=== PATIENT | female | born 1990 | race Caucasian/White ===

== ENCOUNTER 2024-04-21 14:14 | Outpatient (CLI) | payer OTHER, SELFPAY ==
[2024-04-21 15:17] LABS: Free T4 Free Thyroxine 1.13 ng/mL (0.78-2.19)
[2024-04-21 15:31] LABS: Thyroid Stimulating Hormone 0.592 uIU/mL (0.465-4.680)
[2024-04-23 05:38] LABS: Triiodothyronine T3 Free 3.2 pg/mL (2.3-4.2)
== END 2024-04-21 14:15 | disposition home or self-care (01) ==
PROVIDERS: Obstetrics & Gynecology; PCP Student in an Organized Health Care Education/Training Program; Visit Provider Advanced Practice Midwife
DX: O36.80X9 Pregnancy with inconclusive fetal viability, other fetus (principal); Z3A.00 Weeks of gestation of pregnancy not specified
CPT/HCPCS: 36415; 84439; 84443; 84481; 84702; 85461; 86850; 86900; 86901

== ENCOUNTER 2024-04-22 22:52 | Day surgery (SDC) | payer OTHER, SELFPAY ==
--- NOTE | ~2024-04-22 | US_ITS ---
EXAMINATION: US OB <=14 wk fetus w TV DATE: 04/23/2024 07:14 INDICATION: Ectopic versus miscarriage TECHNIQUE: Real-time pelvic ultrasound utilizing both a transvaginal and transabdominal probe was pe rformed. The interpreting radiologist was not present for the study. COMPARISON: None. FINDINGS: The uterus measures 8.5 x 4.0 x 4.2 cm. There is a 2.8 x 1.4 x 1.6 cm complex cystic lesion at the l ower uterine segment which contains small collections of echogenic material the largest measuring up to 11 mm. No evident internal vascular flow on color Doppler. Patient refused further imaging at this point with the ovaries not visualized. There is no free fluid in the pelvis. IMPRESSION: 1. 2.8 cm complex cystic lesion within the endometrial complex at the lower uterine segment without a clearly defined yolk sac, single pole or internal vascular flow on color Doppler which raises concern for failed and in progress. Recommend continued follow-up with serial beta -hCG levels and repeat imaging as clinically indicated. Reviewed, dictated and finalized at location A. IMPRESSION: 1. 2.8 cm complex cystic lesion within the endometrial complex at the lower rodrick rine segment without a clearly defined yolk sac, single pole or internal vascular flow on color Doppler which raises concern for failed and ab ortion in progress. Recommend continued follow-up with serial beta-hCG levels a nd repeat imaging as clinically indicated.
[2024-04-22 22:57] VITALS: BP 125/89; PULSE 87; RESP 14; TEMP 36.7; O2SAT 97
[2024-04-22 23:20] VITALS: BP 120/82; PULSE 68; RESP 14; TEMP 36.8; O2SAT 99
[2024-04-22 23:22] VITALS: BP 120/82; O2SAT 98
--- NOTE | 2024-04-22 23:48 | ED.PREGNANCY ---
HPI - General Chief complaint: Vaginal Bleeding Stated complaint: vaginal bleeding Time Seen by Provider: 04/22/24 23:37 History of Present Illness HPI Narrative: 34-year-old female presenting to the emergency department for vaginal bleeding in ongoing 1st trimester . Patient states that she follows Dr. Carpenter from outpatient OBGYN. Had an ultrasound yesterday and blood work that showed a beta hCG of 2800 and an ultrasound that did not confirm a live IUP. She was instructed to follow-up in 48 hours for repeat beta hCG level. She states for last 2 days she has been having cramping lower abdominal pain coming in waves that got worse so she brought herself to the ER today for evaluation. This cramping pain is associated with blood clot passage and soaking through multiple pads with vaginal bleeding. She states she was previously being seen by Dr. Carpenter for fertility analysis but has not started any kind of therapy for IVF and this was a natural that was planned. Denies any systemic features such as headache, vision changes, nausea, vomiting, abdominal pain, weakness or chills, fever. Was otherwise in her normal state of health. This is her 1st . Related Data Allergies Allergy/AdvReac Type Severity Reaction Status Date / Time No Known Allergies Allergy Verified 04/22/24 22:53 Review of Systems Review of Systems: As reviewed above in HPI Exam Narrative: GENERAL: [Well-appearing, well-nourished, and in no acute distress.] HEAD: [Normocephalic, atraumatic.] EYES: [PERRLA and EOMI.] ENT: Nares clear, no rhinorrhea or epistaxis. Mucous membranes moist. NECK: Supple. CHEST: [Clear to auscultation. No respiratory distress.] HEART: [Regular rate and rhythm]. No murmur heard. [Normal peripheral pulses.] ABDOMEN: [Soft, nondistended], tenderness in the lower quadrants of the abdomen, no flank pain or CVA tenderness., [No rigidity or guarding] EXTREMITIES: Normal range of motion. [No edema.] SKIN: Warm, dry, no rash. NEURO: [No focal deficits]. Alert and oriented [x3.] PSYCH: [Normal mood and affect.] Course Vital Signs Vital signs: Vital Signs Temperature 36.7 C 04/22/24 22:57 Pulse Rate 87 04/22/24 22:57 Respiratory Rate 14 04/22/24 22:57 Blood Pressure 125/89 04/22/24 22:57 Pulse Oximetry 97 04/22/24 22:57 Oxygen Delivery Room Air 04/22/24 22:57 Temperature 36.7 C 04/23/24 05:00 Pulse Rate 81 04/23/24 05:00 Respiratory Rate 12 04/23/24 05:00 Blood Pressure 114/73 04/23/24 05:00 Pulse Oximetry 97 04/23/24 05:00 Oxygen Delivery Room Air 04/22/24 22:57 MDM - OB/Uterine Contractions MDM Narrative Medical decision making narrative: 34-year-old female with ongoing first-trimester current experience vaginal bleeding and cramping for last 2 days. She had an ultrasound yesterday that potentially showed no cardiac activity but ostensibly found in intrauterine but I do not have this data or imaging to refer to. Beta hCG level was 2800 yesterday. She has been passing nickel sized clots for last day or so associated with intermittent pelvic cramping. Vital signs are reassuring without any tachycardia, fever, hypoxia blood pressure concerns. She has some sporadic ongoing bleeding presently but is not soaking through the pads. He appears well not in acute distress, minimal tenderness on examination of the abdomen and pelvis. Differential diagnosis includes ongoing with vaginal bleeding, miscarriage, ectopic less likely. No concerns presently for infection or rupture. Labs ordered including a CBC, CMP, beta hCG level, PT, PTT, immunoglobulin for RhoGAM. An ultrasound of the abdomen pelvis was ordered with transvaginal exam. She was given fluid bolus, morphine and Zofran for symptomatic control. Laboratory studies show a very mild leukocytosis of 10.4, hemoglobin of 12.6. Electrolyte within normal limits, n
[2024-04-22 23:57] LABS: BEDSIDEPREGUCG Positive (Negative)
[2024-04-23] VITALS (13 sets, daily range): BP systolic 107–120; BP diastolic 70–79; PULSE 76–99; RESP 12–16; TEMP 36.4–36.8; O2SAT 96–100
[2024-04-23 00:02] LABS: Basophils Absolute Auto 0.1 K/mm3 (0.0-0.1); Basophils Percent Auto 0.7 % (0.2-1.2); Eosinophils Absolute Auto 0.4 K/mm3 (0-0.3); Eosinophils Percent Auto 4.2 % (0-4.4); Hematocrit 38.1 % (37.0-47.0); Hemoglobin 12.6 g/dL (12.0-15.0); Immature Granulocyte Absolute 0.04 K/mm3 (0.00-0.031); Immature Granulocyte Percent A 0.4 % (0-0.5); Lymphocytes Absolute Auto 2.91 K/mm3 (0.9-3.2); Lymphocytes Percent Auto 28.1 % (18.3-44.2); Mean Corpuscular HGB Conc 33.1 g/dl (32-36); Mean Corpuscular Hemoglobin 30.2 pg (26-34); Mean Corpuscular Volume 91.4 fl (80-100); Mean Platelet Volume 10.2 fl (7.4-10.4); Monocytes Absolute Auto 0.9 K/mm3 (0.1-0.6); Monocytes Percent Auto 8.3 % (2.6-8.5); Neutrophils Percent Auto 58.3 % (45.5-73.1); Platelet Count Result 331 k/mm3 (150-375); Red Blood Count 4.17 M/mm3 (4.2-5.4); Red Cell Distribution Width 12.8 % (11.5-14.5); White Blood Count 10.4 K/mm3 (4.5-10.0)
[2024-04-23] MEDS: MORPHINE SULFATE (*CRX) 4 MG/ML INJ IV PUSH (00:08)
[2024-04-23] MEDS: ONDANSETRON INJ 4 MG/2 ML VIAL IV PUSH (00:08)
[2024-04-23] MEDS: LACTATED RINGERS 1,000 ML 999 ML IV CONT (00:08)
[2024-04-23 00:13] LABS: Alanine Aminotransferase 19 U/L (6-35); Albumin Level 4.5 g/dL (3.5-5.1); Alkaline Phosphatase 64 U/L (38-126); Anion Gap 10 mmol/L (4-12); Aspartate Amino Transferase 29 U/L (14-36); Bilirubin,Total 0.4 mg/dL (0.2-1.3); Blood Urea Nitrogen 14 mg/dL (7-17); Calcium 9.2 mg/dL (8.4-10.2); Carbon Dioxide 26 mmol/L (22-30); Chloride 103 mmol/L (98-107); Estimated Glomerular Filt Rate > 60; Glucose 100 mg/dL (65-110); Potassium 4.4 mmol/L (3.4-5.0); Sodium 139 mmol/L (137-145)
[2024-04-23 00:22] LABS: INR 0.9
[2024-04-23 00:23] LABS: Partial Thromboplastin Time 26.6 Seconds (22.3-36.8)
[2024-04-23] MEDS: KETOROLAC 15 MG/ML VIAL (*BKC) (03:41)
[2024-04-23] MEDS: HYDROmorphone HCL INJ (*CRX) 1 MG/ML SYR (04:15)
--- NOTE | 2024-04-23 08:38 | PM.IMHP ---
H&P: HPI History of Present Illness Date/Time: 04/23/24 08:38 Chief Complaint: Vaginal bleeding Narrative: this patient is a 34-year-old female at approximately 6 weeks gestation who presented the emergency department with heavy vaginal bleeding. She is declining HCGs. She has a incomplete miscarriage. We have agreed to perform suction D&C for the heavy bleeding and to complete the miscarriage. The patient understands the details of the procedure. The procedure has been explained in detail. She understands the risks. She understands that injuries may occur that result in hospitalization, more surgery, and severe illness. She understands risk of hemorrhage and infection. She denies any chest pain or shortness of breath. She denies any nausea, vomiting, fever, chills. Review of Systems Review of Systems: All systems reviewed & are unremarkable except as noted in HPI and below Constitutional: Constitutional: Denies chills, Denies fatigue, Denies fever(s) and Denies weakness Eyes: Eyes: Denies blurry vision, Denies change in vision, Denies loss of peripheral vision, Denies loss of vision, Denies other visual disturbances and Denies eye pain ENT: Denies vertigo, Denies dizziness, Denies hearing loss, Denies mouth pain, Denies nasal obstruction, Denies neck mass and Denies neck pain Cardiovascular: Cardiovascular: Denies chest pain, Denies diaphoresis, Denies syncope, Denies leg edema and Denies dyspnea Respiratory: Respiratory: Denies chest congestion, Denies cough, Denies hemoptysis, Denies dyspnea and Denies wheezing Gastrointestinal: Gastrointestinal: Denies abdominal pain, Denies constipation, Denies diarrhea, Denies nausea and Denies vomiting Genitourinary: Genitourinary: Denies hematuria, Denies change in libido, Denies nocturia, Denies genital lesions, Denies flank pain and Denies urinary urgency Musculoskeletal: Musculoskeletal: Denies abnormal gait, Denies back pain, Denies myalgias, Denies arthralgias, Denies joint swelling, Denies muscle weakness and Denies neck pain Integumentary/Breasts: Skin/Breast: Denies swelling, Denies breast pain, Denies breast mass, Denies dry skin, Denies nipple discharge, Denies unusual bruising and Denies jaundice Neurologic: Denies Neuro-related abnormal movements, Denies Abnormal speech present, Denies abnormal gait, Denies behavioral changes, Denies confusion, Denies vertigo, Denies dizziness, Denies syncope, Denies loss of vision, Denies memory loss, Denies convulsions and Denies weakness Psychiatric: Psychiatric: Denies abnormal sleep pattern, Denies behavioral changes, Denies change in libido, Denies confusion, Denies depression, Denies anhedonia and Denies memory loss Endocrine: Endocrine: Reports no additional endocrine complaints, Denies change in libido and Denies fatigue Hematologic/Lymphatic: Hematologic/Lymphatic: Reports no additional hematologic/lymphatic complaints Allergic/Immunologic: Allergic/Immunologic: Reports no additional allergic/immunologic complaints and Denies wheezing Meds Home Medications and Allergies Allergies Allergy/AdvReac Type Severity Reaction Status Date / Time No Known Allergies Allergy Verified 04/22/24 22:53 Vital Signs Vital Signs - 24 hr 04/22/24 22:57 04/22/24 23:20 04/23/24 00:12 Temperature 98.1 F 98.2 F Pulse Rate 87 68 82 Respiratory Rate 14 14 16 Blood Pressure 125/89 120/82 118/79 Pulse Oximetry 97 99 100 Oxygen Delivery Room Air 04/22/24 23:22 04/23/24 00:20 04/23/24 00:30 Temperature Pulse Rate Respiratory Rate Blood Pressure 120/82 Pulse Oximetry 98 99 100 Oxygen Delivery 04/23/24 00:45 04/23/24 03:00 04/23/24 05:00 Temperature 97.6 F 98.1 F Pulse Rate 76 81 Respiratory Rate 16 12 Blood Pressure 120/78 114/73 Pulse Oximetry 100 97 97 Oxygen Delivery 04/23/24 06:50 04/23/24 08:36 Temperature 97.6 F Pulse Rate 85 89 Respiratory Rate 16 16 Blood Pressure 120/76 110/
--- NOTE | 2024-04-23 08:40 | WPDHPUPDATE1 ---
History and Physical Update Update Date/Time: 04/23/24 08:40 History and Physical has been reviewed, including an updated exam of the patient. There are NO changes in the patient's condition. Risks, benefits, and alternatives have been discussed and questions answered. Patient agrees to proceed with procedure.
[2024-04-23] MEDS: LACTATED RINGERS 1,000 ML 30 ML IV CONT (08:50)
--- NOTE | 2024-04-23 09:00 | WPDANESEPPF ---
Anes - Initial Pre Proc Eval Procedure: Operation Date: 04/23/24 09:00 Proposed Procedures p Suction Dilatation and Curettage - Henry Carpenter MD Date/Time: 04/23/24 09:00 Surgeon: Henry Carpenter MD Pre Op Diagnosis: vaginal bleeding Patient Data Age: 34 Gender: F Height: 1.63 m Weight: 77.3 kg Last Vital Signs Temp 97.6 F 04/23/24 06:50 Pulse 89 04/23/24 08:36 Resp 16 04/23/24 08:36 BP 110/70 04/23/24 08:36 Pulse Ox 98 04/23/24 08:36 O2 Del Method Room Air 04/22/24 22:57 Allergies Allergy/AdvReac Type Severity Reaction Status Date / Time No Known Allergies Allergy Verified 04/22/24 22:53 Laboratory Tests 04/22/24 04/22/24 04/22/24 23:54 23:55 23:56 WBC 10.4 H K/mm3 (4.5-10.0) RBC 4.17 L M/mm3 (4.2-5.4) Hgb 12.6 g/dL (12.0-15.0) Hct 38.1 % (37.0-47.0) MCV 91.4 fl (80-100) MCH 30.2 pg (26-34) MCHC 33.1 g/dl (32-36) RDW 12.8 % (11.5-14.5) Plt Count 331 k/mm3 (150-375) MPV 10.2 fl (7.4-10.4) Immature Gran % (Auto) 0.4 % (0-0.5) Neut % (Auto) 58.3 % (45.5-73.1) Lymph % (Auto) 28.1 % (18.3-44.2) [place] % (Auto) 8.3 % (2.6-8.5) Eos % (Auto) 4.2 % (0-4.4) Baso % (Auto) 0.7 % (0.2-1.2) Lymph # (Auto) 2.91 K/mm3 (0.9-3.2) [place] # (Auto) 0.9 H K/mm3 (0.1-0.6) Eos # (Auto) 0.4 H K/mm3 (0-0.3) Baso # (Auto) 0.1 K/mm3 (0.0-0.1) Abs Immat Gran (auto) 0.04 H K/mm3 (0.00-0.031) Absolute Neuts (auto) 6.0 K/mm3 (1.3-6.7) Absolute Nucleated RBC 0.000 K/mm3 (0.0-0.012) Nucleated RBC % 0.0 % (0.0-0.2) PT 13.0 Seconds (11.1-14.7) INR 0.9 APTT 26.6 Seconds (22.3-36.8) Sodium 139 mmol/L (137-145) Potassium 4.4 mmol/L (3.4-5.0) Chloride 103 mmol/L (98-107) Carbon Dioxide 26 mmol/L (22-30) Anion Gap 10 mmol/L (4-12) BUN 14 mg/dL (7-17) Creatinine 0.60 L mg/dL (0.7-1.0) Estim Creat Clear Calc Not Reportable Estimated GFR > 60 (59 - ) Glucose 100 mg/dL (65-110) Calcium 9.2 mg/dL (8.4-10.2) Total Bilirubin 0.4 mg/dL (0.2-1.3) AST 29 U/L (14-36) ALT 19 U/L (6-35) Alkaline Phosphatase 64 U/L (38-126) Total Protein 8.0 g/dL (6.3-8.2) Albumin 4.5 g/dL (3.5-5.1) Beta HCG, Quant 2028.10 mIU/ML POC Urine HCG, Qual Positive (Negative) Blood Type O Positive Antibody Screen Negative Screen Not Reportable Baby's Blood Type Not Reportable Baby's NICOLE Not Reportable Doses of RhIg Required 0 Patient hx anesthesia problems: none Family hx anesthesia problems: none Results Review: All pre-operative results and documents have been reviewed as part of the pre-operative evaluation. Anes - Eval Final PreProcedure Day of Procedure 04/23/24 09:00 Patient weight: normal Heart: regular rate and rhythm Lungs: clear to auscultation Airway: Mallampati scale class II Neurological: alert and oriented Last oral intake: >/= 8 hours ASA classification: II Emergent: yes Anesthetic plan: proceed Anesthesia type and monitoring: general LMA and standard monitoring Results Review: All pre-operative results and documents have been reviewed as part of the pre-operative evaluation. Ex smoker, quit 2019. 6 weeks w missed ab. Otherwise in good health. Informed Consent: The patient's anesthetic plan and its attendant risks and benefits were discussed with the patient/family/POA. Questions were solicited and answers provided to the satisfaction of the patient/family/POA.
[2024-04-23] MEDS: TRANEXAMIC ACID 1,000 MG/10 ML AMPUL 1000 MG IV PUSH (09:24)
[2024-04-23] MEDS: miSOPROStol 200 MCG TABLET 1000 MCG RECTAL (09:30)
--- NOTE | 2024-04-23 09:35 | P.OP_ITS ---
Procedure Note - Detailed Date of Procedure 04/23/24 Pre-op Diagnosis vaginal bleeding Post-op Diagnosis Same Procedure Performed Suction D&C Surgeon Henry Carpenter MD Anesthesia MAC Indications missed Findings normal-appearing vulva vagina and cervix to. Moderate amount of products conception within the uterus. 8 cm uterus Description of Procedure the patient was taken the operating room. She was prepped and draped in dorsal lithotomy position after induction of mac anesthesia. A speculum was placed in the vagina. Cervix grasped with tenaculum. The cervix was dilated to about 1 cm Using Avina dilators. A 8. Turkish curved curette was used to perform suction D&C. The curette was introduced and vacuum was applied. The curette was removed over all surfaces of the intrauterine cavity multiple times. This was done until all the surfaces were clear and had the familiar grainy texture they can be felt through the instrument. A sharp curette was then used to curettage all the surfaces. The suction cup was then reapplied 1 more time to remove any debris. The instruments were removed. The speculum and tenaculum were removed. The patient tolerated the procedure well. She was taken recovery room stable condition. Losing, very late, at the end of the procedure. She was given Cytotec and TXA. Estimated Blood Loss 50 Drains No Packing No Pathology Yes Complications No immediate complications Condition Stable Disposition PACU
[2024-04-23] MEDS: oxyCODONE HCL (*CRX) 5 MG TAB IR PO (10:37)
== END 2024-04-23 11:05 | disposition home or self-care (01) ==
LOC: ANHED 04-23 08:26 → ANHSURGERY 04-23 08:36
PROVIDERS: Emergency Provider Student in an Organized Health Care Education/Training Program; PCP Student in an Organized Health Care Education/Training Program; Visit Provider Obstetrics & Gynecology
PROC: (CPT 59812; principal; 2024-04-23 09:00)
DX: O03.9 Complete or unspecified spontaneous abortion without complication (principal)
CPT/HCPCS: 59812; 36415; 76801; 76817; 80053; 81025; 84702; 85025; 85461; 85610; 85730; 86850; 86900; 86901; 88305; 96361; 96374; 96375; 99285; A9270; J1100; J1170; J1885; J2250; J2270; J2405; J2704; J3010; J7120

== ENCOUNTER 2024-07-16 11:58 | Outpatient (CLI) | payer OTHER, SELFPAY ==
--- NOTE | ~2024-07-16 | US_ITS ---
Thyroid ultrasound. Clinical History: Abnormal TSH Findings: Real-time sonography of the thyroid gland was performed. The right lobe measures 5.7 x 1.5 x 1.9 cm. The left lobe measures 5.7 x 1.3 x 2.0 cm. The isthmus is 3 mm in AP diameter. Thyroid par enchyma is homogeneous. No thyroid nodule seen. Impression: No thyroid nodule. Correlate with thyroid function tests. Consider nuclear medicine thyroid uptake sc an as indicated.. Reviewed, dictated and finalized at location . [facility] Impression: No thyroid nodule. Correlate with thyroid function tests. Consider nuclear medi cine thyroid uptake scan as indicated..
== END 2024-07-16 11:59 | disposition home or self-care (01) ==
LOC: MICIMG 12:01
PROVIDERS: PCP Student in an Organized Health Care Education/Training Program
DX: R79.89 Other specified abnormal findings of blood chemistry (principal)
CPT/HCPCS: 76536

== ENCOUNTER 2024-09-07 08:23 | Outpatient (CLI) | payer OTHER, SELFPAY ==
[2024-09-07 08:53] LABS: Basophils Absolute Auto 0.1 K/mm3 (0.0-0.1); Basophils Percent Auto 0.8 % (0.2-1.2); Eosinophils Absolute Auto 0.1 K/mm3 (0-0.3); Eosinophils Percent Auto 2.2 % (0-4.4); Hematocrit 39.6 % (37.0-47.0); Immature Granulocyte Absolute 0.02 K/mm3 (0.00-0.031); Immature Granulocyte Percent A 0.3 % (0-0.5); Lymphocytes Absolute Auto 2.06 K/mm3 (0.9-3.2); Lymphocytes Percent Auto 34.6 % (18.3-44.2); Mean Corpuscular HGB Conc 32.8 g/dl (32-36); Mean Corpuscular Hemoglobin 29.6 pg (26-34); Mean Corpuscular Volume 90.2 fl (80-100); Mean Platelet Volume 10.3 fl (7.4-10.4); Monocytes Absolute Auto 0.5 K/mm3 (0.1-0.6); Monocytes Percent Auto 7.7 % (2.6-8.5); Neutrophils Absolute Auto 3.2 K/mm3 (1.3-6.7); Neutrophils Percent Auto 54.4 % (45.5-73.1); Platelet Count Result 284 k/mm3 (150-375); Red Blood Count 4.39 M/mm3 (4.2-5.4); Red Cell Distribution Width 12.8 % (11.5-14.5)
--- OUTSIDE RECORDS SUMMARY | 2024-09-07 08:53 | XMS_ITS | Data Portability ---
Author Organization [facility] [place] Address [address] [place] [address] Care Team Providers Care Rock Picker Name Role Phone MEAGHAN JEFF Primary Care Provider Assessment No assessment recorded. Plan of Treatment Reminders Order Date Submit Date Provider Last Modified By Organization Details Last Modified Time Details Appointments None recorded. Lab test, urine 2023 024 [email or web address] [place], [address], [place], [address], 4 16:03:13 test, urine 2023 024 [email or web address] [place], [address], [place], [address], 4 18:22:25 Referral None recorded. Procedures None recorded. Surgeries None recorded. Imaging XR, hysterosalp ingogram [address] [facility], [address], [place], [address], 5 10:28:28 US, obstetric, transvagina l 2023 024 [place], [address], [place], [address], 4 12:53:52 Medication Orders None recorded. Patient TargetsNo targets recorded. Patient InstructionsNo instructions recorded. Reason for Referral None Reported. Results Created Date Observation Date Name Description Value Unit Range Abnormal Flag Note LastModifiedBy Organization Detail LastModifiedTime 02/27/20 24 02/27/2024 DHEA SULFA TE DHEA-sulfate 172 ug/dL Femal e Range s Age(y ) Range (ug/d L) 10-15 34-28 0 15-20 65-36 8 20-25 148-4 07 25-35 99-34 0 35-45 61-33 7 45-55 35-25 6 55-65 19-20 5 65-75 9-246 > 75 12-15 4 Not Available [facility] (Lab) [address], [place], [address], 03/11/2024 16:55:20 02/27/20 24 02/27/2024 ESTRA DIOL estradiol 50.2 pg/mL This assay was perfo rmed using [employer] ratio n reage nts and test kits. Value s obtai sandra with other assay metho ds or kits canno t be used inter [facility] [facility] . Femal e Estra diol Range s: Folli cular phasE 12.4- 233 pg/mL Ovula tion phasE 41.0- 398 pg/mL Lutea l phasE 22.3- 341 pg/mL Postm enopa usal <5-13 8 pg/mL Healt hy Pregn ant Women 1st [place] 154-3 243 pg/mL 2nd [place] 1561- 72374 pg/mL 3rd [place] 8525- >3000 0 pg/mL Not Available [facility] (Lab) [address] [facility], [place], [address], 03/11/2024 16:55:20 02/27/20 24 02/27/2024 PROGE STERO NE progesterone 0.23 NG/mL This assay was perfo rmed using [employer] reage nts and test kits. Value s obtai sandra with other assay metho ds or kits canno t be used inter [facility] e[facility] . Femal e Proge stero ne Range s: Folli cular phasE 0.06- 0.89 ng/mL Ovula tion phasE 0.12- 12.00 ng/mL Lutea l phasE 1.83- 23.90 ng/mL Postm enopa usal <0.05 -0.13 ng/mL Healt hy Pregn ant Women 1st [place] 11.0- 44.30 2nd [place]ime [place] 25.40 -83.3 0 3rd Trime [place] 58.70 -214. 00 Not Available [facility] (Lab) [address] [facility], [place], [address], 03/11/2024 16:55:21 02/27/20 24 02/27/2024 PROLA CTIN prolactin, total 18.50 NG/mL 4.79-2 3.30 This assay was perfo rmed using [employer] reage nts and test kits. Value s obtai sandra with other assay metho ds or kits canno t be used inter [place] eably . Not Available [facility] (Lab) [address] [facility], [place], [address], 03/11/2024 16:55:21 02/27/20 24 02/27/2024 T4 FREE T4, free 1.09 NG/dL 0.60-1 .40 This assay is susce ptibl e to inter feren ce from high level s of bioti n which may false ly eleva te resul ts. Plejos e corre late with clini radames findi ngs. Not Available [facility] (Lab) [address] [facility], [place], [address], 03/11/2024 16:55:22 02/27/20 24 02/27/2024 TSH, REFLE X FREE T4 TSH 0.27 uIU/m L 0.30-5 .33 low Not Available [facility] (Lab) [address] [place], [address], 03/11/2024 16:55:22 02/27/20 24 02/27/2024 LH (LUTE NIZIN G HORMO NE) LH 10.7 mIU/m L This assay was perfo rmed using [employer] reage nts and test kits. Value s obtai sandra with other assay metho ds or kits canno t be used inter [facility] . Femal es Mid-F ollic ular: 2.4-1 2.6 mIU/m L Mid-C ycle: 14.0- 95.6 mIU/m L Mid-L uteal : 1.0-1 1.4 mIU/m L Postm enopa use: 7.7-5 8.5 mIU/m L Not Available [facility] (Lab) [address] [facility], [place], [address], 03/11/2024 16:55:22 02/27/20 24 02/27/2024 FSH FSH 7.8 mIU/m L This assay was perfo rmed using [employer] reage nts and test kits. Value s obtai sandra with other assay metho ds or kits canno t be used inter [facility] . Femal es Folli cular : 3.5-1 2.5 mIU/m L Ovula tion: 4.7-2 1.5 mIU/m L Lutea l: 1.7-7 .7 mIU/m L Postm enopa use: 25.8- 134.8 mIU/m L Not Available [facility] (Lab) [address] [facility], [place], [address], 03/11/2024 16:55:23 02/27/20 24 02/27/2024 HUMAN SEX HORMO NE HILDA NG GLOBU ELSA sex hormone binding globulin 78.8 nmole s/L 18.2-1 35.5 Not Available [facility] (Lab) [address] [facility], [place], [address], 03/11/2024 16:55:23 02/27/20 24 02/27/2024 HEMOG LOBIN A1C hemoglobin A1C 5.5 % 0-5.6 The Ameri can Diabe [place] Ass[employer] iatio n recom mends that a prima ry goal of xavier jackson be a HBA1C of < 7% and that physi jamaal jackson reeva luate the treat ment regim en in patie nts with HBA1C value s consi stent ly > 8%. <5.7% Yenifer l 5.7 - 6.4% Incre ased risk for diabe getachew >=6.5 % Diagn ostic of diabe getachew <7.0% Goal of thera py >8.0% Actio n sugge sted Not Available [facility] (Lab) [address] [facility], [place], [address], 03/11/2024 16:55:24 02/27/20 24 02/27/2024 17-HY DROXY PROGE STERO NE, SERUM 17-hydroxypr ogesterone, S 56 NG/dL ----- ----- ----- ----R EFERE NCE VALUE ----- ----- ----- ----- ----- - < 80 (Foll icula r) <285 (Lute al) ----- ----- ----- ----A DDITI ONAL INFOR MATIO N---- ----- ----- ----- This test was dereje wright and its perfo rmanc e allen monacori stics deter mined by [facility] in a chad r consi stent with CLIA roman wong ts. This test has not been clear ed or appro viri by the U.S. Food and Drug Admin istra tion. Test Perfo rmed by: [facility] - [place] [address], [place] [address] Lab Direc tor: Ada Adair nn Ph.D. ; CLIA# [id number] Not Available [facility] (Lab) [address] [facility], [place], [address], 03/11/2024 16:55:24 02/27/20 24 02/27/2024 TESTO STERO NE, TOTAL AND FREE, SERUM (LC-M S/MS) testosterone free 0.80 NG/dL <0.13- 1.00 ----- ----- ----- ----A DDITI ONAL INFOR MATIO N---- ----- ----- ----- This test was devel oped and its perfo rmanc e allen cteri stics deter mined by [facility] in a chad r consi stent with CLIA requi remen ts. This test has not been clear ed or appro viri by the U.S. Food and Drug Admin istra tion. Not Available [facility] (Lab) [address] [facility], [place], [address], 03/11/2024 16:55:25 02/27/2002/27/2024 TESTO STERO NE, TOTAL AND FREE, SERUM (LC-M S/MS) testosterone , total, S 48 NG/dL 8-60 ----- ----- ----- ----A DDITI ONAL INFOR MATIO N---- ----- ----- ----- Testi ng perfo rmed by Liqui manuel Chrom atogr aphy- Tande m Mass Spect romet ry (LC-M S/MS) . This test was devel oped and its perfo rmanc e allen cteri stics deter mined by [facility] in a chad r consi stent with CLIA requi remen ts. This test has not been clear ed or appro viri by the U.S. Food and Drug Admin istra tion. Test Perfo rmed by: [facility] - [place] [address] , [place] [address] Lab Direc tor: Ada Adair nn Ph.D. ; CLIA# [id number] Not Available [facility] (Lab) [address] [facility], [place], [address], 03/11/2024 16:55:25 02/27/20 24 02/27/2024 pregn annabelle test, urine HCG negati ve Not Available [place] [address], [place], [address], 02/27/2024 16:02:53 03/26/20 24 03/26/2024 TSH, REFLE X FREE T4 TSH 0.47 uIU/m L 0.30-5 .33 Not Available [facility] (Lab) [address], [place], [address], 03/27/2024 07:08:35 04/29/20 24 04/29/2024 pregn annabelle test, urine HCG negati ve Not Available [place] [address], [place], [address], 04/29/2024 18:12:16 04/21/20 24 04/21/2024 US, obste tric, trans vagin al No observ ation record ed. [email or web address] [place] [address], [place], [address], 04/21/2024 18:16:21 04/21/20 24 04/21/2024 US, obste tric, trans vagin al No observ ation record ed. [email or web address] [address], [place], [address], 04/22/2024 11:52:58 Result Notes None recorded. Problems Name Problem SNOMED Code Status Onset Date Resolution Date Notes Provider Name and Address Organization Details Recorded Time SNOMED CT Concept Completed 201408/10/2021 Encntr for eyeletter exam (general) (routine) w/o abn findings; Recorded Elsewhere : No Locati on: [facility] So urce: EHR Chron ic: N Practic e ID: [id number] Bill able Time: 11:00:00 AM Ashley no [place] - [facility] 13:05:31 Atypical squamous cells on cervical Papanico laou smear cannot exclude high grade squamous intraepi thelial lesion [id number] Completed 201808/10/2021 Atyp squam cell not excl hi grd intrepith lesn cyto smr crvx;Daniele rded Elsewhere : No Locati on: [facility] So urce: EHR Chron ic: N Practic e ID: 0001 Bill able Time: 10:15:00 AM Ashley Pisano [facility] 2 12:46:50 Atypical squamous cells of undeterm ined signific ance on cervical Papanico laou smear [id number] Completed 201808/10/2021 Atyp squam cell of undet signfc cyto smr crvx (ASC-US); Recorded Elsewhere : No Locati on: [facility] So urce: EHR Chron ic: N Practic e ID: 0001 Bill able Time: 10:15:00 AM [facility] 2 12:46:49 Speciali zed medical examinat ion Completed 201308/10/2021 Gynecolog ical Examinati on;Record ed Elsewhere : No Locati on: [facility] So urce: EHR Chron ic: N Practic e ID: 0001 Bill able Time: 02:15:00 PM [facility] 2 13:05:33 Urinary tract infectio us disease [id number] Completed 201708/10/2021 UTI;Recor ded Elsewhere : No Locati on: [facility] So urce: EHR Chron ic: N Practic e ID: 0001 Bill able Time: 05:30:00 PM [facility] 2 13:05:35 Pregnanc y test negative [id number] Completed 201808/10/2021 Encounter for test, result negative; Recorded Elsewhere : No Locati on: [facility] So urce: EHR Chron ic: N Practic e ID: [id number] Bill able Time: 10:15:00 AM Ashley Pisano [facility] [address] 12:46:[address] Concept Completed 201408/10/2021 Encntr for general adult medical exam w/o abnormal findings; Recorded Elsewhere : No Locati on: [facility] So urce: EHR Chron ic: N Practic e ID: [id number] Bill able Time: 11:00:00 AM Ashley no [facility] 2 13:05:29 Blood leukocyt e number above referenc e range [id number] Completed 201608/10/2021 Elevated white blood cell count, unspecifi ed;Record ed Elsewhere : No Locati on: [facility] So urce: EHR Chron ic: N Practic e ID: [id number] Bill able Time: 05:45:00 PM Ashley Pisano [facility] 2 12:46:52 Screenin g for malignan t neoplasm of cervix Completed 201308/10/2021 Pap Smear;Pra ctice ID: [id number] Ashley [facility] 2 14:15:02 Acute vaginiti s [id number] Completed 201608/10/2021 Acute vaginitis ;Practice ID: [id number] [facility] 2 12:46:47 Problem Notes None recorded. Procedures Surgical History Date Name Laterality Status Provider Name and Address Organization Details Recorded Time 08/26/19 24 Date of Last Pap Smear completed Karley Arias [facility] 02/27/2024 15:51:07 02/27/20 21 endoscopy completed Renae Rodríguez [facility] [address], [place], [address], [place] [facility] 08/10/2021 14:44:28 02/03/20 19 Colposcopy completed Ashley Pisano [facility] 08/10/2021 14:39:04 Imaging Results Imaging Date Name Status LastModified by Organization Details LastModified Time 04/21/2024 US, obstetric, transvaginal completed [email or web address] [place] [address], [place], [address], 04/21/2024 18:16:21 04/21/2024 US, obstetric, transvaginal completed [email or web address] [address], [place], [address], 04/22/2024 11:52:58 Procedure Notes None recorded. Medical Equipment None Reported. Allergies No known drug allergies Medications Name Sig Start Date Stop Date Status Note LastModified by Organization Details LastModified Time Diflucan 150 mg tablet take 1 tablet by oral route every other week. 02/02 completed Prescrib ed Elsewher e: No Locat ion: [facility] odify By: sony z Encoun ter DateTime : 01/19/20 19 02:30:00 PM Not Available Not Available Not Available sulfameth oxazole 800 mg-trimet hoprim 160 mg tablet take 1 tablet by oral route every 12 hours 02/02 completed Prescrib ed Elsewher e: No Locat ion: [facility] odify By: sony z Encoun ter DateTime : 12/24/19 18 05:30:00 PM Not Available Not Available Not Available triamcino lone acetonide 0.1 % topical cream APPLY TOPICALL Y TWICE A DAY 04/21 completed Not Available Not Available Not Available Flagyl 500 mg tablet Take 1 tablet every 12 hours by oral route for 7 days. 08/10 completed Not Available Not Available Not Available pantopraz ole 40 mg tablet,de layed release TAKE 1 TABLET BY MOUTH EVERY DAY 04/29 completed Not Available Not Available Not Available hydrocort isone 2.5 % topical cream APPLY TOPICALL Y TWICE A DAY 04/21 completed Not Available Not Available Not Available Sprintec (28) 0.25 mg-35 mcg tablet TAKE 1 TABLET BY ORAL ROUTE EVERY DAY 01/18 completed Prescrib ed Elsewher e: No Locat ion: [facility] odify By: [email or web address] Shannon marquez DateTime : 07/10/20 15 04:37:55 PM Not Available Not Available Not Available Nortrel (28) 0.5 mg/0.75 mg/1 mg-35 mcg tablet TAKE 1 TABLET BY MOUTH EVERY DAY 02/26 completed Not Available Not Available Not Available sodium,po tassium,m ag sulfates 17.5 gram-3.13 gram-1.6 gram oral soln TAKE 177ML BY MOUTH EVERY 12 HOURS FOR 1 DAY TAKE DIRECTED IN THE INSTRUCT IONS 02/26 completed Not Available Not Available Not Available ID NOW COVID-19 Test Kit TEST DIRECTED 08/10 completed Not Available Not Available Not Available COVID-19 At-Home Test kit FOLLOW INSTRUCT IONS INCLUDED WITH THE PACKAGE. 08/26 completed Not Available Not Available Not Available Vitals Date Recorded Body height Body mass index (BMI) Body weight Systolic blood pressure Diastolic blood pressure Provider Name and Address Organization Details Last Updated DateTime 02/27/2024 160.02 cm 30.6 kg/m2 00246.48 g 114 mm[Hg] 78 mm[Hg] Karley [facility] 4 15:50:21 Date Recorded Body height Body mass index (BMI) Body weight Systolic blood pressure Diastolic blood pressure Provider Name and Address Organization Details Last Updated DateTime 03/16/2024 160.02 cm 31.4 kg/m2 56569.85 g 124 mm[Hg] 83 mm[Hg] Karley [facility] 4 12:37:53 Date Recorded Body height Body mass index (BMI) Body weight Systolic blood pressure Diastolic blood pressure Provider Name and Address Organization Details Last Updated DateTime 04/21/2024 160.02 cm 30.6 kg/m2 72160.48 g 123 mm[Hg] 78 mm[Hg] Florence Green [facility] 4 14:41:35 Date Recorded Body height Body mass index (BMI) Body weight Systolic blood pressure Diastolic blood pressure Provider Name and Address Organization Details Last Updated DateTime 04/29/2024 160.02 cm 30.4 kg/m2 84518.73 g 116 mm[Hg] 75 mm[Hg] Tere Castanon [facility] 17:15:24 Social History Question Answer Notes LastModified by Organizat ion Details LastModified Time Tobacco Smoking Status Never Smoker Ashley Pisano marybel [facility] 08/10/2021 14:35:15 Do You Have An Advance Directive? No Information n ot available 08/10/2021 What Is Your Level Of Alcohol Consumption? Occasional Information not available 08/10/2021 How Many Years Have You Consumed Alcohol? 13 Information not available 08/10/2021 Are You Blind Or Do You Have Difficulty Seeing? No Information n ot available 08/10/2021 What Is Your Level Of Caffeine Consumption? Moderate Information not available 08/10/2021 How Much Tobacco Do You Chew? None Information not available 08/10/2021 In The 14 Days Before Symptom Onset, Have You Had Close Contact With A Laboratory-confirm ed COVID-19 While That Case Was Ill? No Information n ot available 08/10/2021 In The 14 Days Before Symptom Onset, Have You Had Close Contact With A Person Who Is Under Investigation For COVID-19 While That Person Was Ill? No Information not available 08/10/2021 Have You Been To An Area Known To Be High Risk For COVID-19? No Information not available 08/10/2021 Are You Deaf Or Do You Have Serious Difficulty Hearing? No Information not available 08/10/2021 What Type Of Diet Are You Following? REGULAR Information n ot available 08/10/2021 What Is The Highest Grade Or Level Of School You Have Completed Or The Highest Degree You Have Received? 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 No Information not available 08/10/2021 Do You Use Protection During Sex? Usually Information not available 08/10/2021 Do You Use Your Seat Belt Or Car Seat Routinely? Yes Information not available 08/10/2021 Do You Have Smoke And Carbon Monoxide Detectors In Your Home? Yes Information not available 08/10/2021 At What Age Did You Start Smoking Tobacco? 18 Information not available 03/16/2024 How Much Tobacco Do You Smoke? No Information not available 08/10/2021 Do You Feel Stressed (tense, Restless, Nervous, Or Anxious, Or Unable To Sleep At Night)? [id number] Information not available 08/10/2021 Do You Use Any Illicit Or Recreational Drugs? No Information not available 08/10/2021 Do You Use Sunscreen Routinely? Yes Information not available 08/10/2021 How Many Years Have You Smoked Tobacco? 11 Information not available 03/16/2024 Have You Used IV Drugs? No Information not available 08/10/2021 Sex: Unknown Functional Status Question Answer Note LastModified by Organizat ion Details LastModified Time Do you have difficulty walking or climbing stairs? No [email or web address] Information not available 04/21/2024 Are you able to walk? YESWOREST Information not available 08/10/2021 Are you able to care for yourself? Yes Information not available 04/21/2024 Do you have difficulty dressing or bathing? No [email or web address] Information not available 04/21/2024 What is your exercise level? Moderate Information not available 08/10/2021 Mental Status None recorded. Family History Relationship Description Onset Age of this Age Resolved Age Notes LastModified by Organization Details LastModified Time Mother Diabetes mellitus [email or web address] Not available 2019 11:46:26 Paternal Grandmother Diabetes mellitus [email or web address] Not available 2019 11:46:26 Paternal Grandmother Carcinoma in situ of lung [email or web address] Not available 12:19:04 Paternal Aunt Carcinoma in situ of breast [email or web address] Not available 2023 12:19:04 Medical History Condition Response Other Y Eczema Y GI Problems Y Gynecological History Statement/Question Response Date of Last Mammogram Flow Light Date of LMP 02/16/2024 N Was last menstrual period normal N STIs/STDs Y Date of Last Colonoscopy BCPs Desired Control Method Seeking Pre gnancy Abnormal Pap Y HPV Vaccine Y Colposcopy 02/02/2019 Duration of Flow (days) 4 Current Control Method Seeking Pre gnancy Are cycles usually normal Y Frequency of Cycle (Q days) 30 Sexually Active? Y Menses Monthly Y Date of DEXA bone scan Age of first menstrual cycle 13 Date of Last Pap Smear 08/26/2023 Sexual Problems? N LMP Definite N Obstetrics History GPAL:G 1 P 0 0 1 0 Type Value Spontaneous 1 Living 0 Total 1 Past Encounters Encounter ID Performer Location Encounter Start Date Encounter Closed Date Diagnosis/Indication Diagnosis SNOMED-CT Code Diagnosis ICD10 Code Diagnosis Note [id number] [facility] [address] [address] 05/08/2020 11:45:17 05/08/2020 17:52:43 Gynecologic examination [id number] Z01.419 Take Calcium with Vitamin D 1200mg daily if not receiving in daily diet. It is strongly advised to have an annual flu shot and up can obtain at most pharmacies . If you have not had a TDap shot in the last 10 years you should obtain one as well. Discussed with patient & provided with informatio n regarding Gardisil vaccine to prevent the 4 strains for HPV that cause cervical cancer if under age 26. Encourage safe sexual practices, to use condoms and limit partners if not already in a monogamous relationsh ip. Do monthly self breast exams. Have mammogram yearly or every other year depending on family history. BRCA testing is now available for patients with strong genetic history of female cancer. If interested contact the office. Engage in daily exercise of low impact aerobic exercise 45-60 minutes 4-5 times weekly. Avoid tobacco and illicit drugs as well as using moderation with alcohol intake less than 1-2 8 oz beverages daily. This lifestyle behavior pattern will lead to less health conditions and longer life span. If BMI greater than 25 weight watchers or dietary consult advised. Patient received above instructio ns, and questions have been answered. If you have any questions please call or respond to this email. Patient was made aware of the patient portal and may obtain a paper copy of today's plan if desired. No issues or complaints this year. HAPPY on current OCP 2019-Pap/h pv ASCUS w/ +HPV Colpo 2019 consistent with pap results Pap/hpv ordered [id number] [facility] [address] [address] 08/10/2021 14:21:36 08/10/2021 15:18:57 Gynecologic examination 05964418 Z01.419 Take Calcium with Vitamin D 1200mg daily if not receiving in daily diet. It is strongly advised to have an annual flu shot and up can obtain at most pharmacies . If you have not had a TDap shot in the last 10 years you should obtain one as well. Discussed with patient & provided with informatio n regarding Gardisil vaccine to prevent the 4 strains for HPV that cause cervical cancer if under age 26. Encourage safe sexual practices, to use condoms and limit partners if not already in a monogamous relationsh ip. Do monthly self breast exams. Have mammogram yearly or every other year depending on family history. BRCA testing is now available for patients with strong genetic history of female cancer. If interested contact the office. Engage in daily exercise of low impact aerobic exercise 45-60 minutes 4-5 times weekly. Avoid tobacco and illicit drugs as well as using moderation with alcohol intake less than 1-2 8 oz beverages daily. This lifestyle behavior pattern will lead to less health conditions and longer life span. If BMI greater than 25 weight watchers or dietary consult advised. Patient received above instructio ns, and questions have been answered. If you have any questions please call or respond to this email. Patient was made aware of the patient portal and may obtain a paper copy of today's plan if desired. No issues or complaints this year. HAPPY on current OCP 2019-Pap/h pv ASCUS w/ +HPVPap/hp v 2020 wnl Pap[facility] discussed STD screen declined Newly Engaged this year! Waiting to set the date. [facility] ion care management [id number] Z30.9 Happy on OCPRF sent x 1 [id number] ARISTEO [facility] [address] [address] 08/26/2023 09:00:06 08/26/2023 09:31:11 Gynecologic examination [id number] Z01.419 Z11.51 Take Calcium with Vitamin D 1200mg daily if not receiving in daily diet. It is strongly advised to have an annual flu shot and up can obtain at most pharmacies . If you have not had a TDap shot in the last 10 years you should obtain one as well. Discussed with patient & provided with informatio n regarding Gardisil vaccine to prevent the 4 strains for HPV that cause cervical cancer if under age 26. Encourage safe sexual practices, to use condoms and limit partners if not already in a monogamous relationsh ip. Do monthly self breast exams. Have mammogram yearly or every other year depending on family history. BRCA testing is now available for patients with strong genetic history of female cancer. If interested contact the office. Engage in daily exercise of low impact aerobic exercise 45-60 minutes 4-5 times weekly. Avoid tobacco and illicit drugs as well as using moderation with alcohol intake less than 1-2 8 oz beverages daily. This lifestyle behavior pattern will lead to less health conditions and longer life span. If BMI greater than 25 weight watchers or dietary consult advised. Patient received above instructio ns, and questions have been answered. If you have any questions please call or respond to this email. Patient was made aware of the patient portal and may obtain a paper copy of today's plan if desired. Pap/hpv sentSTD Screen declinedGe netic Screen discussedC olon Screen naDexa Screen naRoutine Labs PCPRec PNV with folic acid [id number] Henry Carpenter MD [place] [address] [address] 02/27/2024 15:17:26 03/04/2024 23:33:34 Irregular periods [id number] N92.6 Reproducti ve care management [id number] Z31.9 - Differenti al diagnosis of cause of infertilit y includes: Unexplaine d- We discussed the potential causes of infertilit y and rationale behind testing. We also discussed her reproducti ve potential in the context of her age as well as the risk of aneuploidy .- We discussed her reproducti ve potential in the context of her BMI which is . We reviewed that given her BMI >25 her natural fertility could be improved by even just a 5% wt loss.- The patient is asked to complete the following diagnostic work up to include:-- CD3: FSH, estradiol, & AFC-- TSH, A1C, Vitamin D, PRL, LH, 17OHP, AMH, and labs including varicella status-- HSG which is to be scheduled on CD 6-10-- Transvagin al ultrasound with SIS for endometria l cavity assessment , AFC and repeat for dominant follicle- The patient was asked to have her collect a semen analysis.* - Discussed the fertile time of the cycle and options for tracking ovulation, including ovulation predictor kits and basal body temperatur e.-- Discussed timed intercours e every other day starting on Day 6 of period through to the next period.-- Discussed using LH surge kits, usually accurate and would recommend intercours e that day and the next day, then can wait until next cycle.-- Discussed ovulation induction would be considered only after behavioral interventi ons were implemente d and after partner completes semen analysis.- Following the return of these test results she is asked to return to the office for further discussion of reproducti ve planning and treatment options- She will call the office on CD 1 so that her HSG and lab work can be scheduled laxmi Richard spent over 30 minutes on the patient's care. [id number] Henry Carpenter MD [place] [address] [address] 03/16/2024 12:18:54 03/17/2024 09:58:00 Female infertility [id number] N97.9 Presents today for discussion of infertilit y. She and her partner have been actively been trying to conceive *12* months. They have used the following methods to help conceive: * Timing intercours e, tracking menses* The patient reports she has irregular menstrual periods. She denies a history of extremely painful periods. she does have premenstru al symptoms intermitte ntly. She thinks she may cycle around 34 days. She has no previous pregnancie s we discussed evaluation of infertilit y. Talked about hysterosal pingogram in detail. Discussed the timing, technical aspects, pain Of hysterosal pingograms . Discussed laboratory evaluation infertilit y. Spent over 30 minutes on her care. We agreed to proceed with hysterosal pingogram. [id number] Anni Pisano [place] [address] [address] 04/21/2024 14:12:24 04/21/2024 15:02:43 Threatened miscarriage [id number] O20.0 O36.80X0 Z3A.00 [id number] Valerie Danielle CNM [place] [address] [address] 04/21/2024 14:13:18 04/21/2024 15:59:49 Long menstrual cycle [id number] N92.5 missed ab, vs early pregnancyp brandyn HCG and then rpt in 48 hoursblood type drawncall if any concerns or increase in bleeding, will plan f/u next week pending resultscon tinue vitamin Hyperthyroidism [id number] E05.90 rpt tsh free t4 and t3 today [id number] Henry Carpenter MD [place] [address] [address] 04/29/2024 17:07:06 04/30/2024 09:37:31 Missed miscarriage [id number] O02.1 this patient presents for postop follow-up. She is 1 week postop from a suction D&C. She is recovering normally. Her bleeding is minimal. She has no foul-smell ing vaginal discharge. She denies any nausea, vomiting, fever, chills. We discussed contracept ion. We discussed future . She will follow up for a repeat test. has a negative test today. I spent over 30 minutes on the patient's care. We discussed her at length her experience in the emergency department , her treatment in the hospital. Her discussion s with people in our office. Her evaluation and management . We discussed future . Fertility. Miscarriag e rates. And on and on. Health Concerns Section Related Observation LastModified by Organization Detai ls LastModified Time None Recorded Concern Status LastModified by Organization Details LastModified Time None Recorded Advance Directives Directive N: Payers Encounter Date Sequence Insurance Name Policy Number Policy Rahman Covered Member ID Rahman Member ID Guarantor Name 02/27/2024 1 [facility] Vasihali Carr [id number] [facility] Vaishali Carr 03/16/2024 1 [facility] [id number] [facility] 04/21/2024 1 [facility] Vaishali aCrr [id number] [facility] Vaishali Carr 04/21/2024 1 [facility] Vaishali Carr [id number] [facility] Vaishali Carr 04/29/2024 1 [facility] Vaishali Carr [id number] [facility] Vaishali Carr Notes Date Note Type Note Provider Name and Address Organization Details Recorded Time 4 text/html - Differential diagnosis of cause of infertility includes: Unexplained- We discussed the potential causes of infertility and rationale behind testing. We also discussed her reproductive potential in the context of her age as well as the risk of aneuploidy.- We discussed her reproductive potential in the context of her BMI which is . We reviewed that given her BMI >25 her natural fertility could be improved by even just a 5% wt loss.- The patient is asked to complete the following diagnostic work up to include:-- CD3: FSH, estradiol, & AFC-- TSH, A1C, Vitamin D, PRL, LH, 17OHP, AMH, and labs including varicella status-- HSG which is to be scheduled on CD 6-10-- Transvaginal ultrasound with SIS for endometrial cavity assessment, AFC and repeat for dominant follicle- The patient was asked to have her collect a semen analysis.- Discussed the fertile time of the cycle and options for tracking ovulation, including ovulation predictor kits and basal body temperature.-- Discussed timed intercourse every other day starting on Day 6 of period through to the next period.-- Discussed using LH surge kits, usually accurate and would recommend intercourse that day and the next day, then can wait until next cycle.-- Discussed ovulation induction would be considered only after behavioral interventions were implemented and after partner completes semen analysis.- Following the return of these test results she is asked to return to the office for further discussion of reproductive planning and treatment options- She will call the office on CD 1 so that her HSG and lab work can be scheduled appropriately Henry Carpenter MD [address], [place], [address], [place] [facility] 02/28/2024 13:22:26 4 text/html Presents today for discussion of infertility. She and her partner have been actively been trying to conceive *12* months. They have used the following methods to help conceive: * Timing intercourse, tracking menses* The patient reports she has irregular menstrual periods. She denies a history of extremely painful periods. she does have premenstrual symptoms intermittently. She thinks she may cycle around 34 days. She has no previous pregnancies we discussed evaluation of infertility. Talked about hysterosalpingogram in detail. Discussed the timing, technical aspects, pain Of hysterosalpingograms. Discussed laboratory evaluation infertility. Spent over 30 minutes on her care. We agreed to proceed with hysterosalpingogram. Henry Carpenter MD [address], [place], [address], [facility] 03/17/2024 09:54:27 4 text/html +UPT, pt having some spotting, send for blood typeon US today not seeing 9 week IUP, discussed could be early vs miscarriagept also wants to discuss hyperthyroidism no current meds Valerie Danielle CNM [address], [place], [address], [facility] 04/21/2024 15:12:29 4 text/html this patient presents for postop follow-up. She is 1 week postop from a suction D&C. She is recovering normally. Her bleeding is minimal. She has no foul-smelling vaginal discharge. She denies any nausea, vomiting, fever, chills. We discussed contraception. We discussed future . She will follow up for a repeat test. has a negative test today. I spent over 30 minutes on the patient's care. We discussed her at length her experience in the emergency department, her treatment in the hospital. Her discussions with people in our office. Her evaluation and management. We discussed future . Fertility. Miscarriage rates. And on and on. Henry Carpenter MD [address], [place], [address], [facility] 04/29/2024 18:22:54 OBGyn Episode Ob Episode Information Episode Created Date Number of Fetuses Patient Bloodtype Patient rh Status Prepregnancy Weight lbs Domestic Partner Domestic Partner Phone Father Name Exercise Physiologist Certified Status 04/21/20 24 1 CLOSED Fetus Data First Name Last Name Admitted to NICU Weight (g) Sex Living Outcome Pediatric Complications Fetus ID Race Codes Race Delivery Type , Spontane ous [id number] Andrey Calculation Initial Andrey Date Initial Exam Date Initial Exam Provider Initial Ultrasound Date Last Menstrual Period Date Ultra Sound Weeks Gestation 0 Eighteen To Twenty Week Andrey Update Ultra Sound Date Fundal Height At Umbil Quickening Date Ultra Sound Latest Weeks Gestation Final Andrey Confirmed By Final Andrey Confirmed Date Final Andrey Date Ultra Sound Latest Days Gestation 0 0 Menstrual History Last Menstrual Date Menses Monthly On Bcp Conception Prior Menses Frequency Hcg Plus Date Menarche Onset Age Delivery Information Delivery Date Delivery Type Labor Anesthesia Weeks Gestation Incision Type Labor Labor Length Hrs Delivered By Post Complications Tubal Sterilization Discharge Date Comments 4 Discharge Information Feeding Method Contraceptive Method Maternal HG B and HCT Levels
--- OUTSIDE RECORDS SUMMARY | 2024-09-07 08:53 | XMS_ITS | Continuity of Care Document ---
Author Name [facility] Organization [facility] Care Team Providers Care Flight Nurse Name Role Phone [facility] Unavailable Unavailable Problems Combined list of problems from Department of Defense and Veterans Affairs facilities. It does not include entries that were removed or entered in error. 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 DoD nicotine dependence Active Condition Do D Gynecologic Service Prescrip Of Contracept Agent - Repeat Rx Inactive Condition DoD visit for: screening exam for malignant neoplasm cervix Active Condition DoD bacterial vaginosis Inactive Condition D oD visit for: issue repeat prescription Active Condition DoD visit for: administrative purpose Inactive Condition DoD Laboratory Studies Active Condition DoD Oral Contraceptives Active Condition Do D visit for: screening exam malignant neoplasm breast Active Condition DoD routine gynecological exam with cervical pap smear Inactive Condition DoD pharyngitis Active Condition 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 Took a photgraph to place in her record in case anyone has concerns that it has changed in the future. Explained warning signs of laurentin DoD dysplastic nevus Active Condition 7mm mole upper right back with several colors and irregular border. will refer to dermatology for furhter evaluation. DoD Need For Vaccination Against Viral Diseases Active Condition DoD New Patient Age 12-17 School / Camp Physical Inactive Condition Sports Clearance: No family history of sudden cardiac , arrhythmias, long QT syndrome, or hypertrophic obstructive cardiomyopathy. child without any history of syncope with exercise, chest pain or palpitations. Child is cleared for sports activity. DoD Allergies, Adverse Reactions, Alerts Combined list of allergies from Department of Defense and Veterans Affairs facilities. It does not include entries that were removed or entered in error. Substance Category Reaction Severity Reaction type Status Date Reported Comments Source NO OUTPUT FOR NCID [id number] Drug allergy (disorder) active 01/15/[address] [place] [address] [employer] [facility] Encounters Combined list of: 1) Encounters from Department of Veterans Affairs facilities going backup to the last 18 months, not all VA inpatient encounters are included; 2) Encounters from the Department of [facility] facilities going backup to 280 months. Location Location Details Encounter Type Encounter Number Reason For Visit Attending Provider ADM Date DC Date Status Disposition Source [address] [place] [address] [employer] [facility] Practice Non-GME FHI1) OUTPATIENT [id number] physciORLIN Porter 08/20 Released w/o Limitations [address] [place] [address] [employer] [facility])(F amily Practic e Non-GME FHI1) [address] [place] [address] [employer] [facility]Ped iatrics) OUTPATIENT [id number] sports physica KATHERINE Jones 09/19 Released w/o Limitations [address] [place] [address] [employer] [facility]P ediatri cs) [address] [place] [address] [employer] [facility]Juan Francisco matology) OUTPATIENT [id number] DYSPLAS TIC NEVUS QUEENIE CELESTIN 10/31 Released w/o Limitations [address] [place] [address] [employer] [facility]D ermatol ogy) [address] [place] [address] [employer] [facility] Practice Non-GME FHI2) OUTPATIENT [id number] swollen tonsils ,sore throat, nausea KATHERINE RIVERA 01/14 Released w/o Limitations [address] [place] [address] [employer] [facility]F amily Practic e Non-GME FHI2) [address] [place] [address] [employer] [facility]Sco tt [facility] Team 3) OUTPATIENT [id number] pap smear FELIX RODRIGUEZ 01/24 Released w/o Limitations [address] [place] [address] [employer] [facility]S cott [facility] Team 3) [address] [place] [address] [employer] [facility]Sco tt [facility] Team 3) TELE CONSULT [id number] call back lab results COLLETTE MAY 02/[address] [place] [address] [employer] ([facility]S [facility] Team 3) [employer] ([facility])(Ob/ Crystal Calibrator) TELE CONSULT [id number] pap results LAW BRUMFIELD 02/20 [employer] ([facility])(O b/Crystal Calibrator) [employer] ([facility])(Ako tt [facility] Team 3) TELE CONSULT [id number] Pt needs call back - ALYSIA Avalos 03/20 [employer] ([facility])([facility] Team 3) [employer] ([facility])([facility] Team 3) OUTPATIENT [id number] f/u infecti on FELIX RODRIGUEZ 04/17 Released w/o Limitations [employer] ([facility])([facility] Team 3) [facility] [employer] ([facility])([facility] Team 3) TELE CONSULT [id number] lab results FELIX RODRIGUEZ 04/20 [employer] ([facility])([facility] Team 3) [facility] [employer] ([facility])(Crystal Calibrator ecology) OUTPATIENT [id number] annual exam [id number] RAMON RODRIGUEZ 01/17 Released w/o Limitations [employer] ([facility])(G ynecolo gy) [employer] [facility]Crystal Calibrator ecology) TELE CONSULT [id number] results AYDEN CARRANZA 01/31 [employer] ([facility]G ynecolo gy) [employer] ([facility])(Crystal Calibrator ecology) OUTPATIENT [id number] colpo AYDEN CARRNAZA 02/05 Released w/o Limitations [employer] ([facility])(G ynecolo gy) [employer] ([facility])(Crystal Calibrator ecology) TELE CONSULT [id number] results AYDEN CARRANZA 02/13 [employer] ([facility])(G ynecolo gy) [employer] ([facility])(Crystal Calibrator ecology) TELE CONSULT [id number] results AYDEN CARRANZA 03/28 [employer] ([facility])(G ynecolo gy) [employer] ([facility])(Crystal Calibrator ecology) TELE CONSULT [id number] Maria Luz amaya about ULI Davila 04/10 [facility] [employer] ([facility])(G ynecolo gy) [facility] [employer] ([facility])(Ob/ Crystal Cal[employer]ator) TELE CONSULT [id number] cancell ing SILVA Leija 04/11 Referred for Appointment [employer] ([facility])(O b/Crystal Calibrator) [facility] [employer] ([facility])(Crystal Calibrator ecology) OUTPATIENT [id number] MERI 3 on polyp/ ? LEEP ULI URIBE 04/20 Released w/o Limitations [facility] [employer] ([facility]G ynecolo gy) [facility] [employer] ([facility])(Ob/ Crystal Calibrator) TELE CONSULT [id number] SILVA LEIJA 08/[address] [facility] [employer] ([facility])(O b/Crystal Calibrator) [facility] [employer] ([facility])(Crystal Calibrator ecology) OUTPATIENT [id number] colpo ULI URIBE 09/10 Released w/o Limitations [facility] [employer] ([facility])(G ynecolo gy) [facility] [employer] ([facility])(Crystal Calibrator ecology) OUTPATIENT [id number] f/u colpo - [id number] [phone] ULI URIBE 10/08 Released w/o Limitations [facility] [employer] ([facility])(G ynecolo gy) [facility] [employer] ([facility])(Crystal Calibrator ecology) TELE CONSULT [id number] BC refill (orthot ricycle n) SILVA BERNARD 01/23 [facility] [employer] ([facility]G ynecolo gy) [facility] [employer] ([facility])(Crystal Calibrator ecology) OUTPATIENT [id number] colpo DANNY SALVADOR 03/01 Released w/o Limitations [employer] ([facility])(G ynecolo gy) [employer] [facility] ([facility])(Crystal Calibrator ecology) OUTPATIENT [id number] repeat pap - DANNY SALVADOR 03/06 Released w/o Limitations [address] [place] [address] [employer] [facility])(G ynecolo gy) [address] [place] [address])([facility] Team 3) TELE CONSULT [id number] Referra socrates Rodriguez /[phone] 86/cadSUHAIL Benitez 03/[address] [place] [address] [employer] [facility])([facility] Team 3) [address] [place] [address])(Crystal Calibrator ecology) OUTPATIENT [id number] Vaginal dischar CHIDI StringerN 04/18 Released w/o Limitations [address] [place] [address])(G ynecoharris gy) [address] [place] [address])([facility] Team 3) TELE CONSULT [id number] f/u UTI - Schroth - cad/[facility] ALYSIA GAMING 08/[address] [place] [address])([facility] Team 3) [address] [place] [address])(Crystal Calibrator ecology) OUTPATIENT [id number] 4 month f/u after colpo [id number] RAMON RODRIGUEZ 08/28 Released w/o Limitations [address] [place] [address])([employer] gy) [address] [place] [address])([facility] Team 3) TELE CONSULT [id number] Notes Entered by: GEOFFREY NUGENT 14 Oct 2011 1559 ------- ------- ------- ------- -- [place] [phone] - tsg SUHAIL SYKES 10/[address] [place] [address])([facility] Team 3) [address] [place] [address])([facility] Tm A Ad) TELE CONSULT [id number] Notes Entered by: COURTNEY JONES 24 Apr 2012 1300 ------- ------- ------- ------- -- Network results - Urgent Care 08/10/11 VANESA VALENTINE 04/24 [facility] [employer] [facility] ([facility])(W arrior Op Med Cln Tm A Ad) Procedures Combined list of: 1) Procedures from Department of Veterans Affairs facilities going back up to thelast 18 months, not all VA non-surgical procedures are included; 2) All procedures from the Department of Defense facilities. Procedure Procedure Type Code Date Perfomer Comments Sour e TELE ASSESS & MGT SRV PROV QUAL NONPHYS HLTH CARE PRO TO EST PAT,PARENT,GUARD NOT ORIG REL ASSESS & MGT SRV PROV W/IN PREV 7 DAYS NOR LEAD ASSESS & MGT SRV/PX W/IN NXT 24 HR/SOON APT;5-10 MIN MED DIS 10/14/2011 DoD TELE ASSESS & MGT SRV PROV QUAL NONPHYS HLTH CARE PRO TO EST PAT,PARENT,GUARD NOT ORIG REL ASSESS & MGT SRV PROV W/IN PREV 7 DAYS NOR LEAD ASSESS & MGT SRV/PX W/IN NXT 24 HR/SOON APT;5-10 MIN MED DIS 08/15/2011 DoD SMEAR, PRIMARY SOURCE WITH INTERPRETATION; WET MOUNT FOR INFECTIOUS AGENTS (EG, SALINE, PAUL INK, PHILIPP PREPS) 04/18/2011 DoD TELE ASSESS & MGT SRV PROV QUAL NONPHYS HLTH CARE PRO TO EST PAT,PARENT,GUARD NOT ORIG REL ASSESS & MGT SRV PROV W/IN PREV 7 DAYS NOR LEAD ASSESS & MGT SRV/PX W/IN NXT 24 HR/SOON APT;5-10 MIN MED DIS 03/27/2011 DoD SCREENING PAPANICOLAOU SMEAR ; OBTAINING, PREPARING AND CONVEYANCE OF CERVICAL OR VAGINAL SMEAR TO LABORATORY 03/06/2011 DoD URINE TEST, BY VISUAL COLOR COMPARISON METHODS 03/01/2011 DoD GONADOTROPIN, CHORIONIC (HCG); QUALITATIVE 09/10/2010 DoD COLPOSCOPY OF THE CERVIX INCLUDING UPPER/ADJACENT VAGINA; 04/20/2010 DoD URINE TEST, BY VISUAL COLOR COMPARISON METHODS 02/05/2010 DoD SCREENING PAPANICOLAOU SMEAR ; OBTAINING, PREPARING AND CONVEYANCE OF CERVICAL OR VAGINAL SMEAR TO LABORATORY 01/17/2010 DoD SCREENING PAPANICOLAOU SMEAR ; OBTAINING, PREPARING AND CONVEYANCE OF CERVICAL OR VAGINAL SMEAR TO LABORATORY 01/24/2009 DoD HUMAN PAPILLOMAVIRUS VACCINE , TYPES 6, 11, 16, 18, QUADRIVALENT (4VHPV), 3 DOSE SCHEDULE, FOR INTRAMUSCULAR USE 09/19/2006 DoD Social History Combined list of available smoking, tobacco, and other social history from Department of Defense and Veterans Affairs facilities. Social History Type Response Date Comment Sour e This section is an empty social history section. DoD
--- OUTSIDE RECORDS SUMMARY | 2024-09-07 08:54 | XMS_ITS | Clinical Summary ---
Author Organization [facility] Address [facility] [place] [address] Care Team Providers Care Primary Teaching Assistant Name Role Phone Gus Elise Primary Care Provider + Allergies No known active allergies Medications polyethylene glycol (GLYCOLAX) packet Take 240 mLs (17 g total) by mouth daily as needed. Dissolve powder in 240 mL water Active famotidine (PEPCID) 20 MG tablet Take 1 tablet (20 mg total) by mouth 2 (two) times daily as needed for Heartburn. Active calcium carbonate (TUMS) 500 MG chewable tablet Chew 1 tablet (500 mg total) by mouth daily as needed for Heartburn. Active vitamin, low iron, ( VITAMIN WITH IRON) 27-0.8 MG tablet Take 1 tablet by mouth daily. Active triamcinolone (KENALOG) 0.1 % creamIndications :Eczema, unspecified type Apply topically 2 (two) times daily. 15 g 4 Active hydrocortisone 2.5 % creamIndications :External hemorrhoid Apply topically 2 (two) times daily. 28 g 4 Active coenzyme Q-10 (CO Q-10) 100 MG capsule Active Cyanocobalamin 100 MCG Tab Take 100 mcg by mouth daily. Active pantoprazole EC (PROTONIX) 40 MG tabletIndication s:Gastroesophage al reflux disease, unspecified whether esophagitis present Take 1 tablet (40 mg total) by mouth daily. 90 tablet 3 12/02/202 4 Active Active Problems Problem Noted Date Diagnosed Date Lower abdominal pain 08/20/2023 Blood in stool 08/20/2023 Bloating 08/20/2023 Gastroesophageal reflux dise ase, unspecified whether esophagitis present 06/25/2023 Encounters Date Type Department Care Team Description 08/27/2024 9:16 PM FOOD AND BEVERAGE LEAD - 08/27/2024 11:59 PM FOOD AND BEVERAGE LEAD Hospital Encounter [facility] [address] [place] [address] Erendira Rouse, Discharge Disposition: Home or Self Care (Routine Discharge) 08/27/2024 1:20 PM FOOD AND BEVERAGE LEAD Laboratory Only [facility] Internal [address] [phone] Gus Elise DO 08/27/2024 Travel 08/09/2024 8:20 AM FOOD AND BEVERAGE LEAD Allied Health/Nurse Visit [address] [phone] Gus Elise, Allied Health Visit (Heb-2) 08/09/2024 Travel 07/27/[address] [phone] Gus Elise, Record Request 07/16/2024 Scan [employer] HEALTH INFO SRVCS Scanned, [facility] Ultrasound (SCAN) 06/28/2024 7:20 AM FOOD AND BEVERAGE LEAD Office Visit [facility] Internal [address] [phone] Gus Elise, Physical (The patient presents for annual physical. The patient states she is wanting to discuss fertility concerns. ) 06/28/2024 Travel 06/18/2024 [employer] HEALTH INFO SRVCS Scanned, [facility] from Last 3 Months Immunizations Name Administration Dates Next Due Fluzone (IIV3, Trivalent, 0.5 ML Prefilled Syrin ge) 06/28/2024 Fluzone 6 Months+ Quad (0.5 mL Prefilled Syringe ) 06/25/2023 Hepatitis B(Engerix B Adult) 08/09/2024,06/28/20 Tdap (Adacel) 06/25/2023 Family History Medical History Relation Comments Atrial fibrillation Father Cancer Maternal Aunt Breast cancer Diabetes Mother Diabetes Paternal Grandmother Relation Status Comments Father Maternal Aunt Mother Paternal Grandmother Social History Tobacco Use Types Packs/Day Years Used Date Smoking Tobacco: Former Cigarettes 0.5 10 0 08/18/2010 - 08/18/2020 Smokeless Tobacco: Never Tobacco Cessation:Counseling Given: Not Answered Alcohol Use Standard Drinks/Week Comments Yes 6.7 (1 standard drink = 0.6 oz p ure alcohol) occassional PHQ-2 Answer Date Recorded Patient Health Questionnaire-2 Score 1 06/28/2024 Comments No Sex and Gender Information Value Date Recorded Sex Assigned at Not on file Legal Sex Female 7:20 PM CDT Gender Identity Not on file Sexual Orientation Not on file Occupation Industry Job Start Date Job End Date Not on file Not on file Not on file Not on file Last Filed Vital Signs Vital Sign Reading Time Taken Comments Blood Pressure 120/80 06/28/2024 7:35 AM FOOD AND BEVERAGE LEAD Pulse 67 06/28/2024 7:35 AM FOOD AND BEVERAGE LEAD Temperature 37 C (98.6 F) 06/28/2024 7:35 AM FOOD AND BEVERAGE LEAD Respiratory Rate 16 06/28/2024 7:35 AM FOOD AND BEVERAGE LEAD Oxygen Saturation 97% 06/28/2024 7:35 AM FOOD AND BEVERAGE LEAD Inhaled Oxygen Concentration - - Weight 80.4 kg (177 lb 4.8 oz) 06/28/2024 7:35 A M FOOD AND BEVERAGE LEAD Height 157.5 cm (5' 2 ) 06/28/2024 7:35 AM FOOD AND BEVERAGE LEAD Body Mass Index 32.43 06/28/2024 7:35 AM FOOD AND BEVERAGE LEAD Plan of Treatment Upcoming Encounters Date Type Department Care Team (Late st Contact Info) Description 02/09/2025 8:20 AM CDT Allied Health/Nurse Visit [facility] Family & Internal Medicine [address] [phone] Gus Elise, [address] [place] [phone] 06/29/2025 7:20 AM FOOD AND BEVERAGE LEAD Office Visit [facility] Medical Group Family & Internal Medicine - [address] [phone] Gus Elise DO [address] [place] [phone] Health Maintenance Due Date Last Done Comments PHQ-2 (Physician [place]) 07/28/2024 06/28/2024 Hepatitis B Vaccines (3 of 3 - 19+ 3-dose series) 12/27/2024 08/09/2024, 06/28/2024 Annual Physical 06/28/2025 06/28/2024, 06/25/2023 Cervical Cancer Screening Pa p Smear (Age 30 to 64) Every 3 Years 08/26/2026 08/26/2023, 08/10/2021 Cervical Cancer Screening Pa p with HPV Testing (Age 30 to 64) Every 5 Years 08/26/2028 08/26/2023, 08/26/2023 Cervical Cancer Screening with HPV 08/26/2028 DTaP, Tdap and Td Vaccines ( 2 - Td or Tdap) 06/25/2033 06/25/2023 COVID-19 Vaccine (1 - 2023-2 5 season) 2112 Postponed from 03/28 (Going to Outside Clinic) Hepatitis C Completed 07/14/2023 Influenza Adult Completed 06/28/2024, 06/25/2023 HPV Vaccines Aged Out No longer eligi ble based on patient's age to complete this topic Meningococcal B Vaccine Aged Out No l onger eligible based on patient's age to complete this topic Meningococcal Vaccine Aged Out No guanakito valentina eligible based on patient's age to complete this topic Pneumococcal Vaccine: Pediatrics (0 to 5 Years) and At-Risk Patients (6 to 64 Years) Aged Out No longer eligible b ased on patient's age to complete this topic RSV Immunizations Under 20 Months Aged Out No longer eligible b ased on patient's age to complete this topic Procedures Procedure Name Priority Date/Time Associated Diagnosis Comments COLLECTION VENOUS BLOOD VENIPUNCTURE Routine 08/27/2024 2:00 PM FOOD AND BEVERAGE LEAD Abnormal TSH TRIIODOTHYRONINE TOTAL , TT-3 Routine 08/27/2024 1:25 PM FOOD AND BEVERAGE LEAD THYROXINE, FREE (FT4) Routine 08/27/2024 1:25 PM FOOD AND BEVERAGE LEAD THYROID STIM HORMONE TSH Routine 025 1:25 PM FOOD AND BEVERAGE LEAD ULTRASOUND GENERIC (SCAN ORDER) 07/16/2024 ULTRASOUND GENERIC (SCAN ORDER) 07/16/2024 OUTSIDE CYTOPATH CERV/VAG INTERPRET (PAP) 08/26/2023 HEPATITIS C ANTIBODY Routine 07/14/2023 7:20 AM FOOD AND BEVERAGE LEAD Encounter for preventative adult health care examination Screening for lipid disorders Screening for endocrine, metabolic and immunity disorder Need for hepatitis C screening test from Last 3 Months or Most Recently Relevant to Health Maintenance Results * TRIIODOTHYRONINE TOTAL , TT-3 (08/27/2024 1:25 PM FOOD AND BEVERAGE LEAD) T3 TOTAL 81 60 - 181 NG/DL 08/27/2024 11:51 PM FOOD AND BEVERAGE LEAD [facility] 08/27/2024 1:25 PM FOOD AND BEVERAGE LEAD Erendira Bonesteel LABORATORY Final Result Performing Organization Address [facility]/ZIP Co de Phone Number [facility] [address] [place] [address], [phone] * THYROXINE, FREE (FT4) (08/27/2024 1:25 PM FOOD AND BEVERAGE LEAD) FREE T4 1.27 0.76 - 1.46 NG/DL 08/27/2024 9:48 PM FOOD AND BEVERAGE LEAD [facility] 08/27/2024 1:25 PM FOOD AND BEVERAGE LEAD E[facility] LABORATORY Final Result Performing Organization Address City/[facility] Co de Phone Number [facility] [address] [place] [address], [phone] * (ABNORMAL) THYROID STIM HORMONE TSH (08/27/2024 1:25 PM FOOD AND BEVERAGE LEAD) Pathologist [facility] TSH 0.253(L) 0.358 - 3.740 uIU/ML 08/27/2024 9:48 PM FOOD AND BEVERAGE LEAD [facility] Comment: ASSAY PERFORMED BY CHEMILUMINESCENCE METHODOLOGY USING SIEMENS DIMENSION VISTA REAGENT. PATIENT RESULTS DETERMINED BY ASSAYS USING DIFFERENT MANUFACTURERS FOR METHODS MAY NOT BE COMPARABLE. 08/27/2024 1:25 PM FOOD AND BEVERAGE LEAD [employer] Erendira Rouse DO LABORATORY Final Result Performing Organization Address [facility] Co de Phone Number [facility] [address] [place] [address], [place] [phone] * ULTRASOUND GENERIC (SCAN ORDER) (07/16/2024) Only the most recent of2 resultswithin the time period is included. Anatomical Region Laterality Modality Other 07/16/2024 [facility] Scanned SCANNING Final Resu lt * PAP SMEAR WITH HPV (08/26/2023) 08/26/2023 [facility] Scanned SCANNING Final Resu lt * HEPATITIS C ANTIBODY ([facility] ONLY) (07/14/2023 7:20 AM FOOD AND BEVERAGE LEAD) Pathologist [facility] HEPATITIS C AB NON-REACTI VE NON-REACT ROB 07/14/2023 7:07 PM FOOD AND BEVERAGE LEAD [facility] Comment: ANTIBODIES TO HCV NOT DETECTED. DOES NOT EXCLUDE THE POSSIBILITY OF EXPOSURE TO HCV. 07/14/2023 7:20 AM FOOD AND BEVERAGE LEAD [employer] Gus Elise DO LABORATORY Final Re sult Performing Organization Address [facility]/ZIP Co de Phone Number [facility] [address] [place], [place] [address] [phone] from Last 3 Months or Most Recently Relevant to Health Maintenance Insurance [facility] Care Teams Primary Teaching Assistant Relationship Specialty Start Date End Date Gus Elise DO [address] [place] [address] [phone] PCP - General FAMILY PRACTICE 06/25/23
[2024-09-07 09:31] LABS: Iron 111 ug/dL (37-170)
[2024-09-07 09:34] LABS: Beta HCG Quantitative < 2.39 mIU/ML
[2024-09-07 09:43] LABS: Percent Iron Saturation 34 % (20-50)
[2024-09-07 09:54] LABS: Hemoglobin A1C 5.3 % (<5.7)
[2024-09-07 10:00] LABS: Free T3 4.05 pg/mL (2.32-6.09)
[2024-09-07 10:11] LABS: Free T4 Free Thyroxine 1.27 ng/dL (0.78-2.19); Vitamin D 25 Hydroxy 14.5 ng/mL
[2024-09-07 10:26] LABS: Thyroid Stimulating Hormone Reflex 0.273 uIU/mL (0.465-4.68)
[2024-09-07 10:46] LABS: Free T4 Free Thyroxine Reflex 1.27 ng/dL (0.78-2.19)
[2024-09-07 11:34] LABS: Total Triiodothyronine (T3) 1.35 NG/ML (0.97-1.69)
[2024-09-08 01:39] LABS: Progesterone 16.1 ng/mL
[2024-09-08 05:24] LABS: DHEA-Sulfate 143 mcg/dL (19-237); FSH 2.6 mIU/mL; LH 2.3 mIU/mL; Prolactin 9.2 ng/mL
[2024-09-10 14:29] LABS: Anti Mullerian Hormone,Female 3.62 ng/mL (0.36-10.07)
[2024-09-13 12:54] LABS: Testosterone Free 3 pg/mL (0.1-6.4); Testosterone Total 35 ng/dL (2-45)
[2024-09-13 22:34] LABS: Estradiol, Ultrasensitive 183 pg/mL
== END 2024-09-07 08:24 | disposition home or self-care (01) ==
LOC: ANHLAB 08:24
PROVIDERS: PCP Student in an Organized Health Care Education/Training Program; Visit Provider Obstetrics & Gynecology
DX: N92.6 Irregular menstruation, unspecified (principal); R79.89 Other specified abnormal findings of blood chemistry; E66.9 Obesity, unspecified
CPT/HCPCS: 36415; 82306; 82627; 82670; 82728; 83001; 83002; 83036; 83498; 83540; 83550; 84144; 84146; 84402; 84403; 84439; 84443; 84480; 84481; 84702; 85025

== ENCOUNTER 2024-09-22 07:06 | Outpatient (CLI) | payer OTHER, SELFPAY ==
--- OUTSIDE RECORDS SUMMARY | 2024-09-22 07:15 | XMS_ITS | Continuity of Care Document ---
Author Name [facility] Organization [facility] Care Team Providers Care Project Structural Engineer Name Role Phone [facility] Unavailable Unavailable Problems [...] Reported Comments Source NO OUTPUT FOR NCID [id number] Drug allergy (disorder) active 01/15/[address] [place] [address] [employer] [facility]) Encounters Combined list of: 1) Encounters from [facility] facilities going backup to the last 18 months, not all VA inpatient encounters are included; 2) Encounters from the Department of [facility] facilities going backup to 280 months. Location Location Details Encounter Type Encounter Number Reason For Visit Attending Provider ADM Date DC Date Status Disposition Source [address] [place] [address] [employer] [facility])([facility] Practice Non-GME FHI1) OUTPATIENT [id number] physciORLIN Porter 08/20 Released w/o Limitations [address] [place] [address] [employer] [facility])(F amily Practic e Non-GME FHI1) [address] [place] [address] [employer] [facility])(Ped iatrics) OUTPATIENT [id number] sports physica KATHERINE Jones 09/19 Released w/o Limitations [address] [place] [address] [employer] [facility])(P ediatri cs) [address] [place] [address] [employer] [facility])(Juan Francisco matology) OUTPATIENT [id number] DYSPLAS TIC NEVUS QUEENIE CELESTIN 10/31 Released w/o Limitations [address] [place] [address] [employer] [facility])(D ermatol ogy) [address] [place] [address] [employer] [facility])([facility] Practice Non-GME FHI2) OUTPATIENT [id number] swollen tonsils ,sore throat, nausea KATHERINE RIVERA 01/14 Released w/o Limitations [address] [place] [address] [employer] [facility])(F amily Practic e Non-GME FHI2) [address] [place] [address] [employer] [facility])(Sco tt [facility] Team 3) OUTPATIENT [id number] pap smear FELIX RODRIGUEZ 01/24 Released w/o Limitations [address] [place] [address] [employer] [facility])(S cott [facility] Team [address] [address] [place] [address] [employer] [facility])(Sco tt [facility] Team 3) TELE CONSULT [id number] call back lab results COLLETTE MAY 02/[address] [place] [address] [employer] ([facility]S [facility] Team 3) [employer] ([facility])(Ob/ Costume Mistress) TELE CONSULT [id number] pap results LAW BRUMFIELD 02/20 [employer] ([facility])(O b/Costume Mistress) [employer] ([facility])(Mao tt [facility] Team 3) TELE CONSULT [id number] Pt needs call back - ALYSIA Avalos 03/20 [employer] ([facility])(S [facility] Team 3) [employer] ([facility])([facility] Team 3) OUTPATIENT [id number] f/u infecti on FELIX RODRIGUEZ 04/17 Released w/o Limitations [employer] ([facility])(S [facility] Team 3) [facility] [employer] ([facility])([facility] Team 3) TELE CONSULT [id number] lab results FELIX RODRIGUEZ 04/20 [employer] ([facility])(S [facility] Team 3) [facility] [employer] ([facility])([employer]ume Mistress ecology) OUTPATIENT [id number] annual exam [id number] RAMON RODRIGUEZ 01/17 Released w/o Limitations [employer] ([facility])(G ynecolo gy) [employer] [facility])([employer]ume Mistress ecology) TELE CONSULT [id number] results AYDEN CARRANZA 01/31 [employer] ([facility])(G ynecolo gy) [employer] ([facility])([employer]ume Mist[employer] ecology) OUTPATIENT [id number] colpo AYDEN CARRANZA 02/05 Released w/o Limitations [employer] ([facility])(G ynecolo gy) [employer] ([facility])([employer]ume Mistress ecology) TELE CONSULT [id number] results AYDEN CARRANZA 02/13 [employer] ([facility])(G ynecolo gy) [employer] ([facility])(Costume Mistress ecology) TELE CONSULT [id number] results AYDEN CARRANZA 03/28 [employer] ([facility])(G ynecolo gy) [employer] ([facility])([employer]ume Mistress ecology) TELE CONSULT [id number] Maria Luz amaya about ULI Davila 04/10 [facility] [employer] ([facility])(G ynecolo gy) [facility] [employer] ([facility])(Ob/ [employer]ume Mistress) TELE CONSULT [id number] cancell ing SILVA Leija 04/11 Referred for Appointment [employer] ([facility])(O b/Costume Mistress) [facility] [employer] ([facility])([employer]ume Mistress ecology) OUTPATIENT [id number] MERI 3 on polyp/ ? LEEP ULI URIBE 04/20 Released w/o Limitations [facility] [employer] ([facility])(G ynecolo gy) [facility] [employer] ([facility])(Ob/ Costume Mistress) TELE CONSULT [id number] SILVA LEIJA 08/17 Referred for Appointment [facility] [employer] ([facility])(O b/Costume Mistress) [facility] [employer] ([facility])([employer]ume Mist[employer] ecology) OUTPATIENT [id number] colpo ULI URIBE 09/10 Released w/o Limitations [facility] [employer] ([facility])(G ynecolo gy) [facility] [employer] ([facility])([employer]ume Mist[employer] ecology) OUTPATIENT [id number] f/u colpo - [id number] ULI URIBE 10/08 Released w/o Limitations [facility] [employer] ([facility])(G ynecolo gy) [facility] [employer] ([facility])([employer]ume Mistress ecology) TELE CONSULT [id number] BC refill (orthot ricycle n) SILVA BERNARD 01/23 [facility] [employer] ([facility])(G ynecolo gy) [facility] [employer] ([facility])(Costume Mistress ecology) OUTPATIENT [id number] colpo DANNY SALVADOR 03/01 Released w/o Limitations [employer] ([facility])(G ynecolo gy) [employer] [facility] ([facility])(Costume Mistress ecology) OUTPATIENT [id number] repeat pap - DANNY SALVADOR 03/06 Released w/o Limitations [address] [place] [address] [employer] [facility])(G ynecolo gy) [address] [place] [address])([facility] Team 3) TELE CONSULT [id number] Referra socrates Rodriguez /[phone] 86/cadSUHAIL Benitez 03/[address] [place] [address] [employer] [facility])([facility] Team 3) [address] [place] [address])([employer] Mist[employer] ecology) OUTPATIENT [id number] Vaginal dischar CHIDI StringerN 04/18 Released w/o Limitations [address] [place] [address])(G ynecoharris gy) [address] [place] [address])([facility] Team 3) TELE CONSULT [id number] f/u UTI - Schroth - cad/[facility] ALYSIA GAMING 08/[address] [place] [address])([facility] Team 3) [address] [place] [address])([employer] ecology) OUTPATIENT [id number] 4 month f/u after colpo [id number] 886 RAMON RODRIGUEZ 08/28 Released w/o Limitations [address] [place] [address])(G [place] gy) [address] [place] [address])([facility] Team 3) TELE CONSULT [id number] Notes Entered by: GEOFFREY NUGENT 14 Oct 2011 1559 ------- ------- ------- ------- -- Retro [place] [phone] - tsg SUHAIL SYKES 10/[address] [place] [address])([facility] Team 3) [address] [place] [address])([facility] Tm A Ad) TELE CONSULT [id number] Notes Entered by: COURTNEY JONES 24 Apr 2012 1300 ------- ------- ------- ------- -- Network results - Urgent Care 08/10/11 VANESA VALENTINE 04/24 [facility] [employer] ([facility])(W arrior Op Med Cln Tm A Ad) [...]
--- OUTSIDE RECORDS SUMMARY | 2024-09-22 07:15 | XMS_ITS | Data Portability ---
Author Organization [facility] Address [address] [place] [place] [address] Care Team Providers Care Fuel Dock Attendant Name Role Phone MEAGHAN JEFF Primary Care Provider Assessment No assessment recorded. Plan of Treatment Reminders Order Date Submit Date Provider Last Modified By Organization Details Last Modified Time Details Appointments None recorded. Lab test, urine 2023 024 [email or web address] [place], [address], [place], [address], 4 18:22:25 test, urine 2023 024 [email or web address] [place], [address], [place], [address], 4 16:03:13 Referral None recorded. Procedures None recorded. Surgeries None recorded. Imaging US, obstetric, transvagina l 2023 024 [place], [address], [place], [address], 4 12:53:52 XR, hysterosalp ingogram [address] [facility], [address] [place] [address] [address], [place], [address], 5 10:28:28 Medication Orders None recorded. Patient TargetsNo targets [...] 9-246 > 75 12-15 4 Not Available [facility] (Lab) [address], [place], [address], 03/11/2024 16:55:20 02/27/20 24 02/27/2024 ESTRA DIOL [...] 154-3 243 pg/mL 2nd Trime ster 1561- 94382 pg/mL 3rd Trime [place] 8525- >3000 0 pg/mL Not Available [facility] (Lab) [address], [place], [address], 03/11/2024 16:55:20 02/27/20 24 02/27/2024 PROGE STERO [...] Trime ster 58.70 -214. 00 Not Available [facility] (Lab) [address], [place], [address], 03/11/2024 16:55:21 02/27/20 24 02/27/2024 PROLA CTIN prolactin, total 18.50 NG/mL 4.79-2 3.30 This assay was perfo rmed using [employer] ratio n reage nts and test kits. Value s obtai sandra with other assay metho ds or kits canno t be used inter [facility] eably . Not Available [facility] (Lab) [address], [place], [address], 03/11/2024 16:55:21 02/27/20 24 02/27/2024 T4 FREE T4, free 1.09 NG/dL 0.60-1 .40 This assay is susce ptibl e to inter feren ce from high level s of bioti n which may false ly eleva te resul ts. Plejos e corre late with clini radames findi ngs. Not Available [facility] (Lab) [address], [place], [address], 03/11/2024 16:55:22 02/27/20 24 02/27/2024 TSH, REFLE X FREE T4 TSH 0.27 uIU/m L 0.30-5 .33 low Not Available [facility] (Lab) [address] [place], [address], 03/11/2024 16:55:22 02/27/20 24 02/27/2024 LH (LUTE NIZIN G HORMO NE) LH 10.7 mIU/m L This assay was perfo rmed using [employer] reage nts and test kits. Value s obtai sandra with other assay metho ds or kits canno t be used inter [facility]enedict . Femal es Mid-F ollic ular: 2.4-1 2.6 mIU/m L Mid-C ycle: 14.0- 95.6 mIU/m L Mid-L uteal : 1.0-1 1.4 mIU/m L Postm enopa use: 7.7-5 8.5 mIU/m L Not Available [facility] (Lab) [address], [place], [address], 03/11/2024 16:55:22 02/27/20 24 02/27/2024 FSH FSH 7.8 mIU/m L This assay was perfo rmed using [employer] reage nts and test kits. Value s obtai sandra with other assay metho ds or kits canno t be used inter [facility] . Femal es Folli cular : 3.5-1 2.5 mIU/m L Ovula tion: 4.7-2 1.5 mIU/m L Lutea l: 1.7-7 .7 mIU/m L Postm enopa use: 25.8- 134.8 mIU/m L Not Available [facility] (Lab) [address], [place], [address], 03/11/2024 16:55:23 02/27/20 24 02/27/2024 HUMAN SEX HORMO NE HILDA NG GLOBU ELSA sex hormone binding globulin 78.8 nmole s/L 18.2-1 35.5 Not Available [facility] (Lab) [address], [place], [address], 03/11/2024 16:55:23 02/27/20 24 02/27/2024 HEMOG LOBIN [...] >8.0% Actio n sugge sted Not Available [facility] (Lab) [address], [place], [address], 03/11/2024 16:55:24 02/27/20 24 02/27/2024 17-HY DROXY [...] e allen monacori stics deter mined by [facility] in a chad r consi stent with CLIA roman wong ts. This test has not been clear ed or appro viri by the U.S. Food and Drug Admin istra tion. Test Perfo rmed by: [facility] Labor atori es - [place] [address], [place] [address] Lab Direc tor: Ada Adair nn Ph.D. ; CLIA# [id number] Not Available [facility] (Lab) [address], [place], [address], 03/11/2024 16:55:24 02/27/20 24 02/27/2024 TESTO STERO NE, TOTAL AND FREE, SERUM (LC-M S/MS) testosterone free 0.80 NG/dL <0.13- 1.00 ----- ----- ----- ----A DDITI ONAL INFOR MATIO N---- ----- ----- ----- This test was devel oped and its perfo rmanc e allen cteri stics deter mined by [facility] in a chad r consi stent with CLIA requi remen ts. This test has not been clear ed or appro viri by the U.S. Food and Drug Admin istra tion. Not Available [facility] (Lab) [address], [place], [address], 03/11/2024 16:55:25 02/27/2002/27/2024 TESTO STERO NE, TOTAL [...] e allen cteri stics deter mined by [facility] in a chad r consi stent with CLIA requi remen ts. This test has not been clear ed or appro viri by the U.S. Food and Drug Admin istra tion. Test Perfo rmed by: [facility] Labor [facility] - [place] [address] , [place] [address] Lab Direc tor: Ada Adair nn Ph.D. ; CLIA# [id number] Not Available [facility] (Lab) [address], [place], [address], 03/11/2024 16:55:25 02/27/20 24 02/27/2024 pregn annabelle test, urine HCG negati ve Not Available [place] [address], [place], [address], 02/27/2024 16:02:53 03/26/20 24 03/26/2024 TSH, REFLE X FREE T4 TSH 0.47 uIU/m L 0.30-5 .33 Not Available [facility] (Lab) [address], [place], [address], 03/27/2024 07:08:35 04/29/20 24 04/29/2024 pregn annabelle test, urine HCG negati ve Not Available [place] [address], [place], [address], 04/29/2024 18:12:16 04/21/20 24 04/21/2024 US, obste tric, trans vagin al No observ ation record ed. [email or web address] [place] [address], [place], [address], 04/21/2024 18:16:21 04/21/20 24 04/21/2024 US, obste tric, trans vagin al No observ ation record ed. [email or web address] [address], [place], [address], 04/22/2024 11:52:58 Result Notes None recorded. 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 So urce: EHR Chron ic: N Practic e ID: [id number] Bill able Time: 11:00:00 AM Ashley no [place] - [facility] 13:05:31 Atypical squamous cells on cervical Papanico laou smear cannot exclude high grade squamous intraepi thelial lesion [id number] Completed 201808/10/2021 Atyp squam cell not excl hi grd intrepith lesn cyto smr crvx;Daniele rded Elsewhere : No Locati on: [facility] So urce: EHR Chron ic: N Practic e ID: 0001 Bill able Time: 10:15:00 AM Ashley Pisano [facility] 2 12:46:50 Atypical squamous cells of undeterm ined signific ance on cervical Papanico laou smear 011275765 Completed 201808/10/2021 Atyp squam cell of undet signfc cyto smr crvx (ASC-US); Recorded Elsewhere : No Locati on: [facility] So urce: EHR Chron ic: N Practic e ID: 0001 Bill able Time: 10:15:00 AM Ashley Pisano [facility] 2 12:46:49 Speciali zed medical examinat ion Completed 201308/10/2021 Gynecolog ical Examinati on;Record ed Elsewhere : No Locati on: [facility] So urce: EHR Chron ic: N Practic e ID: 0001 Bill able Time: 02:15:00 PM Ashley Pisano [facility] 2 13:05:33 Urinary tract infectio us disease 67828946 Completed 201708/10/2021 UTI;Recor ded Elsewhere : No Locati on: [facility] So urce: EHR Chron ic: N Practic e ID: 0001 Bill able Time: 05:30:00 PM Ashley Pisano [facility] 2 13:05:35 Pregnanc y test negative [id number] Completed 201808/10/2021 Encounter for test, result negative; Recorded Elsewhere : No Locati on: [facility] So urce: EHR Chron ic: N Practic e ID: 0001 Bill able Time: 10:15:00 AM Ashley Pisano [facility] [address] 12:46:[address] Concept Completed 201408/10/2021 Encntr for general adult medical exam w/o abnormal findings; Recorded Elsewhere : No Locati on: [facility] So urce: EHR Chron ic: N Practic e ID: 0001 Bill able Time: 11:00:00 AM Ashley no [facility] 2 13:05:29 Blood leukocyt e number above referenc e range [id number] Completed 201608/10/2021 Elevated white blood cell count, unspecifi ed;Record ed Elsewhere : No Locati on: [facility] So urce: EHR Chron ic: N Practic e ID: 0001 Bill able Time: 05:45:00 PM Ashley Pisano [facility] 2 12:46:52 Screenin g for malignan t neoplasm of cervix Completed 201308/10/2021 Pap Smear;Pra ctice ID: [id number] [facility] 2 14:15:02 Acute vaginiti s 01925014 Completed 201608/10/2021 Acute vaginitis ;Practice ID: [address] [facility] 2 12:46:47 Problem Notes None recorded. Procedures Surgical History Date Name Laterality Status Provider Name and Address Organization Details Recorded Time 08/26/19 24 Date of Last Pap Smear completed Karley Arias [facility] 02/27/2024 15:51:07 02/27/20 21 endoscopy completed Renae Rodríguez [facility] [address], [place], [address], [place] [facility] 08/10/2021 14:44:28 02/03/20 19 Colposcopy completed Ashley Pisano [facility] 08/10/2021 14:39:04 Imaging Results Imaging Date Name Status LastModified by Organization Details LastModified Time 04/21/2024 US, obstetric, transvaginal completed [email or web address] [place] [address], [place], [address], 04/21/2024 18:16:21 04/21/2024 US, obstetric, transvaginal completed [email or web address] [address], [place], [address], 04/22/2024 11:52:58 Procedure Notes None recorded. Medical Equipment None Reported. Allergies No known drug allergies Medications Name Sig Start Date Stop Date Status Note LastModified by Organization Details LastModified Time Diflucan 150 mg tablet take 1 tablet by oral route every other week. 02/02 completed Prescrib ed Elsewher e: No Locat ion: [facility] By: sony z Encoun ter DateTime : 01/19/20 19 02:30:00 PM Not Available Not Available Not Available sulfameth oxazole 800 mg-trimet hoprim 160 mg tablet take 1 tablet by oral route every 12 hours 02/02 completed Prescrib ed Elsewher e: No Locat ion: [facility] By: sony z Encoun ter DateTime [...] Prescrib ed Elsewher e: No Locat ion: [facility] By: [email or web address] Shannon marquez DateTime : [...] Updated DateTime 02/27/2024 160.02 cm 30.6 kg/m2 64988.48 g 114 mm[Hg] 78 mm[Hg] Karley [place] [facility] 4 15:50:21 Date Recorded Body height Body mass index (BMI) Body weight Systolic blood pressure Diastolic blood pressure Provider Name and Address Organization Details Last Updated DateTime 03/16/2024 160.02 cm 31.4 kg/m2 91477.85 g 124 mm[Hg] 83 mm[Hg] Karley [place] [facility] 4 12:37:53 Date Recorded Body height Body mass index (BMI) Body weight Systolic blood pressure Diastolic blood pressure Provider Name and Address Organization Details Last Updated DateTime 04/21/2024 160.02 cm 30.6 kg/m2 51582.48 g 123 mm[Hg] 78 mm[Hg] Florence Green [facility] 4 14:41:35 Date Recorded Body height Body mass index (BMI) Body weight Systolic blood pressure Diastolic blood pressure Provider Name and Address Organization Details Last Updated DateTime 04/29/2024 160.02 cm 30.4 kg/m2 02253.73 g 116 mm[Hg] 75 mm[Hg] Tere Castanon [facility] 17:15:24 Social History Question Answer Notes LastModified by Organizat ion Details LastModified Time Tobacco Smoking Status Never Smoker Ashley Pisano [email or web address] [facility] 08/10/2021 14:35:15 Do You Have [...] Or The Highest Degree You Have Received? 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 [id number] Information not available 08/10/2021 Do You Use [...] have difficulty walking or climbing stairs? No Information not available 04/21/2024 Are you able to walk? YESWOREST Information not available 08/10/2021 Are you able to care for yourself? Yes [email or web address] Information not available 04/21/2024 Do you have difficulty dressing or bathing? No [email or web address] Information not available 04/21/2024 What is your exercise level? Moderate Information not available 08/10/2021 Mental Status None recorded. Family History Relationship Description Onset Age of this Age Resolved Age Notes LastModified by Organization Details LastModified Time Mother Diabetes mellitus [email or web address] Not available 2019 11:46:26 Paternal Grandmother Diabetes mellitus [email or web address] Not available 2019 11:46:26 Paternal Grandmother Carcinoma in situ of lung [email or web address] Not available 12:19:04 Paternal Aunt Carcinoma in situ of breast [email or web address] Not available 2023 12:19:04 Medical History Condition [...] SNOMED-CT Code Diagnosis ICD10 Code Diagnosis Note [id number] [facility] [address] [address] 05/08/2020 11:45:17 05/08/2020 17:52:43 Gynecologic examination 21271788 Z01.419 Take Calcium with Vitamin D 1200mg [...] 2019 consistent with pap results Pap/hpv ordered [id number] Renae [facility]guez [facility] [address] [address] 08/10/2021 14:21:36 08/10/2021 15:18:57 Gynecologic examination 05725480 Z01.419 Take Calcium with Vitamin D 1200mg [...] w/ +HPVPap/hp v 2020 wnl [facility] STD screen declined Newly Engaged this year! Waiting to set the date. [facility] ion care management [id number] Z30.9 Happy on OCPRF sent x 1 [id number] ARISTEO [facility] [address] [address] 08/26/2023 09:00:06 08/26/2023 09:31:11 Gynecologic examination 17121603 Z01.419 Z11.51 Take Calcium with Vitamin D [...] with folic acid [id number] Henry Carpenter MD [place] [address] [address] 02/27/2024 15:17:26 03/04/2024 23:33:34 Irregular periods 91500151 N92.6 Reproducti ve care management 614868953 Z31.9 - Differenti al diagnosis of cause [...] over 30 minutes on the patient's care. [id number] Henry Carpenter MD [place] [address] [address] 03/16/2024 12:18:54 03/17/2024 09:58:00 Female infertility 9150349 N97.9 Presents today for discussion of infertilit [...] We agreed to proceed with hysterosal pingogram. [id number] Anni Pisano [place] [address] [address] 04/21/2024 14:12:24 04/21/2024 15:02:43 Threatened miscarriage 98921976 O20.0 O36.80X0 Z3A.00 [id number] Valerie Danielle CNM [place] [address] [address] 04/21/2024 14:13:18 04/21/2024 15:59:49 Long menstrual cycle 999560457 N92.5 missed ab, vs early pregnancyp brandyn HCG and then rpt in 48 hoursblood type drawncall if any concerns or increase in bleeding, will plan f/u next week pending resultscon tinue vitamin Hyperthyroidism 97403250 E05.90 rpt tsh free t4 and t3 today [id number] Henry Carpenter MD [place] [address] [address] 04/29/2024 17:07:06 04/30/2024 09:37:31 Missed miscarriage 19697119 O02.1 this patient presents for postop follow-up. [...] Rahman Member ID Guarantor Name 02/27/2024 1 [facility] - [place] - DOS PRIOR TO 2024 (PPO) Vaishali Carr [id number] [facility] Vaishali Carr 03/16/2024 1 [facility] 2024 (PPO) Vaishali Carr [id number] JIMBO Loboi 04/21/2024 1 [facility] - [place] - DOS PRIOR TO 2024 (PPO) Vaishali Carr [id number] JIMBO Loboi 04/21/2024 1 [facility] - [place] - DOS PRIOR TO 2024 (PPO) Vaishali Carr [id number] JIMBO Loboi 04/29/2024 1 [facility] - [place] - DOS PRIOR TO 2024 (PPO) Vaishali Carr [id number] JIMBO Carr Notes Date Note Type Note Provider [...] appropriately Henry Carpenter MD [address], [place], [address], [facility] 02/28/2024 13:22:26 4 text/html Presents today [...] to proceed with hysterosalpingogram. Henry Carpenter MD [address], [place], [address], [facility] 03/17/2024 09:54:27 4 text/html +UPT, pt having some spotting, send for blood typeon US today not seeing 9 week IUP, discussed could be early vs miscarriagept also wants to discuss hyperthyroidism no current meds Valerie Danielle CNM [address], [place], [address], [facility] 04/21/2024 15:12:29 4 text/html this patient [...] on. Henry Carpenter MD [address], [place], [address], [place] [facility] 04/29/2024 18:22:54 OBGyn Episode Ob Episode Information Episode Created Date Number of Fetuses Patient Bloodtype Patient rh Status Prepregnancy Weight lbs Domestic Partner Domestic Partner Phone Father Name Bi Tester Status 04/21/20 24 1 CLOSED Fetus Data First Name Last Name Admitted to NICU Weight (g) Sex Living Outcome Pediatric Complications Fetus ID Race Codes Race Delivery Type , Spontane ous [id number] Andrey Calculation Initial Andrey Date Initial Exam [...]
[2024-09-22 08:26] LABS: Beta HCG Quantitative < 2.39 mIU/ML
[2024-09-22 10:06] LABS: Free T3 3.99 pg/mL (2.32-6.09); Free T4 Free Thyroxine 1.35 ng/dL (0.78-2.19); Vitamin D 25 Hydroxy 27.7 ng/mL
[2024-09-22 10:19] LABS: Thyroid Stimulating Hormone Reflex 0.416 uIU/mL (0.465-4.68)
[2024-09-22 10:59] LABS: Free T4 Free Thyroxine Reflex 1.32 ng/dL (0.78-2.19)
[2024-09-22 18:21] LABS: Total Triiodothyronine (T3) 1.34 NG/ML (0.97-1.69)
== END 2024-09-22 07:07 | disposition home or self-care (01) ==
PROVIDERS: PCP Student in an Organized Health Care Education/Training Program; Visit Provider Obstetrics & Gynecology
DX: N92.6 Irregular menstruation, unspecified (principal); R79.89 Other specified abnormal findings of blood chemistry; E66.3 Overweight
CPT/HCPCS: 36415; 82306; 84439; 84443; 84480; 84481; 84702

== ENCOUNTER 2024-09-27 11:43 | Outpatient (CLI) | payer OTHER, SELFPAY | END 2024-09-27 11:44 | disposition home or self-care (01) | PROVIDERS: PCP Student in an Organized Health Care Education/Training Program; Visit Provider Obstetrics & Gynecology | DX: N92.6 Irregular menstruation, unspecified (principal) | CPT/HCPCS: 58340; 74740; Q9966 ==

== ENCOUNTER 2024-10-25 11:50 | Emergency (ER) | payer OTHER, SELFPAY ==
[2024-10-25 11:56] VITALS: BP 128/78; PULSE 81; RESP 16; TEMP 36.4; O2SAT 99
--- NOTE | 2024-10-25 11:58 | ED.URI ---
HPI - URI/Sore Throat General Chief Complaint: Upper Respiratory Infection Stated Complaint: Congestion / head and Ear Pain Time Seen by Provider: 10/25/24 11:58 History of Present Illness HPI Narrative: 34-year-old female presented for complaint of runny nose and sinus congestion, bilateral ear pain, and mild cough. Onset 4 days. Denies associated shortness of breath, wheezing, nausea, vomiting, diarrhea, fevers or lethargy. She took a Zyrtec yesterday and has taken a decongestant. Related Data Home Medications ?Medication ?Instructions ?Recorded ?Confirmed ?Last Taken ?Type calcium carbonate (Tums) 200 mg PO BID 08/25/24 08/25/24 Unknown History pantoprazole 40 mg tablet,delayed mg PO 08/25/24 08/25/24 Unknown History release polyethylene glycol 3350 17 17 g PO DAILY 08/25/24 08/25/24 Unknown History gram/dose oral powder (Miralax) simethicone 125 mg capsule (Gas-X 125 mg PO DAILY PRN 08/25/24 08/25/24 Unknown History Extra Strength) Allergies Allergy/AdvReac Type Severity Reaction Status Date / Time No Known Allergies Allergy Verified 10/25/24 11:53 Review of Systems Review of Systems: CONSTITUTIONAL: Denies body aches, fever, chills, or sweats. EYES: Denies visual changes, redness, or discharge. ENT: reports rhinorrhea, congestion, otalgia. CARDIOVASCULAR: Denies chest pain, palpitations, or edema. RESPIRATORY: Denies dyspnea. GASTROINTESTINAL: Denies abdominal pain, nausea, vomiting, or diarrhea. SKIN: Denies rash, itching, or wounds. MUSCULOSKELETAL: Denies back pain, joint pain, or myalgia. NEUROLOGIC: reports headache PMF Past Medical History Medical History (Updated 10/25/24 @ 12:15 by Zari Enamorado APRN) Normal colonoscopy Miscarriage Irritable bowel syndrome (IBS) Family History Family History Grandparent Lung cancer Heart disease Mother Diabetes mellitus Social History Social History (Updated 08/25/24 @ 08:05 by Austin Arnett MA) Smoking status: Never smoker Alcohol intake: current Alcohol use details: rare Substance use: never Substance use type: does not use Do You Feel Safe in your Home?: Yes Lack of Transportation: No Lack of Food: Never True Current Housing: I Have Housing Concerned About Future Housing: No Difficulty Paying Gas/Electric Bills: No Difficulty Paying for Meds: No Currently Unemployed: No Education: Bachelor's Degree Difficulty w/ Childcare or Family Care: No Living arrangements: with family Occupation/Education: occupation Gender identity (if verbalized by the patient): Female Sexual Orientation (if Verbalized by the Patient): Straight or Heterosexual Exam Narrative: GENERAL: well-appearing, no acute distress. EYES: conjunctivae clear ENT: Mucous membranes moist. TM pearly vidal with normal light reflex bilaterally; no tragal tenderness. Oropharynx not erythematous without lesions. Tonsils enlarged 1+ and without exudate. No drooling, no hoarseness, no trismus, uvula midline. No tripod positioning, hot potato voice, or soft palate swelling. NECK: Supple. No lymphadenopathy CHEST: Clear to auscultation, breath sounds equal. No respiratory distress, speaks in full sentences. HEART: Regular rate and rhythm. SKIN: Warm, dry, no rash. NEURO: Alert and oriented x3. Course Course Emergency Course: Patient is aware of diagnosis, understands and agrees to treatment plan. Anticipatory guidance given. Patient agrees to follow-up as directed and is aware of reasons to seek care at the emergency department. Portions of this record may have been created with voice recognition software Level of Care: Express Care Visit Vital Signs Vital signs: Vital Signs Temperature 97.6 F 10/25/24 11:56 Pulse Rate 81 10/25/24 11:56 Respiratory Rate 16 10/25/24 11:56 Blood Pressure 128/78 10/25/24 11:56 Pulse Oximetry 99 10/25/24 11:56 Oxygen Delivery Room Air 10/25/24 11:56 Temperature 97.6 F 10/25/24 11:56 Pulse Rate 81 10/25/24 11:56 Respiratory Rate 16 10/25/24 11:56 Blood Pressure 128/78 10/25/24 11:56 Pulse Oximetry 99 10/25/24 11:56 Oxygen Delivery Room Air 10/25/24 11:56 MDM - URI/Sore Throat MDM Narrative Medical decision making narrative: Negative flu and COVID result reviewed with pt. Advise supportive treatments. Patient is appropriate for outpatient treatment and follow-up. Differential Diagnosis Differential diagnosis: Likely upper respiratory infection, viral infection and pharyngitis Discharge Plan Discharge Clinical Impression: Viral infection Patient Disposition: Home, Self-Care Condition: Stable Instructions: Antibiotic Form, Upper Respiratory Infection (ED) Additional Instructions: flu and COVID negative. If symptoms are due to viral illness, it is not treated with antibiotics. Recommendations: Flonase spray and Zyrtec (or Claritin/Bridget) over the counter Cough syrup may cause drowsiness; avoid driving or take it at night time. Tylenol 1000mg every 8 hours as needed for pain Symptomatic treatment includes: rest, fluids, and increase humidity of the air at home. Follow up with your primary care provider in 1 week. Go to the ER for worsening symptoms or concerns. Patient Language: Croatian Prescriptions: No Action pantoprazole 40 mg tablet,delayed release (DR/EC) PO polyethylene glycol 3350 [Miralax] 17 gram/dose powder 17 g PO DAILY simethicone [Gas-X Extra Strength] 125 mg capsule 125 mg PO DAILY PRN calcium carbonate [Tums] 200 mg calcium (500 mg) tablet,chewable 200 mg PO BID Follow-up/Referrals: Arik,DO Gus [Primary Care Provider] - Time of Disposition: 12:17
[2024-10-25 12:19] LABS: EDCOVIDSCREEN Negative (Negative); EDINFLUASCREEN Negative (Negative); EDINFLUBSCREEN Negative (Negative)
--- OUTSIDE RECORDS SUMMARY | 2024-10-25 13:13 | XMS_ITS | Encounter Summary ---
Author Organization [facility] Address [address] [place] [id number] Care Team Providers Care Line Construction Superintendent Name Role Phone Gus Elise DO Primary Care Provider + Reason for Visit * Reason Onset Date Comments Medication Request 10/25/2024 Encounter Details Date Type Department Care Team (Late st Contact Info) Description 10/25/2024 Telephone [facility] Family & Internal Medicine [facility] [address] [place] [address] Gus Elise DO [address] [place] [phone] Medication Request Social History Tobacco Use Types Packs/Day Years Used Date Smoking Tobacco: Former Cigarettes 0.5 10 0 08/18/2010 - 08/18/2020 Smokeless Tobacco: Never Alcohol Use Standard Drinks/Week Comments Yes 6.7 [...] file Not on file Not on file documented as of this encounter Progress Notes * Nena Mann - 10/25/2024 11:16 AM CDT Nothing today, added as a VV for tomorrow. * Gus Elise DO - 10/25/2024 9:33 AM CDT Can add on as VV tomorrow unless we have an opening today. * Esperanza Romo - 10/25/2024 7:03 AM CDT The patient has the following symptom(s): Headhache, earache, congestion, dry cough, no fever at this time Symptom(s) Started: 10/14/24 OTC Medications tried: Decongestant, cough drops Have you been seen with-in the past 30 days for these same symptoms? No If so, where? N/a Home Covid test: negative 10/15/24 Call back #: [phone] Allergies: No Known Allergies Pharmacy: [facility]/pharmacy #[id number] [facility] [id number] documented in this encounter Plan of Treatment Upcoming Encounters Date Type Department Care Team (Late st Contact Info) Description 02/09/2025 8:20 AM CDT Allied Health/Nurse Visit [facility] Family & Internal Medicine [place] [address] [place] [address] Gus Elise DO [address] [place] [address] 06/29/2025 7:20 AM [employer] Office Visit [facility] Family & Internal Medicine [facility] [address] [place] [address] Gus Elise DO [address] [place] [address] documented as of this encounter Visit Diagnoses Not on filedocumented in this encounter Care Teams Line Construction Superintendent Relationship Specialty Start Date End Date Gus Elise DO [address] [place] [phone] PCP - General FAMILY PRACTICE 06/25/23 documented as of this encounter
--- OUTSIDE RECORDS SUMMARY | 2024-10-25 13:13 | XMS_ITS | Clinical Summary ---
Author Organization [facility] Address [facility] [place] [address] Care Team Providers Care Consulting Actuary Name Role Phone Gus Elise Primary Care [...] Encounters Date Type Department Care Team Description 10/25/2024 Telephone [facility] & Internal [address] [address] Gus Elise, Medication Request 09/27/2024 Scan [facility] Scanned, [facility] Image (SCAN) 09/22/2024 Scan [facility] Scanned, [facility] Lab (SCAN) 09/07/2024 Scan [facility] Scanned, [facility] Lab (SCAN) 09/07/2024 Scan [facility] Scanned, [facility] Lab (SCAN) 08/27/2024 9:16 PM FIELD ADMINISTRATOR - 08/27/2024 11:59 PM FIELD ADMINISTRATOR Hospital Encounter [facility] [address] [place] [address] Erendira Rouse DO Discharge Disposition: Home or Self Care (Routine Discharge) 08/27/2024 1:20 PM FIELD ADMINISTRATOR Laboratory Only [address] [address] Gus Elise DO 08/27/2024 Travel 08/09/2024 8:20 AM FIELD ADMINISTRATOR Allied Health/Nurse Visit [facility] Internal [address] [address] Gus Elise DO Allied Health Visit (Heb-2) 08/09/2024 Travel 07/27/[address] [address] Gus Elise DO Record Request from Last 3 Months Immunizations Name Administration Dates Next Due Fluzone (IIV3, Trivalent, 0.5 ML Prefilled Syrin ge) 06/28/2024 Fluzone 6 Months+ Quad (0.5 mL Prefilled Syringe ) 06/25/2023 Hepatitis B(Engerix B Adult) 08/09/2024,06/28/20 24 Tdap (Adacel) 06/25/2023 Family History Medical History [...] Comments Blood Pressure 120/80 06/28/2024 7:35 AM FIELD ADMINISTRATOR Pulse 67 06/28/2024 7:35 AM FIELD ADMINISTRATOR Temperature 37 C (98.6 F) 06/28/2024 7:35 AM FIELD ADMINISTRATOR Respiratory Rate 16 06/28/2024 7:35 AM FIELD ADMINISTRATOR Oxygen Saturation 97% 06/28/2024 7:35 AM FIELD ADMINISTRATOR Inhaled Oxygen Concentration - - Weight 80.4 kg (177 lb 4.8 oz) 06/28/2024 7:35 A M FIELD ADMINISTRATOR Height 157.5 cm (5' 2 ) 06/28/2024 7:35 AM FIELD ADMINISTRATOR Body Mass Index 32.43 06/28/2024 7:35 AM FIELD ADMINISTRATOR Plan of Treatment Upcoming Encounters Date Type Department Care Team (Late st Contact Info) Description 02/09/2025 8:20 AM CDT Allied Health/Nurse Visit [facility] Family & Internal Medicine [address] [phone] Gus Elise P, DO [address] [place] [address] 06/29/2025 7:20 AM FIELD ADMINISTRATOR Office Visit [facility] Family & Internal Medicine - [address] [address] Gus Elise DO [address] [place] [address] Health Maintenance Due Date Last Done Comments PHQ-2 (Physician Dana) 07/28/2024 06/28/2024 Hepatitis B Vaccines (3 of [...] to Outside Clinic) Hepatitis C Completed 07/14/2023 HPV Vaccines Aged Out No longer eligi [...] Procedure Name Priority Date/Time Associated Diagnosis Comments IMAGE GENERIC 09/27/2024 OUTSIDE LAB (SCAN ORDER) 09/22/2024 OUTSIDE LAB (SCAN ORDER) 09/22/2024 OUTSIDE LAB (SCAN ORDER) 09/22/2024 OUTSIDE LAB (SCAN ORDER) 09/07/2024 OUTSIDE LAB (SCAN ORDER) 09/07/2024 OUTSIDE LAB (SCAN ORDER) Routine 09/07/2024 OUTSIDE LAB (SCAN ORDER) 09/07/2024 OUTSIDE LAB (SCAN ORDER) 09/07/2024 OUTSIDE LAB (SCAN ORDER) 09/07/2024 OUTSIDE LAB (SCAN ORDER) 09/07/2024 COLLECTION VENOUS BLOOD VENIPUNCTURE Routine 08/27/2024 2:00 PM FIELD ADMINISTRATOR Abnormal TSH TRIIODOTHYRONINE TOTAL , TT-3 Routine 08/27/2024 1:25 PM FIELD ADMINISTRATOR THYROXINE, FREE (FT4) Routine 08/27/2024 1:25 PM FIELD ADMINISTRATOR THYROID STIM HORMONE TSH Routine 025 1:25 PM FIELD ADMINISTRATOR OUTSIDE CYTOPATH CERV/VAG INTERPRET (PAP) 08/26/2023 HEPATITIS C ANTIBODY Routine 07/14/2023 7:20 AM FIELD ADMINISTRATOR Encounter for preventative adult health care examination Screening for lipid disorders Screening for endocrine, metabolic and immunity disorder Need for hepatitis C screening test from Last 3 Months or Most Recently Relevant to Health Maintenance Results * IMAGE GENERIC (09/27/2024) Anatomical Region Laterality Modality Other 09/27/2024 [employer] Scanned SCANNING Final Resu lt * OUTSIDE LAB (SCAN ORDER) (09/22/2024) Only the most recent of10 resultswithin the time period is included. 09/22/2024 [employer] Scanned SCANNING Final Resu lt * TRIIODOTHYRONINE TOTAL , TT-3 (08/27/2024 1:25 PM FIELD ADMINISTRATOR) T3 TOTAL 81 60 - 181 NG/DL 08/27/2024 11:51 PM FIELD ADMINISTRATOR [facility] 08/27/2024 1:25 PM FIELD ADMINISTRATOR Erendira [facility] LABORATORY Final Result Performing Organization Address [facility] de Phone Number [facility] [address] [place] [address], [phone] * THYROXINE, FREE (FT4) (08/27/2024 1:25 PM FIELD ADMINISTRATOR) FREE T4 1.27 0.76 - 1.46 NG/DL 08/27/2024 9:48 PM FIELD ADMINISTRATOR [facility] 08/27/2024 1:25 PM FIELD ADMINISTRATOR [facility] LABORATORY Final Result Performing Organization Address [facility] de Phone Number [facility] [address] [place] [address], [phone] * (ABNORMAL) THYROID STIM HORMONE TSH (08/27/2024 1:25 PM FIELD ADMINISTRATOR) TSH 0.253(L) 0.358 - 3.740 uIU/ML 08/27/2024 9:48 PM FIELD ADMINISTRATOR [facility] Comment: ASSAY PERFORMED BY CHEMILUMINESCENCE METHODOLOGY USING SIEMENS DIM[employer] VISTA REAGENT. PATIENT RESULTS DETERMINED BY ASSAYS USING DIFFERENT MANUFACTURERS FOR METHODS MAY NOT BE COMPARABLE. 08/27/2024 1:25 PM FIELD ADMINISTRATOR Erendira [facility] LABORATORY Final Result Performing Organization Address [facility] de Phone Number [facility] [address] [place] [address], [phone] * PAP SMEAR WITH HPV (08/26/2023) 08/26/2023 [facility] Scanned SCANNING Final Resu lt * HEPATITIS C ANTIBODY ([facility] ONLY) (07/14/2023 7:20 AM FIELD ADMINISTRATOR) HEPATITIS C AB NON-REACTI VE NON-REACT ROB 07/14/2023 7:07 PM FIELD ADMINISTRATOR [facility] Comment: ANTIBODIES TO HCV NOT DETECTED. DOES NOT EXCLUDE THE POSSIBILITY OF EXPOSURE TO HCV. 07/14/2023 7:20 AM FIELD ADMINISTRATOR us Gus Elise DO LABORATORY Final Re sult [facility] [address] [place] [address], [phone] from Last 3 Months or Most Recently Relevant to Health Maintenance Insurance Care Teams Consulting Actuary Relationship Specialty Start Date End Date Gus Elise DO [address] [place] [phone] PCP - General FAMILY PRACTICE 06/25/23
--- OUTSIDE RECORDS SUMMARY | 2024-10-25 13:13 | XMS_ITS | Data Portability ---
Author Organization [facility] Address [address] [place] [address] [address] Care Team Providers Care A/C Tech Name Role Phone MEAGHAN JEFF Primary Care Provider Assessment No assessment recorded. Plan of Treatment Reminders Order Date Submit Date Provider Last Modified By Organization Details Last Modified Time Details Appointments None recorded. Lab test, urine 2023 024 [email or web address] [address], [address], [place], [address], 4 18:22:25 test, urine 2023 024 [email or web address] [address], [address], [place], [address], 4 16:03:13 Referral None recorded. Procedures None recorded. Surgeries None recorded. Imaging US, obstetric, transvagina l 2023 024 [email or web address] [address], [address], [place], [address], 4 12:53:52 XR, hysterosalp ingogram [address] [facility], [address] [place] [address] [address], [place], [address], 5 10:28:28 Medication Orders None recorded. Patient [...] 9-246 > 75 12-15 4 Not Available [facility] (Lab) [address], [place], [address], 03/11/2024 16:55:20 02/27/20 24 02/27/2024 ESTRA DIOL [...] 154-3 243 pg/mL 2nd [place] 1561- 97463 pg/mL 3rd [place] 8525- >3000 0 pg/mL Not Available [facility] (Lab) [address], [place], [address], 03/11/2024 16:55:20 02/27/20 24 02/27/2024 PROGE STERO [...] [place] 58.70 -214. 00 Not Available [facility] (Lab) [address], [place], [address], 03/11/2024 16:55:21 02/27/20 24 02/27/2024 PROLA CTIN prolactin, total 18.50 NG/mL 4.79-2 3.30 This assay was perfo rmed using [employer] ratio n reage nts and test kits. Value s obtai sandra with other assay metho ds or kits canno t be used inter [facility] . Not Available [facility] (Lab) [address], [place], [address], 03/11/2024 16:55:21 02/27/20 24 02/27/2024 T4 FREE T4, free 1.09 NG/dL 0.60-1 .40 This assay is susce ptibl e to inter feren ce from high level s of bioti n which may false ly eleva te resul ts. Plejos e corre late with clini radames findi ngs. Not Available [facility] (Lab) [address], [place], [address], 03/11/2024 16:55:22 02/27/20 24 02/27/2024 TSH, REFLE X FREE T4 TSH 0.27 uIU/m L 0.30-5 .33 low Not Available [facility] (Lab) [address] [place], [address], 03/11/2024 16:55:22 02/27/20 24 02/27/2024 LH (LUTE NIZIN G HORMO NE) LH 10.7 mIU/m L This assay was perfo rmed using [employer] reage nts and test kits. Value s obtai sandra with other assay metho ds or kits canno t be used inter [facility] . Femal es Mid-F ollic ular: 2.4-1 2.6 mIU/m L Mid-C ycle: 14.0- 95.6 mIU/m L Mid-L uteal : 1.0-1 1.4 mIU/m L Postm enopa use: 7.7-5 8.5 mIU/m L Not Available [facility] (Lab) [address], [place], [address], 03/11/2024 16:55:22 02/27/20 24 02/27/2024 FSH FSH 7.8 mIU/m L This assay was perfo rmed using [employer] reage nts and test kits. Value s obtai sandra with other assay metho ds or kits canno t be used inter [facility] . Femal es Folli cular : 3.5-1 2.5 mIU/m L Ovula tion: 4.7-2 1.5 mIU/m L Lutea l: 1.7-7 .7 mIU/m L Postm enopa use: 25.8- 134.8 mIU/m L Not Available [facility] (Lab) [address], [place], [address], 03/11/2024 16:55:23 02/27/20 24 02/27/2024 HUMAN SEX HORMO NE HILDA NG GLOBU ELSA sex hormone binding globulin 78.8 nmole s/L 18.2-1 35.5 Not Available [facility] (Lab) [address], [place], [address], 03/11/2024 16:55:23 02/27/20 24 02/27/2024 HEMOG LOBIN [...] >8.0% Actio n sugge sted Not Available [facility] (Lab) [address], [place], [address], 03/11/2024 16:55:24 02/27/20 24 02/27/2024 17-HY DROXY [...] e allen monacori stics deter mined by [facility] in a chad r consi stent with CLIA roman wong ts. This test has not been clear ed or appro viri by the U.S. Food and Drug Admin istra tion. Test Perfo rmed by: [facility] Labor atori es - [place] [address], [place] [address] Lab Direc tor: Ada Adair nn Ph.D. ; CLIA# [id number] Not Available [facility] (Lab) [address], [place], [address], 03/11/2024 16:55:24 02/27/20 24 02/27/2024 TESTO STERO NE, TOTAL AND FREE, SERUM (LC-M S/MS) testosterone free 0.80 NG/dL <0.13- 1.00 ----- ----- ----- ----A DDITI ONAL INFOR MATIO N---- ----- ----- ----- This test was devel oped and its perfo rmanc e allen cteri stics deter mined by [facility] in a chad r consi stent with CLIA requi remen ts. This test has not been clear ed or appro viri by the U.S. Food and Drug Admin istra tion. Not Available [facility] (Lab) [address], [place], [address], 03/11/2024 16:55:25 02/27/2002/27/2024 TESTO STERO NE, TOTAL [...] e allen cteri stics deter mined by [facility] in a chad r consi stent with CLIA requi remen ts. This test has not been clear ed or appro viri by the U.S. Food and Drug Admin istra tion. Test Perfo rmed by: [facility] - [place] [address] , [place] [address] Lab Direc tor: Ada Adair nn Ph.D. ; CLIA# [id number] Not Available [facility] (Lab) [address], [place], [address], 03/11/2024 16:55:25 02/27/20 24 02/27/2024 pregn annabelle test, urine HCG negati ve Not Available [place] [address], [place], [address], 02/27/2024 16:02:53 03/26/20 24 03/26/2024 TSH, REFLE X FREE T4 TSH 0.47 uIU/m L 0.30-5 .33 Not Available [facility] (Lab) [address], [place], [address], 03/27/2024 07:08:35 04/29/20 24 04/29/2024 pregn annabelle test, urine HCG negati ve Not Available [place] [address], [place], [address], 04/29/2024 18:12:16 04/21/20 24 04/21/2024 US, obste tric, trans vagin al No observ ation record ed. [email or web address] [place] [address], [place], [address], 04/21/2024 18:16:21 04/21/20 24 04/21/2024 US, obste tric, trans vagin al No observ ation record ed. [email or web address] [address], [place], [address], 04/22/2024 11:52:58 Result Notes None recorded. Problems Name Problem SNOMED Code Status Onset Date Resolution Date Notes Provider Name and Address Organization Details Recorded Time SNOMED CT Concept Completed 201408/10/2021 Encntr for auto design checker exam (general) (routine) w/o abn findings; Recorded Elsewhere : No Locati on: [facility] So urce: EHR Chron ic: N Practic e ID: 0001 Bill able Time: 11:00:00 AM Ashley no ID - [facility] 13:05:31 Atypical squamous cells on cervical Papanico laou smear cannot exclude high grade squamous intraepi thelial lesion [id number] Completed 201808/10/2021 Atyp squam cell not excl hi grd intrepith lesn cyto smr crvx;Daniele rded Elsewhere : No Locati on: [facility] So urce: EHR Chron ic: N Practic e ID: 0001 Bill able Time: 10:15:00 AM Ashley Pisano [facility] 2 12:46:50 Atypical squamous cells of undeterm ined signific ance on cervical Papanico laou smear [id number] Completed 201808/10/2021 Atyp squam cell of undet signfc cyto smr crvx (ASC-US); Recorded Elsewhere : No Locati on: [facility] So urce: EHR Chron ic: N Practic e ID: 0001 Bill able Time: 10:15:00 AM Ashley Pisano [facility] 2 12:46:49 Speciali zed medical examinat ion Completed 201308/10/2021 Gynecolog ical Examinati on;Record ed Elsewhere : No Locati on: [facility] So urce: EHR Chron ic: N Practic e ID: 0001 Bill able Time: 02:15:00 PM Ashley Pisano [facility] 2 13:05:33 Urinary tract infectio us disease 09082824 Completed 201708/10/2021 UTI;Recor ded Elsewhere : No Locati on: [facility] So urce: EHR Chron ic: N Practic e ID: 0001 Bill able Time: 05:30:00 PM Ashley Pisano [facility] 2 13:05:35 Pregnanc y test negative [id number] Completed 201808/10/2021 Encounter for test, result negative; Recorded Elsewhere : No Locati on: [facility] So urce: EHR Chron ic: N Practic e ID: 0001 Bill able Time: 10:15:00 AM Ashley Pisano [facility] [address] 12:46:[address] Concept Completed 201408/10/2021 Encntr for general adult medical exam w/o abnormal findings; Recorded Elsewhere : No Locati on: [facility] So urce: EHR Chron ic: N Practic e ID: 0001 Bill able Time: 11:00:00 AM Ashley no [facility] 2 13:05:29 Blood leukocyt e number above referenc e range [id number] Completed 201608/10/2021 Elevated white blood cell count, unspecifi ed;Record ed Elsewhere : No Locati on: [facility] So urce: EHR Chron ic: N Practic e ID: 0001 Bill able Time: 05:45:00 PM Ashley Pisano [facility] 2 12:46:52 Screenin g for malignan t neoplasm of cervix Completed 201308/10/2021 Pap Smear;Pra ctice ID: [id number] Ashley Pisano [facility] 2 14:15:02 Acute vaginiti s [id number] Completed 201608/10/2021 Acute vaginitis ;Practice ID: 0001 Ashley Pisano [facility] 2 12:46:47 Problem Notes None recorded. Procedures Surgical History Date Name Laterality Status Provider Name and Address Organization Details Recorded Time 08/26/19 24 Date of Last Pap Smear completed Karley Arias [facility] 02/27/2024 15:51:07 02/27/20 21 endoscopy completed Renae Rodríguez [facility] [address], [place], [address], [place] [facility] 08/10/2021 14:44:28 02/03/20 19 Colposcopy completed Ashley Pisano [facility] 08/10/2021 14:39:04 Imaging Results Imaging Date Name Status LastModified by Organization Details LastModified Time 04/21/2024 US, obstetric, transvaginal completed [email or web address] [place] [address], [place], [address], 04/21/2024 18:16:21 04/21/2024 US, obstetric, transvaginal completed [email or web address] [address], [place], [address], 04/22/2024 11:52:58 Procedure Notes None recorded. Medical Equipment None Reported. Allergies No known drug allergies Medications Name Sig Start Date Stop Date Status Note LastModified by Organization Details LastModified Time Diflucan 150 mg tablet take 1 tablet by oral route every other week. 02/02 completed Prescrib ed Elsewher e: No Locat ion: [facility] odify By: sony z Encoun ter DateTime : 01/19/20 19 02:30:00 PM Not Available Not Available Not Available sulfameth oxazole 800 mg-trimet hoprim 160 mg tablet take 1 tablet by oral route every 12 hours 02/02 completed Prescrib ed Elsewher e: No Locat ion: [facility] odify By: sony z Encoun ter DateTime [...] Not Available Not Available Sprintec (28) 0.25 mg-0.035 mg tablet TAKE 1 TABLET BY ORAL ROUTE EVERY DAY 01/18 completed Prescrib ed Elsewher e: No Locat ion: [facility] odify By: [email or web address] Shannon marquez DateTime : [...] Updated DateTime 02/27/2024 160.02 cm 30.6 kg/m2 01114.48 g 114 mm[Hg] 78 [facility]Hg[facility] 15:50:21 Date Recorded Body height Body mass index (BMI) Body weight Systolic blood pressure Diastolic blood pressure Provider Name and Address Organization Details Last Updated DateTime 03/16/2024 160.02 cm 31.4 kg/m2 64035.85 g 124 mm[Hg] 83 mm[Hg] Karley [facility] 4 12:37:53 Date Recorded Body height Body mass index (BMI) Body weight Systolic blood pressure Diastolic blood pressure Provider Name and Address Organization Details Last Updated DateTime 04/21/2024 160.02 cm 30.6 kg/m2 77485.48 g 123 mm[Hg] 78 mm[Hg] Florence Green [facility] 4 14:41:35 Date Recorded Body height Body mass index (BMI) Body weight Systolic blood pressure Diastolic blood pressure Provider Name and Address Organization Details Last Updated DateTime 04/29/2024 160.02 cm 30.4 kg/m2 52316.73 g 116 mm[Hg] 75 mm[Hg] Tere Castanon [facility] 17:15:24 Social History Question Answer Notes LastModified by Organizat ion Details LastModified Time Tobacco Smoking Status Never Smoker Ashley Pisano [email or web address] [facility] 08/10/2021 14:35:15 Do You Have [...] Or The Highest Degree You Have Received? 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 [id number] Information not available 08/10/2021 Do You Use [...] have difficulty walking or climbing stairs? No [email or web address] Information not available 04/21/2024 Are you able to walk? YESWOREST Information not available 08/10/2021 Are you able to care for yourself? Yes [email or web address] Information not available 04/21/2024 Do you have difficulty dressing or bathing? No [email or web address] Information not available 04/21/2024 What is your exercise level? Moderate Information not available 08/10/2021 Mental Status None recorded. Family History Relationship Description Onset Age of this Age Resolved Age Notes LastModified by Organization Details LastModified Time Mother Diabetes mellitus [email or web address] Not available 2019 11:46:26 Paternal Grandmother Diabetes mellitus [email or web address] Not available 2019 11:46:26 Paternal Grandmother Carcinoma in situ of lung Not available 12:19:04 Paternal Aunt Carcinoma in situ of breast Not available 2023 12:19:04 Medical History Condition [...] SNOMED-CT Code Diagnosis ICD10 Code Diagnosis Note [id number] Renae Rodríguez [facility] [address] [address] 05/08/2020 11:45:17 05/08/2020 17:52:43 Gynecologic examination 89266110 Z01.419 Take Calcium with Vitamin D 1200mg [...] 2019 consistent with pap results Pap/hpv ordered [id number] Renae Rodríguez [facility] [address] [address] 08/10/2021 14:21:36 08/10/2021 15:18:57 Gynecologic examination 73862820 Z01.419 Take Calcium with Vitamin D 1200mg [...] w/ +HPVPap/hp v 2020 wnl Pap/hpv [facility] screen discussed STD screen declined Newly Engaged this year! Waiting to set the date. [facility] ion care management [id number] Z30.9 Happy on OCPRF sent x 1 [id number] Renae Rodríguez , [facility] [address] [address] 08/26/2023 09:00:06 08/26/2023 09:31:11 Gynecologic examination 25760874 Z01.419 Z11.51 Take Calcium with Vitamin D [...] with folic acid [id number] Henry Carpenter MD [place] [address] [address] 02/27/2024 15:17:26 03/04/2024 23:33:34 Irregular periods 38471053 N92.6 Reproducti ve care management 905390028 Z31.9 - Differenti al diagnosis of cause [...] and lab work can be scheduled laxmi arzolaAlcira spent over 30 minutes on the patient's care. [id number] Henry Carpenter MD [place] [address] [address] 03/16/2024 12:18:54 03/17/2024 09:58:00 Female infertility 4823540 N97.9 Presents today for discussion of infertilit [...] We agreed to proceed with hysterosal pingogram. [id number] Anni Pisano [place] [address] [address] 04/21/2024 14:12:24 04/21/2024 15:02:43 Threatened miscarriage 29111963 O20.0 O36.80X0 Z3A.00 [id number] Valerie Danielle CNM [place] [address] [address] 04/21/2024 14:13:18 04/21/2024 15:59:49 Long menstrual cycle 142101968 N92.5 missed ab, vs early pregnancyp brandyn HCG and then rpt in 48 hoursblood type drawncall if any concerns or increase in bleeding, will plan f/u next week pending resultscon tinue vitamin Hyperthyroidism 82328481 E05.90 rpt tsh free t4 and t3 today [id number] Henry Carpenter MD [place] [address] [address] 04/29/2024 17:07:06 04/30/2024 09:37:31 Missed miscarriage 32326366 O02.1 this patient presents for postop follow-up. [...] Rahman Member ID Guarantor Name 02/27/2024 1 COUNT INCLUDES THE [facility] [employer] SERVICES - [place] - DOS PRIOR TO 2024 (PPO) Vaishali Carr [id number] [facility] Vaishali Carr 03/16/2024 1 [employer] SERVICES - [place] - DOS PRIOR TO 2024 (PPO) Vaishali Carr [id number] EHKlaudia Carr 04/21/2024 1 [facility] SERVICES - [place] - DOS PRIOR TO 2024 (PPO) Vaishali Carr [id number] JIMBO Carr 04/21/2024 1 [facility] - [place] - DOS PRIOR TO 2024 (PPO) Vaishali Carr [id number] Klaudia Loboi 04/29/2024 1 [facility] - [place] - DOS PRIOR TO 2024 (PPO) Vaishali Carr [id number] Klaudia Carr Notes Date Note Type Note Provider [...] lab work can be scheduled appropriately Henry S. Beer, MD [address], [place], [address], [facility] 02/28/2024 13:22:26 4 text/html Presents [...] hysterosalpingogram. Henry Carpenter MD [address], [place], [address], [facility] 03/17/2024 09:54:27 4 text/html +UPT, pt having some spotting, send for blood typeon US today not seeing 9 week IUP, discussed could be early vs miscarriagept also wants to discuss hyperthyroidism no current meds Valerie Danielle CNM [address], [place], [address], [facility] 04/21/2024 15:12:29 4 text/html this [...] on. Henry Carpenter MD [address], [place], [address], [place] [facility] 04/29/2024 18:22:54 OBGyn Episode Ob Episode Information Episode Created Date Number of Fetuses Patient Bloodtype Patient rh Status Prepregnancy Weight lbs Domestic Partner Domestic Partner Phone Father Name Drum Maker Status 04/21/20 24 1 CLOSED Fetus Data First Name Last Name Admitted to NICU Weight (g) Sex Living Outcome Pediatric Complications Fetus ID Race Codes Race Delivery Type , Spontane ous [id number] Andrey Calculation Initial Andrey Date Initial Exam [...]
== END 2024-10-25 12:20 | disposition home or self-care (01) ==
PROVIDERS: Emergency Provider Nurse Practitioner Family; PCP Student in an Organized Health Care Education/Training Program
DX: B34.9 Viral infection, unspecified (principal); Z20.822 Contact with and (suspected) exposure to COVID-19; K58.9 Irritable bowel syndrome, unspecified
CPT/HCPCS: 87426; 87804; 99212; G0463

== ENCOUNTER 2024-11-22 11:38 | Outpatient (CLI) | payer OTHER, SELFPAY ==
[2024-11-22 12:41] LABS: Beta HCG Quantitative 12.28 mIU/ML
--- OUTSIDE RECORDS SUMMARY | 2024-11-22 13:37 | XMS_ITS | Encounter Summary ---
Author Organization [facility] Address [address] [place] [address] Care Team Providers Care Jet Inspector Name Role Phone Gus Elise DO Primary Care Provider + Encounter Details Date Type Department Care Team (Late st Contact Info) Description 11/09/2024 Results Follow-Up [facility] Family & Internal Medicine [address] [address] Gus Elise DO [address] [place] [id number] STREP A RAPID, CULTURE STREP A ([facility] Only) Social History Tobacco Use Types Packs/Day Years Used Date Smoking Tobacco: Former Cigarettes 0.5 10 0 08/18/2010 - 08/18/2020 Smokeless Tobacco: Never Alcohol Use Standard Drinks/Week Comments Yes 6.7 (1 standard drink = 0.6 oz p ure alcohol) occassional PHQ-2 Answer Date Recorded Patient Health Questionnaire-2 Score 2 11/09/2024 Comments No Sex and Gender Information Value Date Recorded Sex Assigned at Female 11/09/2024 1:08 PM CDT Legal Sex Female 7:20 PM CDT Gender Identity Female 11/09/2024 1:08 PM CDT Sexual Orientation Not on file Occupation Industry Job Start Date Job End Date Not on file Not on file Not on file Not on file documented as of this encounter Functional Status * Over the past 2 weeks, how often have you been bothered by any of the following problems? Question Answer Date of Assessment Author Status Little interest or pleasure in doing things Several days 11/09/2024 1:08 PM CDT Karley Cabrera MA Acti ve Feeling down, depressed, or hopeless Several days 11/09/2024 1:08 PM CDT Karley Cabrera MA Active Patient Health Questionnaire-2 Score 2 11/09/2024 1:08 PM CDT Karley Cabrera M A Active documented as of this encounter Plan of Treatment Upcoming Encounters Date Type Department Care Team (Late st Contact Info) Description 02/09/2025 8:20 AM CDT Allied Health/Nurse Visit [facility] Family & Internal [address] [address] Gus Elise DO [address] [place] [address] 06/29/2025 7:20 AM WORK MEASUREMENT ENGINEER Office Visit [facility] Family [facility] Internal [address] [address] Gus Elise DO [address] [place] [address] documented as of this encounter Visit Diagnoses Not on filedocumented in this encounter Care Teams Jet Inspector Relationship Specialty Start Date End Date Gus Elise DO [address] [place] [address] PCP - General FAMILY PRACTICE 06/25/23 documented as of this encounter
--- OUTSIDE RECORDS SUMMARY | 2024-11-22 13:37 | XMS_ITS | Clinical Summary ---
Author Organization [facility] Address [address] [place] [address] Care Team Providers Care Employment Attorney Name Role Phone Gus Elise Primary Care [...] mouth daily as needed for Heartburn. Active triamcinolone (KENALOG) 0.1 % creamIndication s:Eczema, unspecified type Apply topically 2 (two) times daily. 15 g 01/30/20 24 Active hydrocortisone 2.5 % creamIndication s:External hemorrhoid Apply topically 2 (two) times daily. 28 g 01/30/20 24 Active coenzyme Q-10 (CO Q-10) 100 MG capsule Active Cyanocobalamin 100 MCG Tab Take 100 mcg by mouth daily. Active pantoprazole EC (PROTONIX) 40 MG tabletIndicatio ns:Gastroesopha geal reflux disease, unspecified whether esophagitis present Take 1 tablet (40 mg total) by mouth daily. 90 tablet 3 06/28/20 24 Active multi vitamin/mineral s (THERA-M ENHANCED) tablet Take 1 tablet by mouth daily. Active cetirizine (ZYRTEC) 10 MG tablet Take 1 tablet (10 mg total) by mouth daily. Active vitamin, low iron, ( VITAMIN WITH IRON) 27-0.8 MG tablet Take 1 tablet by mouth daily. 025 Discontinued(P t. elected to discontinue med) amoxicillin (AMOXIL) 875 MG tabletIndicatio ns:Pharyngitis, unspecified etiology Take 1 tablet (875 mg total) by mouth 2 (two) times daily for 10 days. 20 tablet 11/10/19 25 025 Active Problems Problem Noted Date Diagnosed Date Lower abdominal pain 08/20/2023 Blood in stool 08/20/2023 Bloating 08/20/2023 Gastroesophageal reflux dise ase, unspecified whether esophagitis present 06/25/2023 Encounters Date Type Department Care Team Description 11/09/2024 1:00 PM CDT Office Visit [facility] Internal [address] [address] Gus Elise P, DO Sore Throat (The patient is having sore throat and headaches. The patient states the sx are worse during the day. The patient was tested for covid and flu. The patient has tried sudafed and flonase. ) 11/09/2024 Results Follow-Up [facility] Internal [address] [address] Gus Elise, DO STREP A RAPID, CULTURE STREP A (MG/SJS/SMD Only) 11/09/2024 Travel 11/09/2024 Telephone [facility] Internal [address] [address] Gus Elise, DO Medication Request 10/25/2024 Scan [facility] SRVCS Scanned, [facility] (SCAN) 10/25/2024 Scan [facility] SRVCS Scanned, [facility] (SCAN) 10/25/2024 Telephone [facility] Internal [address] [address] Gus Elise DO Medication Request 09/27/2024 Scan [facility] INFO SRVCS Scanned, [facility] Image (SCAN) 09/22/2024 Scan [facility] INFO SRVCS Scanned, [facility] (SCAN) 09/07/2024 Scan [facility] INFO SRVCS Scanned, [facility] (SCAN) 09/07/2024 Scan [facility] INFO SRVCS Scanned, [facility] (SCAN) 08/27/2024 9:16 PM CENTRAL OFFICE INSPECTOR - 08/27/2024 11:59 PM CENTRAL OFFICE INSPECTOR Hospital Encounter [facility] Laboratory [address] [place] [address] Erendira Rouse DO Discharge Disposition: Home or Self Care (Routine Discharge) 08/27/2024 1:20 PM CENTRAL OFFICE INSPECTOR Laboratory Only [facility] Medical Group Family & Internal Medicine [address] [address] Gus Elise DO 08/27/2024 Travel from Last 3 Months Immunizations Immunization Administration Dates Next Due Fluzone (IIV3, Trivalent, [...] Sign Reading Time Taken Comments Blood Pressure 126/84 11/09/2024 1:09 PM CDT Pulse 84 11/09/2024 1:09 PM CDT Temperature 36.3 C (97.4 F) 11/09/2024 1:09 PM CDT Respiratory Rate 16 11/09/2024 1:09 PM CDT Oxygen Saturation 98% 11/09/2024 1:09 PM CDT Inhaled Oxygen Concentration - - Weight 77.2 kg (170 lb 4.8 oz) 11/09/2024 1:09 P M CDT Height 157.5 cm (5' 2 ) 11/09/2024 1:09 PM CDT Body Mass Index 31.15 11/09/2024 1:09 PM CDT Plan of Treatment Upcoming Encounters Date Type Department Care Team (Late st Contact Info) Description 02/09/2025 8:20 AM CDT Allied Health/Nurse Visit [facility] Family & Internal Medicine [facility] [address] [place] [address] Gus Elise DO [address] [place] [address] 06/29/2025 7:20 AM CENTRAL OFFICE INSPECTOR Office Visit [facility] Family & Internal [facility] [address] [place] [address] Gus Elise DO [address] [place] [address] Health Maintenance Due Date Last Done Comments Hepatitis B Vaccines (3 of 3 - [...] to Outside Clinic) Hepatitis C Completed 07/14/2023 PHQ-2 (Physician [place]) Completed 11/09/2024 HPV Vaccines Aged Out No longer eligi ble based on patient's age to complete this topic Meningococcal B Vaccine Aged Out No l onger eligible based on patient's age to complete this topic Meningococcal Vaccine Aged Out No guanakito valentina eligible based on patient's age to complete this topic Pneumococcal Vaccine: Pediatrics (0 to 5 Years) and At-Risk Patients (6 to 49 Years) Aged Out No longer eligible b ased on patient's age to complete this topic RSV Immunizations Under 20 Months Aged Out No longer eligible b ased on patient's age to complete this topic Procedures Procedure Name Priority Date/Time Associated Diagnosis Comments CULTURE STREP A Routine 11/09/2024 1:24 PM CDT Sore throat STREP A RAPID Routine 11/09/2024 Sore throat OUTSIDE LAB COVID-19 (SCAN ORDER) Routine 10/25/2024 OUTSIDE LAB (SCAN ORDER) 10/25/2024 IMAGE GENERIC 09/27/2024 OUTSIDE LAB (SCAN ORDER) 09/22/2024 OUTSIDE LAB (SCAN ORDER) 09/22/2024 OUTSIDE LAB (SCAN ORDER) 09/22/2024 OUTSIDE LAB (SCAN ORDER) 09/07/2024 OUTSIDE LAB (SCAN ORDER) 09/07/2024 OUTSIDE LAB (SCAN ORDER) Routine 09/07/2024 OUTSIDE LAB (SCAN ORDER) 09/07/2024 OUTSIDE LAB (SCAN ORDER) 09/07/2024 OUTSIDE LAB (SCAN ORDER) 09/07/2024 OUTSIDE LAB (SCAN ORDER) 09/07/2024 COLLECTION VENOUS BLOOD VENIPUNCTURE Routine 08/27/2024 2:00 PM CENTRAL OFFICE INSPECTOR Abnormal TSH TRIIODOTHYRONINE TOTAL , TT-3 Routine 08/27/2024 1:25 PM CENTRAL OFFICE INSPECTOR THYROXINE, FREE (FT4) Routine 08/27/2024 1:25 PM CENTRAL OFFICE INSPECTOR THYROID STIM HORMONE TSH Routine 025 1:25 PM CENTRAL OFFICE INSPECTOR OUTSIDE CYTOPATH CERV/VAG INTERPRET (PAP) 08/26/2023 HEPATITIS C ANTIBODY Routine 07/14/2023 7:20 AM CENTRAL OFFICE INSPECTOR Encounter for preventative adult health care examination Screening for lipid disorders Screening for endocrine, metabolic and immunity disorder Need for hepatitis C screening test from Last 3 Months or Most Recently Relevant to Health Maintenance Results * CULTURE STREP A (MG/SJS/SMD Only) (11/09/2024 1:24 PM CDT) THROAT CULTURE STREP A ONLY Negative for Group A Streptococci Negative for Group A Streptococci 11/10/2024 5:40 PM CDT [facility] STRUCTURE OF ANTERIOR PORTION OF NECK / Unknown 11/09/2024 1:24 PM CDT Gus Elise DO MICROBIOLOGY - GENERAL O RDERABLES Final Result Performing Organization Address City/[facility]/ZIP Co de Phone Number [facility] [address] [place] [address], [place] [phone] * STREP A RAPID (11/09/2024) RAPID STREP TEST NEGATIVE NEGATIVE [facility] Internal Control: VALID VALID [facility] STRUCTURE OF ANTERIOR PORTION OF NECK / Unknown 11/09/2024 Gus Elise DO MICROBIOLOGY - GENERAL O RDERABLES Final Result [facility] [address] [place] [address], [place] * OUTSIDE LAB COVID-19 (10/25/2024) Pathologist [facility] CORONAVIRUS SARS COV 2 PCR (RESP) NOT DETECTED NOT DETECTED [facility] ONBASE 10/25/2024 [facility] Scanned SCANNING Final Resu lt [facility] ONBASE * OUTSIDE LAB (SCAN ORDER) (10/25/2024) Only the most recent of11 resultswithin the time period is included. 10/25/2024 [facility] Scanned SCANNING Final Resu lt * IMAGE GENERIC (09/27/2024) Anatomical Region Laterality Modality Other 09/27/2024 [facility] Scanned SCANNING Final Resu lt * TRIIODOTHYRONINE TOTAL , TT-3 (08/27/2024 1:25 PM CENTRAL OFFICE INSPECTOR) Pathologist [facility] T3 TOTAL 81 60 - 181 NG/DL 08/27/2024 11:51 [address] OFFICE INS[address]OR [facility] 08/27/2024 1:25 PM CENTRAL OFFICE INSPECTOR [facility]rendira [facility] LABORATORY Final Result [facility] [address] [place] [address], [id number] * THYROXINE, FREE (FT4) (08/27/2024 1:25 PM CENTRAL OFFICE INSPECTOR) Pathologist [facility] FREE T4 1.27 0.76 - 1.46 NG/DL 08/27/2024 9:48 [address] OFF[address] INSPECTOR [facility] 08/27/2024 1:25 PM CENTRAL OFFICE INSPECTOR Erendira Rouse DO LABORATORY Final Result Performing Organization Address [facility] de Phone Number [facility] [address] [place] [address], [place] [phone] * (ABNORMAL) THYROID STIM HORMONE TSH (08/27/2024 1:25 PM CENTRAL OFFICE INSPECTOR) TSH 0.253(L) 0.358 - 3.740 uIU/ML 08/27/2024 9:[address] OFF[address] INS[address] [facility] Comment: ASSAY PERFORMED BY CHEMILUMINESCENCE METHODOLOGY USING [employer]. PATIENT RESULTS DETERMINED BY ASSAYS USING DIFFERENT MANUFACTURERS FOR METHODS MAY NOT BE COMPARABLE. 08/27/2024 1:25 PM CENTRAL OFFICE INSPECTOR Result [facility] Erendira Rouse DO LABORATORY Final Result Performing Organization Address [facility] Phone Number [facility] [address] [place] [address], [place] [phone] * PAP SMEAR WITH HPV (08/26/2023) 08/26/2023 [facility] Scanned SCANNING Final Resu lt * HEPATITIS C ANTIBODY ([facility] ONLY) (07/14/2023 7:20 AM CENTRAL OFFICE INSPECTOR) Pathologist [facility] HEPATITIS C AB NON-REACTI VE NON-REACT ROB 07/14/2023 7:07 [address] OFFICE INS[address]OR [facility] Comment: ANTIBODIES TO HCV NOT DETECTED. DOES NOT EXCLUDE THE POSSIBILITY OF EXPOSURE TO HCV. 07/14/2023 7:20 AM CENTRAL OFFICE INSPECTOR Gus Elise DO LABORATORY Final Re sult Performing Organization Address [facility] de Phone Number [facility] [address] [place] [address], [id number] from Last 3 Months or Most Recently Relevant to Health Maintenance Insurance Care Teams Employment Attorney Relationship Specialty Start Date End Date Gus Elise DO [address] [place] [phone] PCP - General FAMILY PRACTICE 06/25/23
== END 2024-11-22 11:39 | disposition home or self-care (01) ==
LOC: ANHLAB 11:40
PROVIDERS: PCP Student in an Organized Health Care Education/Training Program; Visit Provider Obstetrics & Gynecology
DX: N91.2 Amenorrhea, unspecified (principal)
CPT/HCPCS: 36415; 84702

== ENCOUNTER 2024-11-24 13:59 | Outpatient (CLI) | payer OTHER, SELFPAY ==
[2024-11-24 14:40] LABS: Beta HCG Quantitative < 2.39 mIU/ML
--- OUTSIDE RECORDS SUMMARY | 2024-11-24 14:58 | XMS_ITS | Encounter Summary ---
Author Organization [facility] Address [address] [place] [address] Care Team Providers Care Stoker Installer Name Role Phone Gus Elise DO Primary Care Provider + Encounter Details Date Type Department Care Team (Late st Contact Info) Description 11/09/2024 Results Follow-Up [facility] Medical Group Family & Internal Medicine [address] [address] Gus Elise DO [address] [place] [phone] STREP A RAPID, CULTURE STREP A [...] 02/09/2025 8:20 AM CDT Allied Health/Nurse Visit [facility] Family & Internal [address] [address] Gus Elise DO [address] [place] [phone] 06/29/2025 7:20 AM ROLLER STITCHER Office Visit [facility] Family & Internal [address] [address] Gus Elise DO [address] [place] [phone] documented as of this encounter Visit Diagnoses Not on filedocumented in this encounter Care Teams Stoker Installer Relationship Specialty Start Date End Date Gus Elise DO [address] [place] [phone] PCP - General FAMILY PRACTICE 06/25/23 documented as of this encounter
--- OUTSIDE RECORDS SUMMARY | 2024-11-24 14:58 | XMS_ITS | Clinical Summary ---
Author Organization [facility] Address [address] [place] [address] Care Team Providers Care Food Preservation Scientist Name Role Phone Gus Elise Primary Care [...] Description 11/09/2024 1:00 PM CDT Office Visit [facility] Internal [address] [address] Gus Elise P, DO Sore Throat (The patient is having sore throat and headaches. The patient states the sx are worse during the day. The patient was tested for covid and flu. The patient has tried sudafed and flonase. ) 11/09/2024 Results Follow-Up [facility] Internal [address] [address] Gus Elise, DO STREP A RAPID, CULTURE STREP A (MG/SJS/SMD Only) 11/09/2024 Travel 11/09/2024 Telephone [facility] Internal [address] [address] Gus Elise, DO Medication Request 10/25/2024 Scan [facility] INFO SRVCS Scanned, [facility] (SCAN) 10/25/2024 Scan [facility] INFO SRVCS Scanned, [facility] (SCAN) 10/25/2024 Telephone [facility] Internal [address] [address] Gus Elise DO Medication Request 09/27/2024 Scan [facility] INFO SRVCS Scanned, [facility] Image (SCAN) 09/22/2024 Scan [facility] INFO SRVCS Scanned, [facility] (SCAN) 09/07/2024 Scan [facility] INFO SRVCS Scanned, [facility] (SCAN) 09/07/2024 Scan [facility] INFO SRVCS Scanned, [facility] (SCAN) 08/27/2024 9:16 PM ZOO VETERINARIAN - 08/27/2024 11:59 PM ZOO VETERINARIAN Hospital Encounter [facility] [address] [place] [address] Erendira Rouse DO Discharge Disposition: Home or Self Care (Routine Discharge) 08/27/2024 1:20 PM ZOO VETERINARIAN Laboratory Only [facility] Medical Group Family & Internal Medicine [address] [address] Gus Elise DO 08/27/2024 Travel from Last [...] 02/09/2025 8:20 AM CDT Allied Health/Nurse Visit [facility] Family & Internal Medicine [facility] [address] [place] [address] Gus Elise DO [address] [place] [address] 06/29/2025 7:20 AM ZOO VETERINARIAN Office Visit [facility] Family & Internal [facility] [address] [place] [address] Gus Elise DO [address] [place] [address] Health Maintenance Due Date Last Done Comments [...] Clinic) Hepatitis C Completed 07/14/2023 PHQ-2 (Physician [place]) Completed 11/09/2024 HPV Vaccines Aged Out No [...] VENOUS BLOOD VENIPUNCTURE Routine 08/27/2024 2:00 PM ZOO VETERINARIAN Abnormal TSH TRIIODOTHYRONINE TOTAL , TT-3 Routine 08/27/2024 1:25 PM ZOO VETERINARIAN THYROXINE, FREE (FT4) Routine 08/27/2024 1:25 PM ZOO VETERINARIAN THYROID STIM HORMONE TSH Routine 025 1:25 PM ZOO VETERINARIAN OUTSIDE CYTOPATH CERV/VAG INTERPRET (PAP) 08/26/2023 HEPATITIS C ANTIBODY Routine 07/14/2023 7:20 AM ZOO VETERINARIAN Encounter for preventative adult health care examination [...] Group A Streptococci 11/10/2024 5:40 PM CDT [facility] STRUCTURE OF ANTERIOR PORTION OF NECK / Unknown 11/09/2024 1:24 PM CDT Gus Elise DO MICROBIOLOGY - GENERAL O RDERABLES Final Result Performing Organization Address City/[facility]/ZIP Co de Phone Number [facility] [address] [place] [address], [place] [phone] * STREP A RAPID (11/09/2024) RAPID STREP TEST NEGATIVE NEGATIVE [facility] Internal Control: VALID VALID [facility] STRUCTURE OF ANTERIOR PORTION OF NECK / Unknown 11/09/2024 Gus Elise DO MICROBIOLOGY - GENERAL O RDERABLES Final Result [facility] [address] [place] [address], [place] * OUTSIDE LAB COVID-19 (10/25/2024) Pathologist [facility] CORONAVIRUS SARS COV 2 PCR (RESP) NOT DETECTED NOT DETECTED [facility] ONBASE 10/25/2024 [facility] Scanned SCANNING Final Resu lt [facility] ONBASE * OUTSIDE LAB (SCAN ORDER) (10/25/2024) Only the most recent of11 resultswithin the time period is included. 10/25/2024 [facility] Scanned SCANNING Final Resu lt * IMAGE GENERIC (09/27/2024) Anatomical Region Laterality Modality Other 09/27/2024 [facility] Scanned SCANNING Final Resu lt * TRIIODOTHYRONINE TOTAL , TT-3 (08/27/2024 1:25 PM ZOO VETERINARIAN) Pathologist [facility] T3 TOTAL 81 60 - 181 NG/DL 08/27/2024 11:51 PM ZOO VETERINARIAN [facility] 08/27/2024 1:25 PM ZOO VETERINARIAN [facility]rend[facility] LABORATORY Final Result [facility] [address] [place] [address], [phone] * THYROXINE, FREE (FT4) (08/27/2024 1:25 PM ZOO VETERINARIAN) Pathologist [facility] FREE T4 1.27 0.76 - 1.46 NG/DL 08/27/2024 9:48 PM ZOO VETERINARIAN [facility] 08/27/2024 1:25 PM ZOO VETERINARIAN Erendira Rouse DO LABORATORY Final Result Performing Organization Address [facility] de Phone Number [facility] [address] [place] [address], [place] [phone] * (ABNORMAL) THYROID STIM HORMONE TSH (08/27/2024 1:25 PM ZOO VETERINARIAN) TSH 0.253(L) 0.358 - 3.740 uIU/ML 08/27/2024 9:48 PM ZOO VETERINARIAN [facility] Comment: ASSAY PERFORMED BY CHEMILUMINESCENCE METHODOLOGY USING [employer]. PATIENT RESULTS DETERMINED BY ASSAYS USING DIFFERENT MANUFACTURERS FOR METHODS MAY NOT BE COMPARABLE. 08/27/2024 1:25 PM ZOO VETERINARIAN Result [facility] Erendira Rouse DO LABORATORY Final Result Performing Organization Address [facility] Phone Number [facility] [address] [place] [address], [place] [phone] * PAP SMEAR WITH HPV (08/26/2023) 08/26/2023 [facility] Scanned SCANNING Final Resu lt * HEPATITIS C ANTIBODY ([facility] ONLY) (07/14/2023 7:20 AM ZOO VETERINARIAN) Pathologist [facility] HEPATITIS C AB NON-REACTI VE NON-REACT ROB 07/14/2023 7:07 PM ZOO VETERINARIAN [facility] Comment: ANTIBODIES TO HCV NOT DETECTED. DOES NOT EXCLUDE THE POSSIBILITY OF EXPOSURE TO HCV. 07/14/2023 7:20 AM ZOO VETERINARIAN Gus Elise DO LABORATORY Final Re sult Performing Organization Address [facility] de Phone Number [facility] [address] [place] [address], [phone] from Last 3 Months or Most Recently Relevant to Health Maintenance Insurance Care Teams Food Preservation Scientist Relationship Specialty Start Date End Date Gus Elise DO [address] [place] [phone] PCP - General FAMILY PRACTICE 06/25/23
--- OUTSIDE RECORDS SUMMARY | 2024-11-24 14:58 | XMS_ITS | Continuity of Care Document ---
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 It does not include entries that were removed or entered in error. Problem Status Onset Date Problem Type Date of Resolution Comments Source Outpatient Physician Consultation Active Condition DoD pain during urination (dysuria) Active Condition DoD CERVICAL DYSPLASIA Active Condition DoD tobacco use Active Condition DoD VAGINAL DISCHARGE Active Condition DoD vaginal odor Active Condition DoD Abnormal Pap Smear Of Cervix Active Condition DoD CERVICAL DYSPLASIA: SEVERE Active Condition DoD CERVICAL DYSPLASIA: MILD Active Condition DoD Test Negative Inactive Condition DoD CERVICAL POLYPS Active Condition DoD NICOTINE DEPENDENCE - CONTINUOUS Active Condition DoD Cerv Pap (+) 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 DoD NICOTINE DEPENDENCE Active Condition Do D Gynecologic Service Prescrip Of Contracept Agent - Repeat Rx Inactive Condition DoD visit for: screening exam for malignant neoplasm cervix Active Condition DoD BACTERIAL VAGINOSIS Inactive Condition D oD visit for: issue repeat prescription Active Condition DoD vaginal discharge Active Condition DoD visit for: administrative purpose Inactive Condition DoD Laboratory Studies Active Condition DoD Oral Contraceptives Active Condition Do D visit for: screening exam malignant neoplasm breast Active Condition DoD ROUTINE GYNECOLOGICAL EXAM WITH CERVICAL PAP SMEAR Inactive Condition DoD PHARYNGITIS Active Condition 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 Took a photgraph to place in her record in case anyone has concerns that it has changed in the future. Explained warning signs of changin DoD DYSPLASTIC NEVUS Active Condition 7mm mole upper right back with several colors and irregular border. will refer to dermatology for furhter evaluation. DoD Vaccines Prophylactic Need Against Viral Diseases Active Condition DoD New [...] Reported Comments Source NO OUTPUT FOR NCID [id number] Drug allergy (disorder) active 01/15/[address] [place], [place] [address]B [facility]) Encounters Combined list of: 1) Encounters from Department of Veterans Affairs facilities going backup to the last 18 months, not all VA inpatient encounters are included; 2) Encounters from the Department of [facility] facilities going backup to 280 months. Location Location Details Encounter Type Encounter Number Reason For Visit Attending Provider ADM Date DC Date Status Disposition Source [address] [place] [address] [employer] [facility]ander Practice Non-GME FHI1) OUTPATIENT [id number] ORLIN Montejo 08/20 Released w/o Limitations [address] [place], [place] [address]B [facility])(F amily Practic e Non-GME FHI1) [address] [place], [place] [address] [facility])(Ped iatrics) OUTPATIENT [id number] sports physica l KATHERINE BARNHART 09/19 Released w/o Limitations [address] [place], [place] [address]B [facility]P ediatri cs) [address] [place] [address] [employer] [facility])(Juan Francisco matology) OUTPATIENT [id number] DYSPLAS TIC NEVUS QUEENIE CELESTIN 10/31 Released w/o Limitations [address] [place], [place] [address]B [facility])(D ermatol ogy) [address] [place] [address] [employer] [facility])(Fam alexander Practice Non-GME FHI2) OUTPATIENT [id number] swollen tonsils ,sore throat, nausea KATHERINE RIVERA 01/14 Released w/o Limitations [address] [place] [address] [employer] [facility]F amily Practic e Non-GME FHI2) [address] [place] [address] [employer] [facility]Sco tt [facility] Team 3) OUTPATIENT [id number] pap smear FELIX RODRIGUEZ 01/24 Released w/o Limitations [address] [place] [address] [employer] [facility]S cott [facility] Team 3) [address] [place] [address] [employer] [facility]Sco tt [facility] Team 3) TELE CONSULT [id number] call back lab results COLLETTE MAY 02/17 [employer] ([facility]S [facility] Team 3) [employer] ([facility])(Ob/ Advertising Project Manager) TELE CONSULT [id number] pap results LAW BRUMFIELD 02/20 [employer] ([facility])(O b/Advertising Project Manager) [employer] ([facility]Wio tt [facility] Team 3) TELE CONSULT [id number] Pt needs call back - ALYSIA Avalos 03/20 [employer] ([facility]S [facility] Team 3) [facility] [employer] ([facility]Wio tt [facility] Team 3) OUTPATIENT [id number] f/u infecti on FELIX RODRIGUEZ 04/17 Released w/o Limitations [employer] ([facility]S [facility] Team 3) [facility] [employer] ([facility] Team 3) TELE CONSULT [id number] lab results FELIX RODRIGUEZ 04/20 [employer] ([facility]S [facility] Team 3) [facility] [employer] ([facility])(Advertising Project Manager ecology) OUTPATIENT [id number] annual exam [id number] RAMON RODRIGUEZ 01/17 Released w/o Limitations [employer] ([facility]G ynecolo gy) [employer] ([facility])(Advertising Project Manager ecology) TELE CONSULT [id number] results AYDEN CARRANZA 01/31 [employer] ([facility]G ynecolo gy) [employer] ([facility])(Advertising Project Manager ecology) OUTPATIENT [id number] colpo AYDEN CARRANZA 02/05 Released w/o Limitations [employer] ([facility]G ynecolo gy) [employer] ([facility])(Advertising Project Manager ecology) TELE CONSULT [id number] results AYDEN CARRANZA 02/13 [employer] ([facility]G ynecolo gy) [facility] [employer] ([facility])(Advertising Project Manager ecology) TELE CONSULT [id number] results AYDEN CARRANZA 03/28 [facility] [employer] ([facility]G ynecolo gy) [facility] [employer] ([facility])(Advertising Project Manager ecology) TELE CONSULT [id number] Maria Luz amaya about rominat ULI URIBE 04/10 [employer] ([facility]G ynecolo gy) [facility] [employer] ([facility])(Ob/ Advertising Project Manager) TELE CONSULT [id number] cancell ing SILVA Leija 04/11 Referred for Appointment [facility] [employer] ([facility])(O b/Advertising Project Manager) [facility] [employer] ([facility])(Advertising Project Manager ecology) OUTPATIENT [id number] MERI 3 on polyp/ ? LEEP ULI URIBE 04/20 Released w/o Limitations [facility] [employer] ([facility]G ynecolo gy) [facility] [employer] ([facility])(Ob/ Advertising Project Manager) TELE CONSULT [id number] SILVA LEIJA 08/17 Referred for Appointment [facility] [employer] ([facility])(O b/Advertising Project Manager) [facility] [employer] ([facility])(Advertising Project Manager ecology) OUTPATIENT [id number] colpo ULI URIBE 09/10 Released w/o Limitations [facility] [employer] ([facility]G ynecolo gy) [facility] [employer] ([facility])(Advertising Project Manager ecology) OUTPATIENT [id number] f/u colpo - [id number] ULI URIBE 10/08 Released w/o Limitations [facility] [employer] ([facility]G ynecolo gy) [facility] [employer] ([facility])(Advertising Project Manager ecology) TELE CONSULT [id number] BC refill (orthot ricycle n) SILVA BERNARD 01/23 [facility] [employer] ([facility]G ynecolo gy) [facility] [employer] ([facility])(Advertising Project Manager ecology) OUTPATIENT [id number] colpo DANNY SALVADOR 03/01 Released w/o Limitations [facility] [employer] ([facility]G ynecolo gy) [facility] [employer] [facility] ([facility])(Advertising Project Manager ecology) OUTPATIENT [id number] repeat pap - DANNY SALVADOR 03/06 Released w/o Limitations [facility] [employer] [facility] ([facility]G ynecolo gy) [address] [place] [address])([facility] Team 3) TELE CONSULT [id number] Solitario Rodriguez /[phone] 86/cadSUHAIL Benitez 03/[address] [place] [address] [employer] [facility])([facility] Team 3) [address] [place] [address])(Advertising Project Manager ecology) OUTPATIENT [id number] Vaginal dischar CHIDI StringerN 04/18 Released w/o Limitations [address] [place] [address] Group [facility])(G ynecolo gy) [address] [place] [address])([facility] Team 3) TELE CONSULT [id number] f/u UTI - Haylee - cad/[facility] ALYSIA GAMING 08/[address] [place] [address] [facility])([facility] Team 3) [facility])(Advertising Project Manager ecology) OUTPATIENT [id number] 4 month f/u after colpo [id number] RAMON RODRIGUEZ 08/28 Released w/o Limitations [address] [place] [address])(G ynecolo gy) [address] [place] [address])([facility] Team 3) TELE CONSULT [id number] Notes Entered by: GEOFFREY NUGENT 14 Oct 2011 1559 ------- ------- ------- ------- -- Retro solitario [place] [phone] - SUHAIL Salinas 10/[address] [place] [address])([facility] Team 3) [address] [place] [address])([facility] Tm A Ad) TELE CONSULT [id number] Notes Entered by: COURTNEY JONES 24 Apr 2012 1300 ------- ------- ------- ------- -- Network results - Urgent Care 08/10/11 VANESA VALENTINE 04/24 [facility] [employer] ([facility]W arrior Op Med Cln Tm A Ad) [...] NXT 24 HR/SOON APT;5-10 MIN MED DIS 2 DoD TELE ASSESS & MGT SRV PROV QUAL NONPHYS HLTH CARE PRO TO EST PAT,PARENT,GUARD NOT ORIG REL ASSESS & MGT SRV PROV W/IN PREV 7 DAYS NOR LEAD ASSESS & MGT SRV/PX W/IN NXT 24 HR/SOON APT;5-10 MIN MED DIS 2 DoD SMEAR, PRIMARY SOURCE WITH INTERPRETATION; WET MOUNT FOR INFECTIOUS AGENTS (EG, SALINE, PAUL INK, PHILIPP PREPS) 1 DoD TELE ASSESS & MGT SRV PROV QUAL NONPHYS HLTH CARE PRO TO EST PAT,PARENT,GUARD NOT ORIG REL ASSESS & MGT SRV PROV W/IN PREV 7 DAYS NOR LEAD ASSESS & MGT SRV/PX W/IN NXT 24 HR/SOON APT;5-10 MIN MED DIS 1 DoD SCREENING PAPANICOLAOU SMEAR; OBTAINING, PREPARING AND CONVEYANCE OF CERVICAL OR VAGINAL SMEAR TO LABORATORY 1 DoD URINE TEST, BY VISUAL COLOR COMPARISON METHODS 1 DoD GONADOTROPIN, CHORIONIC (HCG); QUALITATIVE 1 DoD COLPOSCOPY OF THE CERVIX INCLUDING UPPER/ADJACENT VAGINA; 0 DoD URINE TEST, BY VISUAL COLOR COMPARISON METHODS 0 DoD SCREENING PAPANICOLAOU SMEAR; OBTAINING, PREPARING AND CONVEYANCE OF CERVICAL OR VAGINAL SMEAR TO LABORATORY 0 DoD SCREENING PAPANICOLAOU SMEAR; OBTAINING, PREPARING AND CONVEYANCE OF CERVICAL OR VAGINAL SMEAR TO LABORATORY 9 [facility] HUMAN PAPILLOMAVIRUS VACCINE, TYPES 6, 11, 16, 18, QUADRIVALENT (4VHPV), 3 DOSE SCHEDULE, FOR INTRAMUSCULAR USE 7 [facility] Non-Physician Phone Call To Patient/Provider Brief (5-10min) Non-Physician Phone Call To Patient/Provider Brief (5-10min) [phone] SUHAIL SYKES Non-Physician Phone Call To Patient/Provider Brief (5-10min) Non-Physician Phone Call To Patient/Provider Brief (5-10min) [phone] 2 LESLEE GAMINGTOBY MARTITA [facility] Cervical Wet [place] Cervical Wet [place] 32148 1 CHIDI RUSHING [facility] Vaginal PHILIPP Prep Vaginal PHILIPP Prep [phone] 1 CHIDI RUSHING [facility] Non-Physician Phone Call To Patient/Provider Brief (5-10min) Non-Physician Phone Call To Patient/Provider Brief (5-10min) 62247 1 SUHAIL SYKES [facility] Screening papanicolaou smear; obtaining, preparing and conveyance of cervical or vaginal smear to laboratory 1 DANNY SALVADOR [facility] Colposcopy Cervix With Endocervical Curettage Colposcopy Cervix With Endocervical Curettage 71228 1 DANNY SALVADOR [facility] Test Test 83883 1 DANNY SALVADOR Patient was advised of negitive result DoD Colposcopy Cervix With Biopsy(s) With Endocervical Curettage Colposcopy Cervix With Biopsy(s) With Endocervical Curettage 33157 1 ULI URIBE [facility] Urine HCG, Test Urine HCG, Test 50284 1 ULI URIBE [facility] Colposcopy Colposcopy 78973 0 ULI URIBE [facility] Biopsy Cervical 0 AYDEN CARRANZA Test Test 06259 0 AYDEN CARRANZA Colposcopy Cervix With Biopsy(s) Colposcopy Cervix With Biopsy(s) 50499 0 AYDEN CARRANZA [facility] Intervention And Counseling On Ce ation Of Tobacco Use Intervention And Counseling On Cessation Of Tobacco Use 4000F 0 RAMON RODRIGUEZ [facility] current smoker current smoker 1034F 0 RAMON RODRIGUEZ Screening papanicolaou smear; obtaining, preparing and conveyance of cervical or vaginal smear to laboratory 0 RAMON RODRIGUEZ [facility] Human Papilloma Virus Vaccine, Quadrivalent Human Papilloma Virus Vaccine, Quadrivalent 07455 7 KATHERINE BARNHART DoD Social History Combined list of available smoking, tobacco, and other social history from Department of Defense and Veterans Affairs facilities. Social History Type Response Date Comment [facility] e This section is an empty social history section. DoD
--- OUTSIDE RECORDS SUMMARY | 2024-11-24 14:58 | XMS_ITS | Data Portability ---
Author Organization [facility] Address [address] [place] [place] [address] [place] [address] Care Team Providers Care Data Integrity Specialist Name Role Phone MEAGHAN JEFF Primary Care Provider Assessment No assessment recorded. Plan of Treatment Reminders Order Date Submit Date Provider Last Modified By Organization Details Last Modified Time Details Appointments None recorded. Lab test, urine 2023 024 [email or web address] [address], [address], [place], [address], 4 18:22:25 test, urine 2023 024 [email or web address] [address], [address], [place], [address], 4 16:03:13 Referral None recorded. Procedures None recorded. Surgeries None recorded. Imaging US, obstetric, transvagina l 2023 024 [email or web address] [address], [address], [place], [address], 4 12:53:52 XR, hysterosalp ingogram [address] [facility], [address] [place] [address] [address], [place], [address], 5 10:28:28 Medication Orders None recorded. Patient [...] 9-246 > 75 12-15 4 Not Available [facility] (Lab) [address] [facility], [place], [address], 03/11/2024 16:55:20 02/27/20 24 02/27/2024 ESTRA DIOL [...] 154-3 243 pg/mL 2nd [place] 1561- 79201 pg/mL 3rd [place] 8525- >3000 0 pg/mL Not Available [facility] (Lab) [address] [facility], [place], [address], 03/11/2024 16:55:20 02/27/20 24 02/27/2024 PROGE STERO [...] Trime [place] 58.70 -214. 00 Not Available [facility] (Lab) [address] [facility], [place], [address], 03/11/2024 16:55:21 02/27/20 24 02/27/2024 PROLA CTIN prolactin, total 18.50 NG/mL 4.79-2 3.30 This assay was perfo rmed using [employer] ratio n reage nts and test kits. Value s obtai sandra with other assay metho ds or kits canno t be used inter [facility] e[facility] . Not Available [facility] (Lab) [address] [facility], [place], [address], 03/11/2024 16:55:21 02/27/20 24 02/27/2024 T4 FREE T4, free 1.09 NG/dL 0.60-1 .40 This assay is susce ptibl e to inter feren ce from high level s of bioti n which may false ly eleva te resul ts. Plejos e corre late with clini radames findi ngs. Not Available [facility] (Lab) [address] [facility], [place], [address], 03/11/2024 16:55:22 02/27/20 24 02/27/2024 TSH, REFLE X FREE T4 TSH 0.27 uIU/m L 0.30-5 .33 low Not Available [facility] (Lab) [address] [place], [address], 03/11/2024 16:55:22 02/27/20 24 02/27/2024 LH (LUTE NIZIN G HORMO NE) LH 10.7 mIU/m L This assay was perfo rmed using [employer] ratio n reage nts and test kits. Value s obtai sandra with other assay metho ds or kits canno t be used inter [facility] . Femal es Mid-F ollic ular: 2.4-1 2.6 mIU/m L Mid-C ycle: 14.0- 95.6 mIU/m L Mid-L uteal : 1.0-1 1.4 mIU/m L Postm enopa use: 7.7-5 8.5 mIU/m L Not Available [facility] (Lab) [address] [facility], [place], [address], 03/11/2024 16:55:22 02/27/20 24 02/27/2024 FSH FSH 7.8 mIU/m L This assay was perfo rmed using [employer] ratio n reage nts and test kits. Value s obtai sandra with other assay metho ds or kits canno t be used inter [facility] . Femal es Folli cular : 3.5-1 2.5 mIU/m L Ovula tion: 4.7-2 1.5 mIU/m L Lutea l: 1.7-7 .7 mIU/m L Postm enopa use: 25.8- 134.8 mIU/m L Not Available [facility] (Lab) [address] [facility], [place], [address], 03/11/2024 16:55:23 02/27/20 24 02/27/2024 HUMAN SEX HORMO NE HILDA NG GLOBU ELSA sex hormone binding globulin 78.8 nmole s/L 18.2-1 35.5 Not Available [facility] (Lab) [address] [facility], [place], [address], 03/11/2024 16:55:23 02/27/20 24 02/27/2024 HEMOG LOBIN [...] >8.0% Actio n sugge sted Not Available [facility] (Lab) [address] [facility], [place], [address], 03/11/2024 16:55:24 02/27/20 24 02/27/2024 17-HY DROXY [...] e allen monacori stics deter mined by [facility] in a chad r consi stent with CLIA roman wong ts. This test has not been clear ed or appro viri by the U.S. Food and Drug Admin istra tion. Test Perfo rmed by: [facility] - [place] [address], [place] [address] Lab Direc tor: Ada Adair nn Ph.D. ; CLIA# [id number] Not Available [facility] (Lab) [address] [facility], [place], [address], 03/11/2024 16:55:24 02/27/20 24 02/27/2024 TESTO STERO NE, TOTAL AND FREE, SERUM (LC-M S/MS) testosterone free 0.80 NG/dL <0.13- 1.00 ----- ----- ----- ----A DDITI ONAL INFOR MATIO N---- ----- ----- ----- This test was devel oped and its perfo rmanc e allen cteri stics deter mined by [facility] in a chad r consi stent with CLIA requi remen ts. This test has not been clear ed or appro viri by the U.S. Food and Drug Admin istra tion. Not Available [facility] (Lab) [address] [facility], [place], [address], 03/11/2024 16:55:25 02/27/2002/27/2024 TESTO STERO NE, TOTAL [...] e allen cteri stics deter mined by [facility] in a chad r consi stent with CLIA requi remen ts. This test has not been clear ed or appro viri by the U.S. Food and Drug Admin istra tion. Test Perfo rmed by: [facility] - [place] [address] , [place] [address] Lab Direc tor: Ada Adair nn Ph.D. ; CLIA# [id number] Not Available [facility] (Lab) [address] [facility], [place], [address], 03/11/2024 16:55:25 02/27/20 24 02/27/2024 pregn annabelle test, urine HCG negati ve Not Available [address], [place], [address], 02/27/2024 16:02:53 03/26/20 24 03/26/2024 TSH, REFLE X FREE T4 TSH 0.47 uIU/m L 0.30-5 .33 Not Available [facility] (Lab) [address], [place], [address], 03/27/2024 07:08:35 04/29/20 24 04/29/2024 pregn annabelle test, urine HCG negati ve Not Available [address], [place], [address], 04/29/2024 18:12:16 04/21/20 24 04/21/2024 US, obste tric, trans vagin al No observ ation record ed. [email or web address] [address], [place], [address], 04/21/2024 18:16:21 04/21/20 24 04/21/2024 US, obste tric, trans vagin al No observ ation record ed. [email or web address] [address], [place], [address], 04/22/2024 11:52:58 Result Notes None recorded. 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 13:05:31 Atypical squamous cells on cervical Papanico laou smear cannot exclude high grade squamous intraepi thelial lesion [id number] Completed 201808/10/2021 Atyp squam cell not excl hi grd intrepith lesn cyto smr crvx;Daniele rded Elsewhere : No Locati on: [facility] So urce: EHR Chron ic: N Practic e ID: 0001 Bill able Time: 10:15:00 AM Ashley Pisano [facility] 2 12:46:50 Atypical squamous cells of undeterm ined signific ance on cervical Papanico laou smear [id number] Completed 201808/10/2021 Atyp squam cell of undet signfc cyto smr crvx (ASC-US); Recorded Elsewhere : No Locati on: [facility] So urce: EHR Chron ic: N Practic e ID: 0001 Bill able Time: 10:15:00 AM Ashley Pisano [facility] 2 12:46:49 Speciali zed medical examinat ion Completed 201308/10/2021 Gynecolog ical Examinati on;Record ed Elsewhere : No Locati on: [facility] So urce: EHR Chron ic: N Practic e ID: 0001 Bill able Time: 02:15:00 PM Ashley Pisano [facility] 2 13:05:33 Urinary tract infectio us disease 22224353 Completed 201708/10/2021 UTI;Recor ded Elsewhere : No Locati on: [facility] So urce: EHR Chron ic: N Practic e ID: 0001 Bill able Time: 05:30:00 PM Ashley Pisano [facility] 2 13:05:35 Pregnanc y test negative 893834331 Completed 201808/10/2021 Encounter for test, result negative; Recorded Elsewhere : No Locati on: [facility] So urce: EHR Chron ic: N Practic e ID: 0001 Bill able Time: 10:15:00 AM Ashley Pisano [facility] [address] 12:46:[address] Concept Completed 201408/10/2021 Encntr for general adult medical exam w/o abnormal findings; Recorded Elsewhere : No Locati on: [facility] So urce: EHR Chron ic: N Practic e ID: 0001 Bill able Time: 11:00:00 AM Ashley no [facility] 2 13:05:29 Blood leukocyt e number above referenc e range 470710639 Completed 201608/10/2021 Elevated white blood cell count, unspecifi ed;Record ed Elsewhere : No Locati on: [facility] So urce: EHR Chron ic: N Practic e ID: 0001 Bill able Time: 05:45:00 PM Ashley Pisano [facility] 2 12:46:52 Screenin g for malignan t neoplasm of cervix Completed 201308/10/2021 Pap Smear;Pra ctice ID: 0001 Ashley Pisano [facility] 2 14:15:02 Acute vaginiti s 89591882 Completed 201608/10/2021 Acute vaginitis ;Practice ID: 0001 Ashley Pisano [facility] 2 12:46:47 Problem Notes None recorded. Procedures Surgical History Date Name Laterality Status Provider Name and Address Organization Details Recorded Time 08/26/19 24 Date of Last Pap Smear completed Karley Arias [facility] 02/27/2024 15:51:07 02/27/20 21 endoscopy completed Renae Rodríguez [facility] [address], [place], [address], [place] [facility] 08/10/2021 14:44:28 02/03/20 19 Colposcopy completed Ashley Pisano [facility] 08/10/2021 14:39:04 Imaging Results Imaging Date Name Status LastModified by Organization Details LastModified Time 04/21/2024 US, obstetric, transvaginal completed [email or web address] [address], [place], [address], 04/21/2024 18:16:21 04/21/2024 US, obstetric, transvaginal completed [email or web address] [address], [place], [address], 04/22/2024 11:52:58 Procedure Notes None recorded. Medical Equipment None Reported. Allergies No known drug allergies Medications Name Sig Start Date Stop Date Status Note LastModified by Organization Details LastModified Time Diflucan 150 mg tablet take 1 tablet by oral route every other week. 02/02 completed Prescrib ed Elsewher e: No Locat ion: [facility] odify By: sony z Encoun ter DateTime : 01/19/20 19 02:30:00 PM Not Available Not Available Not Available sulfameth oxazole 800 mg-trimet hoprim 160 mg tablet take 1 tablet by oral route every 12 hours 02/02 completed Prescrib ed Elsewher e: No Locat ion: [facility] odify By: sony z Encoun ter DateTime [...] Prescrib ed Elsewher e: No Locat ion: [facility] odify By: [email or web address] Shannon marquez DateTime : [...] Updated DateTime 02/27/2024 160.02 cm 30.6 kg/m2 10473.48 g 114 mm[Hg] 78 mm[facility]Hg] [facility] 15:50:21 Date Recorded Body height Body mass index (BMI) Body weight Systolic blood pressure Diastolic blood pressure Provider Name and Address Organization Details Last Updated DateTime 03/16/2024 160.02 cm 31.4 kg/m2 87607.85 g 124 mm[Hg] 83 mm[Hg] Karley [facility] 4 12:37:53 Date Recorded Body height Body mass index (BMI) Body weight Systolic blood pressure Diastolic blood pressure Provider Name and Address Organization Details Last Updated DateTime 04/21/2024 160.02 cm 30.6 kg/m2 13573.48 g 123 mm[Hg] 78 mm[Hg] Florence Green [facility] 4 14:41:35 Date Recorded Body height Body mass index (BMI) Body weight Systolic blood pressure Diastolic blood pressure Provider Name and Address Organization Details Last Updated DateTime 04/29/2024 160.02 cm 30.4 kg/m2 14928.73 g 116 mm[Hg] 75 mm[Hg] Tere Castanon [facility] 17:15:24 Social History Question Answer Notes LastModified by Organizat ion Details LastModified Time Tobacco Smoking Status Never Smoker Ashley Pisano [email or web address] [facility] 08/10/2021 14:35:15 Do You Have [...] Or The Highest Degree You Have Received? 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 [id number] Information not available 08/10/2021 Do You Use [...] have difficulty walking or climbing stairs? No [email or web address] Information not available 04/21/2024 Are you able to walk? YESWOREST Information not available 08/10/2021 Are you able to care for yourself? Yes [email or web address] Information not available 04/21/2024 Do you have difficulty dressing or bathing? No [email or web address] Information not available 04/21/2024 What is your [...] Paternal Aunt Carcinoma in situ of breast [email or web address] Not available 2023 12:19:04 Medical History Condition [...] SNOMED-CT Code Diagnosis ICD10 Code Diagnosis Note [id number] Renae Rodríguez [facility] [address] [address] 05/08/2020 11:45:17 05/08/2020 17:52:43 Gynecologic examination [id number] Z01.419 Take Calcium with Vitamin D 1200mg [...] 2019 consistent with pap results Pap/hpv ordered [id number] Renae Rodríguez [facility] [address] [address] 08/10/2021 14:21:36 08/10/2021 15:18:57 Gynecologic examination 43761975 Z01.419 Take Calcium with Vitamin D 1200mg [...] w/ +HPVPap/hp v 2020 wnl Pap[facility]hpv [facility] discussed STD screen declined Newly Engaged this year! Waiting to set the date. [facility] ion care management [id number] Z30.9 Happy on OCPRF sent x 1 [id number] Renae Rodríguez , [facility] [address] [address] 08/26/2023 09:00:06 08/26/2023 09:31:11 Gynecologic examination 44858558 Z01.419 Z11.51 Take Calcium with Vitamin D [...] with folic acid [id number] Henry Carpenter MD [facility] [address] [address] 02/27/2024 15:17:26 03/04/2024 23:33:34 Irregular periods 25497109 N92.6 Reproducti ve care management 561469767 Z31.9 - Differenti al diagnosis of cause [...] over 30 minutes on the patient's care. [id number] Henry Carpenter MD [facility] [address] [address] 03/16/2024 12:18:54 03/17/2024 09:58:00 Female infertility 3208235 N97.9 Presents today for discussion of infertilit [...] agreed to proceed with hysterosal pingogram. [id number] MD Tiffanie Moyer [address] [address] 04/21/2024 14:12:24 04/21/2024 15:02:43 Threatened miscarriage 09111664 O20.0 O36.80X0 Z3A.00 [id number] Valerie Danielle CNM [facility] [address] [address] 04/21/2024 14:13:18 04/21/2024 15:59:49 Long menstrual cycle 166922569 N92.5 missed ab, vs early pregnancyp brandyn HCG and then rpt in 48 hoursblood type drawncall if any concerns or increase in bleeding, will plan f/u next week pending resultscon tinue vitamin Hyperthyroidism 86689669 E05.90 rpt tsh free t4 and t3 today [id number] Henry Carpenter MD [facility] [address] [address] 04/29/2024 17:07:06 04/30/2024 09:37:31 Missed miscarriage 96424389 O02.1 this patient presents for postop follow-up. [...] Rahman Member ID Guarantor Name 02/27/2024 1 [facility] - [place] - DOS PRIOR TO 2024 (PPO) Vaishali Carr [id number] Klaudia Carr 03/16/2024 1 [employer]™[facility] - [place] - DOS PRIOR TO 2024 (PPO) Vaishali Carr [id number] JIMBO Carr 04/21/2024 1 [facility] - [facility] - DOS PRIOR TO 2024 (PPO) Vaishali Carr [id number] JIMBO Carr 04/21/2024 1 [facility] - [facility] - DOS PRIOR TO 2024 (PPO) Vaishali Carr [id number] JIMBO Carr 04/29/2024 1 [facility] - [facility] - DOS PRIOR TO 2024 (PPO) Vaishali Carr [id number] JIMBO Carr Notes Date Note Type Note [...] appropriately Henry Carpenter MD [address], [place], [address], [facility] 02/28/2024 13:22:26 4 text/html Presents today [...] hysterosalpingogram. Henry Carpenter MD [address], [place], [address], [facility] 03/17/2024 09:54:27 4 text/html +UPT, pt having some spotting, send for blood typeon US today not seeing 9 week IUP, discussed could be early vs miscarriagept also wants to discuss hyperthyroidism no current meds Valerie Danielle CNM [address], [place], [address], [facility] 04/21/2024 15:12:29 4 text/html this patient [...] on. Henry Carpenter MD [address], [place], [address], [place] [facility] 04/29/2024 18:22:54 OBGyn Episode Ob Episode Information Episode Created Date Number of Fetuses Patient Bloodtype Patient rh Status Prepregnancy Weight lbs Domestic Partner Domestic Partner Phone Father Name Rn Surgical Status 04/21/20 24 1 CLOSED Fetus Data First Name Last Name Admitted to NICU Weight (g) Sex Living Outcome Pediatric Complications Fetus ID Race Codes Race Delivery Type , Spontane ous [id number] Andrey Calculation Initial Andery Date Initial Exam Date Initial Exam Provider [...]
== END 2024-11-24 14:00 | disposition home or self-care (01) ==
LOC: ANHLAB 14:00
PROVIDERS: PCP Student in an Organized Health Care Education/Training Program; Visit Provider Obstetrics & Gynecology
DX: N92.6 Irregular menstruation, unspecified (principal)
CPT/HCPCS: 36415; 84702

== ENCOUNTER 2024-12-14 07:10 | Outpatient (CLI) | payer OTHER, SELFPAY ==
--- OUTSIDE RECORDS SUMMARY | 2024-12-14 07:13 | XMS_ITS | Encounter Summary ---
Author Organization [facility] Address [address] [place] [address] Care Team Providers Care Nursery Teacher Name Role Phone Gus Elise DO Primary Care Provider + Encounter Details Date Type Department Care Team (Late st Contact Info) Description 11/09/2024 Results Follow-Up [facility] Family & Internal Medicine [id number] [place] [address] Gus Elise DO [address] [place] [address] STREP A RAPID, CULTURE STREP A [...] 02/09/2025 8:20 AM CDT Allied Health/Nurse Visit [facility] Family & Internal [address] [address] Gus Elise DO [address] [place] [address] 06/29/2025 7:20 AM AVIATION PROGRAM MANAGER Office Visit [facility] Family & Internal [address] [address] Gus Elise DO [address] [place] [address] documented as of this encounter Visit Diagnoses Not on filedocumented in this encounter Care Teams Nursery Teacher Relationship Specialty Start Date End Date Gus Elise DO [address] [place] [address] PCP - General FAMILY PRACTICE 06/25/23 documented as of this encounter
--- OUTSIDE RECORDS SUMMARY | 2024-12-14 07:13 | XMS_ITS | Data Portability ---
Author Organization [facility] Address [address] [place] [address] [place] [address] Care Team Providers Care Tax Commissioner Name Role Phone MEAGHAN JEFF Primary Care Provider Assessment No assessment recorded. Plan of Treatment Reminders Order Date Submit Date Provider Last Modified By Organization Details Last Modified Time Details Appointments None recorded. Lab test, urine 2023 024 [email or web address] [facility], [address], [place], [address], 4 18:22:25 test, urine 2023 024 [email or web address] [facility], [address], [place], [address], 4 16:03:13 Referral None recorded. Procedures None recorded. Surgeries None recorded. Imaging US, obstetric, transvagina l 2023 024 [email or web address] [facility], [address], [place], [address], 4 12:53:52 XR, hysterosalp ingogram [address] [facility], [address] [place] [address] [address], [place], [address], 5 10:28:28 Medication Orders None recorded. Patient [...] 9-246 > 75 12-15 4 Not Available [facility] (Lab) [address], [place], [address], 03/11/2024 16:55:20 02/27/20 24 02/27/2024 ESTRA DIOL [...] 154-3 243 pg/mL 2nd [place]ime [place] 1561- 14448 pg/mL 3rd [place] 8525- >3000 0 pg/mL Not Available [facility] (Lab) [address], [place], [address], 03/11/2024 16:55:20 02/27/20 24 02/27/2024 PROGE STERO [...] [place] 58.70 -214. 00 Not Available [facility] (Lab) [address], [place], [address], 03/11/2024 16:55:21 02/27/20 24 02/27/2024 PROLA CTIN prolactin, total 18.50 NG/mL 4.79-2 3.30 This assay was perfo rmed using [employer] ratio n reage nts and test kits. Value s obtai sandra with other assay metho ds or kits canno t be used inter [facility] e[facility] . Not Available [facility] (Lab) [address], [place], [address], 03/11/2024 16:55:21 02/27/20 24 02/27/2024 T4 FREE T4, free 1.09 NG/dL 0.60-1 .40 This assay is susce ptibl e to inter feren ce from high level s of bioti n which may false ly eleva te resul ts. Plejos e corre late with clini radames findi ngs. Not Available [facility] (Lab) [address], [place], [address], 03/11/2024 16:55:22 02/27/20 24 02/27/2024 TSH, REFLE X FREE T4 TSH 0.27 uIU/m L 0.30-5 .33 low Not Available [facility] (Lab) [address] [place], [address], 03/11/2024 16:55:22 02/27/20 24 02/27/2024 LH (LUTE NIZIN G HORMO NE) LH 10.7 mIU/m L This assay was perfo rmed using [employer] reage nts and test kits. Value s obtai sandra with other assay metho ds or kits canno t be used inter [facility] . Femal es Mid-F ollic ular: 2.4-1 2.6 mIU/m L Mid-C ycle: 14.0- 95.6 mIU/m L Mid-L uteal : 1.0-1 1.4 mIU/m L Postm enopa use: 7.7-5 8.5 mIU/m L Not Available [facility] (Lab) [address], [place], [address], 03/11/2024 16:55:22 02/27/20 24 02/27/2024 FSH FSH 7.8 mIU/m L This assay was perfo rmed using [employer] reage nts and test kits. Value s obtai sandra with other assay metho ds or kits canno t be used inter [facility] . Femal es Folli cular : 3.5-1 2.5 mIU/m L Ovula tion: 4.7-2 1.5 mIU/m L Lutea l: 1.7-7 .7 mIU/m L Postm enopa use: 25.8- 134.8 mIU/m L Not Available [facility] (Lab) [address], [place], [address], 03/11/2024 16:55:23 02/27/20 24 02/27/2024 HUMAN SEX HORMO NE HILDA NG GLOBU ELSA sex hormone binding globulin 78.8 nmole s/L 18.2-1 35.5 Not Available [facility] (Lab) [address], [place], [address], 03/11/2024 16:55:23 02/27/20 24 02/27/2024 HEMOG LOBIN [...] >8.0% Actio n sugge sted Not Available [facility] (Lab) [address], [place], [address], 03/11/2024 16:55:24 02/27/20 24 02/27/2024 17-HY DROXY [...] e allen monacori stics deter mined by [facility] in a chad r consi stent with CLIA roman wong ts. This test has not been clear ed or appro viri by the U.S. Food and Drug Admin istra tion. Test Perfo rmed by: [facility] Labor atori es - [place] [address], [place] [address] Lab Direc tor: Ada Adair nn Ph.D. ; CLIA# [id number] Not Available [facility] (Lab) [address], [place], [address], 03/11/2024 16:55:24 02/27/20 24 02/27/2024 TESTO STERO NE, TOTAL AND FREE, SERUM (LC-M S/MS) testosterone free 0.80 NG/dL <0.13- 1.00 ----- ----- ----- ----A DDITI ONAL INFOR MATIO N---- ----- ----- ----- This test was devel oped and its perfo rmanc e allen cteri stics deter mined by [facility] in a chad r consi stent with CLIA requi remen ts. This test has not been clear ed or appro viri by the U.S. Food and Drug Admin istra tion. Not Available [facility] (Lab) [address], [place], [address], 03/11/2024 16:55:25 02/27/2002/27/2024 TESTO STERO NE, TOTAL [...] e allen cteri stics deter mined by [facility] in a chad r consi stent with CLIA requi remen ts. This test has not been clear ed or appro viri by the U.S. Food and Drug Admin istra tion. Test Perfo rmed by: [facility] Labor [facility] - [place] [address] , [place] [address] Lab Direc tor: Ada Adair nn Ph.D. ; CLIA# [id number] Not Available [facility] (Lab) [address], [place], [address], 03/11/2024 16:55:25 02/27/20 24 02/27/2024 pregn annabelle test, urine HCG negati ve Not Available [facility] [address], [place], [address], 02/27/2024 16:02:53 03/26/20 24 03/26/2024 TSH, REFLE X FREE T4 TSH 0.47 uIU/m L 0.30-5 .33 Not Available [facility] (Lab) [address], [place], [address], 03/27/2024 07:08:35 04/29/20 24 04/29/2024 pregn annabelle test, urine HCG negati ve Not Available [facility] [address], [place], [address], 04/29/2024 18:12:16 04/21/20 24 04/21/2024 US, obste tric, trans vagin al No observ ation record ed. [email or web address] [facility] [address], [place], [address], 04/21/2024 18:16:21 04/21/20 24 04/21/2024 US, obste tric, trans vagin al No observ ation record ed. [email or web address] [address], [place], [address], 04/22/2024 11:52:58 Result Notes None recorded. 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 13:05:31 Atypical squamous cells on cervical Papanico laou smear cannot exclude high grade squamous intraepi thelial lesion [id number] Completed 201808/10/2021 Atyp squam cell not excl hi grd intrepith lesn cyto smr crvx;Daniele rded Elsewhere : No Locati on: [facility] So urce: EHR Chron ic: N Practic e ID: 0001 Bill able Time: 10:15:00 AM Ashley Pisano [facility] 2 12:46:50 Atypical squamous cells of undeterm ined signific ance on cervical Papanico laou smear [id number] Completed 201808/10/2021 Atyp squam cell of undet signfc cyto smr crvx (ASC-US); Recorded Elsewhere : No Locati on: [facility] So urce: EHR Chron ic: N Practic e ID: 0001 Bill able Time: 10:15:00 AM Ashley Pisano [facility] 2 12:46:49 Speciali zed medical examinat ion Completed 201308/10/2021 Gynecolog ical Examinati on;Record ed Elsewhere : No Locati on: [facility] So urce: EHR Chron ic: N Practic e ID: 0001 Bill able Time: 02:15:00 PM Ashley Pisano [facility] 2 13:05:33 Urinary tract infectio us disease 13854931 Completed 201708/10/2021 UTI;Recor ded Elsewhere : No Locati on: [facility] So urce: EHR Chron ic: N Practic e ID: 0001 Bill able Time: 05:30:00 PM Ashley Pisano [facility] 2 13:05:35 Pregnanc y test negative 010643829 Completed 201808/10/2021 Encounter for test, result negative; Recorded Elsewhere : No Locati on: [facility] So urce: EHR Chron ic: N Practic e ID: 0001 Bill able Time: 10:15:00 AM Ashley Pisano [facility] [address] 12:46:[address] Concept Completed 201408/10/2021 Encntr for general adult medical exam w/o abnormal findings; Recorded Elsewhere : No Locati on: [facility] So urce: EHR Chron ic: N Practic e ID: 0001 Bill able Time: 11:00:00 AM Ashley no [facility] 2 13:05:29 Blood leukocyt e number above referenc e range [id number] Completed 201608/10/2021 Elevated white blood cell count, unspecifi ed;Record ed Elsewhere : No Locati on: [facility] So urce: EHR Chron ic: N Practic e ID: 0001 Bill able Time: 05:45:00 PM Ashley Pisano [facility] 2 12:46:52 Screenin g for malignan t neoplasm of cervix Completed 201308/10/2021 Pap Smear;Pra ctice ID: [address] [facility] 2 14:15:02 Acute vaginiti s 12210210 Completed 201608/10/2021 Acute vaginitis ;Practice ID: [address] [facility] 2 12:46:47 Problem Notes None recorded. Procedures Surgical History Date Name Laterality Status Provider Name and Address Organization Details Recorded Time 08/26/19 24 Date of Last Pap Smear completed Karley Arias [facility] 02/27/2024 15:51:07 02/27/20 21 endoscopy completed Renae Rodríguez [facility] [address], [place], [address], [place] [facility] 08/10/2021 14:44:28 02/03/20 19 Colposcopy completed Ashley Pisano [facility] 08/10/2021 14:39:04 Imaging Results Imaging Date Name Status LastModified by Organization Details LastModified Time 04/21/2024 US, obstetric, transvaginal completed [email or web address] [facility] [address], [place], [address], 04/21/2024 18:16:21 04/21/2024 US, obstetric, transvaginal completed [email or web address] [address], [place], [address], 04/22/2024 11:52:58 Procedure Notes None recorded. Medical Equipment None Reported. Allergies No known drug allergies Medications Name Sig Start Date Stop Date Status Note LastModified by Organization Details LastModified Time Diflucan 150 mg tablet take 1 tablet by oral route every other week. 02/02 completed Prescrib ed Elsewher e: No Locat ion: [facility] odify By: sony z Encoun ter DateTime : 01/19/20 19 02:30:00 PM Not Available Not Available Not Available sulfameth oxazole 800 mg-trimet hoprim 160 mg tablet take 1 tablet by oral route every 12 hours 02/02 completed Prescrib ed Elsewher e: No Locat ion: [facility] odify By: sony z Encoun ter DateTime [...] Prescrib ed Elsewher e: No Locat ion: [facility] odify By: [email or web address] Shannon marquez DateTime : [...] Updated DateTime 02/27/2024 160.02 cm 30.6 kg/m2 72713.48 g 114 mm[Hg] 78 mm[Hg] [facility] 15:50:21 Date Recorded Body height Body mass index (BMI) Body weight Systolic blood pressure Diastolic blood pressure Provider Name and Address Organization Details Last Updated DateTime 03/16/2024 160.02 cm 31.4 kg/m2 56559.85 g 124 mm[Hg] 83 mm[Hg] Karley [facility] 4 12:37:53 Date Recorded Body height Body mass index (BMI) Body weight Systolic blood pressure Diastolic blood pressure Provider Name and Address Organization Details Last Updated DateTime 04/21/2024 160.02 cm 30.6 kg/m2 94804.48 g 123 mm[Hg] 78 mm[Hg] Florence Green [facility] 4 14:41:35 Date Recorded Body height Body mass index (BMI) Body weight Systolic blood pressure Diastolic blood pressure Provider Name and Address Organization Details Last Updated DateTime 04/29/2024 160.02 cm 30.4 kg/m2 17775.73 g 116 mm[Hg] 75 mm[Hg] Tere Castanon [facility] 17:15:24 Social History Question Answer Notes LastModified by Organizat ion Details LastModified Time Tobacco Smoking Status Never Smoker Ashley Pisano [email or web address] [facility] 08/10/2021 14:35:15 Do You Have An Advance Directive? No Information n ot available 08/10/2021 How Many Years Have You [...] Or The Highest Degree You Have Received? [id number] Information not available 08/10/2021 Are There Any [...] IV Drugs? No Information not available 08/10/2021 Do You Have Difficulty Walking Or Climbing Stairs? No [email or web address] Information not available 04/21/2024 Sex: Unknown Functional Status Question Answer Note LastModified by Organizat ion Details LastModified Time Do you use any illicit or recreational drugs? No Information not available 08/10/2021 What is your level of alcohol consumption? Occasional Information not available 08/10/2021 Are you able to walk? YESWOREST Information not available 08/10/2021 Are you able to care for yourself? 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 No [email or web address] Information not available 04/21/2024 What is your exercise level? Moderate Information not available 08/10/2021 Mental Status Question Answer Note LastModified by Organization D etails LastModified Time Do you feel stressed (tense, restless, nervous, or anxious, or unable to sleep at night)? [id number] Information not available 08/10/2021 Family History Relationship Description Onset Age of this Age Resolved Age Notes LastModified by Organization Details LastModified Time Mother Diabetes mellitus [email or web address] Not available 2019 11:46:26 Paternal Grandmother Diabetes mellitus [email or web address] Not available 2019 11:46:26 Paternal Grandmother Carcinoma in situ of lung [email or web address] Not available 12:19:04 Paternal Aunt Carcinoma in situ of breast [email or web address] Not available 2023 12:19:04 Medical History Condition [...] SNOMED-CT Code Diagnosis ICD10 Code Diagnosis Note [id number] Renae Rodríguez , [facility] [address] [address] 05/08/2020 11:45:17 05/08/2020 17:52:43 Gynecologic examination 23934618 Z01.419 Take Calcium with Vitamin D 1200mg [...] OCP 2019-Pap/h pv ASCUS w/ +HPV Colpo 2018 consistent with pap results Pap/hpv ordered [id number] Renae Rodríguez [facility] [address],[place] [address] 08/10/2021 14:21:36 08/10/2021 15:18:57 Gynecologic examination 27190546 Z01.419 Take Calcium with Vitamin D 1200mg [...] w/ +HPVPap/hp v 2020 wnl Pap/hpv orderedGen etic screen discussed STD screen declined Newly Engaged this year! Waiting to set the date. [facility] ion care management [id number] Z30.9 Happy on OCPRF sent x 1yr [id number] Renae Rodríguez [facility] [address] [address] 08/26/2023 09:00:06 08/26/2023 09:31:11 Gynecologic examination 99055918 Z01.419 Z11.51 Take Calcium with Vitamin D [...] with folic acid [id number] Henry Carpenter MD [facility] [address] [address] 02/27/2024 15:17:26 03/04/2024 23:33:34 Irregular periods 48833454 N92.6 Reproducti ve care management 737147963 Z31.9 - Differenti al diagnosis of cause [...] over 30 minutes on the patient's care. [id number] Henry Carpenter MD [facility] [address] [address] 03/16/2024 12:18:54 03/17/2024 09:58:00 Female infertility 5604680 N97.9 Presents today for discussion of infertilit [...] We agreed to proceed with hysterosal pingogram. [id number] Henry Carpenter MD [facility] [address] [address] 04/21/2024 14:12:24 04/21/2024 15:02:43 Threatened miscarriage 04806361 O20.0 O36.80X0 Z3A.00 [id number] Valerie Danielle CNM [facility] [address] [address] 04/21/2024 14:13:18 04/21/2024 15:59:49 Long menstrual cycle 937282839 N92.5 missed ab, vs early pregnancyp brandyn HCG and then rpt in 48 hoursblood type drawncall if any concerns or increase in bleeding, will plan f/u next week pending resultscon tinue vitamin Hyperthyroidism 96296746 E05.90 rpt tsh free t4 and t3 today [id number] Henry Carpenter MD [facility] [address] [address] 04/29/2024 17:07:06 04/30/2024 09:37:31 Missed miscarriage 63208991 O02.1 this patient presents for postop follow-up. [...] Rahman Member ID Guarantor Name 02/27/2024 1 [facility] SHAR[facility] - [place] - DOS PRIOR TO 2024 (PPO) Vaishali Carr [id number] [facility] Vaishali Carr 03/16/2024 1 [facility] SHARED SERVICES - [place] - DOS PRIOR TO 2024 (PPO) Vaishali Carr [id number] Klaudia Carr 04/21/2024 1 [facility] - [place] - DOS PRIOR TO 2024 (PPO) Vaishali Carr [id number] EHKlaudia Loboi 04/21/2024 1 [facility] - [place] - DOS PRIOR TO 2024 (PPO) Vaishali Carr [id number] Klaudia Loboi 04/29/2024 1 [facility] - [place] - DOS PRIOR TO 2024 (PPO) Vaishali Carr [id number] JIMBO Carr Notes Date Note Type Note [...] which is to be scheduled on CD 01-04-- Transvaginal ultrasound with SIS for endometrial cavity [...] appropriately Henry Carpenter MD [address], [place], [address], [facility] 02/28/2024 13:22:26 4 text/html Presents [...] hysterosalpingogram. Henry Carpenter MD [address], [place], [address], [facility] 03/17/2024 09:54:27 4 text/html +UPT, pt having some spotting, send for blood typeon US today not seeing 9 week IUP, discussed could be early vs miscarriagept also wants to discuss hyperthyroidism no current meds Valerie Danielle CNM [address], [place], [address], [facility] 04/21/2024 15:12:29 4 text/html this [...] on. Henry Carpenter MD [address], [place], [address], [place] [facility] 04/29/2024 18:22:54 OBGyn Episode Ob Episode Information Episode Created Date Number of Fetuses Patient Bloodtype Patient rh Status Prepregnancy Weight lbs Domestic Partner Domestic Partner Phone Father Name Offbearer Status 04/21/20 24 1 CLOSED Fetus Data First Name Last Name Admitted to NICU Weight (g) Sex Living Outcome Pediatric Complications Fetus ID Race Codes Race Delivery Type , Spontane ous [id number] Andrey Calculation Initial Andrey Date Initial Exam [...]
--- OUTSIDE RECORDS SUMMARY | 2024-12-14 07:13 | XMS_ITS | Clinical Summary ---
Author Organization [facility] Address [address] [place] [address] Care Team Providers Care Housekeeping And Laundry Team Leader Name Role Phone Gus Elise Primary Care [...] for Heartburn. Active triamcinolone (KENALOG) 0.1 % creamIndications :Eczema, [...] total) by mouth daily. 90 tablet 3 4 Active multi vitamin/minerals (THERA-M ENHANCED) tablet Take 1 tablet by mouth daily. Active cetirizine (ZYRTEC) 10 MG tablet Take 1 tablet (10 mg total) by mouth daily. Active amoxicillin (AMOXIL) 875 MG tabletIndication s:Pharyngitis, unspecified etiology Take 1 tablet (875 mg total) by mouth 2 (two) times daily for 10 days. 20 tablet 11/20/19 25 Active Problems Problem Noted Date Diagnosed Date Lower abdominal pain 08/20/2023 Blood in stool 08/20/2023 Bloating 08/20/2023 Gastroesophageal reflux dise ase, unspecified whether esophagitis present 06/25/2023 Encounters Date Type Department Care Team Description 11/24/2024 Scan [facility] Scanned, [facility] Lab (SCAN) 11/22/2024 Scan [facility] Scanned, [facility] (SCAN) 11/09/2024 1:00 PM CDT Office Visit [address] [phone] Gus Elise, DO Sore Throat (The patient is having sore throat and headaches. The patient states the sx are worse during the day. The patient was tested for covid and flu. The patient has tried sudafed and flonase. ) 11/09/2024 Results Follow-Up [address] [phone] Gus Elise, DO STREP A RAPID, CULTURE STREP A (MG/SJS/SMD Only) 11/09/2024 Travel 11/09/[address] [phone] Gus Elise, DO Medication Request 10/25/2024 Scan [facility]VCS Scanned, [facility] (SCAN) 10/25/2024 Scan [facility] Scanned, [facility] (SCAN) 10/25/2024 Telephone [facility] Internal [address] [address] Gus Elise, Medication Request 09/27/2024 Scan [facility] INFO SRVCS Scanned, Doc Med Group Image (SCAN) 09/22/2024 Scan [facility] SRVCS Scanned, Doc [facility] Lab (SCAN) from Last 3 Months Immunizations Immunization Administration [...] 02/09/2025 8:20 AM CDT Allied Health/Nurse Visit [facility] Family & Internal Medicine [address] [place] [address] Gus Elise, DO [address] [place] [address] 06/29/2025 7:20 AM FRONT DESK ADMIN Office Visit [facility] Family & Internal [address] [phone] Gus Elise, DO [address] [place] [address] Health Maintenance Due Date Last Done Comments [...] Td or Tdap) 06/25/2033 06/25/2023 COVID-19 Vaccine (2023-2 5 season) 2112 Postponed from 03/28 (Going to Outside Clinic) Hepatitis C Completed 07/14/2023 PHQ-2 (Physician [place]) Completed 11/09/2024 HPV Vaccines Aged Out No [...] Procedure Name Priority Date/Time Associated Diagnosis Comments OUTSIDE LAB (SCAN ORDER) 11/24/2024 OUTSIDE LAB (SCAN ORDER) 11/22/2024 CULTURE STREP A Routine 11/09/2024 1:24 PM CDT Sore throat STREP A RAPID Routine 11/09/2024 Sore throat OUTSIDE LAB COVID-19 (SCAN ORDER) Routine 10/25/2024 OUTSIDE LAB (SCAN ORDER) 10/25/2024 IMAGE GENERIC 09/27/2024 OUTSIDE LAB (SCAN ORDER) 09/22/2024 OUTSIDE LAB (SCAN ORDER) 09/22/2024 OUTSIDE LAB (SCAN ORDER) 09/22/2024 OUTSIDE CYTOPATH CERV/VAG INTERPRET (PAP) 08/26/2023 HEPATITIS C ANTIBODY Routine 07/14/2023 7:20 AM FRONT DESK ADMIN Encounter for preventative adult health care examination Screening for lipid disorders Screening for endocrine, metabolic and immunity disorder Need for hepatitis C screening test from Last 3 Months or Most Recently Relevant to Health Maintenance Results * OUTSIDE LAB (SCAN ORDER) (11/24/2024) Only the most recent of6 resultswithin the time period is included. 11/24/2024 us [facility] Scanned SCANNING Final Resu lt * CULTURE STREP A (MG/SJS/SMD Only) (11/09/2024 1:24 PM CDT) THROAT CULTURE STREP A ONLY Negative for Group A Streptococci Negative for Group A Streptococci 11/10/2024 5:40 PM CDT [facility] STRUCTURE OF ANTERIOR PORTION OF NECK / Unknown 11/09/2024 1:24 PM CDT Gus Yuli Contrerasramonkaren DO MICROBIOLOGY - GENERAL O RDERABLES Final Result Performing Organization Address City/[facility]/ZIP Co de Phone Number [facility] [place] [address] [facility] [place] [address], * STREP A RAPID (11/09/2024) RAPID STREP TEST NEGATIVE NEGATIVE [facility] Internal Control: VALID VALID [facility] STRUCTURE OF ANTERIOR PORTION OF NECK / Unknown 11/09/2024 Gus Yuli Contrerasramonkaren DO MICROBIOLOGY - GENERAL O RDERABLES Final Result Performing Organization Address [facility] [place]/[facility] Co de Phone Number [facility] [address] [place] [address], [place] * OUTSIDE LAB COVID-19 (10/25/2024) CORONAVIRUS SARS COV 2 PCR (RESP) NOT DETECTED NOT DETECTED [facility] 10/25/2024 [facility] Scanned SCANNING Final Resu lt Performing Organization Address City/[facility] Co de Phone Number [facility] * IMAGE GENERIC (09/27/2024) Anatomical Region Laterality Modality Other 09/27/2024 [facility] Scanned SCANNING Final Resu lt * PAP SMEAR WITH HPV (08/26/2023) 08/26/2023 [facility] Scanned SCANNING Final Resu lt * HEPATITIS C ANTIBODY ([facility] ONLY) (07/14/2023 7:20 AM FRONT DESK ADMIN) HEPATITIS C AB NON-REACTI VE NON-REACT ROB 07/14/2023 7:07 PM FRONT DESK ADMIN [facility] Comment: ANTIBODIES TO HCV NOT DETECTED. DOES NOT EXCLUDE THE POSSIBILITY OF EXPOSURE TO HCV. 07/14/2023 7:20 AM FRONT DESK ADMIN Gus Elise DO LABORATORY Final Re sult [facility] [address] [place] [address], [place] [phone] [id number] from Last 3 Months or Most Recently Relevant to Health [place] [address] Care Teams Housekeeping And Laundry Team Leader Relationship Specialty Start Date End Date Gus Elise DO [address] [place], [place] [id number] PCP - General FAMILY PRACTICE 06/25/23
--- OUTSIDE RECORDS SUMMARY | 2024-12-14 07:13 | XMS_ITS | Continuity of Care Document ---
Author Name [facility] Organization [facility] Care Team Providers Care Data Coder Operator Name Role Phone [facility] Unavailable Unavailable [...] Reported Comments Source NO OUTPUT FOR NCID [id number] Drug allergy (disorder) active 01/15/[address] [place], [place] [address]B [facility]) Encounters Combined list of: 1) Encounters from Department of Veterans Affairs facilities going backup to the last 18 months, not all VA inpatient encounters are included; 2) Encounters from the Department of [facility] facilities going backup to 280 months. Location Location Details Encounter Type Encounter Number Reason For Visit Attending Provider ADM Date DC Date Status Disposition Source [address] [place] [address] [employer] [facility])([facility] Practice Non-GME FHI1) OUTPATIENT [id number] ORLIN Montejo 08/20 Released w/o Limitations [address] [place], [place] [address]B [facility])(F amily Practic e Non-GME FHI1) [address] [place], [place] [address]B [facility])(Ped iatrics) OUTPATIENT [id number] sports physica l KATHERINE BARNHART 09/19 Released w/o Limitations [address] [place], [place] [address]B [facility])(P ediatri cs) [address] [place] [address] [employer] [facility])(Juan Francisco matology) OUTPATIENT [id number] DYSPLAS TIC NEVUS QUEENIE CELESTIN 10/31 Released w/o Limitations [address] [place], [place] [address]B [facility])(D ermatol ogy) [address] [place] [address] [employer] [facility])(Fam alexander Practice Non-GME FHI2) OUTPATIENT [id number] swollen tonsils ,sore throat, nausea KATHERINE RIVERA 01/14 Released w/o Limitations [address] [place] [address] [employer] [facility])(F amily Practic e Non-GME FHI2) [address] [place] [address] [employer] [facility])(Sco tt [facility] Team 3) OUTPATIENT [id number] pap smear FELIX RODRIGUEZ 01/24 Released w/o Limitations [address] [place] [address] [employer] [facility])(S cott [facility] Team [address]) [address] [place] [address] [employer] [facility])(Sco tt [facility] Team 3) TELE CONSULT [id number] call back lab results COLLETTE MAY 02/17 [employer] ([facility])([facility] Team 3) [employer] ([facility])(Ob/ Housekeeping Coordinator) TELE CONSULT [id number] pap results LAW BRUMFIELD 02/20 [employer] ([facility])(O b/Housekeeping Coordinator) [employer] ([facility])(Nho tt [facility] Team 3) TELE CONSULT [id number] Pt needs call back - ALYSIA Avalos 03/20 [employer] ([facility])([facility] Team 3) [facility] [employer] ([facility])(Nho tt [facility] Team 3) OUTPATIENT [id number] f/u infecti on FELIX RODRIGUEZ 04/17 Released w/o Limitations [employer] ([facility])(S [facility] Team 3) [facility] [employer] ([facility] Team 3) TELE CONSULT [id number] lab results FELIX RODRIGUEZ 04/20 [employer] ([facility])(S [facility] Team 3) [facility] [employer] ([facility])(Housekeeping Coordinator ecology) OUTPATIENT [id number] annual exam [id number] RAMON RODRIGUEZ 01/17 Released w/o Limitations [employer] ([facility])(G ynecolo gy) [employer] ([facility])(Housekeeping Coordinator ecology) TELE CONSULT [id number] results AYDEN CARRANZA 01/31 [employer] ([facility])(G ynecolo gy) [employer] ([facility])(Housekeeping Coordinator ecology) OUTPATIENT [id number] colpo AYDEN CARRANZA 02/05 Released w/o Limitations [employer] ([facility])(G ynecolo gy) [employer] ([facility])(Housekeeping Coordinator ecology) TELE CONSULT [id number] results AYDEN CARRANZA 02/13 [employer] ([facility])(G ynecolo gy) [facility] [employer] ([facility])(Housekeeping Coordinator ecology) TELE CONSULT [id number] results AYDEN CARRANZA 03/28 [facility] [employer] ([facility])(G ynecolo gy) [facility] [employer] ([facility])(Housekeeping Coordinator ecology) TELE CONSULT [id number] Maria Luz amaya about rominat ULI URIBE 04/10 [employer] ([facility])(G ynecolo gy) [facility] [employer] ([facility])(Ob/ Housekeeping Coordinator) TELE CONSULT [id number] cancell ing SILVA Leija 04/11 Referred for Appointment [facility] [employer] ([facility])(O b/Housekeeping Coordinator) [facility] [employer] ([facility])(Housekeeping Coordinator ecology) OUTPATIENT [id number] MERI 3 on polyp/ ? LEEP ULI URIBE 04/20 Released w/o Limitations [facility] [employer] ([facility])(G ynecolo gy) [facility] [employer] ([facility])(Ob/ Housekeeping Coordinator) TELE CONSULT [id number] SILVA LEIJA 08/17 Referred for Appointment [facility] [employer] ([facility])(O b/Housekeeping Coordinator) [facility] [employer] ([facility])(Housekeeping Coordinator ecology) OUTPATIENT [id number] colpo ULI URIBE 09/10 Released w/o Limitations [facility] [employer] ([facility])(G ynecolo gy) [facility] [employer] ([facility])(Housekeeping Coordinator ecology) OUTPATIENT [id number] f/u colpo - [id number] ULI URIBE 10/08 Released w/o Limitations [facility] [employer] ([facility])(G ynecolo gy) [facility] [employer] ([facility])(Housekeeping Coordinator ecology) TELE CONSULT [id number] BC refill (orthot ricycle n) SILVA BERNARD 01/23 [facility] [employer] ([facility])(G ynecolo gy) [facility] [employer] ([facility])(Housekeeping Coordinator ecology) OUTPATIENT [id number] colpo DANNY SALVADOR 03/01 Released w/o Limitations [facility] [employer] ([facility])(G ynecolo gy) [facility] [employer] [facility] ([facility])(Housekeeping Coordinator ecology) OUTPATIENT [id number] repeat pap - DANNY SALVADOR 03/06 Released w/o Limitations [facility] Medical [facility] [employer] [facility] ([facility])(G ynecolo gy) [address] [place] [address])([facility] Team 3) TELE CONSULT [id number] Solitario Rodriguez /[phone] 86/cadSUHAIL Benitez 03/[address] [place] [address] [employer] [facility])([facility] Team 3) [address] [place] [address])(Housekeeping Coordinator ecology) OUTPATIENT [id number] Vaginal dischar CHIDI StringerN 04/18 Released w/o Limitations [address] [place] [address] Group [facility])(G ynecolo gy) [address] [place] [address])([facility] Team 3) TELE CONSULT [id number] f/u UTI - Haylee - cad/[facility] ALYSIA GAMING 08/[address] [place] [address] Group [facility])([facility] Team 3) [facility] Medical Group [facility])(Housekeeping Coordinator ecology) OUTPATIENT [id number] 4 month f/u after colpo [id number] RAMON RODRIGUEZ 08/28 Released w/o Limitations [address] [place] [address])(G ynecolo gy) [address] [place] [address])([facility] Team 3) TELE CONSULT [id number] Notes Entered by: GEOFFREY NUGENT 14 Oct 2011 1559 ------- ------- ------- ------- -- Retro solitario [place] [phone] - SUHAIL [place] 10/[address] [place] [address])([facility] Team 3) [address] [place] [address])([facility] Tm A Ad) TELE CONSULT [id number] Notes Entered by: COURTNEY JONES 24 Apr 2012 1300 ------- ------- ------- ------- -- Network results - Urgent Care 08/10/11 VANESA AVLENTINE 04/24 [facility] [employer] BAR[facility] ([facility])(W arrior Op Med Cln Tm A Ad) [...] CERVICAL OR VAGINAL SMEAR TO LABORATORY 9 [facility] HUMAN PAPILLOMAVIRUS VACCINE, TYPES 6, 11, 16, 18, QUADRIVALENT (4VHPV), 3 DOSE SCHEDULE, FOR INTRAMUSCULAR USE 7 [facility] Non-Physician Phone Call To Patient/Provider Brief (5-10min) Non-Physician Phone Call To Patient/Provider Brief (5-10min) [phone] SUHAIL SYKES Non-Physician Phone Call To Patient/Provider Brief (5-10min) Non-Physician Phone Call To Patient/Provider Brief (5-10min) [phone] 2 LESLEE GAMINGTOBY MARTITA [facility] Cervical Wet [place] Cervical Wet [place] [address] 1 CHIDI RUSHING [facility] Vaginal PHILIPP Prep Vaginal PHILIPP Prep [phone] 1 CHIDI RUSHING [facility] Non-Physician Phone Call To Patient/Provider Brief (5-10min) Non-Physician Phone Call To Patient/Provider Brief (5-10min) [phone] 1 SUHAIL SYKES [facility] Screening papanicolaou smear; obtaining, preparing and conveyance of cervical or vaginal smear to laboratory 1 DANNY SALVADOR [facility] Colposcopy Cervix With Endocervical Curettage Colposcopy Cervix With Endocervical Curettage 94091 1 DANNY SALVADOR [facility] Test Test 19912 1 DANNY SALVADOR Patient was advised of negitive result DoD Colposcopy Cervix With Biopsy(s) With Endocervical Curettage Colposcopy Cervix With Biopsy(s) With Endocervical Curettage 34251 1 ULI URIBE [facility] Urine HCG, Test Urine HCG, Test 36102 1 ULI URIBE [facility]-NEG [facility] Colposcopy Colposcopy 77005 0 ULI URIBE [facility] Biopsy Cervical 0 AYDEN CARRANZA Test Test 04166 0 AYDEN CARRANZA Colposcopy Cervix With Biopsy(s) Colposcopy Cervix With Biopsy(s) 86104 0 AYDEN CARRANZA [facility] Intervention And Counseling On Ce ation Of Tobacco Use Intervention And Counseling On Cessation Of Tobacco Use 4000F 0 RAMON RODRIGUEZ [facility] current smoker current smoker 1034F 0 RAMON RODRIGUEZ Screening papanicolaou smear; obtaining, preparing and conveyance of cervical or vaginal smear to laboratory 0 RAMON RODRIGUEZ [facility] Human Papilloma Virus Vaccine, Quadrivalent Human Papilloma Virus Vaccine, Quadrivalent 67684 7 KATHERINE BARNHART DoD Social History Combined list of available smoking, tobacco, and other social history from Department of Defense and Veterans Affairs facilities. Social History Type Response Date Comment [facility] e This section is an empty social history section. DoD
[2024-12-15 02:23] LABS: Progesterone 0.8 ng/mL
== END 2024-12-14 07:11 | disposition home or self-care (01) ==
PROVIDERS: PCP Student in an Organized Health Care Education/Training Program; Visit Provider Obstetrics & Gynecology
DX: N92.6 Irregular menstruation, unspecified (principal)
CPT/HCPCS: 36415; 84144

== ENCOUNTER 2025-01-03 16:18 | Outpatient (CLI) | payer OTHER, SELFPAY ==
--- OUTSIDE RECORDS SUMMARY | 2025-01-03 16:43 | XMS_ITS | Continuity of Care Document ---
Author Name [facility] Organization [facility] Care Team Providers Care Complementary Health Therapists Name Role Phone [facility] Unavailable Unavailable Problems [...] Reported Comments Source NO OUTPUT FOR NCID [id number] Drug allergy (disorder) active 01/15/[address] [place], [place] [address]B [facility]) Encounters Combined list of: 1) Encounters from Department of Veterans Affairs facilities going backup to the last 18 months, not all VA inpatient encounters are included; 2) Encounters from the Department of [facility] facilities going backup to 280 months. Location Location Details Encounter Type Encounter Number Reason For Visit Attending Provider ADM Date DC Date Status Disposition Source [address] [place] [address] [employer] [facility])([facility] alexander Practice Non-GME FHI1) OUTPATIENT [id number] ORLIN Montejo 08/20 Released w/o Limitations [address] [place], [place] [address]B [facility])(F amily Practic e Non-GME FHI1) [address] [place], [place] [address] [facility])(Ped iatrics) OUTPATIENT [id number] sports physica l KATHERINE BARNHART 09/19 Released w/o Limitations [address] [place], [place] [address] [facility])(P ediatri cs) [address] [place] [address] [employer] [facility])(Juan Francisco matology) OUTPATIENT [id number] DYSPLAS TIC NEVUS QUEENIE CELESTIN 10/31 Released w/o Limitations [address] [place], [place] [address]B [facility])(D ermatol ogy) [address] [place] [address] [employer] [facility])(Fam alexander Practice Non-GME FHI2) OUTPATIENT [id number] swollen tonsils ,sore throat, nausea KATHERINE RIVERA 01/14 Released w/o Limitations [address] [place] [address] [employer] [facility])(F amily Practic e Non-GME FHI2) [address] [place] [address] [employer] [facility])(Sco tt [facility] Team 3) OUTPATIENT [id number] pap smear FELIX RODRIGUEZ 01/24 Released w/o Limitations [address] [place] [address] [employer] [facility])(S cott [facility] Team 3) [address] [place] [address] [employer] [facility])(Sco tt [facility] Team 3) TELE CONSULT [id number] call back lab results COLLETTE MAY 02/17 [employer] ([facility] Team 3) [employer] ([facility])(Ob/ [employer]) TELE CONSULT [id number] pap results LAW BRUMFIELD 02/20 [employer] ([facility])(O b/[employer]) [employer] ([facility])(Aro tt [facility] Team 3) TELE CONSULT [id number] Pt needs call back - ALYSIA Avalos 03/20 [employer] ([facility] Team 3) [facility] [employer] ([facility])(Aro tt [facility] Team 3) OUTPATIENT [id number] f/u infecti on FELIX RODRIGUEZ 04/17 Released w/o Limitations [employer] ([facility])([facility] Team 3) [facility] [employer] ([facility])(Aro [facility] Team 3) TELE CONSULT [id number] lab results FELIX RODRIGUEZ 04/20 [employer] ([facility])([facility] Team 3) [facility] [employer] ([facility])([employer] ecology) OUTPATIENT [id number] annual exam [id number] RAMON RODRIGUEZ 01/17 Released w/o Limitations [employer] ([facility])(G ynecolo gy) [employer] ([facility])([employer] ecology) TELE CONSULT [id number] results AYDEN CARRANZA 01/31 [employer] ([facility])(G ynecolo gy) [employer] ([facility])([employer] ecology) OUTPATIENT [id number] colpo AYDEN CARRANZA 02/05 Released w/o Limitations [employer] ([facility])(G ynecolo gy) [employer] ([facility])([employer] ecology) TELE CONSULT [id number] results AYDEN CARRANZA 02/13 [employer] ([facility])(G ynecolo gy) [facility] [employer] ([facility])([employer] ecology) TELE CONSULT [id number] results AYDEN CARRANZA 03/28 [facility] [employer] ([facility])(G ynecolo gy) [facility] [employer] ([facility])([employer] ecology) TELE CONSULT [id number] Maria Luz amaya about rominat ULI URIBE 04/10 [employer] ([facility])(G ynecolo gy) [facility] [employer] ([facility])(Ob/ [employer]) TELE CONSULT [id number] cancell ing SILVA Leija 04/11 Referred for Appointment [facility] [employer] ([facility])(O b/Machine [employer]eller) [facility] [employer] ([facility])([employer] ecology) OUTPATIENT [id number] MERI 3 on polyp/ ? LEEP ULI URIBE 04/20 Released w/o Limitations [facility] [employer] ([facility])(G ynecolo gy) [facility] [employer] ([facility])(Ob/ [employer]) TELE CONSULT [id number] SILVA LEIJA 08/17 Referred for Appointment [facility] [employer] ([facility])(O b/Machine [employer]) [facility] [employer] ([facility])([employer] ecology) OUTPATIENT [id number] colpo ULI URIBE 09/10 Released w/o Limitations [facility] [employer] ([facility])(G ynecolo gy) [facility] [employer] ([facility])([employer] ecology) OUTPATIENT [id number] f/u colpo - [id number] ULI URIBE 10/08 Released w/o Limitations [facility] [employer] ([facility])(G ynecolo gy) [facility] [employer] ([facility])([employer] ecology) TELE CONSULT [id number] BC refill (orthot ricycle n) SILVA BERNARD 01/23 [facility] [employer] ([facility])(G ynecolo gy) [facility] [employer] ([facility])([employer] ecology) OUTPATIENT [id number] colpo DANNY SALVADOR 03/01 Released w/o Limitations [facility] [employer] ([facility])(G ynecolo gy) [facility] [employer] [facility] ([facility])([employer] ecology[facility] OUTPATIENT [id number] repeat pap - DANNY SALVADOR 03/06 Released w/o Limitations [facility] [employer] [facility] ([facility])(G ynecolo gy) [address] [place] [address])(Aro [facility] Team 3) TELE CONSULT [id number] Solitario Rodriguez /[phone]/cadSUHAIL Benitez 03/[address] [place] [address] [employer] [facility])([facility] Team 3) [address] [place] [address])([employer] ecology) OUTPATIENT [id number] Vaginal dischar CHIDI StringerN 04/18 Released w/o Limitations [address] [place] [address] Group [facility])(G ynecolo gy) [address] [place] [address])([facility] Team 3) TELE CONSULT [id number] f/u UTI - Haylee - cad/[facility] ALYSIA GAMING 08/[address] [place] [address] Group [facility])([facility] Team 3) [facility] Medical Group [facility])([employer] ecology) OUTPATIENT [id number] 4 month f/u after colpo [id number] RAMON RODRIGUEZ 08/28 Released w/o Limitations [address] [place] [address])(G ynecolo gy) [address] [place] [address])([facility] Team 3) TELE CONSULT [id number] Notes Entered by: GEOFFREY NUGENT 14 Oct 2011 1559 ------- ------- ------- ------- -- Retro solitario [place] [phone] - SUHAIL Salinas 10/[address] [place] [address])([facility] Team 3) [address] [place] [address])([facility] Tm A Ad) TELE CONSULT [id number] Notes Entered by: COURTNEY JONES 24 Apr 2012 1300 ------- ------- ------- ------- -- Network results - Urgent Care 08/10/11 VANESA VALENTINE 04/24 [facility] [employer] [...] CERVICAL OR VAGINAL SMEAR TO LABORATORY 9 [facility] HUMAN PAPILLOMAVIRUS VACCINE, TYPES 6, 11, 16, 18, QUADRIVALENT (4VHPV), 3 DOSE SCHEDULE, FOR INTRAMUSCULAR USE 7 [facility] Non-Physician Phone Call To Patient/Provider Brief (5-10min) Non-Physician Phone Call To Patient/Provider Brief (5-10min) 55246 2 SUHAIL SYKES Non-Physician Phone Call To Patient/Provider Brief (5-10min) Non-Physician Phone Call To Patient/Provider Brief (5-10min) 94460 2 LESLEE GAMINGTOBY MARTITA [facility] Cervical Wet [place] Cervical Wet [place] 75362 1 CHIDI RUSHING [facility] Vaginal PHILIPP Prep Vaginal PHILIPP Prep 36148 01 1 CHIDI RUSHING [facility] Non-Physician Phone Call To Patient/Provider Brief (5-10min) Non-Physician Phone Call To Patient/Provider Brief (5-10min) 57997 1 SUHAIL SYKES [facility] Screening papanicolaou smear; obtaining, preparing and conveyance of cervical or vaginal smear to laboratory 1 DANNY SALVADOR [facility] Colposcopy Cervix With Endocervical Curettage Colposcopy Cervix With Endocervical Curettage 19907 1 DANNY SALVADOR [facility] Test Test 49056 1 DANNY SALVADOR Patient was advised of negitive result DoD Colposcopy Cervix With Biopsy(s) With Endocervical Curettage Colposcopy Cervix With Biopsy(s) With Endocervical Curettage 15289 1 ULI URIBE [facility] Urine HCG, Test Urine HCG, Test 79195 1 ULI URIBE [facility]-NEG [facility] Colposcopy Colposcopy 41421 0 ULI URIBE [facility] Biopsy Cervical 0 AYDEN CARRANZA Test Test 46623 0 AYDEN CARRANZA Colposcopy Cervix With Biopsy(s) Colposcopy Cervix With Biopsy(s) 62168 0 AYDEN CARRANZA [facility] Intervention And Counseling On Ce ation Of Tobacco Use Intervention And Counseling On Cessation Of Tobacco Use 4000F 0 RAMON RODRIGUEZ [facility] current smoker current smoker 1034F 0 RAMON RODRIGUEZ Screening papanicolaou smear; obtaining, preparing and conveyance of cervical or vaginal smear to laboratory 0 RAMON RODRIGUEZ [facility] Human Papilloma Virus Vaccine, Quadrivalent Human Papilloma Virus Vaccine, Quadrivalent 65040 7 KATHERINE BARNHART DoD Social History Combined list of available smoking, tobacco, and other social history from Department of Defense and Veterans Affairs facilities. Social History Type Response Date Comment [facility] This section is an empty social history section. DoD
--- OUTSIDE RECORDS SUMMARY | 2025-01-03 16:43 | XMS_ITS | Data Portability ---
Author Organization [facility] Address [address] [place] [address] [place] [address] Care Team Providers Care Track Patrol Name Role Phone MEAGHAN JEFF Primary Care Provider Assessment No assessment recorded. Plan of Treatment Reminders Order Date Submit Date Provider Last Modified By Organization Details Last Modified Time Details Appointments None recorded. Lab test, urine 2023 024 [email or web address] [address], [address], [place], [address], 4 18:22:25 test, urine 2023 024 [email or web address] [address], [address], [place], [address], 4 16:03:13 Referral None recorded. Procedures None recorded. Surgeries None recorded. Imaging US, obstetric, transvagina l 2023 024 [email or web address] [address], [address], [place], [address], 4 12:53:52 XR, hysterosalp ingogram [address] [facility], [address] [place] [address] [address], [place], [address], 5 10:28:28 Medication Orders None recorded. Patient [...] 9-246 > 75 12-15 4 Not Available [facility] (Lab) [address], [place], [address], 03/11/2024 16:55:20 02/27/20 24 02/27/2024 ESTRA DIOL [...] 154-3 243 pg/mL 2nd [place] 1561- 72553 pg/mL 3rd [place] 8525- >3000 0 pg/mL Not Available [facility] (Lab) [address], [place], [address], 03/11/2024 16:55:20 02/27/20 24 02/27/2024 PROGE STERO [...] Trime ster 58.70 -214. 00 Not Available [facility] (Lab) [address], [place], [address], 03/11/2024 16:55:21 02/27/20 24 02/27/2024 PROLA CTIN prolactin, total 18.50 NG/mL 4.79-2 3.30 This assay was perfo rmed using [employer] ratio n reage nts and test kits. Value s obtai sandra with other assay metho ds or kits canno t be used inter mancilla eably . Not Available [facility] (Lab) [address], [place], [address], 03/11/2024 16:55:21 02/27/20 24 02/27/2024 T4 FREE T4, free 1.09 NG/dL 0.60-1 .40 This assay is susce ptibl e to inter feren ce from high level s of bioti n which may false ly eleva te resul ts. Plejos e corre late with clini radames findi ngs. Not Available [facility] (Lab) [address], [place], [address], 03/11/2024 16:55:22 02/27/20 24 02/27/2024 TSH, REFLE X FREE T4 TSH 0.27 uIU/m L 0.30-5 .33 low Not Available [facility] (Lab) [address] [place], [address], 03/11/2024 16:55:22 02/27/20 24 02/27/2024 LH (LUTE NIZIN G HORMO NE) LH 10.7 mIU/m L This assay was perfo rmed using [employer] reage nts and test kits. Value s obtai sandra with other assay metho ds or kits canno t be used inter [facility] . Femal es Mid-F ollic ular: 2.4-1 2.6 mIU/m L Mid-C ycle: 14.0- 95.6 mIU/m L Mid-L uteal : 1.0-1 1.4 mIU/m L Postm enopa use: 7.7-5 8.5 mIU/m L Not Available [facility] (Lab) [address], [place], [address], 03/11/2024 16:55:22 02/27/20 24 02/27/2024 FSH FSH 7.8 mIU/m L This assay was perfo rmed using [employer] reage nts and test kits. Value s obtai sandra with other assay metho ds or kits canno t be used inter [facility] . Femal es Folli cular : 3.5-1 2.5 mIU/m L Ovula tion: 4.7-2 1.5 mIU/m L Lutea l: 1.7-7 .7 mIU/m L Postm enopa use: 25.8- 134.8 mIU/m L Not Available [facility] (Lab) [address], [place], [address], 03/11/2024 16:55:23 02/27/20 24 02/27/2024 HUMAN SEX HORMO NE HILDA NG GLOBU ELSA sex hormone binding globulin 78.8 nmole s/L 18.2-1 35.5 Not Available [facility] (Lab) [address], [place], [address], 03/11/2024 16:55:23 02/27/20 24 02/27/2024 HEMOG LOBIN [...] >8.0% Actio n sugge sted Not Available [facility] (Lab) [address], [place], [address], 03/11/2024 16:55:24 02/27/20 24 02/27/2024 17-HY DROXY PROGE STERO NE, SERUM 17-hydroxypr ogesterone, S 56 NG/dL ----- ----- ----- ----R EFERE NCE VALUE ----- ----- ----- ----- ----- - < 80 (Foll icula r) <285 (Lute al) ----- ----- ----- ----A DDITI ONAL INFOR MATIO N---- ----- ----- ----- This test was dereej wright and its perfo rmanc e allen monacori stics deter mined by [facility] in a chad r consi stent with CLIA roman wong ts. This test has not been clear ed or appro viri by the U.S. Food and Drug Admin istra tion. Test Perfo rmed by: [facility] - [place] [address], [place] [address] Lab Direc tor: Ada Adair nn Ph.D. ; CLIA# [id number] Not Available [facility] (Lab) [address], [place], [address], 03/11/2024 16:55:24 02/27/20 24 02/27/2024 TESTO STERO NE, TOTAL AND FREE, SERUM (LC-M S/MS) testosterone free 0.80 NG/dL <0.13- 1.00 ----- ----- ----- ----A DDITI ONAL INFOR MATIO N---- ----- ----- ----- This test was devel oped and its perfo rmanc e allen cteri stics deter mined by [facility] in a chad r consi stent with CLIA requi remen ts. This test has not been clear ed or appro viri by the U.S. Food and Drug Admin istra tion. Not Available [facility] (Lab) [address], [place], [address], 03/11/2024 16:55:25 02/27/2002/27/2024 TESTO STERO NE, TOTAL [...] e allen cteri stics deter mined by [facility] in a chad r consi stent with CLIA requi remen ts. This test has not been clear ed or appro viri by the U.S. Food and Drug Admin istra tion. Test Perfo rmed by: [facility] - [place] [address] , [place] [address] Lab Direc tor: Ada Adair nn Ph.D. ; CLIA# [id number] Not Available [facility] (Lab) [address], [place], [address], 03/11/2024 16:55:25 02/27/20 24 02/27/2024 pregn annabelle test, urine HCG negati ve Not Available [place] [address], [place], [address], 02/27/2024 16:02:53 03/26/20 24 03/26/2024 TSH, REFLE X FREE T4 TSH 0.47 uIU/m L 0.30-5 .33 Not Available [facility] (Lab) [address], [place], [address], 03/27/2024 07:08:35 04/29/20 24 04/29/2024 pregn annabelle test, urine HCG negati ve Not Available [address] [address], [place], [address], 04/29/2024 18:12:16 04/21/20 24 04/21/2024 US, obste tric, trans vagin al No observ ation record ed. [email or web address] [address], [place], [address], 04/21/2024 18:16:21 04/21/20 24 04/21/2024 US, obste tric, trans vagin al No observ ation record ed. [email or web address] [address], [place], [address], 04/22/2024 11:52:58 Result Notes None recorded. Problems Name Problem SNOMED Code Status Onset Date Resolution Date Notes Provider Name and Address Organization Details Recorded Time SNOMED CT Concept Completed 201408/10/2021 Encntr for multi disciplined language analyst exam (general) (routine) w/o abn findings; Recorded Elsewhere : No Locati on: [facility] So urce: EHR Chron ic: N Practic e ID: 0001 Bill able Time: 11:00:00 AM Ashley no [place] - [facility] 13:05:31 Atypical squamous cells on cervical Papanico laou smear cannot exclude high grade squamous intraepi thelial lesion [id number] Completed 201808/10/2021 Atyp squam cell not excl hi grd intrepith lesn cyto smr crvx;Daniele rded Elsewhere : No Locati on: [facility] So urce: EHR Chron ic: N Practic e ID: 0001 Bill able Time: 10:15:00 AM Ashley [facility] 2 12:46:50 Atypical squamous cells of undeterm ined signific ance on cervical Papanico laou smear [id number] Completed 201808/10/2021 Atyp squam cell of undet signfc cyto smr crvx (ASC-US); Recorded Elsewhere : No Locati on: [facility] So urce: EHR Chron ic: N Practic e ID: 0001 Bill able Time: 10:15:00 AM [facility] 2 12:46:49 Speciali zed medical examinat ion Completed 201308/10/2021 Gynecolog ical Examinati on;Record ed Elsewhere : No Locati on: [facility] So urce: EHR Chron ic: N Practic e ID: 0001 Bill able Time: 02:15:00 PM Ashley [facility] 2 13:05:33 Urinary tract infectio us disease 19659939 Completed 201708/10/2021 UTI;Recor ded Elsewhere : No Locati on: [facility] So urce: EHR Chron ic: N Practic e ID: 0001 Bill able Time: 05:30:00 PM [facility] 2 13:05:35 Pregnanc y test negative [id number] Completed 201808/10/2021 Encounter for test, result negative; Recorded Elsewhere : No Locati on: [facility] So urce: EHR Chron ic: N Practic e ID: 0001 Bill able Time: 10:15:00 AM Ashley [facility] [address] 12:46:[address] Concept Completed 201408/10/2021 Encntr for general adult medical exam w/o abnormal findings; Recorded Elsewhere : No Locati on: [facility] So urce: EHR Chron ic: N Practic e ID: 0001 Bill able Time: 11:00:00 AM [facility] 13:05:29 Blood leukocyt e number above referenc e range [id number] Completed 201608/10/2021 Elevated white blood cell count, unspecifi ed;Record ed Elsewhere : No Locati on: [facility] So urce: EHR Chron ic: N Practic e ID: 0001 Bill able Time: 05:45:00 PM Ashley [facility] 2 12:46:52 Screenin g for malignan t neoplasm of cervix Completed 201308/10/2021 Pap Smear;Pra ctice ID: 0001 Ashley [facility] 2 14:15:02 Acute vaginiti s 53422625 Completed 201608/10/2021 Acute vaginitis ;Practice ID: 0001 Ashle[facility]ali [facility] 2 12:46:47 Problem Notes None recorded. Procedures Surgical History Date Name Laterality Status Provider Name and Address Organization Details Recorded Time 08/26/19 24 Date of Last Pap Smear completed Karley Arias [facility] 02/27/2024 15:51:07 02/27/20 21 endoscopy completed Renae Rodríguez MAR[facility]- [address], [place], [address], [facility] 08/10/2021 14:44:28 02/03/20 19 Colposcopy completed Ashley [facility] 08/10/2021 14:39:04 Imaging Results None recorded. Procedure Notes None recorded. Medical Equipment None Reported. Allergies No known drug allergies Medications Name Sig Start Date Stop Date Status Note LastModified by Organization Details LastModified Time Diflucan 150 mg tablet take 1 tablet by oral route every other week. 02/02 completed Prescrib ed Elsewher e: No [facility] odify By: [email or web address] z Encoun ter DateTime : 01/19/20 02:30:00 PM Not Available Not Available Not Available sulfameth oxazole 800 mg-trimet hoprim 160 mg tablet take 1 tablet by oral route every 12 hours 02/02 completed Prescrib ed Elsewher e: No [facility] DateTime : 12/24/19 18 [...] Prescrib ed Elsewher e: No Locat ion: [facility] odify By: [email or web address] Encounte r DateTime : 07/10/20 15 04:37:55 PM Not [...] Updated DateTime 02/27/2024 160.02 cm 30.6 kg/m2 10168.48 g 114 mm[Hg] 78 mm[Hg] [facility] 4 15:50:21 Date Recorded Body height Body mass index (BMI) Body weight Systolic blood pressure Diastolic blood pressure Provider Name and Address Organization Details Last Updated DateTime 03/16/2024 160.02 cm 31.4 kg/m2 89704.85 g 124 mm[Hg] 83 mm[Hg] Karley [facility] 4 12:37:53 Date Recorded Body height Body mass index (BMI) Body weight Systolic blood pressure Diastolic blood pressure Provider Name and Address Organization Details Last Updated DateTime 04/21/2024 160.02 cm 30.6 kg/m2 85236.48 g 123 mm[Hg] 78 mm[Hg] Florence Green [facility] 4 14:41:35 Date Recorded Body height Body mass index (BMI) Body weight Systolic blood pressure Diastolic blood pressure Provider Name and Address Organization Details Last Updated DateTime 04/29/2024 160.02 cm 30.4 kg/m2 68015.73 g 116 mm[Hg] 75 mm[Hg] Tere Castanon [facility] 4 17:15:24 Social History Question Answer Notes LastModified by Organizat ion Details LastModified Time Tobacco Smoking Status Never Smoker [facility] 08/10/2021 14:35:15 Do You Have [...] Or The Highest Degree You Have Received? [id number] Information not available 08/10/2021 Are There Any [...] Have Difficulty Walking Or Climbing Stairs? No [email or web address] Information not available 04/21/2024 Sex: Unknown Functional Status Question Answer Note LastModified by Organizat ion Details LastModified Time Do you use any illicit or recreational drugs? No Information not available 08/10/2021 What is your level of alcohol consumption? Occasional Information not available 08/10/2021 Are you able to walk? YESWOREST Information not available 08/10/2021 Are you able to care for yourself? Yes [email or web address] Information n ot available 04/21/2024 What is your occupation? [employer] Information not available 08/10/2021 Do you have difficulty dressing or bathing? No [email or web address] Information not available 04/21/2024 What is your exercise level? Moderate Information not available 08/10/2021 Mental Status Question Answer Note LastModified by Organization D etails LastModified Time Do you feel stressed (tense, restless, nervous, or anxious, or unable to sleep at night)? [id number] Information not available 08/10/2021 Family History Relationship Description Onset Age of this Age Resolved Age Notes LastModified by Organization Details LastModified Time Mother Diabetes mellitus [email or web address] Not available 2019 11:46:26 Paternal Grandmother Diabetes mellitus [email or web address] Not available 2019 11:46:26 Paternal Grandmother Carcinoma in situ of lung [email or web address] Not available 12:19:04 Paternal Aunt Carcinoma in situ of breast [email or web address] Not available 2023 12:19:04 Medical History Condition [...] SNOMED-CT Code Diagnosis ICD10 Code Diagnosis Note [id number] Renae Rodríguez [facility] [address],[facility] [place] [address] 05/08/2020 11:45:17 05/08/2020 17:52:43 Gynecologic examination 23734079 Z01.419 Take Calcium with Vitamin D 1200mg [...] 2019 consistent with pap results Pap/hpv ordered [id number] [facility] [address],[place] [address] 08/10/2021 14:21:36 08/10/2021 15:18:57 Gynecologic examination 70107959 Z01.419 Take Calcium with Vitamin D 1200mg [...] OCP 2019-Pap/h pv ASCUS w/ +HPVPap/hp v 2019 wnl Pap/hpv orderedGen etic screen discussed STD screen declined Newly Engaged this year! Waiting to set the date. [facility] ion care management [id number] Z30.9 Happy on OCPRF sent x 1yr [id number] ARISTEO [facility] [address] [address] 08/26/2023 09:00:06 08/26/2023 09:31:11 Gynecologic examination 68858988 Z01.419 Z11.51 Take Calcium with Vitamin D [...] with folic acid [id number] Henry Carpenter MD [facility] [address] [address] 02/27/2024 15:17:26 03/04/2024 23:33:34 Irregular periods 42981402 N92.6 Reproducti ve care management 684891663 Z31.9 - Differenti al diagnosis of cause [...] and lab work can be scheduled laxmi Ramos spent over 30 minutes on the patient's care. [id number] Henry Carpenter MD [facility] [address] [address] 03/16/2024 12:18:54 03/17/2024 09:58:00 Female infertility 0420184 N97.9 Presents today for discussion of infertilit [...] We agreed to proceed with hysterosal pingogram. [id number] Henry Carpenter MD [facility] [address] [address] 04/21/2024 14:12:24 04/21/2024 15:02:43 Threatened miscarriage 53875495 O20.0 O36.80X0 Z3A.00 [id number] Valerie Danielle CNM [facility] [address] [address] 04/21/2024 14:13:18 04/21/2024 15:59:49 Long menstrual cycle 762463931 N92.5 missed ab, vs early pregnancyp brandyn HCG and then rpt in 48 hoursblood type drawncall if any concerns or increase in bleeding, will plan f/u next week pending resultscon tinue vitamin Hyperthyroidism 62502222 E05.90 rpt tsh free t4 and t3 today [id number] Henry Carpenter MD [facility] [address] [address] 04/29/2024 17:07:06 04/30/2024 09:37:31 Missed miscarriage 51299515 O02.1 this patient presents for postop follow-up. [...] Rahman Member ID Guarantor Name 02/27/2024 1 [facility] - [facility] - DOS PRIOR TO 2024 (PPO) Vaishali Schultz Lilly [id number] [facility] Vaishali Federicoanelli 03/16/2024 1 [facility] - [facility] - DOS PRIOR TO 2024 (PPO) Vaishali Schultz Lashelli [id number] [facility] Vaishali Cusanelli 04/21/2024 1 [facility] - [facility] - DOS PRIOR TO 2024 (PPO) Vaishali Schultz Lilly [id number] [facility] Vaishali Cusanelli 04/21/2024 1 [facility] - [facility] - DOS PRIOR TO 2024 (PPO) Vaishali Schultz Lilly [id number] [facility] Vaishali Cusanelli 04/29/2024 1 [facility] - [place] - DOS PRIOR TO 2024 (PPO) Vaishali Carr [id number] [facility] Vaishali Carr Notes Date Note Type Note [...] appropriately Henry Carpenter MD [address], [place], [address], [place] [facility] 02/28/2024 13:22:26 4 text/html Presents today [...] hysterosalpingogram. Henry Carpenter MD [address], [place], [address], [facility] 03/17/2024 09:54:27 4 text/html +UPT, pt having some spotting, send for blood typeon US today not seeing 9 week IUP, discussed could be early vs miscarriagept also wants to discuss hyperthyroidism no current meds Valerie Danielle CNM [address], [place], [address], [facility] 04/21/2024 15:12:29 4 text/html this patient [...] on. Henry Carpenter MD [address], [place], [address], [facility] 04/29/2024 18:22:54 OBGyn Episode Ob Episode Information Episode Created Date Number of Fetuses Patient Bloodtype Patient rh Status Prepregnancy Weight lbs Domestic Partner Domestic Partner Phone Father Name Mold Carrier Status 04/21/20 24 1 CLOSED Fetus Data First Name Last Name Admitted to NICU Weight (g) Sex Living Outcome Pediatric Complications Fetus ID Race Codes Race Delivery Type , Spontane ous [id number] Andrey Calculation Initial Andrey Date Initial Exam [...]
== END 2025-01-03 16:19 | disposition home or self-care (01) ==
LOC: ANHLAB 16:20
PROVIDERS: PCP Student in an Organized Health Care Education/Training Program; Visit Provider Student in an Organized Health Care Education/Training Program
DX: N91.2 Amenorrhea, unspecified (principal)
CPT/HCPCS: 36415; 84144; 84702

== ENCOUNTER 2025-01-05 16:35 | Outpatient (CLI) | payer OTHER, SELFPAY ==
--- OUTSIDE RECORDS SUMMARY | 2025-01-05 18:14 | XMS_ITS | Data Portability ---
Author Organization [facility] Address [address] [place] [address] [place] [address] Care Team Providers Care Project Product Manager Name Role Phone MEAGHAN JEFF Primary Care Provider Assessment No assessment recorded. Plan of Treatment Reminders Order Date Submit Date Provider Last Modified By Organization Details Last Modified Time Details Appointments None recorded. Lab test, urine 2023 024 [email or web address] [address], [address], [place], [address], 4 18:22:25 test, urine 2023 024 [email or web address] [address], [address], [place], [address], 4 16:03:13 Referral None recorded. Procedures None recorded. Surgeries None recorded. Imaging US, obstetric, transvagina l 2023 024 [email or web address] [address], [address], [place], [address], 4 12:53:52 XR, hysterosalp ingogram [address] [facility], [address] [place] [address] [address], [place], [address], 5 10:28:28 Medication Orders None recorded. Patient [...] 9-246 > 75 12-15 4 Not Available [facility] (Lab) [address], [place], [address], 03/11/2024 16:55:20 02/27/20 24 02/27/2024 ESTRA DIOL [...] 154-3 243 pg/mL 2nd [place] 1561- 18554 pg/mL 3rd [place] 8525- >3000 0 pg/mL Not Available [facility] (Lab) [address], [place], [address], 03/11/2024 16:55:20 02/27/20 24 02/27/2024 PROGE STERO [...] [place] 58.70 -214. 00 Not Available [facility] (Lab) [address], [place], [address], 03/11/2024 16:55:21 02/27/20 24 02/27/2024 PROLA CTIN prolactin, total 18.50 NG/mL 4.79-2 3.30 This assay was perfo rmed using [employer] ratio n reage nts and test kits. Value s obtai sandra with other assay metho ds or kits canno t be used inter mancilla eably . Not Available [facility] (Lab) [address], [place], [address], 03/11/2024 16:55:21 02/27/20 24 02/27/2024 T4 FREE T4, free 1.09 NG/dL 0.60-1 .40 This assay is susce ptibl e to inter feren ce from high level s of bioti n which may false ly eleva te resul ts. Plejos e corre late with clini radames findi ngs. Not Available [facility] (Lab) [address], [place], [address], 03/11/2024 16:55:22 02/27/20 24 02/27/2024 TSH, REFLE X FREE T4 TSH 0.27 uIU/m L 0.30-5 .33 low Not Available [facility] (Lab) [address] [place], [address], 03/11/2024 16:55:22 02/27/20 24 02/27/2024 LH (LUTE NIZIN G HORMO NE) LH 10.7 mIU/m L This assay was perfo rmed using [employer] n reage nts and test kits. Value s obtai sandra with other assay metho ds or kits canno t be used inter [facility] . Femal es Mid-F ollic ular: 2.4-1 2.6 mIU/m L Mid-C ycle: 14.0- 95.6 mIU/m L Mid-L uteal : 1.0-1 1.4 mIU/m L Postm enopa use: 7.7-5 8.5 mIU/m L Not Available [facility] (Lab) [address], [place], [address], 03/11/2024 16:55:22 02/27/20 24 02/27/2024 FSH FSH 7.8 mIU/m L This assay was perfo rmed using [employer] n reage nts and test kits. Value s obtai sandra with other assay metho ds or kits canno t be used inter [facility] . Femal es Folli cular : 3.5-1 2.5 mIU/m L Ovula tion: 4.7-2 1.5 mIU/m L Lutea l: 1.7-7 .7 mIU/m L Postm enopa use: 25.8- 134.8 mIU/m L Not Available [facility] (Lab) [address], [place], [address], 03/11/2024 16:55:23 02/27/20 24 02/27/2024 HUMAN SEX HORMO NE HILDA NG GLOBU ELSA sex hormone binding globulin 78.8 nmole s/L 18.2-1 35.5 Not Available [facility] (Lab) [address], [place], [address], 03/11/2024 16:55:23 02/27/20 24 02/27/2024 HEMOG LOBIN [...] >8.0% Actio n sugge sted Not Available [facility] (Lab) [address], [place], [address], 03/11/2024 16:55:24 02/27/20 24 02/27/2024 17-HY DROXY [...] e allen monacori stics deter mined by [facility] in a chad r consi stent with CLIA roman wong ts. This test has not been clear ed or appro viri by the U.S. Food and Drug Admin istra tion. Test Perfo rmed by: [facility] - [place] [address], [place] [address] Lab Direc tor: Ada Adair nn Ph.D. ; CLIA# [id number] Not Available [facility] (Lab) [address], [place], [address], 03/11/2024 16:55:24 02/27/20 24 02/27/2024 TESTO STERO NE, TOTAL AND FREE, SERUM (LC-M S/MS) testosterone free 0.80 NG/dL <0.13- 1.00 ----- ----- ----- ----A DDITI ONAL INFOR MATIO N---- ----- ----- ----- This test was devel oped and its perfo rmanc e allen cteri stics deter mined by [facility] in a chad r consi stent with CLIA requi remen ts. This test has not been clear ed or appro viri by the U.S. Food and Drug Admin istra tion. Not Available [facility] (Lab) [address], [place], [address], 03/11/2024 16:55:25 02/27/2002/27/2024 TESTO STERO NE, TOTAL [...] e allen cteri stics deter mined by [facility] in a chad r consi stent with CLIA requi remen ts. This test has not been clear ed or appro viri by the U.S. Food and Drug Admin istra tion. Test Perfo rmed by: [facility] - [place] [address] , [place] [address] Lab Direc tor: Ada Adair nn Ph.D. ; CLIA# [id number] Not Available [facility] (Lab) [address], [place], [address], 03/11/2024 16:55:25 02/27/20 24 02/27/2024 pregn annabelle test, urine HCG negati ve Not Available [place] [address], [place], [address], 02/27/2024 16:02:53 03/26/20 24 03/26/2024 TSH, REFLE X FREE T4 TSH 0.47 uIU/m L 0.30-5 .33 Not Available [facility] (Lab) [address], [place], [address], 03/27/2024 07:08:35 04/29/20 24 04/29/2024 pregn annabelle test, urine HCG negati ve Not Available [facility] [address], [place], [address], 04/29/2024 18:12:16 04/21/20 24 04/21/2024 US, obste tric, trans vagin al No observ ation record ed. [email or web address] [address], [place], [address], 04/21/2024 18:16:21 04/21/20 24 04/21/2024 US, obste tric, trans vagin al No observ ation record ed. [email or web address] [address], [place], [address], 04/22/2024 11:52:58 Result Notes None recorded. 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 13:05:31 Atypical squamous cells on cervical Papanico laou smear cannot exclude high grade squamous intraepi thelial lesion [id number] Completed 201808/10/2021 Atyp squam cell not excl hi grd intrepith lesn cyto smr crvx;Daniele rded Elsewhere : No Locati on: [facility] So urce: EHR Chron ic: N Practic e ID: 0001 Bill able Time: 10:15:00 AM Ashley Pisano [facility] 2 12:46:50 Atypical squamous cells of undeterm ined signific ance on cervical Papanico laou smear [id number] Completed 201808/10/2021 Atyp squam cell of undet signfc cyto smr crvx (ASC-US); Recorded Elsewhere : No Locati on: [facility] So urce: EHR Chron ic: N Practic e ID: 0001 Bill able Time: 10:15:00 AM Ashley Pisano [facility] 2 12:46:49 Speciali zed medical examinat ion Completed 201308/10/2021 Gynecolog ical Examinati on;Record ed Elsewhere : No Locati on: [facility] So urce: EHR Chron ic: N Practic e ID: 0001 Bill able Time: 02:15:00 PM Ashley Pisano [facility] 2 13:05:33 Urinary tract infectio us disease 03037155 Completed 201708/10/2021 UTI;Recor ded Elsewhere : No Locati on: [facility] So urce: EHR Chron ic: N Practic e ID: 0001 Bill able Time: 05:30:00 PM Ashley Pisano [facility] 2 13:05:35 Pregnanc y test negative [id number] Completed 201808/10/2021 Encounter for test, result negative; Recorded Elsewhere : No Locati on: [facility] So urce: EHR Chron ic: N Practic e ID: 0001 Bill able Time: 10:15:00 AM Ashley Pisano [facility] [address] 12:46:[address] Concept Completed 201408/10/2021 Encntr for general adult medical exam w/o abnormal findings; Recorded Elsewhere : No Locati on: [facility] So urce: EHR Chron ic: N Practic e ID: 0001 Bill able Time: 11:00:00 AM [facility] 13:05:29 Blood leukocyt e number above referenc e range [id number] Completed 201608/10/2021 Elevated white blood cell count, unspecifi ed;Record ed Elsewhere : No Locati on: [facility] So urce: EHR Chron ic: N Practic e ID: 0001 Bill able Time: 05:45:00 PM Ashley Pisano [facility] 2 12:46:52 Screenin g for malignan t neoplasm of cervix Completed 201308/10/2021 Pap Smear;Pra ctice ID: 0001 Ashley [facility] 2 14:15:02 Acute vaginiti s 65556435 Completed 201608/10/2021 Acute vaginitis ;Practice ID: 0001 Ashleylali Pisano [facility] 2 12:46:47 Problem Notes None recorded. Procedures Surgical History Date Name Laterality Status Provider Name and Address Organization Details Recorded Time 08/26/19 24 Date of Last Pap Smear completed Karley Arias [facility] 02/27/2024 15:51:07 02/27/20 21 endoscopy completed Renae Rodríguez MARCE- [address], [place], [address], [facility] 08/10/2021 14:44:28 02/03/20 19 Colposcopy completed Ashley [facility] 08/10/2021 14:39:04 Imaging Results None recorded. Procedure Notes None recorded. Medical Equipment None Reported. Allergies No known drug allergies Medications Name Sig Start Date Stop Date Status Note LastModified by Organization Details LastModified Time Diflucan 150 mg tablet take 1 tablet by oral route every other week. 02/02 completed Prescrib ed Elsewher e: No [facility] od[facility] By: [email or web address] z Encoun ter DateTime : 01/19/20 02:30:00 PM Not Available Not Available Not Available sulfameth oxazole 800 mg-trimet hoprim 160 mg tablet take 1 tablet by oral route every 12 hours 02/02 completed Prescrib ed Elsewher e: No [facility] DateTime : 12/24/19 [...] Prescrib ed Elsewher e: No Locat ion: [facility] odify By: [email or web address] Encounte r DateTime [...] Updated DateTime 02/27/2024 160.02 cm 30.6 kg/m2 50890.48 g 114 mm[Hg] 78 mm[Hg] [facility] 4 15:50:21 Date Recorded Body height Body mass index (BMI) Body weight Systolic blood pressure Diastolic blood pressure Provider Name and Address Organization Details Last Updated DateTime 03/16/2024 160.02 cm 31.4 kg/m2 65022.85 g 124 mm[Hg] 83 mm[Hg] Karley [facility] 4 12:37:53 Date Recorded Body height Body mass index (BMI) Body weight Systolic blood pressure Diastolic blood pressure Provider Name and Address Organization Details Last Updated DateTime 04/21/2024 160.02 cm 30.6 kg/m2 00058.48 g 123 mm[Hg] 78 mm[Hg] Florence Green [facility] 4 14:41:35 Date Recorded Body height Body mass index (BMI) Body weight Systolic blood pressure Diastolic blood pressure Provider Name and Address Organization Details Last Updated DateTime 04/29/2024 160.02 cm 30.4 kg/m2 17215.73 g 116 mm[Hg] 75 mm[Hg] Tere Castanon [facility] 4 17:15:24 Social History Question Answer Notes LastModified by Organizat ion Details LastModified Time Tobacco Smoking Status Never Smoker [facility] 08/10/2021 14:35:15 Do You Have An [...] Or The Highest Degree You Have Received? [id number] Information not available 08/10/2021 Are There Any [...] Have Difficulty Walking Or Climbing Stairs? No Information not available 04/21/2024 Sex: Unknown Functional Status Question Answer Note LastModified by Organizat ion Details LastModified Time Do you use any illicit or recreational drugs? No Information not available 08/10/2021 What is your level of alcohol consumption? Occasional Information not available 08/10/2021 Are you able to walk? YESWOREST Information not available 08/10/2021 Are you able to care for yourself? 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 No [email or web address] Information not available 04/21/2024 What is your exercise level? Moderate Information not available 08/10/2021 Mental Status Question Answer Note LastModified by Organization D etails LastModified Time Do you feel stressed (tense, restless, nervous, or anxious, or unable to sleep at night)? [id number] Information not available 08/10/2021 Family History Relationship Description Onset Age of this Age Resolved Age Notes LastModified by Organization Details LastModified Time Mother Diabetes mellitus [email or web address] Not available 2019 11:46:26 Paternal Grandmother Diabetes mellitus [email or web address] Not available 2019 11:46:26 Paternal Grandmother Carcinoma in situ of lung [email or web address] Not available 12:19:04 Paternal Aunt Carcinoma in situ of breast [email or web address] Not available 2023 12:19:04 Medical History Condition Response Other Y GI Problems Y Eczema Y Gynecological History Statement/Question Response Date of [...] SNOMED-CT Code Diagnosis ICD10 Code Diagnosis Note [id number] Renae Rodríguez [facility] [address],[facility] [place] [address] 05/08/2020 11:45:17 05/08/2020 17:52:43 Gynecologic examination 71239031 Z01.419 Take Calcium with Vitamin D 1200mg [...] 2019 consistent with pap results Pap/hpv ordered [id number] [facility] [address],[facility] [place] [address] 08/10/2021 14:21:36 08/10/2021 15:18:57 Gynecologic examination 29242933 Z01.419 Take Calcium with Vitamin D 1200mg [...] this year! Waiting to set the date. [facility] ion care management [id number] Z30.9 Happy on OCPRF sent x 1yr [id number] ARISTEO Ram-[facility] [address] [address] 08/26/2023 09:00:06 08/26/2023 09:31:11 Gynecologic examination 08554119 Z01.419 Z11.51 Take Calcium with Vitamin D [...] with folic acid [id number] Henry Carpenter MD [facility] [address] [address] 02/27/2024 15:17:26 03/04/2024 23:33:34 Irregular periods 28655467 N92.6 Reproducti ve care management 469356477 Z31.9 - Differenti al diagnosis of cause [...] the patient's care. [id number] Henry Carpenter MD [address] [address] 03/16/2024 12:18:54 03/17/2024 09:58:00 Female infertility 6663854 N97.9 Presents today for discussion of infertilit [...] We agreed to proceed with hysterosal pingogram. [id number] Henry Carpenter MD [address] [address] [address] 04/21/2024 14:12:24 04/21/2024 15:02:43 Threatened miscarriage 70620673 O20.0 O36.80X0 Z3A.00 [id number] Valerie Danielle CNM [facility] [address] [address] 04/21/2024 14:13:18 04/21/2024 15:59:49 Long menstrual cycle 351197345 N92.5 missed ab, vs early pregnancyp brandyn HCG and then rpt in 48 hoursblood type drawncall if any concerns or increase in bleeding, will plan f/u next week pending resultscon tinue vitamin Hyperthyroidism 79896779 E05.90 rpt tsh free t4 and t3 today [id number] Henry Carpenter MD [facility] [address] [address] 04/29/2024 17:07:06 04/30/2024 09:37:31 Missed miscarriage 00768402 O02.1 this patient presents for postop follow-up. [...] Rahman Member ID Guarantor Name 02/27/2024 1 [facility] - [place] - DOS PRIOR TO 2024 (PPO) Vaishali Schultz Lilly [id number] [facility] Vaishali Federicoanelli 03/16/2024 1 [facility] - [place] - DOS PRIOR TO 2024 (PPO) Vaishali Schultz Lashelli [id number] [facility] Vaishali Cusanelli 04/21/2024 1 [facility] - [place] - DOS PRIOR TO 2024 (PPO) Vaishali Schultz Lilly [id number] [facility] Vaishali Cusanelli 04/21/2024 1 [facility] - [place] - DOS PRIOR TO 2024 (PPO) Vaishali Schultz Lilly [id number] [facility] Vaishali Cusanelli 04/29/2024 1 [facility] - [place] - DOS PRIOR TO 2024 (PPO) Vaishali Carr [id number] [facility] Vaishali Carr Notes Date Note Type Note [...] appropriately Henry Carpenter MD [address], [place], [address], [place] [facility] 02/28/2024 13:22:26 4 text/html Presents today [...] care. We agreed to proceed with hysterosalpingogram. Henyr Carpenter MD [address], [place], [address], [facility] 03/17/2024 09:54:27 4 text/html +UPT, pt having some spotting, send for blood typeon US today not seeing 9 week IUP, discussed could be early vs miscarriagept also wants to discuss hyperthyroidism no current meds Valerie Danielle CNM [address], [place], [address], [facility] 04/21/2024 15:12:29 4 text/html [...] on. Henry Carpenter MD [address], [place], [address], [facility] 04/29/2024 18:22:54 OBGyn Episode Ob Episode Information Episode Created Date Number of Fetuses Patient Bloodtype Patient rh Status Prepregnancy Weight lbs Domestic Partner Domestic Partner Phone Father Name Gasket Winder Status 04/21/20 24 1 CLOSED Fetus Data First Name Last Name Admitted to NICU Weight (g) Sex Living Outcome Pediatric Complications Fetus ID Race Codes Race Delivery Type , Spontane ous [id number] Andrey Calculation Initial Andrey Date Initial Exam [...]
--- OUTSIDE RECORDS SUMMARY | 2025-01-05 18:14 | XMS_ITS | Continuity of Care Document ---
Author Name [facility] Organization [facility] Care Team Providers Care Packaging Engineer Name Role Phone [facility] Unavailable Unavailable [...] Reported Comments Source NO OUTPUT FOR NCID [id number] Drug allergy (disorder) active 01/15/[address] [place], [place] [address]B [facility]) Encounters Combined list of: 1) Encounters from Department of Veterans Affairs facilities going backup to the last 18 months, not all VA inpatient encounters are included; 2) Encounters from the Department of [facility] facilities going backup to 280 months. Location Location Details Encounter Type Encounter Number Reason For Visit Attending Provider ADM Date DC Date Status Disposition Source [address] [place] [address] [employer] [facility] alexander Practice Non-GME FHI1) OUTPATIENT [id number] ORLIN Montejo 08/20 Released w/o Limitations [address] [place], [place] [address] [facility]F amily Practic e Non-GME FHI1) [address] [place], [place] [address] [facility]Ped iatrics) OUTPATIENT [id number] sports physica l KATHERINE BARNHART 09/19 Released w/o Limitations [address] [place], [place] [address] [facility]P ediatri cs) [address] [place] [address] [employer] [facility]Juan Francisco matology) OUTPATIENT [id number] DYSPLAS TIC NEVUS QUEENIE CELESTIN 10/31 Released w/o Limitations [address] [place], [place] [address] [facility]D ermatol ogy) [address] [place] [address] [employer] [facility]Fam alexander Practice Non-GME FHI2) OUTPATIENT [id number] swollen tonsils ,sore throat, nausea KATHERINE RIVERA 01/14 Released w/o Limitations [address] [place] [address] [employer] [facility]F amily Practic e Non-GME FHI2) [address] [place] [address] [employer] [facility]Sco tt [facility] Team 3) OUTPATIENT [id number] pap smear FELIX RODRIGUEZ 01/24 Released w/o Limitations [address] [place] [address] [employer] [facility]S cott [facility] Team 3) [address] [place] [address] [employer] [facility]Sco tt [facility] Team 3) TELE CONSULT [id number] call back lab results COLLETTE MAY 02/17 [employer] ([facility]S [facility] Team 3) [employer] ([facility])(Ob/ Consulting Application Engineer) TELE CONSULT [id number] pap results LAW BRUMFIELD 02/20 [employer] ([facility])(O b/Consulting Application Engineer) [employer] ([facility])(Coo tt [facility] Team 3) TELE CONSULT [id number] Pt needs call back - ALYSIA Avalos 03/20 [employer] ([facility])(S [facility] Team 3) [facility] [employer] ([facility])(Coo tt [facility] Team 3) OUTPATIENT [id number] f/u infecti on FELIX RODRIGUEZ 04/17 Released w/o Limitations [employer] ([facility])(S [facility] Team 3) [facility] [employer] ([facility])([facility] Team 3) TELE CONSULT [id number] lab results FELIX RODRIGUEZ 04/20 [employer] ([facility])([facility] Team 3) [facility] [employer] ([facility])(Consulting Application Engineer ecology) OUTPATIENT [id number] annual exam [id number] RAMON RODRIGUEZ 01/17 Released w/o Limitations [employer] ([facility])(G ynecolo gy) [employer] ([facility])(Consulting Application Engineer ecology) TELE CONSULT [id number] results AYDEN CARRANZA 01/31 [employer] ([facility])(G ynecolo gy) [employer] ([facility])(Consulting Application Engineer ecology) OUTPATIENT [id number] colpo AYDEN CARRANZA 02/05 Released w/o Limitations [employer] ([facility])(G ynecolo gy) [employer] ([facility])(Consulting Application Engineer ecology) TELE CONSULT [id number] results AYDEN CARRANZA 02/13 [employer] ([facility])(G ynecolo gy) [facility] [employer] ([facility])(Consulting Application Engineer ecology) TELE CONSULT [id number] results AYDEN CARRANZA 03/28 [facility] [employer] ([facility])(G ynecolo gy) [facility] [employer] ([facility])(Consulting Application Engineer ecology) TELE CONSULT [id number] Maria Luz amaya about rominat ULI URIBE 04/10 [employer] ([facility])(G ynecolo gy) [facility] [employer] ([facility])(Ob/ Consulting Application Engineer) TELE CONSULT [id number] cancell ing SILVA Leija 04/11 Referred for Appointment [facility] [employer] ([facility])(O b/Consulting Application Engineer) [facility] [employer] ([facility])(Consulting Application Engineer ecology) OUTPATIENT [id number] MERI 3 on polyp/ ? LEEP ULI URIBE 04/20 Released w/o Limitations [facility] [employer] ([facility])(G ynecolo gy) [facility] [employer] ([facility])(Ob/ Consulting Application Engineer) TELE CONSULT [id number] SILVA LEIJA 08/17 Referred for Appointment [facility] [employer] ([facility])(O b/Consulting Application Engineer) [facility] [employer] ([facility])(Consulting Application Engineer ecology) OUTPATIENT [id number] colpo ULI URIBE 09/10 Released w/o Limitations [facility] [employer] ([facility])(G ynecolo gy) [facility] [employer] ([facility])(Consulting Application Engineer ecology) OUTPATIENT [id number] f/u colpo - [id number] [phone] ULI URIBE 10/08 Released w/o Limitations [facility] [employer] ([facility])(G ynecolo gy) [facility] [employer] ([facility])(Consulting Application Engineer ecology) TELE CONSULT [id number] BC refill (orthot ricycle n) SILVA BERNARD 01/23 [facility] [employer] ([facility])(G ynecolo gy) [facility] [employer] ([facility])(Consulting Application Engineer ecology) OUTPATIENT [id number] colpo DANNY SALVADOR 03/01 Released w/o Limitations [facility] [employer] ([facility])(G ynecolo gy) [facility] [employer] [facility] ([facility])(Consulting Application Engineer ecology) OUTPATIENT [id number] repeat pap - DANNY SALVADOR 03/06 Released w/o Limitations [facility] [employer] [facility] ([facility])(G ynecolo gy) [address] [place] [address])([facility] Team 3) TELE CONSULT [id number] Solitario Rodriguez /[phone]/cadSUHAIL Benitez 03/[address] [place] [address] [employer] [facility])([facility] Team 3) [address] [place] [address])(Consulting Application Engineer ecology) OUTPATIENT [id number] Vaginal dischar CHIDI StringerN 04/18 Released w/o Limitations [address] [place] [address] [facility])(G ynecolo gy) [address] [place] [address])([facility] Team 3) TELE CONSULT [id number] f/u UTI - Haylee - cad/[facility] ALYSIA GAMING 08/[address] [place] [address] [facility])([facility] Team 3) [facility])(Consulting Application Engineer ecology) OUTPATIENT [id number] 4 month f/u after colpo [id number] RAMON RODRIGUEZ 08/28 Released w/o Limitations [address] [place] [address])(G ynecolo gy) [address] [place] [address])([facility] Team 3) TELE CONSULT [id number] Notes Entered by: GEOFFREY NUGENT 14 Oct 2011 1559 ------- ------- ------- ------- -- Retro solitario [place] [phone] - SUHAIL Salinas 10/[address] [place] [address])([facility] Team 3) [address] [place] [address])([facility] Tm A Ad) TELE CONSULT [id number] Notes Entered by: COURTNEY JONES 24 Apr 2012 1300 ------- ------- ------- ------- -- Network results - Urgent Care 08/10/11 VANESA VALENTINE 04/24 [facility] [employer] ([facility])(W arrior Op Med Cln Tm A Ad) Procedures Combined list of: 1) Procedures from Department of Veterans Affairs facilities going back up to thelast 18 months, not all VA non-surgical procedures are included; 2) All procedures from the Department of Defense facilities. Procedure Procedure Type Code Date Perfomer Comments Sour e Non-Physician Phone Call To Patient/Provider Brief (5-10min) Non-Physician Phone Call To Patient/Provider Brief (5-10min) 19302 2 SUHAIL SKYES Non-Physician Phone Call To Patient/Provider Brief (5-10min) Non-Physician Phone Call To Patient/Provider Brief (5-10min) 07215 2 ALYSIA GAMING [facility] Cervical Wet [place] Cervical Wet [place] 46633 1 CHIDI RUSHING [facility] Vaginal PHILIPP Prep Vaginal PHILIPP Prep 09996 01 1 CHIDI RUSHING Non-Physician Phone Call To Patient/Provider Brief (5-10min) Non-Physician Phone Call To Patient/Provider Brief (5-10min) 97481 1 SUHAIL SYKES Screening papanicolaou smear; obtaining, preparing and conveyance of cervical or vaginal smear to laboratory 1 DANNY SALVADOR [facility] Colposcopy Cervix With Endocervical Curettage Colposcopy Cervix With Endocervical Curettage 81699 1 DANNY SALVADOR [facility] Test Test 08490 1 DANNY SALVADOR Patient was advised of negitive result DoD Colposcopy Cervix With Biopsy(s) With Endocervical Curettage Colposcopy Cervix With Biopsy(s) With Endocervical Curettage 67846 1 ULI URIBE [facility] Urine HCG, Test Urine HCG, Test 59255 1 ULI URIBE [facility] DoD Colposcopy Colposcopy 31583 0 ULI URIBE [facility] Biopsy Cervical 0 AYDEN CARRANZA [facility] Test Test 09259 0 AYDEN CARRANZA [facility] Colposcopy Cervix With Biopsy(s) Colposcopy Cervix With Biopsy(s) 12013 0 AYDEN CARRANZA [facility] Intervention And Counseling On Ce ation Of Tobacco Use Intervention And Counseling On Cessation Of Tobacco Use 4000F 0 RAMON RODRIGUEZ current smoker current smoker 1034F 0 RAMON RODRIGUEZ [facility] Screening papanicolaou smear; obtaining, preparing and conveyance of cervical or vaginal smear to laboratory 0 RAMON RODRIGUEZ [facility] Human Papilloma Virus Vaccine, Quadrivalent Human Papilloma Virus Vaccine, Quadrivalent 40232 7 KATHERINE BARNHART [facility] TELE ASSESS & MGT SRV PROV QUAL [...] 24 HR/SOON APT;5-10 MIN MED DIS 2 [facility] SMEAR, PRIMARY SOURCE WITH INTERPRETATION; WET MOUNT FOR INFECTIOUS AGENTS (EG, SALINE, PAUL INK, PHILIPP PREPS) 1 DoD TELE ASSESS & MGT SRV PROV QUAL NONPHYS HLTH CARE PRO TO EST PAT,PARENT,GUARD NOT ORIG REL ASSESS & MGT SRV PROV W/IN PREV 7 DAYS NOR LEAD ASSESS & MGT SRV/PX W/IN NXT 24 HR/SOON APT;5-10 MIN MED DIS 1 [facility] SCREENING PAPANICOLAOU SMEAR; OBTAINING, PREPARING AND CONVEYANCE OF CERVICAL OR VAGINAL SMEAR TO LABORATORY 1 DoD URINE TEST, BY VISUAL COLOR COMPARISON METHODS 1 [facility] GONADOTROPIN, CHORIONIC (HCG); QUALITATIVE 1 [facility] COLPOSCOPY OF THE CERVIX INCLUDING UPPER/ADJACENT VAGINA; 0 [facility] URINE TEST, BY VISUAL COLOR COMPARISON METHODS 0 [facility] SCREENING PAPANICOLAOU SMEAR; OBTAINING, PREPARING AND CONVEYANCE OF CERVICAL OR VAGINAL SMEAR TO LABORATORY 0 [facility] SCREENING PAPANICOLAOU SMEAR; OBTAINING, PREPARING AND CONVEYANCE OF CERVICAL OR VAGINAL SMEAR TO LABORATORY 9 [facility] HUMAN PAPILLOMAVIRUS VACCINE, TYPES 6, 11, 16, 18, QUADRIVALENT (4VHPV), 3 DOSE SCHEDULE, FOR INTRAMUSCULAR USE 7 DoD Social History Combined list of available smoking, tobacco, and other social history from Department of Defense and Veterans Affairs facilities. Social History Type Response Date Comment Sour e This section is an empty social history section. DoD
== END 2025-01-05 16:36 | disposition home or self-care (01) ==
LOC: ANHLAB 16:37
PROVIDERS: PCP Student in an Organized Health Care Education/Training Program; Visit Provider Student in an Organized Health Care Education/Training Program
DX: N94.89 Other specified conditions associated with female genital organs and menstrual cycle (principal)
CPT/HCPCS: 36415; 84702

== ENCOUNTER 2025-01-17 13:53 | Outpatient (CLI) | payer OTHER, SELFPAY ==
--- NOTE | ~2025-01-17 | US_ITS ---
EXAMINATION: US OB <= 14 weeks fetus DATE: 01/17/2025 16:47 CDT INDICATION: Dating. Last menstrual period is given as 11/24/2024 COMPARISON: 04/28/2024 TECHNIQUE: Real-time transabdominal obstetric ultrasound. FINDINGS: 3 para 0 Estimated date of delivery by last menstrual period is 08/31/2025 The uterus measures 8.9 x 4.1 x 6.9 cm. A gestational sac is identified within the uterus. A pole is identified, with a crown-rump length that measures 0.4 cm, corresponding to an approx imate gestational age of 6 weeks and 1 day. cardiac activity is identified at a rate of 112 bpm. Gestational sac size is 1.85 cm, corresponding to an approximate gestational age of 6 weeks and 2 day s. Despite prolonged interrogation, the right ovary was not visualized secondary to overlying bowel gas. The left ovary is unremarkable in echogenicity and size measuring 3.3 x 2.3 x 2.7 cm. Estimated date of delivery by ultrasound is 09/10/2025 IMPRESSION: Single intrauterine gestation with an approximate gestational age of 6 weeks and 1 day, with ca rdiac activity identified. Reviewed, dictated and finalized at location A. IMPRESSION: Single intrauterine gestation with an approximate gestational age of 6 weeks an d 1 day, with cardiac activity identified.
== END 2025-01-17 13:54 | disposition home or self-care (01) ==
LOC: MICIMG 13:54
PROVIDERS: PCP Obstetrics & Gynecology; Visit Provider Obstetrics & Gynecology
DX: N94.89 Other specified conditions associated with female genital organs and menstrual cycle (principal)
CPT/HCPCS: 76801

== ENCOUNTER 2025-01-21 10:18 | Outpatient (CLI) | payer OTHER, SELFPAY ==
[2025-01-21 11:58] LABS: Thyroid Stimulating Hormone 0.319 uIU/mL (0.465-4.680); Total Triiodothyronine (T3) 1.06 NG/ML (0.82-1.58)
[2025-01-21 13:03] LABS: Free T4 Free Thyroxine 1.05 ng/dL (0.78-2.19)
== END 2025-01-21 10:19 | disposition home or self-care (01) ==
DX: R79.89 Other specified abnormal findings of blood chemistry (principal)
CPT/HCPCS: 36415; 84439; 84443; 84480

== ENCOUNTER 2025-02-01 21:03 | Emergency (ER) | payer OTHER, SELFPAY ==
--- NOTE | ~2025-02-01 | US_ITS ---
EXAMINATION: US OB <=14 wk fetus w TV DATE: 02/01/2025 22:54 CDT INDICATION: Bleeding COMPARISON: 01/17/2025 TECHNIQUE: Real-time transabdominal obstetric ultrasound. FINDINGS: Estimated date of delivery by last menstrual period is 08/31/2025 The uterus measures 7.6 x 4.1 x 4.5 cm. An irregular gestational sac is identified within the uterus. A pole is identified, with a crown-rump length that measures 1.4 cm, corresponding to an approx imate gestational age of 7 weeks and 4 days. Despite prolonged interrogation, no cardiac activity is identified. The right ovary was not visualized. The left ovary measures 4.4 x 1.9 x 2.7 cm. Free fluid is identified within the endocervical canal. IMPRESSION: Single intrauterine gestation with an approximate gestational age of 7 weeks and 4 days. Despite prolonged interrogation, no cardiac activity is identified. Of note, cardiac activity was identified on the ultrasound of 01/17/2025. Reviewed, dictated and finalized at location A. IMPRESSION: Single intrauterine gestation with an approximate gestational age of 7 weeks an d 4 days. Despite prolonged interrogation, no cardiac activity is identified. Of note, cardiac activity was identified on the ultrasound of 01/17/2025.
--- OUTSIDE RECORDS SUMMARY | 2025-02-01 21:06 | XMS_ITS | Data Portability ---
Author Organization [facility] Address [address] [place] [address] [place] [address] Care Team Providers Care Ladle Builder Name Role Phone MEAGHAN JEFF Primary Care Provider Assessment No assessment recorded. Plan of Treatment Reminders Order Date Submit Date Provider Last Modified By Organization Details Last Modified Time Details Appointments None recorded. Lab test, urine 2023 024 [email or web address] [address], [address], [place], [address], 4 18:22:25 test, urine 2023 024 [email or web address] [address], [address], [place], [address], 4 16:03:13 Referral None recorded. Procedures None recorded. Surgeries None recorded. Imaging US, obstetric, transvagina l 2023 024 [email or web address] [address], [address], [place], [address], 4 12:53:52 XR, hysterosalp ingogram [address] [facility], [facility] [address], [place], [address], 5 10:28:28 Medication Orders None recorded. Patient [...] 9-246 > 75 12-15 4 Not Available [facility] (Lab) [address], [place], [address], 03/11/2024 16:55:20 02/27/20 24 02/27/2024 ESTRA DIOL [...] 154-3 243 pg/mL 2nd [place] 1561- 78803 pg/mL 3rd [place]ime [place] 8525- >3000 0 pg/mL Not Available [facility] (Lab) [address] [place], [address], 03/11/2024 16:55:20 02/27/20 24 02/27/2024 PROGE STERO [...] Trime ster 58.70 -214. 00 Not Available [facility] (Lab) [address], [place], [address], 03/11/2024 16:55:21 02/27/20 24 02/27/2024 PROLA CTIN prolactin, total 18.50 NG/mL 4.79-2 3.30 This assay was perfo rmed using [employer] ratio n reage nts and test kits. Value s obtai sandra with other assay metho ds or kits canno t be used inter mancilla eably . Not Available [facility] (Lab) [address], [place], [address], 03/11/2024 16:55:21 02/27/20 24 02/27/2024 T4 FREE T4, free 1.09 NG/dL 0.60-1 .40 This assay is susce ptibl e to inter feren ce from high level s of bioti n which may false ly eleva te resul ts. Pleas e corre late with clini radames findi ngs. Not Available [facility] (Lab) [address], [place], [address], 03/11/2024 16:55:22 02/27/20 24 02/27/2024 TSH, REFLE X FREE T4 TSH 0.27 uIU/m L 0.30-5 .33 low Not Available [facility] (Lab) [address] [place], [address], 03/11/2024 16:55:22 02/27/20 24 02/27/2024 LH (LUTE NIZIN G HORMO NE) LH 10.7 mIU/m L This assay was perfo rmed using [employer] ratio n reage nts and test kits. Value s obtai sandra with other assay metho ds or kits canno t be used inter mancilla eay . Femal es Mid-F ollic ular: 2.4-1 2.6 mIU/m L Mid-C ycle: 14.0- 95.6 mIU/m L Mid-L uteal : 1.0-1 1.4 mIU/m L Postm enopa use: 7.7-5 8.5 mIU/m L Not Available [facility] (Lab) [address], [place], [address], 03/11/2024 16:55:22 02/27/20 24 02/27/2024 FSH FSH 7.8 mIU/m L This assay was perfo rmed using [employer] ratio n reage nts and test kits. Value s obtai sandra with other assay metho ds or kits canno t be used [facility] . Femal es Folli cular : 3.5-1 2.5 mIU/m L Ovula tion: 4.7-2 1.5 mIU/m L Lutea l: 1.7-7 .7 mIU/m L Postm enopa use: 25.8- 134.8 mIU/m L Not Available [facility] (Lab) [address], [place], [address], 03/11/2024 16:55:23 02/27/20 24 02/27/2024 HUMAN SEX HORMO NE HILDA NG GLOBU ELSA sex hormone binding globulin 78.8 nmole s/L 18.2-1 35.5 Not Available [facility] (Lab) [address], [place], [address], 03/11/2024 16:55:23 02/27/20 24 02/27/2024 HEMOG LOBIN A1C hemoglobin A1C 5.5 % 0-5.6 The Ameri can Diabe get[place]w Assoc iatio n recom mends that a prima ry goal of therviyr jackson be a HBA1C of < 7% and that physi cians harsh d reeva luate the treat ment regim en in patie nts with HBA1C value s consi stent ly > 8%. <5.7% Yenifer l 5.7 - 6.4% Incre ased risk for diabe getachew >=6.5 % Diagn ostic of diabe getachew <7.0% Goal of thera py >8.0% Actio n sugjay sted Not Available [facility] (Lab) [address], [place], [address], 03/11/2024 16:55:24 02/27/2002/27/2024 17-HY DROXY PROGE STERO NE, SERUM 17-hydroxypr ogesterone, S 56 NG/dL ----- ----- ----- ----R EFERE NCE VALUE ----- ----- ----- ----- ----- - < 80 (Foll icula r) <285 (Lute al) ----- ----- ----- ----A DDITI ONAL INFOR MATIO N---- ----- ----- ----- This test was dereje wright and its perfo rmanc e allen monacori stics deter mined by [facility] in a chad r consi stent with EARL wong ts. This test has not been clear ed or appro viri by the U.S. Food and Drug Admin istra tion. Test Perfo rmed by: [facility] - [place] [address] , [place] [address] Lab Direc tor: Ada Adair nn Ph.D. ; CLIA# [id number] Not Available [facility] (Lab) [address], [place], [address], 03/11/2024 16:55:24 02/27/2002/27/2024 TESTO STERO NE, TOTAL AND FREE, SERUM (LC-M S/MS) testosterone free 0.80 NG/dL <0.13- 1.00 ----- ----- ----- ----A DDITI ONAL INFOR MATIO N---- ----- ----- ----- This test was devel oped and its perfo rmanc e allen cteri stics deter mined by [facility] in a chad r consi stent with CLIA requi remen ts. This test has not been clear ed or appro viri by the U.S. Food and Drug Admin istra tion. Not Available [facility] (Lab) [address], [place], [address], 03/11/2024 16:55:25 02/27/20 24 02/27/2024 TESTO STERO NE, TOTAL AND FREE, SERUM (LC-M S/MS) testosterone , total, S 48 NG/dL 8-60 ----- ----- ----- ----A DDITI ONAL INFOR MATIO N---- ----- ----- ----- Testi ng perfo rmed by Liqui d Chrom atogr aphy- Tande m Mass Spect romet ry (LC-M S/MS) . This test was devel oped and its perfo rmanc e allen cteri stics deter mined by [facility] in a chad r consi stent with CLIA requi remen ts. This test has not been clear ed or appro viri by the U.S. Food and Drug Admin istra tion. Test Perfo rmed by: [facility] - [place] [address], [place] [address] Lab Direc tor: Ada Adair nn Ph.D. ; CLIA# [id number] Not Available [facility] (Lab) [address], [place], [address], 03/11/2024 16:55:25 02/27/20 24 02/27/2024 pregn annabelle test, urine HCG negati ve Not Available [place] [address], [place], [address], 02/27/2024 16:02:53 03/26/20 24 03/26/2024 TSH, REFLE X FREE T4 TSH 0.47 uIU/m L 0.30-5 .33 Not Available [facility] (Lab) [address], [place], [address], 03/27/2024 07:08:35 04/29/20 24 04/29/2024 pregn annabelle test, urine HCG negati ve Not Available [facility] [address], [place], [address], 04/29/2024 18:12:16 04/21/20 24 04/21/2024 US, obste tric, trans vagin al No observ ation record ed. [email or web address] [facility] [address], [place], [address], 04/21/2024 18:16:21 04/21/20 24 04/21/2024 US, obste tric, trans vagin al No observ ation record ed. [address], [place], [address], 04/22/2024 11:52:58 Result Notes None recorded. 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 13:05:31 Atypical squamous cells on cervical Papanico laou smear cannot exclude high grade squamous intraepi thelial lesion [id number] Completed 201808/10/2021 Atyp squam cell not excl hi grd intrepith lesn cyto smr crvx;Daniele rded Elsewhere : No Locati on: [facility] So urce: EHR Chron ic: N Practic e ID: 0001 Bill able Time: 10:15:00 AM Ashley Pisano [facility] 2 12:46:50 Atypical squamous cells of undeterm ined signific ance on cervical Papanico laou smear [id number] Completed 201808/10/2021 Atyp squam cell of undet signfc cyto smr crvx (ASC-US); Recorded Elsewhere : No Locati on: [facility] So urce: EHR Chron ic: N Practic e ID: 0001 Bill able Time: 10:15:00 AM Ashley Pisano [facility] 2 12:46:49 Speciali zed medical examinat ion Completed 201308/10/2021 Gynecolog ical Examinati on;Record ed Elsewhere : No Locati on: [facility] So urce: EHR Chron ic: N Practic e ID: 0001 Bill able Time: 02:15:00 PM Ashley Pisano [facility] 2 13:05:33 Urinary tract infectio us disease 57414602 Completed 201708/10/2021 UTI;Recor ded Elsewhere : No Locati on: [facility] So urce: EHR Chron ic: N Practic e ID: 0001 Bill able Time: 05:30:00 PM Ashley Pisano [facility] 2 13:05:35 Pregnanc y test negative 145766261 Completed 201808/10/2021 Encounter for test, result negative; Recorded Elsewhere : No Locati on: [facility] So urce: EHR Chron ic: N Practic e ID: 0001 Bill able Time: 10:15:00 AM Ashley Pisano [facility] [address] 12:46:[address] Concept Completed 201408/10/2021 Encntr for general adult medical exam w/o abnormal findings; Recorded Elsewhere : No Locati on: [facility] So urce: EHR Chron ic: N Practic e ID: 0001 Bill able Time: 11:00:00 AM [facility] 13:05:29 Blood leukocyt e number above referenc e range [id number] Completed 201608/10/2021 Elevated white blood cell count, unspecifi ed;Record ed Elsewhere : No Locati on: [facility] So urce: EHR Chron ic: N Practic e ID: 0001 Bill able Time: 05:45:00 PM Ashley Pisano [facility] 2 12:46:52 Screenin g for malignan t neoplasm of cervix Completed 201308/10/2021 Pap Smear;Pra ctice ID: 0001 Ashley Pisano [facility] 2 14:15:02 Acute vaginiti s [id number] Completed 201608/10/2021 Acute vaginitis ;Practice ID: 0001 Ashley Pisano [facility] 2 12:46:47 Problem Notes None recorded. Procedures Surgical History Date Name Laterality Status Provider Name and Address Organization Details Recorded Time 08/26/19 24 Date of Last Pap Smear completed Karley Arias [facility] 02/27/2024 15:51:07 02/27/20 21 endoscopy completed Renae Rodríguez MAR[facility]- [address], [place], [address], [facility] 08/10/2021 14:44:28 02/03/20 19 Colposcopy completed Ashley Pisano [facility] 08/10/2021 14:39:04 Imaging Results None recorded. Procedure Notes None recorded. Medical Equipment None Reported. Allergies No known drug allergies Medications Name Sig Start Date Stop Date Status Note LastModified by Organization Details LastModified Time Diflucan 150 mg tablet take 1 tablet by oral route every other week. 02/02 completed Prescrib ed Elsewher e: No [facility] odify By: [email or web address] z Encoun ter DateTime : 01/19/20 19 02:30:00 PM Not Available Not Available Not Available sulfameth oxazole 800 mg-trimet hoprim 160 mg tablet take 1 tablet by oral route every 12 hours 02/02 completed Prescrib ed Elsewher e: No [facility]at [facility] odify By: [email or web address] z Encoun ter DateTime : 12/24/19 18 [...] Prescrib ed Elsewher e: No Locat ion: [facility] odify By: [email or web address] marquez DateTime : 07/10/20 15 04:37:55 PM [...] Body mass index (BMI) Body weight Systolic And Diastolic Provider Name and Address Organization Details Last Updated DateTime 02/27/2024 160.02 cm 30.6 kg/m2 64535.48 g 114/78 mm[Hg] [facility] 02/27/2024 15:50:21 Date Recorded Body height Body mass index (BMI) Body weight Systolic And Diastolic Provider Name and Address Organization Details Last Updated DateTime 03/16/2024 160.02 cm 31.4 kg/m2 13715.85 g 124/83 mm[Hg] Karley [facility] 03/16/2024 12:37:53 Date Recorded Body height Body mass index (BMI) Body weight Systolic And Diastolic Provider Name and Address Organization Details Last Updated DateTime 04/21/2024 160.02 cm 30.6 kg/m2 24581.48 g 123/78 mm[Hg] Florence Green [facility] 04/21/2024 14:41:35 Date Recorded Body height Body mass index (BMI) Body weight Systolic And Diastolic Provider Name and Address Organization Details Last Updated DateTime 04/29/2024 160.02 cm 30.4 kg/m2 77438.73 g 116/75 mm[Hg] Tere Castanon [facility] 04/29/2024 17:15:24 Social History Question Answer Notes LastModified by Organizat ion Details LastModified Time Tobacco Smoking Status Never Smoker Ashley Norris [facility] 08/10/2021 14:35:15 Do You Have An [...] Or The Highest Degree You Have Received? [id number] Information not available 08/10/2021 Are There Any [...] Have Difficulty Walking Or Climbing Stairs? No [email or web address] Information not available 04/21/2024 Sex: Unknown Functional Status Question Answer Note LastModified by Organizat ion Details LastModified Time Do you use any illicit or recreational drugs? No Information not available 08/10/2021 What is your level of alcohol consumption? Occasional Information not available 08/10/2021 Are you able to walk? YESWOREST Information not available 08/10/2021 Are you able to care for yourself? 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 No [email or web address] Information not available 04/21/2024 What is your exercise level? Moderate Information not available 08/10/2021 Mental Status Question Answer Note LastModified by Organization D etails LastModified Time Do you feel stressed (tense, restless, nervous, or anxious, or unable to sleep at night)? [id number] Information not available 08/10/2021 Family History Relationship Description Onset Age of this Age Resolved Age Notes LastModified by Organization Details LastModified Time Mother Diabetes mellitus [email or web address] Not available 2019 11:46:26 Paternal Grandmother Diabetes mellitus [email or web address] Not available 2019 11:46:26 Paternal Grandmother Carcinoma in situ of lung [email or web address] Not available 12:19:04 Paternal Aunt Carcinoma in situ of breast [email or web address] Not available 2023 12:19:04 Medical History Condition [...] SNOMED-CT Code Diagnosis ICD10 Code Diagnosis Note [id number] [facility] [address] [address] 05/08/2020 11:45:17 05/08/2020 17:52:43 Gynecologic examination 60997086 Z01.419 Take Calcium with Vitamin D 1200mg [...] 2019 consistent with pap results Pap/hpv ordered [id number] ARISTEO [facility] [address] [address] 08/10/2021 14:21:36 08/10/2021 15:18:57 Gynecologic examination 73684363 Z01.419 Take Calcium with Vitamin D 1200mg [...] date. [facility] ion care management 551584378 Z30.9 Happy on OCPRF sent x 1yr [id number] Renae Rodríguez [facility] [address] [address] 08/26/2023 09:00:06 08/26/2023 09:31:11 Gynecologic examination 92538839 Z01.419 Z11.51 Take Calcium with Vitamin D [...] with folic acid [id number] Henry Carpenter MD [facility] [address] [address] 02/27/2024 15:17:26 03/04/2024 23:33:34 Irregular periods 20233649 N92.6 Reproducti ve care management 335124835 Z31.9 - Differenti al diagnosis of cause [...] HSG and lab work can be scheduled approprcuca Richard spent over 30 minutes on the patient's care. [id number] Henry Carpenter MD [facility] [address] [address] 03/16/2024 12:18:54 03/17/2024 09:58:00 Female infertility 6319328 N97.9 Presents today for discussion of infertilit [...] agreed to proceed with hysterosal pingogram. [id number] Henry Carpenter MD [facility] [address] [address] 04/21/2024 14:12:24 04/21/2024 15:02:43 Threatened miscarriage 88396548 O20.0 O36.80X0 Z3A.00 [id number] Valerie Danielle CNM [facility] [address] [address] 04/21/2024 14:13:18 04/21/2024 15:59:49 Long menstrual cycle 554558635 N92.5 missed ab, vs early pregnancyp brandyn HCG and then rpt in 48 hoursblood type drawncall if any concerns or increase in bleeding, will plan f/u next week pending resultscon tinue vitamin Hyperthyroidism 44213822 E05.90 rpt tsh free t4 and t3 today [id number] Henry Carpenter MD [facility] [address] [address] 04/29/2024 17:07:06 04/30/2024 09:37:31 Missed miscarriage 50844102 O02.1 this patient presents for postop follow-up. [...] None Recorded Advance Directives Directive N: Payers Insurance Date Sequence Insurance Name Policy Number Policy Rahman Covered Member ID Rahman Member ID Guarantor Name 03/16/2024 1 [facility] [id number] Vaishali Liudmila [id number] Vaishali Carr 05/03/2024 1 [facility] - GE - DOS PRIOR TO 2024 (PPO) Vaishali Carr [id number] Vaishali Carr 03/16/2024 1 [employer] FEP [id number] Vaishalijose enrique Carr [id number] Vaishali Carr Notes Date Note Type Note [...] appropriately Henry Carpenter MD [address], [place], [address], [facility] 02/28/2024 13:22:26 4 text/html Presents today [...] hysterosalpingogram. Henry Carpenter MD [address], [place], [address], [facility] 03/17/2024 09:54:27 4 text/html +UPT, pt having some spotting, send for blood typeon US today not seeing 9 week IUP, discussed could be early vs miscarriagept also wants to discuss hyperthyroidism no current meds Valerie Danielle CNM [address], [place], [address], [facility] 04/21/2024 15:12:29 4 text/html this patient [...] on. Henry Carpenter MD [address], [place], [address], [place] [facility] 04/29/2024 18:22:54 OBGyn Episode Ob Episode Information Episode Created Date Number of Fetuses Patient Bloodtype Patient rh Status Prepregnancy Weight lbs Domestic Partner Domestic Partner Phone Father Name Laboratory Development Technician Status 04/21/20 24 1 CLOSED Fetus Data First Name Last Name Admitted to NICU Weight (g) Sex Living Outcome Pediatric Complications Fetus ID Race Codes Race Delivery Type , Spontane ous [id number] Andrey Calculation Initial Andrey Date Initial Exam [...]
--- OUTSIDE RECORDS SUMMARY | 2025-02-01 21:06 | XMS_ITS | Clinical Summary ---
Author Organization [facility] Address [address] [place] [address] Care Team Providers Care Area Loss Prevention Manager Name Role Phone Gus Elise Primary Care [...] (10 mg total) by mouth daily. Active Active Problems Problem Noted Date Diagnosed Date Lower abdominal pain 08/20/2023 Blood in stool 08/20/2023 Bloating 08/20/2023 Gastroesophageal reflux dise ase, unspecified whether esophagitis present 06/25/2023 Encounters Date Type Department Care Team Description 01/27/2025 Telephone [facility] Internal [address] [address] Gus Elise, DO Question 01/05/2025 Scan [facility] Scanned, [facility] (SCAN) 01/03/2025 Scan [facility] Scanned, [facility] (SCAN) 12/14/2024 Scan [facility] Scanned, [facility] (SCAN) 11/24/2024 Scan [facility] Scanned, [facility] (SCAN) 11/22/2024 Scan [facility] Scanned, [facility] (SCAN) 11/09/2024 1:00 PM CDT Office Visit [address] [phone] Gus Elise, DO Sore Throat (The patient is having sore throat and headaches. The patient states the sx are worse during the day. The patient was tested for covid and flu. The patient has tried sudafed and flonase. ) 11/09/2024 Results Follow-Up [address] [address] Gus Elise, DO STREP A RAPID, CULTURE STREP A (MG/[facility] Only) 11/09/2024 Travel 11/09/[address] [phone] Gus Elise, DO Medication Request from Last 3 Months Immunizations Immunization Administration [...] P M CDT Height 157.5 cm (5' 2) 11/09/2024 1:09 PM CDT Body Mass Index 31.15 11/09/2024 1:09 PM CDT Plan of Treatment Upcoming Encounters Date Type Department Care Team (Late st Contact Info) Description 02/10/2025 3:40 PM CDT Allied Health/Nurse Visit [facility] Family & Internal Medicine [address] [address] Gus Elise, DO [address] [place] [address] 06/29/2025 7:20 AM CUSTOMER SOLUTIONS SPECIALIST Office Visit [facility] Family & Internal Medicine - [place] [address] [place] [address] Gus Elise, DO [address] [place] [address] Health Maintenance Due Date Last Done Comments [...] Clinic) Hepatitis C Completed 07/14/2023 PHQ-2 (Physician [place]) Completed 11/09/2024 HPV Vaccines Aged Out No [...] Associated Diagnosis Comments OUTSIDE LAB (SCAN ORDER) 01/05/2025 OUTSIDE LAB (SCAN ORDER) 01/03/2025 OUTSIDE LAB (SCAN ORDER) 01/03/2025 OUTSIDE LAB (SCAN ORDER) 12/14/2024 OUTSIDE LAB (SCAN ORDER) 11/24/2024 OUTSIDE LAB (SCAN ORDER) 11/22/2024 CULTURE STREP A Routine 11/09/2024 1:24 PM CDT Sore throat STREP A RAPID Routine 11/09/2024 Sore throat OUTSIDE CYTOPATH CERV/VAG INTERPRET (PAP) 08/26/2023 HEPATITIS C ANTIBODY Routine 07/14/2023 7:20 AM CUSTOMER SOLUTIONS SPECIALIST Encounter for preventative adult health care examination Screening for lipid disorders Screening for endocrine, metabolic and immunity disorder Need for hepatitis C screening test from Last 3 Months or Most Recently Relevant to Health Maintenance Results * OUTSIDE LAB (SCAN ORDER) (01/05/2025) Only the most recent of6 resultswithin the time period is included. 01/05/2025 us [facility] Scanned SCANNING Final Resu lt * CULTURE STREP A (MG/[facility] Only) (11/09/2024 1:24 PM CDT) THROAT CULTURE STREP A ONLY Negative for Group A Streptococci Negative for Group A Streptococci 11/10/2024 5:40 PM CDT [facility] STRUCTURE OF ANTERIOR PORTION OF NECK / Unknown 11/09/2024 1:24 PM CDT Gus Elise DO MICROBIOLOGY - GENERAL O RDERABLES Final Result [facility] [address] [place] [address], [place] [phone] * STREP A RAPID (11/09/2024) RAPID STREP TEST NEGATIVE NEGATIVE [facility] Internal Control: VALID VALID [facility] STRUCTURE OF ANTERIOR PORTION OF NECK / Unknown 11/09/2024 Gus Elise DO MICROBIOLOGY - GENERAL O RDERABLES Final Result Performing Organization Address [facility] Co de Phone Number [facility] [address] [place] [address], [place] * PAP SMEAR WITH HPV (08/26/2023) 08/26/2023 us [facility] Scanned SCANNING Final Resu lt * HEPATITIS C ANTIBODY ([facility] ONLY) (07/14/2023 7:20 AM CUSTOMER SOLUTIONS SPECIALIST) Pathologist [facility] HEPATITIS C AB NON-REACTI VE NON-REACT ROB 07/14/2023 7:07 PM CUSTOMER SOLUTIONS SPECIALIST [facility] Comment: ANTIBODIES TO HCV NOT DETECTED. DOES NOT EXCLUDE THE POSSIBILITY OF EXPOSURE TO HCV. 07/14/2023 7:20 AM CUSTOMER SOLUTIONS SPECIALIST Gus Elise DO LABORATORY Final Re sult Performing Organization Address City/[facility]/ZIP Co de Phone Number [facility] [address] [place] [address], [id number] from Last 3 Months or Most Recently Relevant to Health Maintenance Insurance Care Teams Area Loss Prevention Manager Relationship Specialty Start Date End Date Gus Elise DO [address] [place] [phone] PCP - General FAMILY PRACTICE 06/25/23
--- OUTSIDE RECORDS SUMMARY | 2025-02-01 21:06 | XMS_ITS | Encounter Summary ---
Author Organization [facility] Address [address] [place] [address] Care Team Providers Care Crop Quantitative Geneticist Name Role Phone Gus Elise DO Primary Care Provider + Reason for Visit * Reason Onset Date Comments Question 01/27/2025 Encounter Details Date Type Department Care Team (Late st Contact Info) Description 01/27/2025 Telephone [facility] Family & Internal Medicine [facility] [address] [place] [address] Gus Elise DO [address] [place] [address] Question Social History Tobacco Use Types Packs/Day Years [...] as of this encounter Progress Notes * Ana Marcial RN - 02/01/2025 8:55 AM CDT Patient notified and verbalized understanding. Opportunity given for all questions to be answered, no further needs voiced at this time. -02/01/25 * Ana Marcial RN - 01/31/2025 11:42 AM CDT Tried to call. Phone did not ring. Was unable to leave a message. Will try again later. -01/31/25 * Gus Elise DO - 01/31/2025 11:00 AM CDT Yes, that is still okay to do and would be recommended still. * Ana Marcial RN - 01/31/2025 9:29 AM CDT Patient called in reporting that she is . She is due for her 3rd Hep B vaccine and is wondering if she can still get this while ? Patient said it is okay to leave detailed message if she does not answer. Opportunity given for all questions to be answered, no further needs voiced at this time. -01/31/25 * Karley Michaels - 01/27/2025 9:19 AM CDT Patient called in about rescheduling her Nurse Visit but is now and would like to discuss the vaccination with you before going through with it. Please call [phone]. documented in this encounter Plan of Treatment Upcoming Encounters Date Type Department Care Team (Late st Contact Info) Description 02/10/2025 3:40 PM CDT Allied Health/Nurse Visit [facility] Family & Internal [facility] [address] [place] [address] Gus Elise DO [address] [place] [address] 06/29/2025 7:20 AM MANAGER ENVIRONMENTAL AFFAIRS Office Visit [facility] Family & Internal [facility] [address] [place] [address] Gus Elise DO [address] [place] [address] documented as of this encounter Visit Diagnoses Not on filedocumented in this encounter Care Teams Crop Quantitative Geneticist Relationship Specialty Start Date End Date Gus Elise DO [address] [place] [address] PCP - General FAMILY PRACTICE 06/25/23 documented as of this encounter
[2025-02-01 21:27] VITALS: BP 128/74; PULSE 67; RESP 12; TEMP 36.4; O2SAT 100
--- OUTSIDE RECORDS SUMMARY | 2025-02-01 22:00 | XMS_ITS | Clinical Summary ---
Author Organization [facility] Address [address] [place] [address] Care Team Providers Care Event Promoter Name Role Phone Gus Elise Primary Care [...] Type Department Care Team Description 01/27/2025 Telephone [facility] Internal [address] [phone] Gus Elise, DO Question 01/05/2025 Scan MG [...] (SCAN) 11/09/2024 1:00 PM CDT Office Visit [address] [phone] Gus Elise, DO Sore Throat (The patient is having sore throat and headaches. The patient states the sx are worse during the day. The patient was tested for covid and flu. The patient has tried sudafed and flonase. ) 11/09/2024 Results Follow-Up [address] [phone] Gus Elise, DO STREP A RAPID, CULTURE STREP A (MG/SJS/SMD Only) 11/09/2024 Travel 11/09/[address] [phone] Gus Elise, DO Medication Request from Last [...] 02/10/2025 3:40 PM CDT Allied Health/Nurse Visit [facility] Family & Internal Medicine [address] [phone] Gus Elise, DO [address] [place] [address] 06/29/2025 7:20 AM SEXER Office Visit [facility] Family & Internal Medicine - [facility] [address] [place] [address] Gus Elise, DO [address] [place] [address] Health Maintenance Due Date Last Done Comments [...] Clinic) Hepatitis C Completed 07/14/2023 PHQ-2 (Physician [place]) Completed 11/09/2024 HPV Vaccines Aged Out No [...] HEPATITIS C ANTIBODY Routine 07/14/2023 7:20 AM SEXER Encounter for preventative adult health care examination [...] Group A Streptococci 11/10/2024 5:40 PM CDT [facility] STRUCTURE OF ANTERIOR PORTION OF NECK / Unknown 11/09/2024 1:24 PM CDT Gus Elise DO MICROBIOLOGY - GENERAL O RDERABLES Final Result [facility] [address] [place] [address], [place] [phone] * STREP A RAPID (11/09/2024) RAPID STREP TEST NEGATIVE NEGATIVE [facility] Internal Control: VALID VALID [facility] STRUCTURE OF ANTERIOR PORTION OF NECK / Unknown 11/09/2024 Gus Elise DO MICROBIOLOGY - GENERAL O RDERABLES Final Result Performing Organization Address [facility] Co de Phone Number [facility] [address] [place] [address], [place] * PAP SMEAR WITH HPV (08/26/2023) 08/26/2023 us [facility] Scanned SCANNING Final Resu lt * HEPATITIS C ANTIBODY ([facility] ONLY) (07/14/2023 7:20 AM SEXER) Pathologist [facility] [place] HEPATITIS C AB NON-REACTI VE NON-REACT ROB 07/14/2023 7:07 PM SEXER [facility] Comment: ANTIBODIES TO HCV NOT DETECTED. DOES NOT EXCLUDE THE POSSIBILITY OF EXPOSURE TO HCV. 07/14/2023 7:20 AM SEXER Gus Elise DO LABORATORY Final Re sult Performing Organization Address City/[facility]/ZIP Co de Phone Number [facility] [address] [place] [address], [phone] from Last 3 Months or Most Recently Relevant to Health Maintenance Insurance Care Teams Event Promoter Relationship Specialty Start Date End Date Gus Elise DO [address] [place] [phone] PCP - General FAMILY PRACTICE 06/25/23
--- OUTSIDE RECORDS SUMMARY | 2025-02-01 22:00 | XMS_ITS | Encounter Summary ---
Author Organization [facility] Address [address] [place] [address] Care Team Providers Care Numerical Control Machine Machinist Name Role Phone Gus Elise DO Primary Care Provider + Reason for Visit * Reason Onset Date Comments Question 01/27/2025 Encounter Details Date Type Department Care Team (Late st Contact Info) Description 01/27/2025 Telephone [facility] Family & Internal Medicine [facility] [address] [place] [address] Gus Elise DO [address] [place] [address] Question Social History Tobacco Use Types [...] before going through with it. Please call [phone]. documented in this encounter Plan of Treatment Upcoming Encounters Date Type Department Care Team (Late st Contact Info) Description 02/10/2025 3:40 PM CDT Allied Health/Nurse Visit [facility] Family & Internal [facility] [address] [place] [address] Gus Elise DO [address] [place] [address] 06/29/2025 7:20 AM PLASTICS TOOLING ENGINEER Office Visit [facility] Family & Internal [facility] [address] [place] [address] Gus Elise DO [address] [place] [address] documented as of this encounter Visit Diagnoses Not on filedocumented in this encounter Care Teams Numerical Control Machine Machinist Relationship Specialty Start Date End Date Gus Elise DO [address] [place] [phone] PCP - General FAMILY PRACTICE 06/25/23 documented as of this encounter
[2025-02-01 22:07] LABS: Hematocrit 36.7 % (37.0-47.0); Hemoglobin 11.9 g/dL (12.0-15.0); Immature Granulocyte Percent A 0.6 % (0-0.5); Lymphocytes Absolute Auto 3.09 K/mm3 (0.9-3.2); Mean Corpuscular HGB Conc 32.4 g/dl (32-36); Mean Corpuscular Hemoglobin 29.6 pg (26-34); Mean Corpuscular Volume 91.3 fl (80-100); Nucleated Red Blood Cells Absolute Auto 0.000 K/mm3 (0.0-0.012); Nucleated Red Blood Cells Perc 0.0 % (0.0-0.2); Platelet Count Result 308 k/mm3 (150-375); Red Blood Count 4.02 M/mm3 (4.2-5.4); White Blood Count 8.6 K/mm3 (4.5-10.0)
[2025-02-01 22:17] LABS: Alanine Aminotransferase 17 U/L (6-35); Albumin Level 4.6 g/dL (3.5-5.1); Alkaline Phosphatase 45 U/L (38-126); Anion Gap 9 mmol/L (4-12); Aspartate Amino Transferase 27 U/L (14-36); Bilirubin,Total 0.3 mg/dL (0.2-1.3); Blood Urea Nitrogen 9 mg/dL (7-17); Calcium 8.9 mg/dL (8.4-10.2); Carbon Dioxide 25 mmol/L (22-30); Chloride 104 mmol/L (98-107); Estimated CRCL calculation 116 ml/min; Estimated Glomerular Filt Rate > 60; Glucose 105 mg/dL (65-110); Magnesium 2.0 mg/dL (1.6-2.3); Potassium 3.9 mmol/L (3.4-5.0); Sodium 138 mmol/L (137-145); Total Protein 7.6 g/dL (6.3-8.2)
[2025-02-01 22:33] LABS: Beta HCG Quantitative 2600.30 mIU/ML
--- NOTE | 2025-02-01 22:54 | ED_ITS ---
HPI - General Chief complaint: Vaginal Bleeding Stated complaint: 8WKS PREG PREG VAG SPOTTING Time Seen by Provider: 02/01/25 21:42 Source: patient and old records reviewed Mode of arrival: ambulatory Limitations: no limitations History of Present Illness HPI Narrative: Patient is a 34-year-old female who presents to the ED with report of vaginal spotting. Patient is and currently approximately 8 weeks gestation. Had an ultrasound performed at 6 weeks gestation which showed cardiac activity. History of chemical and miscarriage prior to this . Sees Dr. Gee. Reports tonight she developed vaginal spotting. Reports it is light pink, brown in color. Denies significant abdominal cramping. Denies dysuria, hematuria, fevers. Related Data Home Medications ?Medication ?Instructions ?Recorded ?Confirmed ?Last Taken ?Type vits no.126-ferrous fum tablet PO 01/19/25 01/19/25 Unknown History 28 mg iron-folic acid 800 mcg tablet (Classic ) Allergies Allergy/AdvReac Type Severity Reaction Status Date / Time No Known Allergies Allergy Verified 02/01/25 21:52 Review of Systems 2 Review of Systems: All systems reviewed & are unremarkable except as noted in HPI. All systems reviewed & are unremarkable except as noted in HPI and below PMFSH Past Medical History Medical History Normal colonoscopy Miscarriage Irritable bowel syndrome (IBS) Surgical History Surgical History History of hysteroscopy D & C Family History Family History Grandparent Lung cancer Heart disease Mother Diabetes mellitus Social History Social History Smoking status: Never smoker Alcohol intake: current Alcohol use details: rare Substance use: never Substance use type: does not use Do You Feel Safe in your Home?: Yes Lack of Transportation: No Lack of Food: Never True Current Housing: I Have Housing Concerned About Future Housing: No Difficulty Paying Gas/Electric Bills: No Difficulty Paying for Meds: No Currently Unemployed: No Education: Bachelor's Degree Difficulty w/ Childcare or Family Care: No Living arrangements: with family Occupation/Education: occupation Gender identity (if verbalized by the patient): Female Sexual Orientation (if Verbalized by the Patient): Straight or Heterosexual Exam 2 Narrative: GENERAL: Well appearing, well-nourished, non-toxic, in no acute distress. HEAD: Normocephalic, atraumatic. RESPIRATORY: Airway patent, respirations nonlabored. Clear to auscultation bilaterally, no rales, rhonchi, wheezing. CARDIOVASCULAR: Regular rate and rhythm ABDOMINAL: Soft, no significant tenderness, nondistended. Normoactive BS. MUSCULOSKELETAL: Moves all extremities. No gross deformities. SKIN: Warm, dry, normal color. NEURO: A&O X3. Speech clear. PSYCHIATRIC: Appropriate mood and affect. Normal interaction. Course Vital Signs Vital signs: Vital Signs Temperature 97.6 F 02/01/25 21:27 Pulse Rate 67 02/01/25 21:27 Respiratory Rate 12 02/01/25 21:27 Blood Pressure 128/74 02/01/25 21:27 Pulse Oximetry 100 02/01/25 21:27 Oxygen Delivery Room Air 02/01/25 21:27 Temperature 97.6 F 02/01/25 21:27 Pulse Rate 72 02/01/25 23:15 Respiratory Rate 16 02/01/25 23:15 Blood Pressure 112/73 02/01/25 23:15 Pulse Oximetry 99 02/01/25 23:15 Oxygen Delivery Room Air 02/01/25 21:27 MDM - OB/Uterine Contractions MDM Narrative Medical decision making narrative: Patient presented to ED with vaginal spotting, , hx of previous miscarriage. Vital signs are stable upon arrival. Patient in no acute distress. H&H is stable, slightly slower than previous records, but within stable range. Beta hCG today is 2600. This appears to be down trending from 3020 on 01/05/25. Concerning for miscarriage. Blood type is O+, no indication for rhogam. OB US obtained and unfortunately showing gestational age of 7 weeks, 4 days, no activity identified. There was cardiac activity identified on previous ultrasound on 01/17/2025. Consistent for spontaneous miscarriage/ demise. Discussed case with JOSEPH Childress on-call for Dr. Gee, advised to have patient f/u in office tomorrow to discuss options for miscarriage management. Discussed lab and imaging findings with patient and significant other at bedside. Patient understandably very upset. She does feel comfortable going home at this time and following up in office tomorrow. Discussed very strict return precautions. Discussed that bleeding may worsen throughout the night. She voiced understanding. Discharged in stable condition. Medical Records Attestation: I reviewed the patient's medical records. Lab Data Attestation: I reviewed the patient's lab results. 02/01/25 22:01 02/01/25 22:01 Labs: Lab Results 02/01/25 Range/Units 22:01 WBC 8.6 (4.5-10.0) K/mm3 RBC 4.02 L (4.2-5.4) M/mm3 Hgb 11.9 L (12.0-15.0) g/dL Hct 36.7 L (37.0-47.0) % MCV 91.3 (80-100) fl MCH 29.6 (26-34) pg MCHC 32.4 (32-36) g/dl RDW 13.3 (11.5-14.5) % Plt Count 308 (150-375) k/mm3 MPV 9.6 (7.4-10.4) fl Immature Gran % (Auto) 0.6 H (0-0.5) % Neut % (Auto) 49.3 (45.5-73.1) % Lymph % (Auto) 36.0 (18.3-44.2) % [place] % (Auto) 9.3 H (2.6-8.5) % Eos % (Auto) 4.0 (0-4.4) % Baso % (Auto) 0.8 (0.2-1.2) % Lymph # (Auto) 3.09 (0.9-3.2) K/mm3 [place] # (Auto) 0.8 H (0.1-0.6) K/mm3 Eos # (Auto) 0.3 (0-0.3) K/mm3 Baso # (Auto) 0.1 (0.0-0.1) K/mm3 Abs Immat Gran (auto) 0.05 H (0.00-0.031) K/mm3 Absolute Neuts (auto) 4.2 (1.3-6.7) K/mm3 Absolute Nucleated RBC 0.000 (0.0-0.012) K/mm3 Nucleated RBC % 0.0 (0.0-0.2) % Sodium 138 (137-145) mmol/L Potassium 3.9 (3.4-5.0) mmol/L Chloride 104 (98-107) mmol/L Carbon Dioxide 25 (22-30) mmol/L Anion Gap 9 (4-12) mmol/L BUN 9 D (7-17) mg/dL Creatinine 0.56 L (0.7-1.0) mg/dL Estim Creat Clear Calc 116 ml/min Estimated GFR > 60 (59 - ) Glucose 105 (65-110) mg/dL Calcium 8.9 (8.4-10.2) mg/dL Magnesium 2.0 (1.6-2.3) mg/dL Total Bilirubin 0.3 (0.2-1.3) mg/dL AST 27 (14-36) U/L ALT 17 (6-35) U/L Alkaline Phosphatase 45 (38-126) U/L Total Protein 7.6 (6.3-8.2) g/dL Albumin 4.6 (3.5-5.1) g/dL Beta HCG, Quant 2600.30 mIU/ML Blood Type O Positive Antibody Screen Negative Screen Not Reportable Baby's Blood Type Not Reportable Baby's NICOLE Not Reportable Doses of RhIg Required 0 Imaging Data Attestation: I personally reviewed and interpreted this imaging study as follows: Radiologist's impression: ITS Impressions Obstetrics Ultrasound 02/01/25 22:54 IMPRESSION: Single intrauterine gestation with an approximate gestational age of 7 weeks and 4 days. Despite prolonged interrogation, no cardiac activity is identified. Of note, cardiac activity was identified on the ultrasound of 01/17/2025. Discharge Plan Discharge Clinical Impression: Spontaneous Patient Disposition: Home Condition: Stable Instructions: Antibiotic Form, Miscarriage (ED) Additional Instructions: Follow up with Dr. Gee in the office tomorrow. The office should be contacting you in the morning. Continue to monitor symptoms. Return to the ED if you experience worsening or severe bleeding or pain, passing out, unable to keep down food or drink, or any other symptoms of concern. Patient Language: Greek Prescriptions: No Action Classic 28 mg iron- 800 mcg tablet PO Follow-up/Referrals: Arik,DO Gus [Primary Care Provider] - Jose Gee MD [Physician] - (OBGYN) Time of Disposition: 23:37
[2025-02-01 23:15] VITALS: BP 112/73; PULSE 72; RESP 16; O2SAT 99
[2025-02-02 00:03] VITALS: BP 118/72; PULSE 72; RESP 17; TEMP 36.7; O2SAT 98
== END 2025-02-02 00:05 | disposition home or self-care (01) ==
PROVIDERS: Emergency Medicine; Emergency Provider Physician Assistant; PCP Student in an Organized Health Care Education/Training Program
DX: O03.9 Complete or unspecified spontaneous abortion without complication (principal)
CPT/HCPCS: 36415; 76801; 76817; 80053; 83735; 84702; 85025; 85461; 86850; 86900; 86901; 99284

== ENCOUNTER 2025-02-04 00:30 | Day surgery (SDC) | payer OTHER, SELFPAY ==
[2025-02-02 14:55] VITALS: BMI 29.2
--- NOTE | 2025-02-02 15:07 | SUR.PREOP ---
Report to the Outpatient Waiting Room, entrance under the green pavilion located off [facility], at time 7am on date 02/04/2025. Planned Procedure Time: 9am.? Time changes happen often and if your time is changed the preop area will call you the afternoon before. - You and your visitor will be asked to self-screen and do not enter if you have any COVID symptoms. Please call surgeon if you need to reschedule. - A mask is optional within the hospital at this time. Patients may have clear liquids (water, carbonated beverages, clear teas, apple juice) until 3 hours prior to surgery with a maximum of 20 ounces. - No food from midnight until time of surgery and no smoking, or chewing tobacco (or any form of nicotine). No chewing gum, candy or mints. - Infants may have breast milk until 4 hours before surgery, infant formula 6 hours prior to surgery. - Children will be allowed to drink immediately following surgery.? If applicable, please bring a bottle or sippy cup to assist with drinking. Juice, water, soda, and popsicles are readily available.? For infants on formula, please bring formula the day of surgery.? Pacifiers are allowed. Take only the following medications with a SIP of water on the morning of surgery: NONE DO NOT STOP ANY OF YOUR OTHER PRESCRIPTION MEDICATIONS PRIOR TO SURGERY EXCEPT THE FOLLOWING Hold all vitamins and supplements for 3 days per anesthesiologist. Medications to discontinue per physician Date to take last dose 02/02/2025 Please no make-up, nail north korean, hairspray, perfume, deodorant, or body powder the day of surgery.? No jewelry (including any body piercings) or valuables the day of surgery, leave them at home.? Please take a shower or bath the night before, or the morning of, surgery with an antibacterial soap.? Wear comfortable, loose fitting clothing.? Children are encouraged to wear pajamas. - Jewelry must be removed prior to entering the operating room.? Rings and piercings that are not removed may be cut off. - The hospital will not accept responsibility for valuables.? - Please leave all valuables, including medications, at home the day of surgery. If you are going home after surgery, a licensed drive away driver must drive you home.? - NO public transportation without another adult if you receive anesthesia. - We recommend that an adult stay with you for 24 hours following discharge. - We also recommend that you do not drive, make important decision, drink alcoholic beverages, or take any drugs that were not prescribed by your health care provider for at least 24 hours after your discharge time. For Pediatric surgeries, we recommend two adults accompany the child home. Follow any additional instructions given to you from your surgeon. Telephone instructions given to Vaishali Carr and asked if any additional questions and then verbalized understanding. Patient advised to call surgeon office or pre surgery nurse liaison [phone] if any additional questions.
--- OUTSIDE RECORDS SUMMARY | 2025-02-04 00:33 | XMS_ITS | Data Portability ---
Author Organization [facility] Address [address] [place] [address] [place] [address] Care Team Providers Care Pillowcase Cutter Name Role Phone MEAGHAN JEFF Primary Care Provider Assessment No assessment recorded. Plan of Treatment Reminders Order Date Submit Date Provider Last Modified By Organization Details Last Modified Time Details Appointments None recorded. Lab test, urine 2023 024 [email or web address] [address], [address], [place], [address], 4 18:22:25 test, urine 2023 024 [email or web address] [facility], [address], [place], [address], 4 16:03:13 Referral None recorded. Procedures None recorded. Surgeries None recorded. Imaging US, obstetric, transvagina l 2023 024 [email or web address] [facility], [address], [place], [address], 4 12:53:52 XR, hysterosalp ingogram [address] [facility], [facility] [address], [place], [address], 5 10:28:28 Medication Orders None recorded. Patient [...] 9-246 > 75 12-15 4 Not Available [facility] (Lab) [address] [facility], [place], [address], 03/11/2024 16:55:20 02/27/20 24 02/27/2024 ESTRA DIOL [...] 154-3 243 pg/mL 2nd Trime [place] 1561- 49777 pg/mL 3rd Trime [place] 8525- >3000 0 pg/mL Not Available [facility] (Lab) [address] [place], [address], 03/11/2024 16:55:20 02/27/20 24 02/27/2024 PROGE STERO [...] Trime ster 58.70 -214. 00 Not Available [facility] (Lab) [address] [facility], [place], [address], 03/11/2024 16:55:21 02/27/20 24 02/27/2024 PROLA CTIN prolactin, total 18.50 NG/mL 4.79-2 3.30 This assay was perfo rmed using [employer] ratio n reage nts and test kits. Value s obtai sandra with other assay metho ds or kits canno t be used inter mancilla eably . Not Available [facility] (Lab) [address] [facility], [place], [address], 03/11/2024 16:55:21 02/27/20 24 02/27/2024 T4 FREE T4, free 1.09 NG/dL 0.60-1 .40 This assay is susce ptibl e to inter feren ce from high level s of bioti n which may false ly eleva te resul ts. Pleas e corre late with clini radames findi ngs. Not Available [facility] (Lab) [address] [facility], [place], [address], 03/11/2024 16:55:22 02/27/20 24 02/27/2024 TSH, REFLE X FREE T4 TSH 0.27 uIU/m L 0.30-5 .33 low Not Available [facility] (Lab) [address] [place], [address], 03/11/2024 16:55:22 02/27/20 24 02/27/2024 LH (LUTE [...] use: 7.7-5 8.5 mIU/m L Not Available [facility] (Lab) [address] [facility], [place], [address], 03/11/2024 16:55:22 02/27/20 24 02/27/2024 FSH FSH 7.8 mIU/m L This assay was perfo rmed using [employer] ratio n reage nts and test kits. Value s obtai sandra with other assay metho ds or kits canno t be used inter [facility] . Femal es Folli cular : 3.5-1 2.5 mIU/m L Ovula tion: 4.7-2 1.5 mIU/m L Lutea l: 1.7-7 .7 mIU/m L Postm enopa use: 25.8- 134.8 mIU/m L Not Available [facility] (Lab) [address] [facility], [place], [address], 03/11/2024 16:55:23 02/27/20 24 02/27/2024 HUMAN SEX HORMO NE HILDA NG GLOBU ELSA sex hormone binding globulin 78.8 nmole s/L 18.2-1 35.5 Not Available [facility] (Lab) [address] [facility], [place], [address], 03/11/2024 16:55:23 02/27/20 24 02/27/2024 HEMOG LOBIN A1C hemoglobin A1C 5.5 % 0-5.6 The Ameri can Diabe get[place] Assoc iatio n recom mends that a prima ry goal of therviry jackson be a HBA1C of < 7% and that physi cians harsh d reeva luate the treat ment regim en in patie nts with HBA1C value s consi stent ly > 8%. <5.7% Yenifer l 5.7 - 6.4% Incre ased risk for diabe getachew >=6.5 % Diagn ostic of diabe getachew <7.0% Goal of thera py >8.0% Actio n sugjay sted Not Available [facility] (Lab) [address], [place], [address], 03/11/2024 16:55:24 02/27/2002/27/2024 17-HY DROXY PROGE STERO NE, SERUM 17-hydroxypr ogesterone, S 56 NG/dL ----- ----- ----- ----R EFERE NCE VALUE ----- ----- ----- ----- ----- - < 80 (Foll icula r) <285 (Lute al) ----- ----- ----- ----A DDITI ONAL INFOR MATIO N---- ----- ----- ----- This test was dereje wright and its perfo rmanc e allen monacori stics deter mined by [facility] in a chad r consi stent with EARL wong ts. This test has not been clear ed or appro viri by the U.S. Food and Drug Admin istra tion. Test Perfo rmed by: [facility] - [place] [address] , [place] [address] Lab Direc tor: Ada Adair nn Ph.D. ; CLIA# [id number] Not Available [facility] (Lab) [address], [place], [address], 03/11/2024 16:55:24 02/27/2002/27/2024 TESTO STERO NE, TOTAL AND FREE, SERUM (LC-M S/MS) testosterone free 0.80 NG/dL <0.13- 1.00 ----- ----- ----- ----A DDITI ONAL INFOR MATIO N---- ----- ----- ----- This test was devel oped and its perfo rmanc e allen cteri stics deter mined by [facility] in a chad r consi stent with CLIA requi remen ts. This test has not been clear ed or appro viri by the U.S. Food and Drug Admin istra tion. Not Available [facility] (Lab) [address] [facility], [place], [address], 03/11/2024 16:55:25 02/27/20 24 02/27/2024 TESTO STERO [...] e allen cteri stics deter mined by [facility] in a chad r consi stent with CLIA requi remen ts. This test has not been clear ed or appro viri by the U.S. Food and Drug Admin istra tion. Test Perfo rmed by: [facility] - [place] [address], [place] [address] Lab Direc tor: Ada Adair nn Ph.D. ; CLIA# [id number] Not Available [facility] (Lab) [address] [facility], [place], [address], 03/11/2024 16:55:25 02/27/20 24 02/27/2024 pregn annabelle test, urine HCG negati ve Not Available [place] [address], [place], [address], 02/27/2024 16:02:53 03/26/20 24 03/26/2024 TSH, REFLE X FREE T4 TSH 0.47 uIU/m L 0.30-5 .33 Not Available [facility] (Lab) [address], [place], [address], 03/27/2024 07:08:35 04/29/20 24 04/29/2024 pregn annabelle test, urine HCG negati ve Not Available [facility] [address], [place], [address], 04/29/2024 18:12:16 04/21/20 24 04/21/2024 US, obste tric, trans vagin al No observ ation record ed. [email or web address] [facility] [address], [place], [address], 04/21/2024 18:16:21 04/21/20 24 04/21/2024 US, obste tric, trans vagin al No observ ation record ed. [email or web address] [address], [place], [address], 04/22/2024 11:52:58 Result Notes None recorded. Problems Name Problem SNOMED Code Status Onset Date Resolution Date Notes Provider Name and Address Organization Details Recorded Time SNOMED CT Concept Completed 201408/10/2021 Encntr for day care director exam (general) (routine) w/o abn findings; Recorded Elsewhere : No Locati on: [facility] So urce: EHR Chron ic: N Practic e ID: 0001 Bill able Time: 11:00:00 AM Ashley no ID - [facility] 13:05:31 Atypical squamous cells on cervical Papanico laou smear cannot exclude high grade squamous intraepi thelial lesion [id number] Completed 201808/10/2021 Atyp squam cell not excl hi grd intrepith lesn cyto smr crvx;Daniele rded Elsewhere : No Locati on: [facility] So urce: EHR Chron ic: N Practic e ID: 0001 Bill able Time: 10:15:00 AM Ashley Pisano [facility] 2 12:46:50 Atypical squamous cells of undeterm ined signific ance on cervical Papanico laou smear [id number] Completed 201808/10/2021 Atyp squam cell of undet signfc cyto smr crvx (ASC-US); Recorded Elsewhere : No Locati on: [facility] So urce: EHR Chron ic: N Practic e ID: 0001 Bill able Time: 10:15:00 AM Ashley Pisano [facility] 2 12:46:49 Speciali zed medical examinat ion Completed 201308/10/2021 Gynecolog ical Examinati on;Record ed Elsewhere : No Locati on: [facility] So urce: EHR Chron ic: N Practic e ID: 0001 Bill able Time: 02:15:00 PM Ashley Pisano [facility] 2 13:05:33 Urinary tract infectio us disease 97676189 Completed 201708/10/2021 UTI;Recor ded Elsewhere : No Locati on: [facility] So urce: EHR Chron ic: N Practic e ID: 0001 Bill able Time: 05:30:00 PM Ashley Pisano [facility] 2 13:05:35 Pregnanc y test negative 281491001 Completed 201808/10/2021 Encounter for test, result negative; Recorded Elsewhere : No Locati on: [facility] So urce: EHR Chron ic: N Practic e ID: 0001 Bill able Time: 10:15:00 AM Ashley Pisano [facility] [address] 12:46:[address] Concept Completed 201408/10/2021 Encntr for general adult medical exam w/o abnormal findings; Recorded Elsewhere : No Locati on: [facility] So urce: EHR Chron ic: N Practic e ID: 0001 Bill able Time: 11:00:00 AM [facility] 13:05:29 Blood leukocyt e number above referenc e range 097622041 Completed 201608/10/2021 Elevated white blood cell count, unspecifi ed;Record ed Elsewhere : No Locati on: [facility] So urce: EHR Chron ic: N Practic e ID: 0001 Bill able Time: 05:45:00 PM Ashley Pisano [facility] 2 12:46:52 Screenin g for malignan t neoplasm of cervix Completed 201308/10/2021 Pap Smear;Pra ctice ID: [id number] Ashley Pisano [facility] 2 14:15:02 Acute vaginiti s 35759117 Completed 201608/10/2021 Acute vaginitis ;Practice ID: 0001 Ashley Pisano [facility] 2 12:46:47 Problem Notes None recorded. Procedures Surgical History Date Name Laterality Status Provider Name and Address Organization Details Recorded Time 08/26/19 24 Date of Last Pap Smear completed Karley Arias [facility] 02/27/2024 15:51:07 02/27/20 21 endoscopy completed Renae Rodríguez MARCE- [address], [place], [address], [facility] 08/10/2021 14:44:28 02/03/20 19 Colposcopy completed Ashley Pisano [facility] 08/10/2021 14:39:04 Imaging Results None recorded. Procedure Notes None recorded. Medical Equipment None Reported. Allergies No known drug allergies Medications Name Sig Start Date Stop Date Status Note LastModified by Organization Details LastModified Time Diflucan 150 mg tablet take 1 tablet by oral route every other week. 02/02 completed Prescrib ed Elsewher e: No [facility] odify By: [email or web address] z Encoun ter DateTime : 01/19/20 19 02:30:00 PM Not Available Not Available Not Available sulfameth oxazole 800 mg-trimet hoprim 160 mg tablet take 1 tablet by oral route every 12 hours 02/02 completed Prescrib ed Elsewher e: No [facility] odify By: [email or web address] z Encoun ter [...] Prescrib ed Elsewher e: No Locat ion: [facility] odify By: [email or web address] marquez DateTime : 07/10/20 [...] Updated DateTime 02/27/2024 160.02 cm 30.6 kg/m2 51523.48 g 114/78 mm[Hg] [facility] 02/27/2024 15:50:21 Date Recorded Body height Body mass index (BMI) Body weight Systolic And Diastolic Provider Name and Address Organization Details Last Updated DateTime 03/16/2024 160.02 cm 31.4 kg/m2 07812.85 g 124/83 mm[Hg] Karley [facility] 03/16/2024 12:37:53 Date Recorded Body height Body mass index (BMI) Body weight Systolic And Diastolic Provider Name and Address Organization Details Last Updated DateTime 04/21/2024 160.02 cm 30.6 kg/m2 16708.48 g 123/78 mm[Hg] Florence Green [facility] 04/21/2024 14:41:35 Date Recorded Body height Body mass index (BMI) Body weight Systolic And Diastolic Provider Name and Address Organization Details Last Updated DateTime 04/29/2024 160.02 cm 30.4 kg/m2 96789.73 g 116/75 mm[Hg] Tere Castanon [facility] 04/29/2024 17:15:24 Social History Question Answer Notes LastModified by Organizat ion Details LastModified Time Tobacco Smoking Status Never Smoker Ashley Norris [facility] 08/10/2021 14:35:15 Do You Have An [...] Or The Highest Degree You Have Received? [id number] Information not available 08/10/2021 Are There Any [...] Have Difficulty Walking Or Climbing Stairs? No [email or web address] Information not available 04/21/2024 Sex: Unknown Functional Status Question Answer Note LastModified by Organizat ion Details LastModified Time Do you use any illicit or recreational drugs? No Information not available 08/10/2021 What is your level of alcohol consumption? Occasional Information not available 08/10/2021 Are you able to walk? YESWOREST Information not available 08/10/2021 Are you able to care for yourself? 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 No [email or web address] Information not available 04/21/2024 What is your exercise level? Moderate Information not available 08/10/2021 Mental Status Question Answer Note LastModified by Organization D etails LastModified Time Do you feel stressed (tense, restless, nervous, or anxious, or unable to sleep at night)? [id number] Information not available 08/10/2021 Family History Relationship Description Onset Age of this Age Resolved Age Notes LastModified by Organization Details LastModified Time Mother Diabetes mellitus [email or web address] Not available 2019 11:46:26 Paternal Grandmother Diabetes mellitus [email or web address] Not available 2019 11:46:26 Paternal Grandmother Carcinoma in situ of lung [email or web address] Not available 12:19:04 Paternal Aunt Carcinoma in situ of breast [email or web address] Not available 2023 12:19:04 Medical History Condition [...] SNOMED-CT Code Diagnosis ICD10 Code Diagnosis Note [id number] [facility] [address] [address] 05/08/2020 11:45:17 05/08/2020 17:52:43 Gynecologic examination 28655325 Z01.419 Take Calcium with Vitamin D 1200mg [...] 2019 consistent with pap results Pap/hpv ordered [id number] ARISTEO Ram[facility] [address] [address] 08/10/2021 14:21:36 08/10/2021 15:18:57 Gynecologic examination 95227233 Z01.419 Take Calcium with Vitamin D 1200mg [...] this year! Waiting to set the date. [facility] ion care management [id number] Z30.9 Happy on OCPRF sent x 1yr [id number] Renae Rodríguez [facility] [address] [address] 08/26/2023 09:00:06 08/26/2023 09:31:11 Gynecologic examination 40441290 Z01.419 Z11.51 Take Calcium with Vitamin D [...] with folic acid [id number] Henry Carpenter MD [facility] [address] [address] 02/27/2024 15:17:26 03/04/2024 23:33:34 Irregular periods 09353590 N92.6 Reproducti ve care management 175723221 Z31.9 - Differenti al diagnosis of cause [...] over 30 minutes on the patient's care. [id number] Henry Carpenter MD [facility] [address] [address] 03/16/2024 12:18:54 03/17/2024 09:58:00 Female infertility 0595093 N97.9 Presents today for discussion of infertilit [...] with hysterosal pingogram. [id number] Henry Carpenter MD [facility] [address] [address] 04/21/2024 14:12:24 04/21/2024 15:02:43 Threatened miscarriage 15493524 O20.0 O36.80X0 Z3A.00 [id number] Valerie Danielle CNM [facility] [address] [address] 04/21/2024 14:13:18 04/21/2024 15:59:49 Long menstrual cycle 241427916 N92.5 missed ab, vs early pregnancyp brandyn HCG and then rpt in 48 hoursblood type drawncall if any concerns or increase in bleeding, will plan f/u next week pending resultscon tinue vitamin Hyperthyroidism 84180603 E05.90 rpt tsh free t4 and t3 today [id number] Henry Carpenter MD [facility] [address] [address] 04/29/2024 17:07:06 04/30/2024 09:37:31 Missed miscarriage 53530376 O02.1 this patient presents for postop follow-up. [...] Rahman Member ID Guarantor Name 03/16/2024 1 [facility] [id number] Vaishali Liudmila [id number] Vaishali Carr 05/03/2024 1 [facility] - GE - DOS PRIOR TO 2024 (PPO) Vaishali Carr [id number] Vaishali Carr 03/16/2024 1 [employer] - FEP 111 Vaishalijose enrique Carr [id number] Vaishali Carr Notes Date Note Type Note [...] appropriately Henry Carpenter MD [address], [place], [address], [facility] 02/28/2024 13:22:26 4 text/html Presents [...] hysterosalpingogram. Henry Carpenter MD [address], [place], [address], [facility] 03/17/2024 09:54:27 4 text/html +UPT, pt having some spotting, send for blood typeon US today not seeing 9 week IUP, discussed could be early vs miscarriagept also wants to discuss hyperthyroidism no current meds Valerie Danielle CNM [address], [place], [address], [facility] 04/21/2024 15:12:29 4 text/html this [...] on. Henry Carpenter MD [address], [place], [address], [place] [facility] 04/29/2024 18:22:54 OBGyn Episode Ob Episode Information Episode Created Date Number of Fetuses Patient Bloodtype Patient rh Status Prepregnancy Weight lbs Domestic Partner Domestic Partner Phone Father Name Plastic Parts Fabricator Trimmer Status 04/21/20 24 1 CLOSED Fetus Data First Name Last Name Admitted to NICU Weight (g) Sex Living Outcome Pediatric Complications Fetus ID Race Codes Race Delivery Type , Spontane ous [id number] Andrey Calculation Initial Andrey Date Initial Exam [...]
--- OUTSIDE RECORDS SUMMARY | 2025-02-04 00:33 | XMS_ITS | Encounter Summary ---
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 Name Role Phone Gus Elise DO Primary Care Provider + Reason for Referral * Consultation (Routine) - New Request Specialty Diagnoses / Procedures Referred By Joanna toure Referred To Contact OBGYN Diagnoses History of multiple miscarriages Encounter for fertility testing Procedures OFFICE/OUTPATIENT NEW LOW MDM 30-44 MINUTES OFFICE/OUTPT VISIT,NEW,LEVL IV OFFICE/OUTPT VISIT,NEW,LEVL V OFFICE/OUTPT VISIT,EST,LEVL III OFFICE/OUTPT VISIT,EST,LEVL IV OFFICE/OUTPT VISIT,EST,LEVL V Gus Elise DO [address] [place] [address] Phone: tel: fax: Referral ID Status Reason Start Date Expiration Date Visits Requested Visits Authorized [id number] New Request Specialty Services 02/03/2025 02/03/2026 1 1 Scheduling Instructions Provider prefers [facility]. Patient wants [facility] Reason for Visit * Reason Onset Date Comments Information 02/03/2025 Encounter Details Date Type Department Care Team (Late st Contact Info) Description 02/03/2025 Telephone [facility] Family & Internal Medicine [facility] [address] [place] [address] Gus Elise DO [address] [place] [address] Information Social History Tobacco Use Types Packs/Day Years [...] as of this encounter Progress Notes * Karley Haque MA - 02/03/2025 1:56 PM CDTAddended by: KARLEY HAQUE on: 02/03/2025 01:56 PM Modules accepted: Orders * Karley Haque MA - 02/03/2025 1:53 PM CDT Spoke with patient and informed her of referral being sent. The patient is currently seeing Dr. Perez for PHYSICIAN SPECIALIST. She will be having her DNC at [place]. She is wanting a second opinion. Patient is wanting to see [facility] if possible. has had testing with urology. * Gus Elise DO - 02/03/2025 1:12 PM CDT OK to refer, would do [facility] or [facility]. * Esperanza Macias Clarissa - 02/03/2025 10:55 AM CDT Patient called in stating she is scheduled for DNC procedure due to miscarriage. States this is her2nd miscarriage. Asking for referral for OB for second opinion as her current OB is doing blood work to try to figure out why she has, been having miscarriages. Please advise. 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 [facility] Family & Internal [address] [address] Gus Elise DO [address] [place] [address] Scheduled Referrals Name Type Priority Associated Diagnoses Orde r Schedule Ambulatory referral to Obstetrics/Gynecology (OTHER) Referral Routine History of multiple miscarriages Encounter for fertility testing Ordered: 02/03/2025 documented as of this encounter Visit Diagnoses Diagnosis History of multiple miscarriages- Primary Encounter for fertility testing Fertility testing documented in this encounter Care Teams Auto Garage Attendant Relationship Specialty Start Date End Date Gus Elise DO [address] [place] [address] PCP - General FAMILY PRACTICE 06/25/23 documented as of this encounter
--- OUTSIDE RECORDS SUMMARY | 2025-02-04 00:33 | XMS_ITS | Continuity of Care Document ---
Author Name [facility] Organization [facility] Care Team Providers Care Lacing Cutter Name Role Phone [facility] Unavailable Unavailable Problems [...] Reported Comments Source NO OUTPUT FOR NCID [id number] Drug allergy (disorder) active 01/15/[address] [place], [place] [address]B [facility] Encounters Combined list of: 1) Encounters from [facility] of Veterans Affairs facilities going backup to the last 18 months, not all VA inpatient encounters are included; 2) Encounters from the Department of [facility] facilities going backup to 280 months. Location Location Details Encounter Type Encounter Number Reason For Visit Attending Provider ADM Date DC Date Status Disposition Source [address] [place] [address] [employer] [facility]ander Practice Non-GME FHI1) OUTPATIENT [id number] ORLIN Montejo 08/20 Released w/o Limitations [address] [place], [place] [address]B [facility]F amily Practic e Non-GME FHI1) [address] [place], [place] [address]B [facility]Ped iatrics) OUTPATIENT [id number] sports physica l KATHERINE BARNHART 09/19 Released w/o Limitations [address] [place], [place] [address]B [facility]P ediatri cs) [address] [place] [address] [employer] [facility]Juan Francisco matology) OUTPATIENT [id number] DYSPLAS TIC NEVUS QUEENIE CELESTIN 10/31 Released w/o Limitations [address] [place], [place] [address]B [facility]D ermatol ogy) [address] [place] [address] [employer] [facility] [place]Fam alexander Practice Non-GME FHI2) OUTPATIENT [id number] swollen tonsils ,sore throat, nausea KATHERINE RIVERA 01/14 Released w/o Limitations [address] [place] [address] [employer] [facility]F amily Practic e Non-GME FHI2) [address] [place] [address] [employer] [facility]Sco tt [facility] Team 3) OUTPATIENT [id number] pap smear FELIX RODRIGUEZ 01/24 Released w/o Limitations [address] [place] [address] [employer] [facility]S cott [facility] Team 3) [address] [place] [address] [employer] [facility]Sco tt [facility] Team 3) TELE CONSULT [id number] call back lab results COLLETTE MAY 02/17 [employer] [place]S [facility] Team 3) [employer] ([facility]Ob/ Manager Programs) TELE CONSULT [id number] pap results LAW BRUMFIELD 02/20 [employer] ([facility]O b/Manager Programs) [employer] ([facility]Tno tt [facility] Team 3) TELE CONSULT [id number] Pt needs call back - ALYSIA Avalos 03/20 [employer] [place]S [facility] Team 3) [facility] [employer] [place]Tno tt [facility] Team 3) OUTPATIENT [id number] f/u infecti on FELIX RODRIGUEZ 04/17 Released w/o Limitations [employer] [place]S [facility] Team 3) [facility] [employer] ([facility]Tno [facility] Team 3) TELE CONSULT [id number] lab results FELIX RODRIGUEZ 04/20 [employer] ([facility]S [facility] Team 3) [facility] [employer] ([facility]Manager Programs ecology) OUTPATIENT [id number] annual exam [id number] RAMON RODRIGUEZ 01/17 Released w/o Limitations [employer] [place]G ynecolo gy) [employer] ([facility]Manager Programs ecology) TELE CONSULT [id number] results AYDEN CARRANZA 01/31 [employer] [facility]G ynecolo gy) [employer] [place]Manager Programs ecology) OUTPATIENT [id number] colpo AYDEN CARRANZA 02/05 Released w/o Limitations [employer] [place]G ynecolo gy) [employer] [place]Manager Programs ecology) TELE CONSULT [id number] results AYDEN CARRANZA 02/13 [employer] [facility]G ynecolo gy) [facility] [employer] ([facility]Manager Programs ecology) TELE CONSULT [id number] results AYDEN CARRANZA 03/28 [facility] [employer] [facility]G ynecolo gy) [facility] [employer] ([facility]Manager Programs ecology) TELE CONSULT [id number] Maria Luz amaya about rominat ULI URIBE 04/10 [employer] ([facility]G ynecolo gy) [facility] [employer] ([facility]Ob/ Manager Programs) TELE CONSULT [id number] cancell ing SILVA Leija 04/11 Referred for Appointment [facility] [employer] ([facility]O b/Manager Programs) [facility] [employer] [facility]Manager Programs ecology) OUTPATIENT [id number] MERI 3 on polyp/ ? LEEP ULI URIBE 04/20 Released w/o Limitations [facility] [employer] [facility]G ynecolo gy) [facility] [employer] ([facility]Ob/ Manager Programs) TELE CONSULT [id number] SILVA LEIJA 08/17 Referred for Appointment [facility] [employer] ([facility]O b/Manager Programs) [facility] [employer] [facility]Manager Programs ecology) OUTPATIENT [id number] colpo ULI URIBE 09/10 Released w/o Limitations [facility] [employer] ([facility]G ynecolo gy) [facility] [employer] ([facility]Manager Programs ecology) OUTPATIENT [id number] f/u colpo - [id number] [phone] ULI URIBE 10/08 Released w/o Limitations [facility] [employer] ([facility]G ynecolo gy) [facility] [employer] ([facility]Manager Programs ecology) TELE CONSULT [id number] BC refill (orthot ricycle n) SILVA BERNARD 01/23 [facility] [employer] [facility]G ynecolo gy) [facility] [employer] ([facility]Manager Programs ecology) OUTPATIENT [id number] colpo DANNY SALVADOR 03/01 Released w/o Limitations [facility] [employer] ([facility]G ynecolo gy) [facility] [employer] [facility]Manager Programs ecology) OUTPATIENT [id number] repeat pap - DANNY SALVADOR 03/06 Released w/o Limitations [facility] [employer] [facility] ([facility]G ynecolo gy) [address] [place] [address])(Tno [facility] Team 3) TELE CONSULT [id number] Solitario Rodriguez /[phone] 86/cadSUHIAL Benitez 03/[address] [place] [address] [employer] [facility])([facility] Team 3) [address] [place] [address])(Manager Programs ecology) OUTPATIENT [id number] Vaginal dischar CHIDI StringerN 04/18 Released w/o Limitations [address] [place] [address] Group [facility])(G ynecolo gy) [address] [place] [address])([facility] Team 3) TELE CONSULT [id number] f/u UTI - Haylee - cad/[facility] ALYSIA GAMING 08/[address] [place] [address] Group [facility])([facility] Team 3) [facility])(Manager Programs ecology) OUTPATIENT [id number] 4 month f/u after colpo [id number] RAMON RODRIGUEZ 08/28 Released w/o Limitations [address] [place] [address])(G ynecolo gy) [address] [place] [address])([facility] Team 3) TELE CONSULT [id number] Notes Entered by: GEOFFREY NUGENT 14 Oct 2011 1559 ------- ------- ------- ------- -- Retro solitario [place] [phone] - SUHAIL Salinas 10/[address] [place] [address])([facility] Team 3) [address] [place] [address])([facility] Tm A Ad) TELE CONSULT [id number] Notes Entered by: COURTNEY JONES 24 Apr 2012 1300 ------- ------- ------- ------- -- Network results - Urgent Care 08/10/11 VANESA VALENTINE 04/24 [facility] [employer] ([facility]W arrior Op Med Cln Tm A Ad) [...] OR VAGINAL SMEAR TO LABORATORY 9 [facility] HUMAN PAPILLOMAVIRUS VACCINE, TYPES 6, 11, 16, 18, QUADRIVALENT (4VHPV), 3 DOSE SCHEDULE, FOR INTRAMUSCULAR USE 7 [facility] Non-Physician Phone Call To Patient/Provider Brief (5-10min) Non-Physician Phone Call To Patient/Provider Brief (5-10min) 85547 2 SUHAIL SYKES Non-Physician Phone Call To Patient/Provider Brief (5-10min) Non-Physician Phone Call To Patient/Provider Brief (5-10min) 50498 2 LESLEE GAMINGTOBY MARTITA [facility] Cervical Wet [place] Cervical Wet [place] 21363 1 CHIDI RUSHING [facility] Vaginal PHILIPP Prep Vaginal PHILIPP Prep 84859 01 1 CHIDI RUSHING [facility] Non-Physician Phone Call To Patient/Provider Brief (5-10min) Non-Physician Phone Call To Patient/Provider Brief (5-10min) 22611 1 SUHAIL SYKES [facility] Screening papanicolaou smear; obtaining, preparing and conveyance of cervical or vaginal smear to laboratory 1 DANNY SALVADOR [facility] Colposcopy Cervix With Endocervical Curettage Colposcopy Cervix With Endocervical Curettage 08028 1 DANNY SALVADOR [facility] Test Test 97226 1 DANNY SALVADOR Patient was advised of negitive result DoD Colposcopy Cervix With Biopsy(s) With Endocervical Curettage Colposcopy Cervix With Biopsy(s) With Endocervical Curettage 46644 1 ULI URIBE [facility] Urine HCG, Test Urine HCG, Test 45727 1 ULI URIBE HCH-NEG [facility] Colposcopy Colposcopy 69389 0 ULI URIBE [facility] Biopsy Cervical 0 AYDEN CARRANZA Test Test 51167 0 AYDEN CARRANZA Colposcopy Cervix With Biopsy(s) Colposcopy Cervix With Biopsy(s) 15428 0 AYDEN CARRANZA [facility] Intervention And Counseling On Ce ation Of Tobacco Use Intervention And Counseling On Cessation Of Tobacco Use 4000F 0 RAMON RODRIGUEZ [facility] current smoker current smoker 1034F 0 RAMON RODRIGUEZ Screening papanicolaou smear; obtaining, preparing and conveyance of cervical or vaginal smear to laboratory 0 RAMON RODRIGUEZ [facility] Human Papilloma Virus Vaccine, Quadrivalent Human Papilloma Virus Vaccine, Quadrivalent 46667 7 KATHERINE BARNHART DoD Social History Combined list of available smoking, tobacco, and other social history from Department of Defense and Veterans Affairs facilities. Social History Type Response Date Comment [facility] e This section is an empty social history section. DoD
--- OUTSIDE RECORDS SUMMARY | 2025-02-04 00:33 | XMS_ITS | Clinical Summary ---
Author Organization [facility] Address [address] [place] [address] Care Team Providers Care Radiology Resident Name Role Phone Gus Elise Primary Care [...] Encounters Date Type Department Care Team Description 02/03/[address] [phone] Gus Elise, DO Information 01/27/[address] [phone] Gus Elise, DO Question 01/05/2025 Scan MG [...] (SCAN) 11/09/2024 1:00 PM CDT Office Visit [address] [phone] Gus Elise, DO Sore Throat (The patient is having sore throat and headaches. The patient states the sx are worse during the day. The patient was tested for covid and flu. The patient has tried sudafed and flonase. ) 11/09/2024 Results Follow-Up [address] [phone] Gus Elise, DO STREP A RAPID, CULTURE STREP A (MG/SJS/SMD Only) 11/09/2024 Travel 11/09/[address] [phone] Gus Elise P, Medication Request from Last 3 Months Immunizations [...] 02/10/2025 3:40 PM CDT Allied Health/Nurse Visit [facility] Internal [address] [phone] Gus Elise, DO [address] [place] [address] 06/29/2025 7:20 AM VEST TAILOR Office Visit [facility] [address] [phone] Gus Elise, DO [address] [place], [place] [phone] Health Maintenance Due Date Last Done Comments [...] Td or Tdap) 06/25/2033 06/25/2023 COVID-19 Vaccine ( - 2023-2 5 season) 2112 Postponed from [...] HEPATITIS C ANTIBODY Routine 07/14/2023 7:20 AM VEST TAILOR Encounter for preventative adult health care examination [...] Group A Streptococci 11/10/2024 5:40 PM CDT [facility] STRUCTURE OF ANTERIOR PORTION OF NECK / Unknown 11/09/2024 1:24 PM CDT Gus Elise DO MICROBIOLOGY - GENERAL O RDERABLES Final Result [facility] [address] [place] [address], * STREP A RAPID (11/09/2024) Pathologist [facility] RAPID STREP TEST NEGATIVE NEGATIVE [facility] Internal Control: VALID VALID [facility] STRUCTURE OF ANTERIOR PORTION OF NECK / Unknown 11/09/2024 Gus Elise DO MICROBIOLOGY - GENERAL O RDERABLES Final Result Performing Organization Address [facility] Co de Phone Number [facility] [address] [place] [address], [place] * PAP SMEAR WITH HPV (08/26/2023) 08/26/2023 [facility] Scanned SCANNING Final Resu lt * HEPATITIS C ANTIBODY ([facility] ONLY) (07/14/2023 7:20 AM VEST TAILOR) [facility] HEPATITIS C AB NON-REACTI VE NON-REACT ROB 07/14/2023 7:07 PM VEST TAILOR [facility] Comment: ANTIBODIES TO HCV NOT DETECTED. DOES NOT EXCLUDE THE POSSIBILITY OF EXPOSURE TO HCV. 07/14/2023 7:20 AM VEST TAILOR Gus Elise DO LABORATORY Final Re sult [facility] [address] [place] [address], [place] [phone] from Last 3 Months or Most Recently Relevant to Health Maintenance Insurance Care Teams Radiology Resident Relationship Specialty Start Date End Date Gus Elise DO [address] [place] [address] [phone] PCP - General FAMILY PRACTICE 06/25/23
[2025-02-04 07:05] VITALS: BP 112/80; PULSE 73; RESP 20; TEMP 36.1; O2SAT 98
[2025-02-04] MEDS: ACETAMINOPHEN 500 MG TABLET 1000 MG PO (07:20)
--- NOTE | 2025-02-04 07:42 | WPDANESEPPF ---
Anes - Initial Pre Proc Eval Procedure: Operation Date: 02/04/25 09:00 Proposed Procedures p Suction Dilation and Curettage - Jose Gee MD Date/Time: 02/04/25 07:42 Surgeon: Jose Gee MD Pre Op Diagnosis: Missed Ab Patient Data Age: 34 Gender: F Height: 1.6 m Weight: 74.84 kg Allergies Allergy/AdvReac Type Severity Reaction Status Date / Time No Known Allergies Allergy Verified 02/04/25 07:20 Home Medications ?Medication ?Instructions ?Recorded ?Confirmed ?Type vits no.126-ferrous fum 2 tablet PO DAILY 01/19/25 02/04/25 History 28 mg iron-folic acid 800 mcg tablet (Classic ) Patient hx anesthesia problems: none Family hx anesthesia problems: none Results Review: All pre-operative results and documents have been reviewed as part of the pre-operative evaluation. [facility] Past Medical History Medical History Normal colonoscopy Miscarriage Irritable bowel syndrome (IBS) Surgical History Surgical History History of hysteroscopy D & C Family History Family History Grandparent Lung cancer Heart disease Mother Diabetes mellitus Social History Social History Smoking packs per day: 0.5 Smoking cigarettes per day: 10.0 Years smoked: 10 Smoking pack-years: 5.00 Smoking status: Former smoker Tobacco type: cigarettes Alcohol intake: former Alcohol use details: rare Substance use: never Substance use type: does not use Last use: 08/18/2020 Do You Feel Safe in your Home?: Yes Lack of Transportation: No Lack of Food: Never True Current Housing: I Have Housing Concerned About Future Housing: No Difficulty Paying Gas/Electric Bills: No Difficulty Paying for Meds: No Currently Unemployed: No Education: Bachelor's Degree Difficulty w/ Childcare or Family Care: No Living arrangements: with family Occupation/Education: occupation Gender identity (if verbalized by the patient): Female Sexual Orientation (if Verbalized by the Patient): Straight or Heterosexual Anes - Eval Final PreProcedure Day of Procedure 02/04/25 07:42 Patient weight: overweight Heart: regular rate and rhythm Lungs: clear to auscultation Airway: Mallampati scale class II Neurological: alert and oriented Last oral intake: >/= 8 hours ASA classification: II Emergent: no Anesthetic plan: proceed Anesthesia type and monitoring: general GIVS and standard monitoring Results Review: All pre-operative results and documents have been reviewed as part of the pre-operative evaluation. Informed Consent: The patient's anesthetic plan and its attendant risks and benefits were discussed with the patient/family/POA. Questions were solicited and answers provided to the satisfaction of the patient/family/POA.
--- NOTE | 2025-02-04 07:44 | P.HP_ITS ---
H&P: HPI History of Present Illness Date/Time: 02/04/25 07:44 Chief Complaint: spontaneous missed Narrative: 34-year-old who presents for suction D&C after spontaneous missed . Patient presented to the emergency room after developing dark brown spotting. Patient had previously had a 6 week ultrasound with confirmed cardiac activity. Ultrasound in the emergency room last night showed 7 weeks gestation with no cardiac activity. she continues to have some light spotting. She again presented to the ER last night with cramping and bleeding. She was found to be hemodynamically stable. Review of Systems Cardiovascular: Cardiovascular: Denies chest pain, Denies leg edema, Denies palpitations, Denies dyspnea and Denies dyspnea on exertion Respiratory: Respiratory: Denies cough, Denies dyspnea and Denies dyspnea on exertion Gastrointestinal: Gastrointestinal: Denies abdominal pain, Denies constipation, Denies diarrhea, Denies nausea and Denies vomiting Genitourinary: Genitourinary: Denies hematuria, Denies urinary frequency, Denies dysuria, Denies pelvic pain, Denies urinary incontinence and Denies vaginal discharge Neurologic: Reports system reviewed and no additional complaints, except as documented Psychiatric: Psychiatric: Reports no additional psychiatric complaints Endocrine: Endocrine: Denies palpitations PMFSH Past Medical History Medical History Normal colonoscopy Miscarriage Irritable bowel syndrome (IBS) Surgical History Surgical History History of hysteroscopy D & C Family History Family History Grandparent Lung cancer Heart disease Mother Diabetes mellitus Social History Social History Smoking packs per day: 0.5 Smoking cigarettes per day: 10.0 Years smoked: 10 Smoking pack-years: 5.00 Smoking status: Former smoker Tobacco type: cigarettes Alcohol intake: former Alcohol use details: rare Substance use: never Substance use type: does not use Last use: 08/18/2020 Do You Feel Safe in your Home?: Yes Lack of Transportation: No Lack of Food: Never True Current Housing: I Have Housing Concerned About Future Housing: No Difficulty Paying Gas/Electric Bills: No Difficulty Paying for Meds: No Currently Unemployed: No Education: Bachelor's Degree Difficulty w/ Childcare or Family Care: No Living arrangements: with family Occupation/Education: occupation Gender identity (if verbalized by the patient): Female Sexual Orientation (if Verbalized by the Patient): Straight or Heterosexual Meds Home Medications and Allergies Home Medications ?Medication ?Instructions ?Recorded ?Confirmed ?Type vits no.126-ferrous fum 2 tablet PO DAILY 01/19/25 02/04/25 History 28 mg iron-folic acid 800 mcg tablet (Classic ) Allergies Allergy/AdvReac Type Severity Reaction Status Date / Time No Known Allergies Allergy Verified 02/04/25 07:20 Exam Const: General: no acute distress Eyes: EOM: EOMs intact bilaterally Neck: Neck: supple Thyroid: thyroid normal Chest: Breast/axilla inspection: normal inspection of the breasts Breast/axilla palpation: normal palpation of the breasts, normal palpation of the axillae and no axillary lymphadenopathy Resp: Effort & Inspection: normal respiratory effort Auscultation: clear to auscultation bilaterally Cardio: Rate: regular rate Rhythm: regular rhythm GI: Inspection: non-distended GI Palp: Yes Soft to palpation, No Tenderness to palpation present (GI) and No Guarding due to palpation present (GI) Auscultation: normal bowel sounds : General: No bladder normal to palpation External Female Exam: normal external appearance Speculum Exam - Vagina: normal vaginal discharge and No vaginal bleeding Speculum Exam - Cervix: nontender Bimanual exam- vagina & uterus: No bladder normal to palpation and No Cervical tenderness present OB/external & speculum: No vaginal bleeding Skin: General skin exam: normal color and no rashes or lesions noted Neuro: Cognition (Neuro): normal cognition Speech: normal speech Extrem: General: normal to inspection and no edema Psych: Mental Status: mental status grossly normal Affect: normal affect Assessment and Plan Assessment and plan (1) Missed : Code(s): O02.1 - Missed Status: Acute Assessment and Plan: 34-year-old who presents for follow-up after spontaneous missed Patient developed spotting in early yesterday Patient was evaluated in the emergency room, pelvic ultrasound showed intraute rine with no cardiac activity Patient had previously had ultrasound which showed cardiac activity Patient continues to have bleeding, patient was hemodynamically stable in the ER Rh+ Management options discussed at length. Discussed observation versus medical management versus surgical management Risks and benefits of each reviewed Patient desires surgical management via suction D&C
[2025-02-04] MEDS: LACTATED RINGERS 1,000 ML 30 ML IV CONT (07:58)
[2025-02-04] MEDS: DOXYCYCLINE IV 100 MG in SODIUM CHLORIDE 0.9% IV 100 ML IVPB (07:59)
[2025-02-04] MEDS: HYDROmorphone HCL INJ (*CRX) 1 MG/ML SYR IV PUSH (08:23)
--- NOTE | 2025-02-04 08:36 | WPDHPUPDATE1 ---
History and Physical Update Update Date/Time: 02/04/25 08:36 History and Physical has been reviewed, including an updated exam of the patient. There are NO changes in the patient's condition. Risks, benefits, and alternatives have been discussed and questions answered. Patient agrees to proceed with procedure.
[2025-02-04] MEDS: KETOROLAC 30 MG/ML VIAL (*BKC) IV PUSH (09:21)
--- NOTE | 2025-02-04 09:21 | S_PTH ---
PATIENT: Vaishali Carr LOC: [facility]#:[id number] AGE/SX: 34/F ROOM: RE02/04/[address]: Jose Gee MD : 1990 BED: DIS: 02/04/2025 SPEC #: [id number] RECD: 02/04/25 10:19 STATUS: GEOVANNI REShaan #: [id number] KIM: 02/04/25 09:[address]: Jose Gee DEPT: [facility] Surgical RECD BY: Lala Nelson ENTERED: 02/04/25 10:20 SP TYPE: Surgical OTHR DR: Gus Elise, DO Tissues: A - Products of Conception Procedures: Hematoxylin and Eosin Stain Gross and Microscopic Level 4
--- NOTE | 2025-02-04 09:28 | P.OP_ITS ---
Procedure Note - Detailed Date of Procedure 02/04/25 Pre-op Diagnosis Missed Post-op Diagnosis Same Procedure Performed Suction Dilation & curettage Surgeon Jose Gee MD Anesthesia General Indications spontaneous missed on pelvic US Findings intrauterine products of conception Description of Procedure The patient was taken to the operating room after a missed had been noted on on transvaginal ultrasound. The risks, benefits and alternatives of the procedure were reviewed with the patient and informed consent was obtained. The patient was taken to the OR and anesthesia was noted to be adequate. The patient was placed in the dorsolithotomy position. Pelvic exam was performed with findings noted above. The patient was prepped and draped in the usual sterile fashion. Sterile speculum was placed in the vagina and the cervix was grasped with a tenaculum. The cervix was dilated further to allow for passage of a 8 mm suction curette. The 8 mm suction curette was gently ad vanced to the fundus, suction was activated, and the tip was rotated while being withdrawn to clear the uterus of products. This suction process was repeated 3 additional times due to the quantity of material in the uterus. The sharp curette was introduced and advanced to the fundus to remove any remaining products. The suction curette was reintroduced one final time to ensure all products had been removed. The entire procedure was done under direct US visualization. The tenaculum was removed. Good hemostasis was noted. Instrument, sponge, and sharp counts were correct. Patient tolerated the p rocedure well and was taken to the recovery room in stable condition. Estimated Blood Loss 5 Drains No Packing No Pathology Yes (products of conception) Complications No immediate complications Condition Stable Disposition PACU [facility] Billing Surgery - Charge Forward: Surgery Billing
[2025-02-04 09:30] VITALS: BP 111/68; PULSE 69; RESP 14; O2SAT 100
[2025-02-04 10:00] VITALS: BP 90/46; PULSE 71; RESP 14; O2SAT 97
[2025-02-04 10:30] VITALS: BP 101/59; PULSE 78; RESP 14
== END 2025-02-04 10:45 | disposition home or self-care (01) ==
PROVIDERS: PCP Student in an Organized Health Care Education/Training Program; Visit Provider Student in an Organized Health Care Education/Training Program
PROC: (CPT 59820; principal; 2025-02-04 09:00)
DX: O02.1 Missed abortion (principal)
CPT/HCPCS: 59820; 88305; A9270; J1171; J1200; J1885; J2003; J2250; J2704; J3010; J7120

== ENCOUNTER 2025-02-04 02:12 | Emergency (ER) | payer OTHER, SELFPAY ==
--- OUTSIDE RECORDS SUMMARY | 2025-02-04 02:15 | XMS_ITS | Continuity of Care Document ---
Author Name [facility] Organization [facility] Care Team Providers Care Director Of Quantitative Research Name Role Phone [facility] Unavailable Unavailable Problems [...] Reported Comments Source NO OUTPUT FOR NCID [id number] Drug allergy (disorder) active 01/15/[address] [place], [place] [address]B [facility] [place]) Encounters Combined list of: 1) Encounters from Department of Veterans Affairs facilities going backup to the last 18 months, not all VA inpatient encounters are included; 2) Encounters from the Department of [facility] facilities going backup to 280 months. Location Location Details Encounter Type Encounter Number Reason For Visit Attending Provider ADM Date DC Date Status Disposition Source [address] [place] [address] [employer] [facility])([facility] alexander Practice Non-GME FHI1) OUTPATIENT [id number] ORLIN Montejo 08/20 Released w/o Limitations [address] [place], [place] [address]B [facility])(F amily Practic e Non-GME FHI1) [address] [place], [place] [address] [facility])(Ped iatrics) OUTPATIENT [id number] sports physica l KATHERINE BARNHART 09/19 Released w/o Limitations [address] [place], [place] [address]B [facility])(P ediatri cs) [address] [place] [address] [employer] [facility])(Juan Francisco matology) OUTPATIENT [id number] DYSPLAS TIC NEVUS QUEENIE CELESTIN 10/31 Released w/o Limitations [address] [place], [place] [address]B [facility] [place])(D ermatol ogy) [address] [place] [address] [employer] [facility])(Fam alexander Practice Non-GME FHI2) OUTPATIENT [id number] swollen tonsils ,sore throat, nausea KATHERINE RIVERA 01/14 Released w/o Limitations [address] [place] [address] [employer] [facility] [facility])(F amily Practic e Non-GME FHI2) [address] [place] [address] [employer] [facility] [place])(Sco tt [facility] Team 3) OUTPATIENT [id number] pap smear FELIX RODRIGUEZ 01/24 Released w/o Limitations [address] [place] [address] [employer] [facility])(S cott [facility] Team 3) [address] [place] [address] [employer] [facility] [place])(Sco tt [facility] Team 3) TELE CONSULT [id number] call back lab results COLLETTE MAY 02/17 [employer] ([facility] [place]S [facility] Team 3) [employer] ([facility] [place]Ob/ [employer] [place]) TELE CONSULT [id number] pap results LAW BRUMFIELD 02/20 [employer] ([facility] [place]O b/[employer]) [employer] ([facility] [place]Mao tt [facility] Team 3) TELE CONSULT [id number] Pt needs call back - ALYSIA Avalos 03/20 [employer] ([facility] [place]S [facility] Team 3) [facility] [employer] ([facility] [place]Mao tt [facility] Team 3) OUTPATIENT [id number] f/u infecti on FELIX RODRIGUEZ 04/17 Released w/o Limitations [employer] ([facility] [place]S [facility] Team 3) [facility] [employer] ([facility] [place]Mao [facility] Team 3) TELE CONSULT [id number] lab results FELIX RODRIGUEZ 04/20 [employer] ([facility] [place]S [facility] Team 3[facility] [employer] ([facility] [place])([employer] [place] ecology) OUTPATIENT [id number] annual exam [id number] RAMON RODRIGUEZ 01/17 Released w/o Limitations [employer] ([facility] [place]G ynecolo gy) [employer] ([facility] [place] [employer] [place] ecology) TELE CONSULT [id number] results AYDEN CARRANZA 01/31 [employer] ([facility] [place]G ynecolo gy) [employer] ([facility] [place] ecology) OUTPATIENT [id number] colpo AYDEN CARRANZA 02/05 Released w/o Limitations [employer] ([facility] [place]G ynecolo gy) [employer] ([facility] [place] ecology) TELE CONSULT [id number] results AYDEN CARRANZA 02/13 [employer] ([facility] [place]G ynecolo gy) [facility] [employer] ([facility] [place] [employer] [place] ecology) TELE CONSULT [id number] results AYDEN CARRANZA 03/28 [facility] [employer] ([facility] [place]G ynecolo gy) [facility] [employer] ([facility] [place] ecology) TELE CONSULT [id number] Maria Luz amaya about rominat ULI URIBE 04/10 [employer] ([facility] [place]G ynecolo gy) [facility] [employer] ([facility] [place]Ob/ [place] [employer] [place]) TELE CONSULT [id number] cancell ing SILVA Leija 04/11 Referred for Appointment [facility] [employer] ([facility] [place]O b/[employer] [place]) [facility] [employer] ([facility] [place] ecology) OUTPATIENT [id number] MERI 3 on polyp/ ? LEEP ULI URIBE 04/20 Released w/o Limitations [facility] [employer] ([facility] [place]G ynecolo gy) [facility] [employer] ([facility] [place]Ob/ [place] [employer] [place]) TELE CONSULT [id number] SILVA LEIJA 08/17 Referred for Appointment [facility] [employer] ([facility] [place]O b/[employer] [place]) [facility] [employer] ([facility] [place] [employer] [place] ecology) OUTPATIENT [id number] colpo ULI URIBE 09/10 Released w/o Limitations [facility] [employer] ([facility] [place]G ynecolo gy) [facility] [employer] ([facility] [place] [employer] [place] ecology[place] OUTPATIENT [id number] f/u colpo - [id number] [phone] ULI URIBE 10/08 Released w/o Limitations [facility] [employer] ([facility] [place]G ynecolo gy) [facility] [employer] ([facility] [place] [employer] [place] ecology) TELE CONSULT [id number] BC refill (orthot ricycle n) SILVA BERNARD 01/23 [facility] [employer] ([facility] [place]G ynecolo gy[facility] [employer] ([facility] [place] [employer] [place] ecology) OUTPATIENT [id number] colpo DANNY SALVADOR 03/01 Released w/o Limitations [facility] [employer] ([facility] [place] [place]G ynecolo gy) [facility] [employer] [facility] ([facility] [place] ecology) OUTPATIENT [id number] repeat pap - DANNY SALVADOR 03/06 Released w/o Limitations [facility] [employer] [facility] ([facility] [place]G ynecolo gy) [address] [place] [address])(Mao [facility] Team 3) TELE CONSULT [id number] Solitario Rodriguez /[phone] 86/cadSUHAIL Benitez 03/[address] [place] [address] [employer] [facility])([facility] Team 3) [address] [place] [address])([place] [employer] [place] ecology) OUTPATIENT [id number] Vaginal dischar CHIDI StringerN 04/18 Released w/o Limitations [address] [place] [address] Group [facility])(G ynecolo gy) [address] [place] [address])([facility] Team 3) TELE CONSULT [id number] f/u UTI - Haylee - [facility] ALYSIA GAMING 08/[address] [place] [address] Group [facility])([facility] Team 3) [facility])([place] [employer] [place] ecology) OUTPATIENT [id number] 4 month f/u after colpo [id number] RAMON RODRIGUEZ 08/28 Released w/o Limitations [address] [place] [address])(G ynecolo gy) [address] [place] [address])([facility] Team 3) TELE CONSULT [id number] Notes Entered by: GEOFFREY NUGENT 14 Oct 2011 1559 ------- ------- ------- ------- -- Retro solitario [place] [phone] - SUHAIL Salinas 10/[address] [place] [address])([facility] Team 3) [address] [place] [address])([facility] Op Med Cln Tm A Ad) TELE CONSULT [id number] Notes Entered by: COURTNEY JONES 24 Apr 2012 1300 ------- ------- ------- ------- -- Network results - Urgent Care 08/10/11 VANESA VALENTINE 04/24 [facility] [employer] [facility] ([facility] [place]W arrior Op Med Cln Tm A Ad) [...] CERVICAL OR VAGINAL SMEAR TO LABORATORY 9 [facility] HUMAN PAPILLOMAVIRUS VACCINE, TYPES 6, 11, 16, 18, QUADRIVALENT (4VHPV), 3 DOSE SCHEDULE, FOR INTRAMUSCULAR USE 7 [facility] Non-Physician Phone Call To Patient/Provider Brief (5-10min) Non-Physician Phone Call To Patient/Provider Brief (5-10min) 10258 2 SUHAIL SYKES Non-Physician Phone Call To Patient/Provider Brief (5-10min) Non-Physician Phone Call To Patient/Provider Brief (5-10min) 05556 2 LESLEE GAMINGTOBY MARTITA [facility] Cervical Wet [place] Cervical Wet [place] 31365 1 CHIDI RUSHING [facility] Vaginal PHILIPP Prep Vaginal PHILIPP Prep 27286 01 1 CHIDI RUSHING [facility] Non-Physician Phone Call To Patient/Provider Brief (5-10min) Non-Physician Phone Call To Patient/Provider Brief (5-10min) 03680 1 SUHAIL SYKES [facility] Screening papanicolaou smear; obtaining, preparing and conveyance of cervical or vaginal smear to laboratory 1 DANNY SALVADOR [facility] Colposcopy Cervix With Endocervical Curettage Colposcopy Cervix With Endocervical Curettage 35186 1 DANNY SALVADOR [facility] Test Test 86326 1 DANNY SALVADOR Patient was advised of negitive result DoD Colposcopy Cervix With Biopsy(s) With Endocervical Curettage Colposcopy Cervix With Biopsy(s) With Endocervical Curettage 55987 1 ULI URIBE [facility] Urine HCG, Test Urine HCG, Test 06302 1 ULI URIBE [facility] Colposcopy Colposcopy 74992 0 ULI URIBE [facility] Biopsy Cervical 0 AYDEN CARRANZA Test Test 03741 0 AYDEN CARRANZA Colposcopy Cervix With Biopsy(s) Colposcopy Cervix With Biopsy(s) 05075 0 AYDEN CARRANZA [facility] Intervention And Counseling On Ce ation Of Tobacco Use Intervention And Counseling On Cessation Of Tobacco Use 4000F 0 RAMON RODRIGUEZ [facility] current smoker current smoker 1034F 0 RAMON RODRIGUEZ Screening papanicolaou smear; obtaining, preparing and conveyance of cervical or vaginal smear to laboratory 0 RAMON RODRIGUEZ [facility] Human Papilloma Virus Vaccine, Quadrivalent Human Papilloma Virus Vaccine, Quadrivalent 10122 7 KATHERINE BARNHART DoD Social History Combined list of available smoking, tobacco, and other social history from Department of Defense and Veterans Affairs facilities. Social History Type Response Date Comment [facility] e This section is an empty social history section. DoD
--- OUTSIDE RECORDS SUMMARY | 2025-02-04 02:15 | XMS_ITS | Clinical Summary ---
Author Organization [facility] Address [address] [place] [address] Care Team Providers Care Taker Off Drying Kiln Name Role Phone Gus Elise Primary Care [...] Type Department Care Team Description 02/03/[address] [address] Gus Elise, DO Information 01/27/[address] [phone] Gus Elise, DO Question 01/05/2025 Scan MG [...] (SCAN) 11/09/2024 1:00 PM CDT Office Visit [address] [phone] Gus Elise, DO Sore Throat (The patient is having sore throat and headaches. The patient states the sx are worse during the day. The patient was tested for covid and flu. The patient has tried sudafed and flonase. ) 11/09/2024 Results Follow-Up [address] [phone] Gus Elise, DO STREP A RAPID, CULTURE STREP A (MG/SJS/SMD Only) 11/09/2024 Travel 11/09/[address] [phone] Gus Elise P, Medication Request from Last [...] 02/10/2025 3:40 PM CDT Allied Health/Nurse Visit [facility] Family & Internal [address] [phone] Gus Elise, DO [address] [place] [address] 06/29/2025 7:20 AM ELECTRONIC OPERATOR Office Visit [facility] Internal [address] [address] Gus Elise, DO [address] [place], [place] [phone] Health Maintenance Due Date Last Done Comments [...] Clinic) Hepatitis C Completed 07/14/2023 PHQ-2 (Physician [place]) Completed 11/09/2024 HPV Vaccines Aged Out No [...] HEPATITIS C ANTIBODY Routine 07/14/2023 7:20 AM ELECTRONIC OPERATOR Encounter for preventative adult health care examination [...] Group A Streptococci 11/10/2024 5:40 PM CDT [facility] STRUCTURE OF ANTERIOR PORTION OF NECK / Unknown 11/09/2024 1:24 PM CDT Gus Elise DO MICROBIOLOGY - GENERAL O RDERABLES Final Result [facility] [address] [place] [address], * STREP A RAPID (11/09/2024) Pathologist [facility] RAPID STREP TEST NEGATIVE NEGATIVE [facility] Internal Control: VALID VALID [facility] STRUCTURE OF ANTERIOR PORTION OF NECK / Unknown 11/09/2024 Gus Elise DO MICROBIOLOGY - GENERAL O RDERABLES Final Result Performing Organization Address [facility] Co de Phone Number [facility] [address] [place] [address], [place] * PAP SMEAR WITH HPV (08/26/2023) 08/26/2023 [facility] Scanned SCANNING Final Resu lt * HEPATITIS C ANTIBODY ([facility] ONLY) (07/14/2023 7:20 AM ELECTRONIC OPERATOR) [facility] HEPATITIS C AB NON-REACTI VE NON-REACT ROB 07/14/2023 7:07 PM ELECTRONIC OPERATOR [facility] Comment: ANTIBODIES TO HCV NOT DETECTED. DOES NOT EXCLUDE THE POSSIBILITY OF EXPOSURE TO HCV. 07/14/2023 7:20 AM ELECTRONIC OPERATOR Gus Elise DO LABORATORY Final Re sult [facility] [address] [place] [address], [place] [phone] from Last 3 Months or Most Recently Relevant to Health Maintenance Insurance Care Teams Taker Off Drying Kiln Relationship Specialty Start Date End Date Gus Elise DO [address] [place] [address] [phone] PCP - General FAMILY PRACTICE 06/25/23
--- OUTSIDE RECORDS SUMMARY | 2025-02-04 02:15 | XMS_ITS | Encounter Summary ---
Author Organization [facility] Address [address] [place] [address] Care Team Providers Care Quill Worker Name Role Phone Gus Elise DO Primary Care Provider + Reason for Referral * Consultation (Routine) - New Request Specialty Diagnoses / Procedures Referred By Joanna oture Referred To Contact OBGYN Diagnoses History of multiple miscarriages Encounter for fertility testing Procedures OFFICE/OUTPATIENT NEW LOW MDM 30-44 MINUTES OFFICE/OUTPT VISIT,NEW,LEVL IV OFFICE/OUTPT VISIT,NEW,LEVL V OFFICE/OUTPT VISIT,EST,LEVL III OFFICE/OUTPT VISIT,EST,LEVL IV OFFICE/OUTPT VISIT,EST,LEVL V Gus Elise DO [address] [place] [address] Phone: tel: fax: Referral ID Status Reason Start Date Expiration Date Visits Requested Visits Authorized [id number] New Request Specialty Services 02/03/2025 02/03/2026 1 1 Scheduling Instructions Provider prefers [facility]. Patient wants [facility] Reason for Visit * Reason Onset Date Comments Information 02/03/2025 Encounter Details Date Type Department Care Team (Late st Contact Info) Description 02/03/2025 Telephone [facility] Medical Group Family & Internal Medicine 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 She will be having her DNC at [facility]. She is wanting a second opinion. Patient is wanting to see [facility] if possible. has had testing with [...] [facility] Family & Internal Medicine [address] [phone] Gus Elise DO [address] [place] [address] 06/29/2025 7:20 AM CRUISE GUIDE Office Visit [facility] Internal [address] [phone] Gus Eilse DO [address] [place] [address] Scheduled Referrals Name Type Priority Associated Diagnoses Orde r Schedule Ambulatory referral to Obstetrics/Gynecology (OTHER) Referral Routine History of multiple miscarriages Encounter for fertility testing Ordered: 02/03/2025 documented as of this encounter Visit Diagnoses Diagnosis History of multiple miscarriages- Primary Encounter for fertility testing Fertility testing documented in this encounter Care Teams Quill Worker Relationship Specialty Start Date End Date Gus Elise DO [address] [place] [phone] PCP - General FAMILY PRACTICE 06/25/23 documented as of this encounter
[2025-02-04 02:22] VITALS: BP 116/79; PULSE 70; RESP 20; TEMP 36.8; O2SAT 98
[2025-02-04 02:25] VITALS: O2SAT 100
--- OUTSIDE RECORDS SUMMARY | 2025-02-04 02:48 | XMS_ITS | Clinical Summary ---
Author Organization [facility] Address [address] [place] [address] Care Team Providers Care Massage Therapist Name Role Phone Gus Elise Primary Care [...] Type Department Care Team Description 02/03/[address] [phone] Gus Elise, DO Information 01/27/[address] [phone] Gus Elise, DO Question 01/05/2025 Scan MG [...] (SCAN) 11/09/2024 1:00 PM CDT Office Visit [address] [phone] Gus Elise, DO Sore Throat (The patient is having sore throat and headaches. The patient states the sx are worse during the day. The patient was tested for covid and flu. The patient has tried sudafed and flonase. ) 11/09/2024 Results Follow-Up [address] [phone] Gus Elise, DO STREP A RAPID, CULTURE STREP A (MG/SJS/SMD Only) 11/09/2024 Travel 11/09/[address] [phone] Gus Elise P, Medication Request from Last [...] 02/10/2025 3:40 PM CDT Allied Health/Nurse Visit [facility] Family & Internal [address] [phone] Gus Elise, DO [address] [place] [address] 06/29/2025 7:20 AM NUCLEAR DESIGN ENGINEER Office Visit [facility] Family & Internal [address] [phone] Gus Elise, DO [address] [place], [place] [phone] Health Maintenance Due Date Last Done Comments [...] Clinic) Hepatitis C Completed 07/14/2023 PHQ-2 (Physician [place]) Completed 11/09/2024 HPV Vaccines Aged Out No [...] HEPATITIS C ANTIBODY Routine 07/14/2023 7:20 AM NUCLEAR DESIGN ENGINEER Encounter for preventative adult health care examination [...] Group A Streptococci 11/10/2024 5:40 PM CDT [facility] STRUCTURE OF ANTERIOR PORTION OF NECK / Unknown 11/09/2024 1:24 PM CDT Gus Elise DO MICROBIOLOGY - GENERAL O RDERABLES Final Result [facility] [address] [place] [address], * STREP A RAPID (11/09/2024) Pathologist [facility] RAPID STREP TEST NEGATIVE NEGATIVE [facility] Internal Control: VALID VALID [facility] STRUCTURE OF ANTERIOR PORTION OF NECK / Unknown 11/09/2024 Gus Elise DO MICROBIOLOGY - GENERAL O RDERABLES Final Result Performing Organization Address [place] Co de Phone Number [facility] [address] [place] [address], [place] * PAP SMEAR WITH HPV (08/26/2023) 08/26/2023 [facility] Scanned SCANNING Final Resu lt * HEPATITIS C ANTIBODY ([facility] ONLY) (07/14/2023 7:20 AM NUCLEAR DESIGN ENGINEER) [facility] HEPATITIS C AB NON-REACTI VE NON-REACT ROB 07/14/2023 7:07 PM NUCLEAR DESIGN ENGINEER [facility] Comment: ANTIBODIES TO HCV NOT DETECTED. DOES NOT EXCLUDE THE POSSIBILITY OF EXPOSURE TO HCV. 07/14/2023 7:20 AM NUCLEAR DESIGN ENGINEER Gus Elise DO LABORATORY Final Re sult [facility] [address] [place] [address], [place] [phone] from Last 3 Months or Most Recently Relevant to Health Maintenance Insurance Care Teams Massage Therapist Relationship Specialty Start Date End Date Gus Elise DO [address] [place] [address] [phone] PCP - General FAMILY PRACTICE 06/25/23
--- OUTSIDE RECORDS SUMMARY | 2025-02-04 02:48 | XMS_ITS | Continuity of Care Document ---
Author Name [facility] Organization [facility] Care Team Providers Care Children Librarian Name Role Phone [facility] Unavailable Unavailable Problems [...] Reported Comments Source NO OUTPUT FOR NCID [id number] Drug allergy (disorder) active 01/15/[address] [place], [place] [address]B [facility]) Encounters Combined list of: 1) Encounters from Department of Veterans Affairs facilities going backup to the last 18 months, not all VA inpatient encounters are included; 2) Encounters from the Department of [facility] facilities going backup to 280 months. Location Location Details Encounter Type Encounter Number Reason For Visit Attending Provider ADM Date DC Date Status Disposition Source [address] [place] [address] [employer] [facility])([facility] alexander Practice Non-GME FHI1) OUTPATIENT [id number] ORLIN Montejo 08/20 Released w/o Limitations [address] [place], [place] [address]B [facility])(F amily Practic e Non-GME FHI1) [address] [place], [place] [address]B [facility])(Ped iatrics) OUTPATIENT [id number] sports physica l KATHERINE BARNHART 09/19 Released w/o Limitations [address] [place], [place] [address]B [facility])(P ediatri cs) [address] [place] [address] [employer] [facility])(Juan Francisco matology) OUTPATIENT [id number] DYSPLAS TIC NEVUS QUEENIE CELESTIN 10/31 Released w/o Limitations [address] [place], [place] [address]B [facility])(D ermatol ogy) [address] [place] [address] [employer] [facility])(Fam alexander Practice Non-GME FHI2) OUTPATIENT [id number] swollen tonsils ,sore throat, nausea KATHERINE RIVERA 01/14 Released w/o Limitations [address] [place] [address] [employer] [facility])(F amily Practic e Non-GME FHI2) [address] [place] [address] [employer] [facility])(Sco tt [facility] Team 3) OUTPATIENT [id number] pap smear FELIX RODRIGUEZ 01/24 Released w/o Limitations [address] [place] [address] [employer] [facility])(S cott [facility] Team 3) [address] [place] [address] [employer] [facility])(Sco tt [facility] Team 3) TELE CONSULT [id number] call back lab results COLLETTE MAY 02/17 [employer] ([facility])(S [facility] Team 3) [employer] ([facility])(Ob/ Nibbler Operator) TELE CONSULT [id number] pap results LAW BRUMFIELD 02/20 [employer] ([facility])(O b/Nibbler Operator) [employer] ([facility])(Oho tt [facility] Team 3) TELE CONSULT [id number] Pt needs call back - ALYSIA Avalos 03/20 [employer] ([facility])(S [facility] Team 3) [facility] [employer] ([facility])(Oho tt [facility] Team 3) OUTPATIENT [id number] f/u infecti on FELIX RODRIGUEZ 04/17 Released w/o Limitations [employer] ([facility])(S [facility] Team 3) [facility] [employer] ([facility])(Oho [facility] Team 3) TELE CONSULT [id number] lab results FELIX RODRIGUEZ 04/20 [employer] ([facility])(S [facility] Team 3) [facility] [employer] ([facility])(Nibbler Operator ecology) OUTPATIENT [id number] annual exam [id number] RAMON RODRIGUEZ 01/17 Released w/o Limitations [employer] ([facility])(G ynecolo gy) [employer] ([facility])(Nibbler Operator ecology) TELE CONSULT [id number] results AYDEN CARRANZA 01/31 [employer] ([facility])(G ynecolo gy) [employer] ([facility])(Nibbler Operator ecology) OUTPATIENT [id number] colpo AYDEN CARRANZA 02/05 Released w/o Limitations [employer] ([facility])(G ynecolo gy) [employer] ([facility])(Nibbler Operator ecology) TELE CONSULT [id number] results AYDEN CARRANZA 02/13 [employer] ([facility])(G ynecolo gy) [facility] [employer] ([facility])(Nibbler Operator ecology) TELE CONSULT [id number] results AYDEN CARRANZA 03/28 [facility] [employer] ([facility])(G ynecolo gy) [facility] [employer] ([facility])(Nibbler Operator ecology) TELE CONSULT [id number] Maria Luz amaya about rominat ULI URIBE 04/10 [employer] ([facility])(G ynecolo gy) [facility] [employer] ([facility])(Ob/ Nibbler Operator) TELE CONSULT [id number] cancell ing SILVA Leija 04/11 Referred for Appointment [facility] [employer] ([facility])(O b/Nibbler Operator) [facility] [employer] ([facility])(Nibbler Operator ecology) OUTPATIENT [id number] MERI 3 on polyp/ ? LEEP ULI URIBE 04/20 Released w/o Limitations [facility] [employer] ([facility])(G ynecolo gy) [facility] [employer] ([facility])(Ob/ Nibbler Operator) TELE CONSULT [id number] SILVA LEIJA 08/17 Referred for Appointment [facility] [employer] ([facility])(O b/Nibbler Operator) [facility] [employer] ([facility])(Nibbler Operator ecology) OUTPATIENT [id number] colpo ULI URIBE 09/10 Released w/o Limitations [facility] [employer] ([facility])(G ynecolo gy) [facility] [employer] ([facility])(Nibbler Operator ecology) OUTPATIENT [id number] f/u colpo - [id number] [phone] ULI URIBE 10/08 Released w/o Limitations [facility] [employer] ([facility])(G ynecolo gy) [facility] [employer] ([facility])(Nibbler Operator ecology) TELE CONSULT [id number] BC refill (orthot ricycle n) SILVA BERNARD 01/23 [facility] [employer] ([facility])(G ynecolo gy) [facility] [employer] ([facility])(Nibbler Operator ecology) OUTPATIENT [id number] colpo DANNY SALVADOR 03/01 Released w/o Limitations [facility] [employer] ([facility])(G ynecolo gy) [facility] Medical [facility] [employer] [facility] ([facility])(Nibbler Operator ecology) OUTPATIENT [id number] repeat pap - DANNY SALVADOR 03/06 Released w/o Limitations [facility] [employer] [facility] ([facility])(G ynecolo gy) [address] [place] [address])([address] [facility] Team 3) TELE CONSULT [id number] Solitario Rodriguez /[phone] 86/cadSUHAIL Benitez 03/[address] [place] [address] [employer] [facility])([facility] Team 3) [address] [place] [address])(Nibbler Operator ecology) OUTPATIENT [id number] Vaginal dischar CHIDI StringerN 04/18 Released w/o Limitations [address] [place] [address] Group [facility](G ynecolo gy) [address] [place] [address])([facility] Team 3) TELE CONSULT [id number] f/u UTI - Haylee - cad/[facility] ALYSIA GAMING 08/[address] [place] [address] Group [facility] Team 3) [facility] Medical Group [facility](Nibbler Operator ecology) OUTPATIENT [id number] 4 month f/u after colpo [id number] RAMON RODRIGUEZ 08/28 Released w/o Limitations [address] [place] [address])(G ynecolo gy) [address] [place] [address])([facility] Team 3) TELE CONSULT [id number] Notes Entered by: GEOFFREY NUGENT 14 Oct 2011 1559 ------- ------- ------- ------- -- Retro solitario [place] [phone] - SUHAIL Salinas 10/[address] [place] [address])([facility] Team 3) [address] [place] [address])(Davis rior Op Med Cln Tm A Ad) TELE CONSULT [id number] Notes Entered by: COURTNEY JONES 24 Apr 2012 1300 ------- ------- ------- ------- -- Network results - Urgent Care 08/10/11 VANESA VALENTINE 04/24 [facility] [employer] ([facility])(W arrior Op Med Cln Tm A Ad) [...] CERVICAL OR VAGINAL SMEAR TO LABORATORY 9 [facility] HUMAN PAPILLOMAVIRUS VACCINE, TYPES 6, 11, 16, 18, QUADRIVALENT (4VHPV), 3 DOSE SCHEDULE, FOR INTRAMUSCULAR USE 7 [facility] Non-Physician Phone Call To Patient/Provider Brief (5-10min) Non-Physician Phone Call To Patient/Provider Brief (5-10min) [id number] 2 SUHAIL SYKES Non-Physician Phone Call To Patient/Provider Brief (5-10min) Non-Physician Phone Call To Patient/Provider Brief (5-10min) 85913 2 LESLEE GAMINGTOBY MARTITA [facility] Cervical Wet [place] Cervical Wet [place] 20287 1 CHIDI RUSHING [facility] Vaginal PHILIPP Prep Vaginal PHILIPP Prep 75073 01 1 CHIDI RUSHING [facility] Non-Physician Phone Call To Patient/Provider Brief (5-10min) Non-Physician Phone Call To Patient/Provider Brief (5-10min) 15276 1 SUHAIL SYKES [facility] Screening papanicolaou smear; obtaining, preparing and conveyance of cervical or vaginal smear to laboratory 1 DANNY SALVADOR [facility] Colposcopy Cervix With Endocervical Curettage Colposcopy Cervix With Endocervical Curettage 93464 1 DANNY SALVADOR [facility] Test Test 21481 1 DANNY SALVADOR Patient was advised of negitive result DoD Colposcopy Cervix With Biopsy(s) With Endocervical Curettage Colposcopy Cervix With Biopsy(s) With Endocervical Curettage 99370 1 ULI URIBE [facility] Urine HCG, Test Urine HCG, Test 09711 1 ULI URIBE [facility] Colposcopy Colposcopy 85723 0 ULI URIBE [facility] Biopsy Cervical 0 AYDEN CARRANZA Test Test 30433 0 AYDEN CARRANZA Colposcopy Cervix With Biopsy(s) Colposcopy Cervix With Biopsy(s) 77558 0 AYDEN CARRANZA [facility] Intervention And Counseling On Ce ation Of Tobacco Use Intervention And Counseling On Cessation Of Tobacco Use 4000F 0 RAMON RODRIGUEZ [facility] current smoker current smoker 1034F 0 RAMON RODRIGUEZ Screening papanicolaou smear; obtaining, preparing and conveyance of cervical or vaginal smear to laboratory 0 RAMON RODRIGUEZ [facility] Human Papilloma Virus Vaccine, Quadrivalent Human Papilloma Virus Vaccine, Quadrivalent 46970 7 KATHERINE BARNHART DoD Social History Combined list of available smoking, tobacco, and other social history from Department of Defense and Veterans Affairs facilities. Social History Type Response Date Comment [facility] e This section is an empty social history section. DoD
--- OUTSIDE RECORDS SUMMARY | 2025-02-04 02:48 | XMS_ITS | Encounter Summary ---
Author Organization [facility] Address [address] [place] [address] Care Team Providers Care Home Care And Home Health Aides Teacher Name Role Phone Gus Elise DO [...] OFFICE/OUTPT VISIT,EST,LEVL V Gus Elise DO [address] [place] [address] Phone: tel: fax: Referral ID Status Reason Start Date Expiration Date Visits Requested Visits Authorized [id number] New Request Specialty Services 02/03/2025 02/03/2026 1 1 Scheduling Instructions Provider prefers [facility]. 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 She will be having her DNC at [facility]. She is wanting a second opinion. Patient is wanting to see [facility] if possible. has had testing with [...] 02/10/2025 3:40 PM CDT Allied Health/Nurse Visit [facility] Family & Internal Medicine [address] [address] Gus Elise DO [address] [place] [address] 06/29/2025 7:20 AM REAL ESTATE FIRM MANAGER Office Visit [facility] Family & Internal [address] [address] Gus Elise DO [address] [place] [address] Scheduled Referrals Name Type Priority Associated Diagnoses Orde r Schedule Ambulatory referral to Obstetrics/Gynecology (OTHER) Referral Routine History of multiple miscarriages Encounter for fertility testing Ordered: 02/03/2025 documented as of this encounter Visit Diagnoses Diagnosis History of multiple miscarriages- Primary Encounter for fertility testing Fertility testing documented in this encounter Care Teams Home Care And Home Health Aides Teacher Relationship Specialty Start Date End Date Gus Elise DO [address] [place] [id number] PCP - General FAMILY PRACTICE 06/25/23 documented as of this encounter
[2025-02-04 02:49] LABS: Hematocrit 37.1 % (37.0-47.0); Hemoglobin 12.0 g/dL (12.0-15.0); Immature Granulocyte Percent A 0.2 % (0-0.5); Lymphocytes Absolute Auto 2.96 K/mm3 (0.9-3.2); Mean Corpuscular HGB Conc 32.3 g/dl (32-36); Mean Corpuscular Hemoglobin 29.3 pg (26-34); Mean Corpuscular Volume 90.7 fl (80-100); Nucleated Red Blood Cells Absolute Auto 0.000 K/mm3 (0.0-0.012); Nucleated Red Blood Cells Perc 0.0 % (0.0-0.2); Platelet Count Result 323 k/mm3 (150-375); Red Blood Count 4.09 M/mm3 (4.2-5.4); White Blood Count 8.7 K/mm3 (4.5-10.0)
[2025-02-04 02:52] VITALS: BP 103/80; PULSE 72; RESP 13; O2SAT 99
[2025-02-04] MEDS: MORPHINE SULFATE (*CRX) 4 MG/ML INJ IV PUSH ×2 (02:52→04:30)
[2025-02-04] MEDS: ONDANSETRON INJ 4 MG/2 ML VIAL IV PUSH ×2 (02:53→04:28)
[2025-02-04 03:09] LABS: Alanine Aminotransferase 14 U/L (6-35); Albumin Level 4.4 g/dL (3.5-5.1); Alkaline Phosphatase 57 U/L (38-126); Anion Gap 9 mmol/L (4-12); Aspartate Amino Transferase 29 U/L (14-36); Bilirubin,Total 0.4 mg/dL (0.2-1.3); Blood Urea Nitrogen 10 mg/dL (7-17); Calcium 9.4 mg/dL (8.4-10.2); Carbon Dioxide 22 mmol/L (22-30); Chloride 106 mmol/L (98-107); Estimated CRCL calculation 118 ml/min; Estimated Glomerular Filt Rate > 60; Glucose 95 mg/dL (65-110); Lipase 95 U/L (23-300); Potassium 4.1 mmol/L (3.4-5.0); Sodium 137 mmol/L (137-145); Total Protein 7.6 g/dL (6.3-8.2)
--- NOTE | 2025-02-04 03:30 | PC.NURSE ---
Received report from KRISTINA Mcgregor for cont. of care. Pt lying on stretcher c/ 02/03 ower abdominal pain, refer to MAR for medication administration.
--- NOTE | 2025-02-04 03:33 | ED.ABDPAIN ---
HPI - Abdominal Pain General Chief Complaint: Abdominal Pain Stated Complaint: miscarriage 3 days ago, cramping Time Seen by Provider: 02/04/25 02:24 History of Present Illness HPI narrative: Patient is a 34-year-old female who is actively having a miscarriage presents to the emergency department this evening complaining of lower cramping abdominal pain. Patient was seen at our facility on Friday and diagnosed with a miscarriage. Has a scheduled D and C this morning with Dr. Gee at 9:00 a.m.. Patient states that she is going through a pad and a half every hour. was present with her states that they mainly came in for pain control. Related Data Home Medications ?Medication ?Instructions ?Recorded ?Confirmed ?Last Taken ?Type vits no.126-ferrous fum 2 tablet PO 01/19/25 02/02/25 Unknown History 28 mg iron-folic acid 800 mcg tablet (Classic ) Allergies Allergy/AdvReac Type Severity Reaction Status Date / Time No Known Allergies Allergy Verified 02/04/25 02:13 Review of Systems Review of Systems: All systems are reviewed and are negative unless stated otherwise in the HPI. FORMERLY [facility], [facility] Past Medical History Medical History Normal colonoscopy Miscarriage Irritable bowel syndrome (IBS) Surgical History Surgical History History of hysteroscopy D & C Family History Family History Grandparent Lung cancer Heart disease Mother Diabetes mellitus Social History Social History Smoking packs per day: 0.5 Smoking cigarettes per day: 10.0 Years smoked: 10 Smoking pack-years: 5.00 Smoking status: Former smoker Tobacco type: cigarettes Alcohol intake: former Alcohol use details: rare Substance use: never Substance use type: does not use Last use: 08/18/2020 Do You Feel Safe in your Home?: Yes Lack of Transportation: No Lack of Food: Never True Current Housing: I Have Housing Concerned About Future Housing: No Difficulty Paying Gas/Electric Bills: No Difficulty Paying for Meds: No Currently Unemployed: No Education: Bachelor's Degree Difficulty w/ Childcare or Family Care: No Living arrangements: with family Occupation/Education: occupation Gender identity (if verbalized by the patient): Female Sexual Orientation (if Verbalized by the Patient): Straight or Heterosexual Exam Narrative: General: Alert, awake, afebrile, in moderate distress secondary to pain. HEENT: PERRL, no rhinorrhea, no post nasal drip, oropharynx clear. Neck: Trachea midline, no JVD, no lymphadenopathy. Cardiovascular: Regular rate and rhythm, no murmurs, rubs or gallops, no peripheral edema. Respiratory: Clear to auscultation bilaterally, no tachypnea, no wheezing, no rhonchi, no rubs, no respiratory distress. Abdomen: Soft, nontender, nondistended, no rebound, no guarding, no peritoneal signs. Musculoskeletal: No joint swelling or deformity, normal muscle tone. Skin: No rashes or petechia, no signs of infection. Psychiatric: Alert and oriented, normal behavior and judgment for situation. Neurological: Alert and oriented to person, place, and time. Follows all commands. No focal deficits, speech is clear and fluent. Course Vital Signs Vital signs: Vital Signs Temperature 98.3 F 02/04/25 02:22 Pulse Rate 70 02/04/25 02:22 Respiratory Rate 20 02/04/25 02:22 Blood Pressure 116/79 02/04/25 02:22 Pulse Oximetry 98 02/04/25 02:22 Oxygen Delivery Room Air 02/04/25 02:22 Temperature 98.3 F 02/04/25 02:22 Pulse Rate 72 02/04/25 02:52 Respiratory Rate 13 02/04/25 02:52 Blood Pressure 103/80 02/04/25 02:52 Pulse Oximetry 99 02/04/25 02:52 Oxygen Delivery Room Air 02/04/25 02:22 MDM - Abdominal Pain MDM Narrative Medical decision making narrative: The patient was evaluated by myself in the emergency department. History is obtained from patient who is an independent historian and physical exam was performed. External medical records were reviewed at this time. IV was established and pertinent tests were ordered. Patient was administered total of 8 mg of IV morphine and 8 mg of IV Zofran. Laboratory results obtained revealing no acute process. Hemoglobin is stable at 12. Differential diagnosis considerations include threatened miscarriage, missed , dysfunctional uterine bleeding. Comorbidities impacting this visit include recent miscarriage. I have evaluated and discussed social determinants of health with the patient that could potentially impact subsequent diagnosis and treatment plans. On repeat assessment of the patient, reevaluation revealed that the patient is doing well and is in no acute distress. Patient symptoms have improved since she arrived to our emergency department. Repeat vital signs were all reviewed and noted to be stable. Differential diagnosis and treatment plan were discussed with the patient at bedside. Patient agrees with discussion and after shared medical decision making agrees with discharge. All questions were answered to the patient's satisfaction. Patient will follow up with her OBGYN as scheduled for her appointment for the [place] this morning at 9:00 a.m.. Patient was provided with strict return precautions and instructed to return to the emergency department if any new or worsening symptoms develop. The patient was discharged in stable condition. Lab Data 02/04/25 02:44 02/04/25 02:44 Labs: Lab Results 02/04/25 Range/Units 02:44 WBC 8.7 (4.5-10.0) K/mm3 RBC 4.09 L (4.2-5.4) M/mm3 Hgb 12.0 (12.0-15.0) g/dL Hct 37.1 (37.0-47.0) % MCV 90.7 (80-100) fl MCH 29.3 (26-34) pg MCHC 32.3 (32-36) g/dl RDW 12.9 (11.5-14.5) % Plt Count 323 (150-375) k/mm3 MPV 9.8 (7.4-10.4) fl Immature Gran % (Auto) 0.2 (0-0.5) % Neut % (Auto) 51.6 (45.5-73.1) % Lymph % (Auto) 34.0 (18.3-44.2) % [place] % (Auto) 10.1 H (2.6-8.5) % Eos % (Auto) 3.3 (0-4.4) % Baso % (Auto) 0.8 (0.2-1.2) % Lymph # (Auto) 2.96 (0.9-3.2) K/mm3 [place] # (Auto) 0.9 H (0.1-0.6) K/mm3 Eos # (Auto) 0.3 (0-0.3) K/mm3 Baso # (Auto) 0.1 (0.0-0.1) K/mm3 Abs Immat Gran (auto) 0.02 (0.00-0.031) K/mm3 Absolute Neuts (auto) 4.5 (1.3-6.7) K/mm3 Absolute Nucleated RBC 0.000 (0.0-0.012) K/mm3 Nucleated RBC % 0.0 (0.0-0.2) % Sodium 137 (137-145) mmol/L Potassium 4.1 (3.4-5.0) mmol/L Chloride 106 (98-107) mmol/L Carbon Dioxide 22 (22-30) mmol/L Anion Gap 9 (4-12) mmol/L BUN 10 (7-17) mg/dL Creatinine 0.56 L (0.7-1.0) mg/dL Estim Creat Clear Calc 118 ml/min Estimated GFR > 60 (59 - ) Glucose 95 (65-110) mg/dL Calcium 9.4 (8.4-10.2) mg/dL Total Bilirubin 0.4 (0.2-1.3) mg/dL AST 29 (14-36) U/L ALT 14 (6-35) U/L Alkaline Phosphatase 57 (38-126) U/L Total Protein 7.6 (6.3-8.2) g/dL Albumin 4.4 (3.5-5.1) g/dL Lipase 95 (23-300) U/L Discharge Plan Discharge Clinical Impression: Miscarriage Patient Disposition: Home Condition: Improved Instructions: Antibiotic Form, Miscarriage (ED) Additional Instructions: Please present to your schedule D&C appointment at 9:00 a.m. in the morning. Patient Language: German Prescriptions: No Action Classic 28 mg iron- 800 mcg tablet 2 tablet PO Follow-up/Referrals: Jose Gee MD [Physician] - 1 Day Time of Disposition: 03:33
[2025-02-04 04:32] VITALS: BP 116/76; PULSE 74; RESP 14; O2SAT 98
== END 2025-02-04 06:50 | disposition home or self-care (01) ==
PROVIDERS: Emergency Provider Emergency Medicine; PCP Student in an Organized Health Care Education/Training Program
DX: O03.9 Complete or unspecified spontaneous abortion without complication (principal); K58.9 Irritable bowel syndrome, unspecified; Z87.891 Personal history of nicotine dependence
CPT/HCPCS: 36415; 80053; 83690; 85025; 96374; 96375; 96376; 99284; J2270; J2405

== ENCOUNTER 2025-02-23 16:17 | Outpatient (CLI) | payer OTHER, SELFPAY ==
--- OUTSIDE RECORDS SUMMARY | 2025-02-23 16:20 | XMS_ITS | Continuity of Care Document ---
Author Name [facility] Organization [facility] Care Team Providers Care Documentation Coordinator Name Role Phone [facility] Unavailable Unavailable Problems [...] Reported Comments Source NO OUTPUT FOR NCID [id number] Drug allergy (disorder) active 01/15/[address] [place], [place] [address]B [facility] [place]counters Combined list of: 1) Encounters from Department of Veterans Affairs facilities going backup to the last 18 months, not all VA inpatient encounters are included; 2) Encounters from the Department of [facility] facilities going backup to 280 months. Location Location Details Encounter Type Encounter Number Reason For Visit Attending Provider ADM Date DC Date Status Disposition Source [address] [place] [address] [employer] [facility] [place]ander Practice Non-GME FHI1) OUTPATIENT [id number] ORLIN Montejo 08/20 Released w/o Limitations [address] [place], [place] [address] [facility]F amily Practic e Non-GME FHI1) [address] [place], [place] [address] [facility]Ped iatrics) OUTPATIENT [id number] sports physica l KATHERINE BARNHART 09/19 Released w/o Limitations [address] [place], [place] [address] [facility]P ediatri cs[place] [address] [place] [address] [employer] [facility] matology) OUTPATIENT [id number] DYSPLAS TIC NEVUS QUEENIE CELESTIN 10/31 Released w/o Limitations [address] [place], [place] [address] [facility]D ermatol ogy) [address] [place] [address] [employer] [facility]Fam a[facility]ander Practice Non-GME FHI2) OUTPATIENT [id number]# swollen tonsils ,sore throat, nausea KATHERINE RIVERA 01/14 Released w/o Limitations [address] [place] [address] [employer] [facility]F amily Practic e Non-GME FHI2) [address] [place] [address] [employer] [facility]Sco tt [facility] Team 3) OUTPATIENT [id number] pap smear FELIX RODRIGUEZ 01/24 Released w/o Limitations [address] [place] [address] [employer] [facility]S cott [facility] Team 3) [address] [place] [address] [employer] [facility]Sco tt [facility] Team 3) TELE CONSULT [id number] call back lab results COLLETTE MAY 02/17 [employer] ([facility] [place]S [facility] Team 3) [employer] ([facility] [place]Ob/ Compass Operator) TELE CONSULT [id number] pap results LAW BRUMFIELD 02/20 [employer] ([facility] [place]O b/Compass Operator) [employer] ([facility] [place]Nho tt [facility] Team 3) TELE CONSULT [id number] Pt needs call back - ALYSIA Avalos 03/20 [employer] ([facility] [place] Team 3) [facility] [employer] ([facility] [place]Nho tt [facility] Team 3) OUTPATIENT [id number] f/u infecti on FELIX RODRIGUEZ 04/17 Released w/o Limitations [employer] ([facility] [place]S [facility] Team 3) [facility] [employer] ([facility] [place]Nho [facility] Team 3) TELE CONSULT [id number] lab results FELIX RODRIGUEZ 04/20 [employer] ([facility] [place] Team 3) [facility] [employer] ([facility] [place])(Compass Operator ecology) OUTPATIENT [id number] annual exam [id number] RAMON RODRIGUEZ 01/17 Released w/o Limitations [employer] ([facility] [place]G ynecolo gy) [employer] ([facility] [place])(Compass Operator ecology) TELE CONSULT [id number] results AYDEN CARRANZA 01/31 [employer] ([facility] [place]G ynecolo gy) [employer] ([facility] [place]Compass Operator ecology) OUTPATIENT [id number] colpo AYDEN CARRANZA 02/05 Released w/o Limitations [employer] ([facility] [place]G ynecolo gy) [employer] ([facility] [place])(Compass Operator ecology) TELE CONSULT [id number] results AYDEN CARRANZA 02/13 [employer] ([facility] [place]G ynecolo gy) [facility] [employer] ([facility] [place])(Compass Operator ecology) TELE CONSULT [id number] results AYDEN CARRANZA 03/28 [facility] [employer] ([facility] [place]G ynecolo gy) [facility] [employer] ([facility] [place])(Compass Operator ecology) TELE CONSULT [id number] Maria Luz amaya about rominat ULI URIBE 04/10 [employer] ([facility] [place]G ynecolo gy) [facility] [employer] ([facility] [place]Ob/ Compass Operator) TELE CONSULT [id number] cancell ing SILVA Leija 04/11 Referred for Appointment [facility] [employer] ([facility] [place]O b/Compass Operator) [facility] [employer] ([facility] [place])(Compass Operator ecology) OUTPATIENT [id number] MERI 3 on polyp/ ? LEEP ULI URIBE 04/20 Released w/o Limitations [facility] [employer] ([facility] [place]G ynecolo gy) [facility] [employer] ([facility] [place]Ob/ Compass Operator) TELE CONSULT [id number] SILVA LEIJA 08/17 Referred for Appointment [facility] [employer] ([facility] [place]O b/Compass Operator) [facility] [employer] ([facility] [place])(Compass Operator ecology) OUTPATIENT [id number] colpo ULI URIBE 09/10 Released w/o Limitations [facility] [employer] ([facility] [place]G ynecolo gy) [facility] [employer] ([facility] [place])(Compass Operator ecology) OUTPATIENT [id number] f/u colpo - [id number] [phone] ULI URIBE 10/08 Released w/o Limitations [facility] [employer] ([facility] [place]G ynecolo gy) [facility] [employer] ([facility] [place])(Compass Operator ecology) TELE CONSULT [id number] BC refill (orthot ricycle n) SILVA BERNARD 01/23 [facility] [employer] ([facility] [place]G ynecolo gy) [facility] [employer] ([facility] [place])(Compass Operator ecology) OUTPATIENT [id number] colpo DANNY SALVADOR 03/01 Released w/o Limitations [facility] [employer] ([facility] [place]G ynecolo gy) [facility] [employer] [facility] ([facility] [place])(Compass Operator ecology[facility] OUTPATIENT [id number] repeat pap - DANNY SALVADOR 03/06 Released w/o Limitations [facility] [employer] [facility] ([facility] [place]G ynecolo gy) [address] [place] [address])([facility] Team 3) TELE CONSULT [id number] Solitario Rodriguez /[phone]/cadSUHAIL Benitez 03/[address] [place] [address] [employer] [facility])([facility] Team 3) [address] [place] [address])(Compass Operator ecology) OUTPATIENT [id number] Vaginal dischar CHIDI StringerN 04/18 Released w/o Limitations [address] [place] [address] Group [facility])(G ynecolo gy) [address] [place] [address])([facility] Team 3) TELE CONSULT [id number] f/u UTI - Haylee - cad/[facility] ALYSIA GAMING 08/[address] [place] [address] Group [facility])([facility] Team 3) [facility] Medical Group [facility])(Compass Operator ecology) OUTPATIENT [id number] 4 month f/u after colpo [id number] RAMON RODRIGUEZ 08/28 Released w/o Limitations [address] [place] [address])(G ynecolo gy) [address] [place] [address])([facility] Team 3) TELE CONSULT [id number] Notes Entered by: GEOFFREY NUGENT 14 Oct 2011 1559 ------- ------- ------- ------- -- Retro solitario [place] [phone] - SUHAIL Salinas 10/[address] [place] [address])([facility] Team 3) [address] [place] [address])([facility] Tm A Ad) TELE CONSULT [id number] Notes Entered by: COURTNEY JONES 24 Apr 2012 1300 ------- ------- ------- ------- -- Network results - Urgent Care 08/10/11 VANESA VALENTINE 04/24 [facility] [employer] ([facility] [place]W arrior Op Med Cln [...] CERVICAL OR VAGINAL SMEAR TO LABORATORY 9 [facility] HUMAN PAPILLOMAVIRUS VACCINE, TYPES 6, 11, 16, 18, QUADRIVALENT (4VHPV), 3 DOSE SCHEDULE, FOR INTRAMUSCULAR USE 7 [facility] Non-Physician Phone Call To Patient/Provider Brief (5-10min) Non-Physician Phone Call To Patient/Provider Brief (5-10min) [phone] SUHAIL SYKES Non-Physician Phone Call To Patient/Provider Brief (5-10min) Non-Physician Phone Call To Patient/Provider Brief (5-10min) [phone] [facility] Cervical Wet [place] Cervical Wet [place] [address] [facility] Vaginal PHILIPP Prep Vaginal PHILIPP Prep [phone] [facility] Non-Physician Phone Call To Patient/Provider Brief (5-10min) Non-Physician Phone Call To Patient/Provider Brief (5-10min) [address] [facility] Screening papanicolaou smear; obtaining, preparing and conveyance of cervical or vaginal smear to laboratory [address] [facility] Colposcopy Cervix With Endocervical Curettage Colposcopy Cervix With Endocervical Curettage [address] [facility] Test Test 87169 1 DANNY SALVADOR Patient was advised of negitive result DoD Colposcopy Cervix With Biopsy(s) With Endocervical Curettage Colposcopy Cervix With Biopsy(s) With Endocervical Curettage [phone] [facility] Urine HCG, Test Urine HCG, Test 04374 [address] [facility] Colposcopy Colposcopy [address] [facility] Biopsy Cervical 0 AYDEN CARRANZA Test Test 73994 0 AYDEN CARRANZA Colposcopy Cervix With Biopsy(s) Colposcopy Cervix With Biopsy(s) [address] [facility] Intervention And Counseling On Ce ation Of Tobacco Use Intervention And Counseling On Cessation Of Tobacco Use 4000F [address] [facility] current smoker current smoker 1034F 0 RAMON RODRIGUEZ Screening papanicolaou smear; obtaining, preparing and conveyance of cervical or vaginal smear to laboratory [address] [facility] Human Papilloma Virus Vaccine, Quadrivalent Human Papilloma Virus Vaccine, Quadrivalent 32134 7 KATHERINE BARNHART DoD Social History Combined list of available smoking, tobacco, and other social history from Department of Defense and Veterans Affairs facilities. Social History Type Response Date Comment [facility] e This section is an empty social history section. DoD
--- OUTSIDE RECORDS SUMMARY | 2025-02-23 16:22 | XMS_ITS | Clinical Summary ---
Author Organization [facility] Address [address] [place] [address] Care Team Providers Care Neurobiologist Name Role Phone Gus Elise Primary Care [...] Encounters Date Type Department Care Team Description 02/10/2025 3:40 PM CDT Allied Health/Nurse Visit [facility] [address] [address] Gus Elise, DO Allied Health Visit 02/10/2025 Travel 02/04/2025 Scan [facility] SRVCS Scanned, [facility] Lab (SCAN); Procedure (SCAN); Pathology (SCAN) 02/03/[address] [phone] Gus Elise, DO Information 02/01/2025 Scan [facility] SRVCS Scanned, [facility] Ultrasound (SCAN); Lab (SCAN) 01/27/[address] [address] Gus Elise, DO Question 01/05/2025 Scan MG [...] Administration Dates Next Due Fluzone (IIV3, Trivalent, 0. 5 ML Prefilled Syringe) 06/28/2024 Fluzone 6 Months+ Quad (0.5 mL Prefilled Syringe) 06/25/2023 Hepatitis B(Engerix B Adult) 02/10/2025,08/09/19 25,06/28/2024 Tdap (Adacel) 06/25/2023 Family History Medical History [...] Care Team (Late st Contact Info) Description 06/29/2025 7:20 AM CHARGING MANIPULATOR Office Visit [facility] Family & Internal Medicine - [address] [phone] Gus Elise DO [address] [place] [address] Health Maintenance Due Date Last Done Comments HPV Vaccines (1 - 3-dose SCD M series) 02/08/2016 Annual Physical 06/28/2025 06/28/2024, 06/25/2023 Cervical Cancer [...] Clinic) Hepatitis C Completed 07/14/2023 PHQ-2 (Physician [place]) Completed 11/09/2024 Hepatitis B Vaccines Completed 02/10/2025, 08/09/2024, 06/28/2024 Meningococcal B Vaccine Aged Out No l [...] Procedure Name Priority Date/Time Associated Diagnosis Comments PATHOLOGY GENERIC (SCAN ORDER) 02/04/2025 OUTSIDE LAB (SCAN ORDER) 02/04/2025 PROCEDURE GENERIC (SCAN ORDER) 02/04/2025 OUTSIDE LAB (SCAN ORDER) 02/01/2025 OUTSIDE LAB (SCAN ORDER) 02/01/2025 OUTSIDE LAB (SCAN ORDER) 02/01/2025 ULTRASOUND GENERIC (SCAN ORDER) 02/01/2025 OUTSIDE LAB (SCAN ORDER) 01/05/2025 OUTSIDE LAB (SCAN ORDER) 01/03/2025 OUTSIDE LAB (SCAN ORDER) 01/03/2025 OUTSIDE LAB (SCAN ORDER) 12/14/2024 OUTSIDE LAB (SCAN ORDER) 11/24/2024 OUTSIDE CYTOPATH CERV/VAG INTERPRET (PAP) 08/26/2023 HEPATITIS C ANTIBODY Routine 07/14/2023 7:20 AM CHARGING MANIPULATOR Encounter for preventative adult health care examination Screening for lipid disorders Screening for endocrine, metabolic and immunity disorder Need for hepatitis C screening test from Last 3 Months or Most Recently Relevant to Health Maintenance Results * PATHOLOGY GENERIC (SCAN ORDER) (02/04/2025) 02/04/2025 [facility] Scanned SCANNING Final Resu lt * OUTSIDE LAB (SCAN ORDER) (02/04/2025) Only the most recent of9 resultswithin the time period is included. 02/04/2025 [facility] Scanned SCANNING Final Resu lt * PROCEDURE GENERIC (SCAN ORDER) (02/04/2025) 02/04/2025 [facility] Scanned SCANNING Final Resu lt * ULTRASOUND GENERIC (SCAN ORDER) (02/01/2025) Anatomical Region Laterality Modality Other 02/01/2025 [facility] Scanned SCANNING Final Resu lt * PAP SMEAR WITH HPV (08/26/2023) 08/26/2023 [facility] Scanned SCANNING Final Resu lt * HEPATITIS C ANTIBODY ([facility] ONLY) (07/14/2023 7:20 AM CHARGING MANIPULATOR) HEPATITIS C AB NON-REACTI VE NON-REACT ROB 07/14/2023 7:07 PM CHARGING MANIPULATOR [facility] Comment: ANTIBODIES TO HCV NOT DETECTED. DOES NOT EXCLUDE THE POSSIBILITY OF EXPOSURE TO HCV. 07/14/2023 7:20 AM CHARGING MANIPULATOR Gus Elise DO LABORATORY Final Re sult [facility] [address] [place] [address], [place] [phone] from Last 3 Months or Most Recently Relevant to Health Maintenance Insurance Care Teams Neurobiologist Relationship Specialty Start Date End Date Gus Elise DO [address] [place] [phone] PCP - General FAMILY PRACTICE 06/25/23
[2025-02-23 18:17] LABS: Thyroid Stimulating Hormone 0.380 uIU/mL (0.465-4.680)
[2025-02-25 15:09] LABS: Anticardiolipin Ab,IgA,Qn <9 APL U/mL (0-11); Anticardiolipin Ab,IgG,Qn <9 GPL U/mL (0-14); Anticardiolipin Ab,IgM,Qn <9 MPL U/mL (0-12); Beta-2 Glycoprotein I Ab, IgA <9 (0-25); Beta-2 Glycoprotein I Ab, IgG <9 (0-20); Beta-2 Glycoprotein I Ab, IgM 13 (0-32)
== END 2025-02-23 16:18 | disposition home or self-care (01) ==
LOC: ANHLAB 16:18
PROVIDERS: PCP Student in an Organized Health Care Education/Training Program; Visit Provider Student in an Organized Health Care Education/Training Program
DX: N96 Recurrent pregnancy loss (principal)
CPT/HCPCS: 36415; 84443; 86146; 86147

== ENCOUNTER 2025-03-12 12:59 | Outpatient (CLI) | payer OTHER, SELFPAY ==
--- OUTSIDE RECORDS SUMMARY | 2025-03-12 13:02 | XMS_ITS | Continuity of Care Document ---
Author Name [facility] Organization [facility] Care Team Providers Care Intensive Care Anaesthetist Name Role Phone [facility] Unavailable Unavailable Problems [...] Reported Comments Source NO OUTPUT FOR NCID [id number] Drug allergy (disorder) active 01/15/[address] [place], [place] [address]B [facility] Encounters Combined list of: 1) Encounters from Department of Veterans Affairs facilities going backup to the last 18 months, not all VA inpatient encounters are included; 2) Encounters from the Department of [facility] [place] facilities going backup to 280 months. Location Location Details Encounter Type Encounter Number Reason For Visit Attending Provider ADM Date DC Date Status Disposition Source [address] [place] [address] [employer] [facility] alexander Practice Non-GME FHI1) OUTPATIENT [id number] ORLIN Montejo 08/20 Released w/o Limitations [address] [place], [place] [address]B [facility]F amily Practic e Non-GME FHI1) [address] [place], [place] [address]B [facility]Ped iatrics) OUTPATIENT [id number] sports physica l KATHERINE BARNHART 09/19 Released w/o Limitations [address] [place], [place] [address]B [facility]P ediatri cs) [address] [place] [address] [employer] [facility]Juan Francisco matology) OUTPATIENT [id number] DYSPLAS TIC NEVUS QUEENIE CELESTIN 10/31 Released w/o Limitations [address] [place], [place] [address]B [facility]D ermatol ogy) [address] [place] [address] [employer] [facility]Fam alexander Practice Non-GME FHI2) OUTPATIENT [id number] swollen tonsils ,sore throat, nausea KATHERINE RIVERA 01/14 Released w/o Limitations [address] [place] [address] [employer] [facility]F amily Practic e Non-GME FHI2) [address] [place] [address] [employer] [facility]Sco tt [facility] Team 3) OUTPATIENT [id number] pap smear FELIX RODRIGUEZ 01/24 Released w/o Limitations [address] [place] [address] [employer] [facility]S cott [facility] Team 3) [address] [place] [address] [employer] [facility]Sco tt [facility] Team 3) TELE CONSULT [id number] call back lab results COLLETTE MAY 02/17 [employer] ([facility]S [facility] Team 3) [employer] ([facility])(Ob/ Invoice Control Clerk) TELE CONSULT [id number] pap results LAW BRUMFIELD 02/20 [employer] ([facility])(O b/Invoice Control Clerk) [employer] ([facility])(Nco tt [facility] Team 3) TELE CONSULT [id number] Pt needs call back - ALYSIA Avalos 03/20 [employer] ([facility]S [facility] Team 3) [facility] [employer] ([facility])(Nco tt [facility] Team 3) OUTPATIENT [id number] f/u infecti on FELIX RODRIGUEZ 04/17 Released w/o Limitations [employer] ([facility])(S [facility] Team 3) [facility] [employer] ([facility])(Nco [facility] Team 3) TELE CONSULT [id number] lab results FELIX RODRIGUEZ 04/20 [employer] ([facility])(S [facility] Team 3) [facility] [employer] ([facility])(Invoice Control Clerk ecology) OUTPATIENT [id number] annual exam [id number] RAMON RODRIGUEZ 01/17 Released w/o Limitations [employer] ([facility])(G ynecolo gy) [employer] ([facility])(Invoice Control Clerk ecology) TELE CONSULT [id number] results AYDEN CARRANZA 01/31 [employer] ([facility])(G ynecolo gy) [employer] ([facility])(Invoice Control Clerk ecology) OUTPATIENT [id number] colpo AYDEN CARRANZA 02/05 Released w/o Limitations [employer] ([facility])(G ynecolo gy) [employer] ([facility])(Invoice Control Clerk ecology) TELE CONSULT [id number] results AYDEN CARRANZA 02/13 [employer] ([facility])(G ynecolo gy) [facility] [employer] ([facility])(Invoice Control Clerk ecology) TELE CONSULT [id number] results AYDEN CARRANZA 03/28 [facility] [employer] ([facility])(G ynecolo gy) [facility] [employer] ([facility])(Invoice Control Clerk ecology) TELE CONSULT [id number] Maria Luz amaya about rominat ULI URIBE 04/10 [employer] ([facility])(G ynecolo gy) [facility] [employer] ([facility])(Ob/ Invoice Control Clerk) TELE CONSULT [id number] cancell ing SILVA Leija 04/11 Referred for Appointment [facility] [employer] ([facility])(O b/Invoice Control Clerk) [facility] [employer] ([facility])(Invoice Control Clerk ecology) OUTPATIENT [id number] MERI 3 on polyp/ ? LEEP ULI URIBE 04/20 Released w/o Limitations [facility] [employer] ([facility])(G ynecolo gy) [facility] [employer] ([facility])(Ob/ Invoice Control Clerk) TELE CONSULT [id number] SILVA LEIJA 08/17 Referred for Appointment [facility] [employer] ([facility])(O b/Invoice Control Clerk) [facility] [employer] ([facility])(Invoice Control Clerk ecology) OUTPATIENT [id number] colpo ULI URIBE 09/10 Released w/o Limitations [facility] [employer] ([facility])(G ynecolo gy) [facility] [employer] ([facility])(Invoice Control Clerk ecology) OUTPATIENT [id number] f/u colpo - [id number] ULI URIBE 10/08 Released w/o Limitations [facility] [employer] ([facility])(G ynecolo gy) [facility] [employer] ([facility])(Invoice Control Clerk ecology) TELE CONSULT [id number] BC refill (orthot ricycle n) SILVA BERNARD 01/23 [facility] [employer] ([facility])(G ynecolo gy) [facility] [employer] ([facility])(Invoice Control Clerk ecology) OUTPATIENT [id number] colpo DANNY SALVADOR 03/01 Released w/o Limitations [facility] [employer] ([facility])(G ynecolo gy) [facility] [employer] [facility] ([facility])(Invoice Control Clerk ecology) OUTPATIENT [id number] repeat pap - DANNY SALVADOR 03/06 Released w/o Limitations [facility] [employer] [facility] ([facility])(G ynecolo gy) [address] [place] [address])(Nco [facility] Team 3) TELE CONSULT [id number] Solitario Rodriguez /[phone] 86/cadSUHAIL Benitez 03/[address] [place] [address] Group [employer] [facility])([facility] Team 3) [address] [place] [address])(Invoice Control Clerk ecology) OUTPATIENT [id number] Vaginal dischar CHIID StringerN 04/18 Released w/o Limitations [address] [place] [address] Group [facility])(G ynecolo gy) [address] [place] [address])([facility] Team 3) TELE CONSULT [id number] f/u UTI - Haylee - cad/[facility] ALYSIA GAMING 08/[address] [place] [address] Group [facility])([facility] Team 3) [facility] Group [facility])(Invoice Control Clerk ecology) OUTPATIENT [id number] 4 month f/u after colpo [id number] RAMON RODRIGUEZ 08/28 Released w/o Limitations [address] [place] [address])(G ynecolo gy) [address] [place] [address])([facility] Team 3) TELE CONSULT [id number] Notes Entered by: GEOFFREY NUGENT 14 Oct 2011 1559 ------- ------- ------- ------- -- Retro solitario [place] [phone] - SUHAIL Salinas 10/[address] [place] [address])([facility] Team 3) [address] [place] [address])([facility] Cl[facility] Tm A Ad) TELE CONSULT [id number] Notes Entered by: COURTNEY JONES 24 Apr 2012 1300 ------- ------- ------- ------- -- Network results - Urgent Care 08/10/11 VANESA VALENTINE 04/24 [facility] [employer] [facility] ([facility])(W arrior Op Med Cln Tm A Ad) [...] CERVICAL OR VAGINAL SMEAR TO LABORATORY 9 [facility] HUMAN PAPILLOMAVIRUS VACCINE, TYPES 6, 11, 16, 18, QUADRIVALENT (4VHPV), 3 DOSE SCHEDULE, FOR INTRAMUSCULAR USE 7 [facility] Non-Physician Phone Call To Patient/Provider Brief (5-10min) Non-Physician Phone Call To Patient/Provider Brief (5-10min) 45236 2 SUHAIL SYKES Non-Physician Phone Call To Patient/Provider Brief (5-10min) Non-Physician Phone Call To Patient/Provider Brief (5-10min) 64301 2 LESLEE GAMINGTOBY MARTITA [facility] Cervical Wet [place] Cervical Wet [place] 31171 1 CHIDI RUSHING [facility] Vaginal PHILIPP Prep Vaginal PHILIPP Prep 23427 01 1 CHIDI RUSHING [facility] Non-Physician Phone Call To Patient/Provider Brief (5-10min) Non-Physician Phone Call To Patient/Provider Brief (5-10min) 94345 1 SUHAIL SYKES [facility] Screening papanicolaou smear; obtaining, preparing and conveyance of cervical or vaginal smear to laboratory 1 DANNY SALVADOR [facility] Colposcopy Cervix With Endocervical Curettage Colposcopy Cervix With Endocervical Curettage 21971 1 DANNY SALVADOR [facility] Test Test 10458 1 DANNY SALVADOR Patient was advised of negitive result DoD Colposcopy Cervix With Biopsy(s) With Endocervical Curettage Colposcopy Cervix With Biopsy(s) With Endocervical Curettage 33267 1 ULI URIBE [facility] Urine HCG, Test Urine HCG, Test 58949 1 ULI URIBE [facility] Colposcopy Colposcopy 87923 0 ULI URIBE [facility] Biopsy Cervical 0 AYDEN CARRANZA Test Test 96648 0 AYDEN CARRANZA Colposcopy Cervix With Biopsy(s) Colposcopy Cervix With Biopsy(s) 69201 0 AYDEN CARRANZA [facility] Intervention And Counseling On Ce ation Of Tobacco Use Intervention And Counseling On Cessation Of Tobacco Use 4000F 0 RAMON RODRIGUEZ [facility] current smoker current smoker 1034F 0 RAMON RODRIGUEZ Screening papanicolaou smear; obtaining, preparing and conveyance of cervical or vaginal smear to laboratory 0 RAMON RODRIGUEZ [facility] Human Papilloma Virus Vaccine, Quadrivalent Human Papilloma Virus Vaccine, Quadrivalent 86278 7 KATHERINE BARNHART DoD Social History Combined list of available smoking, tobacco, and other social history from Department of Defense and Veterans Affairs facilities. Social History Type Response Date Comment [facility] e This section is an empty social history section. DoD
--- OUTSIDE RECORDS SUMMARY | 2025-03-12 13:02 | XMS_ITS | Clinical Summary ---
Author Organization [facility] Address [address] [place] [address] Care Team Providers Care Pickle Water Pump Operator Name Role Phone Gus Elise Primary Care [...] Encounters Date Type Department Care Team Description 02/23/2025 Scan [facility] SRVCS Scanned, [facility] Lab (SCAN) 02/10/2025 3:40 PM CDT Allied Health/Nurse Visit [facility] [address] [address] Gus Elise, DO Allied Health Visit 02/10/2025 Travel 02/04/2025 Scan [facility] INFO SRVCS Scanned, [facility] Lab (SCAN); Procedure (SCAN); Pathology (SCAN) 02/03/[address] [phone] Gus Elise, DO Information 02/01/2025 Scan [facility] SRVCS Scanned, [facility] Ultrasound (SCAN); Lab (SCAN) 01/27/[address] [phone] Gus Elise, DO Question 01/05/2025 Scan MG [...] st Contact Info) Description 06/29/2025 7:20 AM VENDOR REPRESENTATIVES Office Visit [facility] Family & Internal Medicine - [address] [phone] Gus Elise DO [address] [place] [address] Health Maintenance Due Date Last Done Comments [...] Clinic) Hepatitis C Completed 07/14/2023 PHQ-2 (Physician [place]) Completed 11/09/2024 Hepatitis B Vaccines Completed 02/10/2025, [...] Associated Diagnosis Comments OUTSIDE LAB (SCAN ORDER) 02/23/2025 OUTSIDE LAB (SCAN ORDER) 02/23/2025 PATHOLOGY GENERIC (SCAN ORDER) 02/04/2025 OUTSIDE LAB (SCAN ORDER) 02/04/2025 PROCEDURE GENERIC (SCAN ORDER) 02/04/2025 OUTSIDE LAB (SCAN ORDER) 02/01/2025 OUTSIDE LAB (SCAN ORDER) 02/01/2025 OUTSIDE LAB (SCAN ORDER) 02/01/2025 ULTRASOUND GENERIC (SCAN ORDER) 02/01/2025 OUTSIDE LAB (SCAN ORDER) 01/05/2025 OUTSIDE LAB (SCAN ORDER) 01/03/2025 OUTSIDE LAB (SCAN ORDER) 01/03/2025 OUTSIDE LAB (SCAN ORDER) 12/14/2024 OUTSIDE CYTOPATH CERV/VAG INTERPRET (PAP) 08/26/2023 HEPATITIS C ANTIBODY Routine 07/14/2023 7:20 AM VENDOR REPRESENTATIVES Encounter for preventative adult health care examination Screening for lipid disorders Screening for endocrine, metabolic and immunity disorder Need for hepatitis C screening test from Last 3 Months or Most Recently Relevant to Health Maintenance Results * OUTSIDE LAB (SCAN ORDER) (02/23/2025) Only the most recent of10 resultswithin the time period is included. 02/23/2025 [facility] Scanned SCANNING Final Resu lt * PATHOLOGY GENERIC (SCAN ORDER) (02/04/2025) 02/04/2025 [facility] Scanned SCANNING Final Resu lt * PROCEDURE GENERIC (SCAN ORDER) (02/04/2025) 02/04/2025 [facility] Scanned SCANNING Final Resu lt * ULTRASOUND GENERIC (SCAN ORDER) (02/01/2025) Anatomical Region Laterality Modality Other 02/01/2025 [facility] Scanned SCANNING Final Resu lt * PAP SMEAR WITH HPV (08/26/2023) 08/26/2023 [facility] Scanned SCANNING Final Resu lt * HEPATITIS C ANTIBODY ([facility] ONLY) (07/14/2023 7:20 AM VENDOR REPRESENTATIVES) HEPATITIS C AB NON-REACTI VE NON-REACT ROB 07/14/2023 7:07 PM VENDOR REPRESENTATIVES [facility] Comment: ANTIBODIES TO HCV NOT DETECTED. DOES NOT EXCLUDE THE POSSIBILITY OF EXPOSURE TO HCV. 07/14/2023 7:20 AM VENDOR REPRESENTATIVES Gus Elise DO LABORATORY Final Re sult [facility] [address] [place] [address], [place] [phone] from Last 3 Months or Most Recently Relevant to Health Maintenance Insurance Care Teams Pickle Water Pump Operator Relationship Specialty Start Date End Date Gus Elise DO [address] [place] [phone] PCP - General FAMILY PRACTICE 06/25/23
[2025-03-12 13:55] LABS: Beta HCG Quantitative 2.47 mIU/ML
== END 2025-03-12 13:00 | disposition home or self-care (01) ==
PROVIDERS: PCP Student in an Organized Health Care Education/Training Program; Visit Provider Obstetrics & Gynecology
DX: N94.89 Other specified conditions associated with female genital organs and menstrual cycle (principal); N96 Recurrent pregnancy loss
CPT/HCPCS: 36415; 84702

== ENCOUNTER 2025-03-29 16:22 | Outpatient (CLI) | payer OTHER, SELFPAY ==
--- OUTSIDE RECORDS SUMMARY | 2025-03-29 16:24 | XMS_ITS | Continuity of Care Document ---
Author Name [facility] Organization [facility] Care Team Providers Care Project Associate Name Role Phone [facility] Unavailable Unavailable Problems [...] Reported Comments Source NO OUTPUT FOR NCID [id number] Drug allergy (disorder) active 01/15/[address] [place], [place] [address]B [facility]) Encounters Combined list of: 1) Encounters from Department of Veterans Affairs facilities going backup to the last 18 months, not all VA inpatient encounters are included; 2) Encounters from the [facility] facilities going backup to 280 months. Location Location Details Encounter Type Encounter Number Reason For Visit Attending Provider ADM Date DC Date Status Disposition Source [address] [place] [address] [employer] [facility] Non-GME FHI1) OUTPATIENT [id number] ORLIN Montejo 08/20 Released w/o Limitations [address] [place], [place] [address]B [facility])(F amily Practic e Non-GME FHI1) [address] [place], [place] [address]B [facility])(Ped iatrics) OUTPATIENT [id number] sports physica l KATHERINE BARNHART 09/19 Released w/o Limitations [address] [place], [place] [address]B [facility])(P ediatri cs) [address] [place] [address] [employer] [facility])(Juan Francisco matology) OUTPATIENT [id number] DYSPLAS TIC NEVUS QUEENIE CELESTIN 10/31 Released w/o Limitations [address] [place], [place] [address]B [facility])(D ermatol ogy) [address] [place] [address] [employer] [facility])(Fam alexander Practice Non-GME FHI2) OUTPATIENT [id number] swollen tonsils ,sore throat, nausea KATHERINE RIVERA 01/14 Released w/o Limitations [address] [place] [address] [employer] [facility])(F amily Practic e Non-GME FHI2) [address] [place] [address] [employer] [facility])(Sco tt [facility] Team 3) OUTPATIENT [id number] pap smear FELIX RODRIGUEZ 01/24 Released w/o Limitations [address] [place] [address] [employer] [facility])(S cott [facility] Team 3) [address] [place] [address] [employer] [facility])(Sco tt [facility] Team 3) TELE CONSULT [id number] call back lab results COLLETTE MAY 02/17 [employer] [place] Team 3) [employer] ([facility]Ob/ Gospel Worker) TELE CONSULT [id number] pap results LAW BRUMFIELD 02/20 [employer] ([facility]O b/Gospel Worker) [employer] [place]Lao tt [facility] Team 3) TELE CONSULT [id number] Pt needs call back - ALYSIA Avalos 03/20 [employer] ([facility] Team 3) [facility] [employer] ([facility]Lao tt [facility] Team 3) OUTPATIENT [id number] f/u infecti on FELIX RODRIGUEZ 04/17 Released w/o Limitations [employer] [place] Team 3) [facility] [employer] [place]Lao [facility] Team 3) TELE CONSULT [id number] lab results FELIX RODRIGUEZ 04/20 [employer] ([facility] Team 3) [facility] [employer] ([facility]Gospel Worker ecology) OUTPATIENT [id number] annual exam [id number] RAMON RODRIGUEZ 01/17 Released w/o Limitations [employer] ([facility]G ynecolo gy) [employer] ([facility]Gospel Worker ecology) TELE CONSULT [id number] results AYDEN CARRANZA 01/31 [employer] ([facility]G ynecolo gy) [employer] ([facility]Gospel Worker ecology) OUTPATIENT [id number] colpo AYDEN CARRANZA 02/05 Released w/o Limitations [employer] [facility]G ynecolo gy) [employer] [facility]Gospel Worker ecology) TELE CONSULT [id number] results AYDEN CARRANZA 02/13 [employer] [facility]G ynecolo gy) [facility] [employer] ([facility]Gospel Worker ecology) TELE CONSULT [id number] results AYDEN CARRANZA 03/28 [facility] [employer] ([facility]G ynecolo gy) [facility] [employer] ([facility]Gospel Worker ecology) TELE CONSULT [id number] Maria Luz amaya about rominat ULI URIBE 04/10 [employer] ([facility]G ynecolo gy) [facility] [employer] ([facility]Ob/ Gospel Worker) TELE CONSULT [id number] cancell ing SILVA Leija 04/11 Referred for Appointment [facility] [employer] ([facility]O b/Gospel Worker) [facility] [employer] ([facility]Gospel Worker ecology) OUTPATIENT [id number] MERI 3 on polyp/ ? LEEP ULI URIBE 04/20 Released w/o Limitations [facility] [employer] ([facility]G ynecolo gy) [facility] [employer] ([facility]Ob/ Gospel Worker) TELE CONSULT [id number] SILVA LEIJA 08/17 Referred for Appointment [facility] [employer] ([facility]O b/Gospel Worker) [facility] [employer] ([facility]Gospel Worker ecology) OUTPATIENT [id number] colpo ULI URIBE 09/10 Released w/o Limitations [facility] [employer] ([facility]G ynecolo gy) [facility] [employer] ([facility]Gospel Worker ecology) OUTPATIENT [id number] f/u colpo - [phone] ULI URIBE 10/08 Released w/o Limitations [facility] [employer] [facility]G ynecolo gy) [facility] [employer] ([facility]Gospel Worker ecology) TELE CONSULT [id number] BC refill (orthot ricycle n) SILVA BERNARD 01/23 [facility] [employer] [facility]G ynecolo gy) [facility] [employer] ([facility]Gospel Worker ecology) OUTPATIENT [id number] colpo DANNY SALVADOR 03/01 Released w/o Limitations [facility] [employer] [facility]G ynecolo gy) [facility] [employer] [facility]Gospel Worker ecology) OUTPATIENT [id number] repeat pap - DANNY SALVADOR 03/06 Released w/o Limitations [facility] [employer] [facility] ([facility]G ynecolo gy) [address] [place] [address])(Lao [facility] Team 3) TELE CONSULT [id number] Solitario Rodriguez /[phone] 86/cadSUHAIL Benitez 03/[address] [place] [address] Group [employer] [facility])([facility] Team 3) [address] [place] [address])(Gospel Worker ecology) OUTPATIENT [id number] Vaginal dischar CHIDI StringerN 04/18 Released w/o Limitations [address] [place] [address] Group [facility])(G ynecolo gy) [address] [place] [address])([facility] Team 3) TELE CONSULT [id number] f/u UTI - Haylee - cad[facility] ALYSIA GAMING 08/[address] [place] [address] Group [facility])([facility] Team 3) [facility])(Gospel Worker ecology) OUTPATIENT [id number] 4 month f/u after colpo [id number] RAMON RODRIGUEZ 08/28 Released w/o Limitations [address] [place] [address])(G ynecolo gy) [address] [place] [address])([facility] Team 3) TELE CONSULT [id number] Notes Entered by: GEOFFREY NUGENT 14 Oct 2011 1559 ------- ------- ------- ------- -- Retro solitario aPrk [phone] - SUHAIL Salinas 10/[address] [place] [address])([facility] Team 3) [address] [place] [address])([facility] Cl[facility] Tm A Ad) TELE CONSULT [id number] Notes Entered by: COURTNEY JONES 24 Apr 2012 1300 ------- ------- ------- ------- -- Network results - Urgent Care 08/10/11 VANESA VALENTINE 04/24 [facility] [employer] [facility] ([facility]W arrior Op Med Cln Tm A Ad) [...] CERVICAL OR VAGINAL SMEAR TO LABORATORY 9 [facility] HUMAN PAPILLOMAVIRUS VACCINE, TYPES 6, 11, 16, 18, QUADRIVALENT (4VHPV), 3 DOSE SCHEDULE, FOR INTRAMUSCULAR USE 7 [facility] Non-Physician Phone Call To Patient/Provider Brief (5-10min) Non-Physician Phone Call To Patient/Provider Brief (5-10min) [phone] 2 SUHAIL SYKES Non-Physician Phone Call To Patient/Provider Brief (5-10min) Non-Physician Phone Call To Patient/Provider Brief (5-10min) [phone] 2 LESLEE GAMINGTOBY MARTITA [facility] Cervical Wet [place] Cervical Wet [place] 75333 1 CHIDI RUSHING [facility] Vaginal PHILIPP Prep Vaginal PHILIPP Prep [phone] 01 1 CHIDI RUSHING [facility] Non-Physician Phone Call To Patient/Provider Brief (5-10min) Non-Physician Phone Call To Patient/Provider Brief (5-10min) 39832 1 SUHAIL SYKES [facility] Screening papanicolaou smear; obtaining, preparing and conveyance of cervical or vaginal smear to laboratory 1 DANNY SALVADOR [facility] Colposcopy Cervix With Endocervical Curettage Colposcopy Cervix With Endocervical Curettage 69427 1 DANNY SALVADOR [facility] Test Test 34177 1 DANNY SALVADOR Patient was advised of negitive result DoD Colposcopy Cervix With Biopsy(s) With Endocervical Curettage Colposcopy Cervix With Biopsy(s) With Endocervical Curettage 58140 1 ULI URIBE [facility] Urine HCG, Test Urine HCG, Test 99950 1 ULI URIBE [facility] Colposcopy Colposcopy 80692 0 ULI URIBE [facility] Biopsy Cervical 0 AYDEN CARRANZA Test Test 22571 0 AYDEN CARRANZA Colposcopy Cervix With Biopsy(s) Colposcopy Cervix With Biopsy(s) 78646 0 AYDEN CARRANZA [facility] Intervention And Counseling On Ce ation Of Tobacco Use Intervention And Counseling On Cessation Of Tobacco Use 4000F 0 RAMON RODRIGUEZ [facility] current smoker current smoker 1034F 0 RAMON RODRIGUEZ Screening papanicolaou smear; obtaining, preparing and conveyance of cervical or vaginal smear to laboratory 0 RAMON RODRIGUEZ [facility] Human Papilloma Virus Vaccine, Quadrivalent Human Papilloma Virus Vaccine, Quadrivalent 19273 7 KATHERINE BARNHART DoD Social History Combined list of available smoking, tobacco, and other social history from Department of Defense and Veterans Affairs facilities. Social History Type Response Date Comment [facility] e This section is an empty social history section. DoD
--- OUTSIDE RECORDS SUMMARY | 2025-03-29 16:25 | XMS_ITS | Clinical Summary ---
Author Organization [facility] Address [address] [place] [address] Care Team Providers Care Administration Professional Name Role Phone Gus Elise Primary Care [...] Encounters Date Type Department Care Team Description 03/12/2025 Scan [facility] SRVCS Scanned, [facility] Lab (SCAN) 02/23/2025 Scan [facility] INFO SRVCS Scanned, [facility] Lab (SCAN) 02/10/2025 3:40 PM CDT Allied Health/Nurse Visit [address] [address] Gus Elise, DO Allied Health Visit 02/10/2025 Travel 02/04/2025 Scan [facility] INFO SRVCS Scanned, [facility] Lab (SCAN); Procedure (SCAN); Pathology (SCAN) 02/03/2025 Telephone [facility] Internal [address] [address] Gus Elise, DO Information 02/01/2025 Scan [facility] INFO SRVCS Scanned, Doc [facility] Ultrasound (SCAN); Lab (SCAN) 01/27/[address] [address] Gus Elise, DO Question 01/05/2025 Scan MG [...] st Contact Info) Description 06/29/2025 7:20 AM DIGITAL COMMENTATOR Office Visit [facility] Family & Internal Medicine - [address] [address] Gus Elise DO [address] [place] [phone] Health Maintenance Due Date Last Done Comments [...] Clinic) Hepatitis C Completed 07/14/2023 PHQ-2 (Physician [place]) Completed 11/09/2024 Hepatitis B Vaccines Completed 02/10/2025, [...] Associated Diagnosis Comments OUTSIDE LAB (SCAN ORDER) 03/12/2025 OUTSIDE LAB (SCAN ORDER) 02/23/2025 OUTSIDE LAB (SCAN ORDER) 02/23/2025 PATHOLOGY GENERIC (SCAN ORDER) 02/04/2025 OUTSIDE LAB (SCAN ORDER) 02/04/2025 PROCEDURE GENERIC (SCAN ORDER) 02/04/2025 OUTSIDE LAB (SCAN ORDER) 02/01/2025 OUTSIDE LAB (SCAN ORDER) 02/01/2025 OUTSIDE LAB (SCAN ORDER) 02/01/2025 ULTRASOUND GENERIC (SCAN ORDER) 02/01/2025 OUTSIDE LAB (SCAN ORDER) 01/05/2025 OUTSIDE LAB (SCAN ORDER) 01/03/2025 OUTSIDE LAB (SCAN ORDER) 01/03/2025 OUTSIDE CYTOPATH CERV/VAG INTERPRET (PAP) 08/26/2023 HEPATITIS C ANTIBODY Routine 07/14/2023 7:20 AM DIGITAL COMMENTATOR Encounter for preventative adult health care examination Screening for lipid disorders Screening for endocrine, metabolic and immunity disorder Need for hepatitis C screening test from Last 3 Months or Most Recently Relevant to Health Maintenance Results * OUTSIDE LAB (SCAN ORDER) (03/12/2025) Only the most recent of10 resultswithin the time period is included. 03/12/2025 us Doc [facility] Scanned SCANNING Final [...] C ANTIBODY ([facility] ONLY) (07/14/2023 7:20 AM DIGITAL COMMENTATOR) HEPATITIS C AB NON-REACTI VE NON-REACT ROB 07/14/2023 7:07 PM DIGITAL COMMENTATOR [facility] Comment: ANTIBODIES TO HCV NOT DETECTED. DOES NOT EXCLUDE THE POSSIBILITY OF EXPOSURE TO HCV. 07/14/2023 7:20 AM DIGITAL COMMENTATOR Gus Elise DO LABORATORY Final Re sult [facility] [address] [place] [address], [place] [phone] from Last 3 Months or Most Recently Relevant to Health Maintenance Insurance Care Teams Administration Professional Relationship Specialty Start Date End Date Gus Elise DO [address] [place] [phone] PCP - General FAMILY PRACTICE 06/25/23
--- OUTSIDE RECORDS SUMMARY | 2025-03-29 16:25 | XMS_ITS | Clinical Summary ---
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 Suspected causes include cytogenetic abnormalities, antiphospholipid syndrome (APS), anatomic, infectious, hormonal, male factor, and autoimmune. Up to 50% of cases of RPL will not have a clearly defined etiology, however with unexplained RPL that the chance for a future successful can exceed 50%-60% depending on maternal age and parity. Recommendations Completion of initial work-up ordered today with karyotype of the patient and her partner, lupus anticoagulant, sonohysterogram to evaluate for uterine anomalies Trend B-hCG in future pregnancies q48h with early ultrasound at ~6 weeks for patient reassurance in future pregnancies Would be happy to consult in after confirmation Consult to TIBURCIO slaughter to discuss options Encounters Date Type Department Care Team Description 03/24/2025 9:05 AM CDT Lab [facility] Outpatient Lab [address] [place] [address] Recurrent loss 03/24/2025 8:00 AM CDT Office Visit [facility] Medicine Maternal- Medicine [facility] [address] [place] [address] Recurrent loss (Primary Dx) 03/11/2025 Telephone [facility] Medicine Maternal- Medicine [address] [facility] [address] [place] [address] Rubi Juarez RN 02/09/2025 Telephone [facility] Medicine Obstetrics and Gynecology [address] [place] [phone] iRchie Abdul from Last 3 Months Surgical History Surgery Date Site/Laterality Comments COLONOSCOPY D&C FIRST TRIMESTER / TX INC OMPLETE / MISSED / SEPTIC / INDUCED Social History Tobacco Use Types Packs/Day Years Used Date Smoking Tobacco: Never Smokeless Tobacco: Never Tobacco Cessation:Counseling Given: Not Answered Comments Unknown Sex and Gender Information Value Date Recorded Sex Assigned at Female 2025 7:03 PM CDT Legal Sex Female 7:03 PM CDT Gender Identity Female 2025 7:03 PM CDT Sexual Orientation Not on file Obstetrics History Para Term AB IAB SAB Ectopic Multiple Livin g Live Births 4 4 4 Date Outcome GA Total Labor Labor/2nd/3rd Weight Sex Type Anes PTL Candis A1 A5 Name Clin SAB SAB SAB SAB Last Filed Vital Signs Vital Sign Reading Time Taken Comments Blood Pressure 115/79 03/24/2025 7:54 AM CDT Pulse 72 03/24/2025 7:54 AM CDT Temperature 37.3 C (99.1 F) 03/24/2025 7:54 AM CDT Respiratory Rate - - Oxygen Saturation 98% 03/24/2025 7:54 AM CDT Inhaled Oxygen Concentration - - Weight 75.1 kg (165 lb 9.6 oz) 03/24/2025 7:54 A M CDT Height 162.6 cm (5' 4) 03/24/2025 7:54 AM CDT Body Mass Index 28.43 03/24/2025 7:54 AM CDT Plan of Treatment Health Maintenance Due Date Last Done Comments Cervical Cancer Screening 1989 Depression Screening 1989 Hepatitis C Screening 1989 Varicella Vaccines (1 of 2 - 13+ 2-dose series) 2002 Regular Well Visit/Exam 18-64 2007 HPV Vaccines (1 - 3-dose SCD M series) 02/08/2016 Influenza Vaccine (#1) 2025 , 06/25/2023 DTaP/Tdap/Td Vaccine (2 - Td or Tdap) 06/25/2033 06/25/2023 Hepatitis B Screening Completed 02/10/2025 , 08/09/2024, 06/28/2024 Pneumococcal vaccine <65 Aged Out No longer eligible based on patient's age to complete this topic Procedures Procedure Name Priority Date/Time Associated Diagnosis Comments LUPUS ANTICOAGULANT PANEL PLUS REFLEXES Routine 03/24/2025 9:14 AM CDT Recurrent loss from Last 3 Months Results * Lupus Anticoagulant Panel plus Reflexes (03/24/2025 9:14 AM CDT) PT 10.6 10.2 - 13.5 sec Comment:Testing performed by : [facility], [address] [place]., [address] INR 0.94 0.90 - 1.20 [facility] Comment: Interpretive data Oral anticoagulant therapeutic ranges: Venous thromboembolism prophylaxis or treatment: 2.0-3.0 CARDIOLOGY Standard range: 2.0-3.0 High-intensity range: 2.5-3.5 Refer to indication-specific guidelines for appropriate target ranges for prosthetic heart valve replacement. Current interpretive data was last revised on 2019. Testing performed by: [facility], [address] [place]., [address] aPTT 29 26 - 38 sec [facility] Comment: Interpretive Data Heparin therapeutic range: 66.0 - 100.0 seconds. Range based on correlation with therapeutic heparin activity range of 0.3 - 0.7 Units/mL. Current interpretive data was last revised on 2023. Testing performed by: [facility], [address] [place]., [address] DRVVT screen ratio 0.89 0.00 - 1.20 Ratio [facility] Comment:Testing performed by : [facility], [address] [place]., [address] SCT Screen Ratio 0.85 0.00 - 1.16 Ratio [facility] Comment:Testing performed by : [facility], [address] [place]., [address] Lupus anticoagulant, interp Negative [facility] Comment: Interpretive data Lupus anticoagulants (LA) are acquired autoantibodies that interfere with invitro clotting in a phospholipid-dependent manner and are associated with an increased risk of thromboembolic events and complications. Routine APTT and PT reagents are not sensitive to inhibition by LA, and should not be used as screening tests. The laboratory follows ISTH 2009 guidelines (Dominico, 2009) for LA testing and interpretation: Two sensitive methods performed in parallel improve sensitivity. One activates the intrinsic pathway (Silica-APTT) and one activates the common pathway (dilute Tha's viper venom time - dRVVT). Each method begins with a SCREEN step, and if neither is prolonged, no further testing is performed and the interpretation is: NO LA DETECTED. If either screening test is prolonged, then additional steps are performed to provide specificity. A POSITIVE LA result occurs if either one or both tests produce a positive CONFIRM result. An INDETERMINATE result means results cannot distinguish between coagulopathy and a weak LA. Consider retesting when PT/INR is less prolonged, if clinical indicated. To support laboratory confirmation of antiphospholipid syndrome, persistence of a positive LA result should be verified by repeat testing at least 12 weeks later (Finnakis, 2006). Prior to LA testing, the laboratory screens patient plasma samples for evidence of heparin contamination, which is neutralized prior to LA testing, and the following interfering conditions which require canceling LA testing: INR >3.0, fibrinogen < 100 mg/dl, use of direct oral or IV anticoagulants other than heparin. References: 1) Andrews V, Paz A, Chelsie JH, Orhilda TL, Nader M, De Groot PG. Update of the guidelines for lupus anticoagulant detection. J Thromb Haemost. 2009; 7:2073-1862. 2. Denzel S. et al. International consensus statement on an update of the classification criteria for definite antiphospholipid syndrome (APS). J Thromb Haemost. 2006; 4:295-306. Current interpretive data was last revised on 2018 Testing performed by: [facility], [address] [place]., [address] Blood 03/24/2025 9:14 AM CDT 03/24/2025 12:22 PM CDT us Karie Johnson MD LAB BLOOD ORDERABLES Final R esult [facility] [address] Department [place] [address] from Last 3 Months Insurance [facility] CHOICE PLUS [facility] CHOICE PLUS Care Teams Organ Pipe Finisher Relationship Specialty Start Date End Date Gus Elise DO [address] [place] [phone] PCP - General Family Medicine 02/08/25
[2025-03-29 17:38] LABS: Free T4 Free Thyroxine 1.22 ng/dL (0.78-2.19)
[2025-03-29 17:52] LABS: Thyroid Stimulating Hormone Reflex 0.508 uIU/mL (0.465-4.68)
== END 2025-03-29 16:23 | disposition home or self-care (01) ==
LOC: ANHLAB 16:24
PROVIDERS: Obstetrics & Gynecology; PCP Student in an Organized Health Care Education/Training Program; Visit Provider Student in an Organized Health Care Education/Training Program
DX: R79.89 Other specified abnormal findings of blood chemistry (principal)
CPT/HCPCS: 36415; 84439; 84443

== ENCOUNTER 2025-05-18 10:44 | Outpatient (CLI) | payer OTHER, SELFPAY ==
[2025-05-18 12:18] LABS: Free T4 Free Thyroxine 1.24 ng/dL (0.78-2.19)
[2025-05-18 12:33] LABS: Thyroid Stimulating Hormone 0.270 uIU/mL (0.465-4.680)
--- OUTSIDE RECORDS SUMMARY | 2025-05-18 13:36 | XMS_ITS | Clinical Summary ---
Author Organization [place] [id number] [facility] Address [address] [place] [address] Care Team Providers Care Christmas Tree Grader Name Role Phone Gus Elise DO Primary Care Provide r Allergies No known active allergies Medications vit no.162-[id number] c 28 mg iron- 800 mcg tablet Take 1 tablet by mouth 01/19/2025 Active vitamin D3-vitamin K2 25 mcg (1,000 unit)-90 mcg tablet,disintegr ating Take by mouth Active azithromycin (ZITHROMAX) 500 mg tablet Take 1 tablet (500 mg total) by mouth daily for 3 days 3 tablet 05/17/2025 Active Active Problems Problem Noted Date Diagnosed [...] consult in after confirmation Consult to TIBURCIO placed to discuss options Encounters Date Type Department Care Team Description 05/18/2025 Orders Only [facility] Reproductive Endocrinology [address] [place] [phone] Dino Armando MD Screening for thyroid disorder (Primary Dx); Encounter for fertility testing; Screening for rubella; Screening for viral disease; Encounter for blood typing; 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 current 05/17/2025 Orders Only [facility] Reproductive Endocrinology [address] [place] [address] [place] [phone] Dino Armando MD 05/16/2025 9:00 AM CDT Telemedicine [facility] Reproductive Endocrinology [address] [place] [phone] Dino Armando MD Recurrent loss (Primary Dx) 04/01/2025 9:36 AM CDT - 04/01/2025 11:59 PM CDT Hospital Encounter [facility] [address] [place] [address] Recurrent loss Discharge Disposition: Discharge to home or self care 03/24/2025 9:05 AM CDT Lab [facility] Outpatient Lab [address] [place] [address] Recurrent loss 03/24/2025 8:00 AM CDT Office Visit [facility] Medicine Maternal- Medicine [facility] [address] [place] [phone] Recurrent loss (Primary Dx) 03/11/2025 Telephone [facility] Maternal- Medicine [address] [facility] [address] [facility] 7th [address] [place] [address] Rubi Juarez RN from Last 3 Months Surgical History Surgery Date Site/Laterality Comments COLONOSCOPY 07/28/2023 - 07/27/2024 D&C FIRST TRIMESTER / TX INC OMPLETE / MISSED / SEPTIC / INDUCED Medical History Medical History Date Comments Thyroid disease Ovarian cyst Family History Medical History Relation Name Comments Diabetes Mother Lung cancer Paternal Grandfather Diabetes Paternal Grandmother Heart disease Paternal Grandmother Obesity Paternal Grandmother Relation Name Status Comments Mother Paternal Grandfather Paternal Grandmother Social History Tobacco Use Types Packs/Day Years Used Date Smoking Tobacco: Former Cigarettes 2 - 2020 Smokeless Tobacco: Never Tobacco Cessation:Counseling Given: Not Answered Alcohol Use Standard Drinks/Week Comments Yes 2 (1 standard drink = 0.6 oz pur e alcohol) AUDIT-C Answer Date Recorded Q1: How often do you have a drink containing alc ohol? 2-3 times a week 05/09/2025 Q2: How many drinks containi ng alcohol do you have on a typical day when you are drinking? 1 or 2 05/09/2025 Q3: How often do you have si x or more drinks on one occasion? Never 05/09/2025 Comments Unknown Sex and Gender Information Value [...] Anes PTL Candis A1 A5 Name Clin 04/23 SAB 11/24 SAB Biochemic al 02/03 SAB 03/13 SAB Biochemic al Last Filed Vital Signs Vital Sign Reading Time Taken Comments Blood Pressure 115/79 03/24/2025 7:54 AM CDT Pulse 72 03/24/2025 7:54 AM CDT Temperature 37.3 C (99.1 F) 03/24/2025 7:54 AM CDT Respiratory Rate - - Oxygen Saturation 98% 03/24/2025 7:54 AM CDT Inhaled Oxygen Concentration - - Weight 73.5 kg (162 lb) 05/09/2025 7:01 AM CDT Height 162.6 cm (5' 4) 05/09/2025 7:01 AM CDT Body Mass Index 27.81 05/09/2025 7:01 AM CDT Plan of Treatment Health Maintenance [...] Procedure Name Priority Date/Time Associated Diagnosis Comments US SONOHYSTEROGRAPHY Schedule Routine, Read Routine (OP Routine) 04/01/2025 9:36 AM CDT Recurrent loss LUPUS ANTICOAGULANT PANEL PLUS REFLEXES Routine 03/24/2025 9:14 AM CDT Recurrent loss CHROMOSOME ANALYSIS Routine 03/24/2025 9 :14 AM CDT Recurrent loss from Last 3 Months Results * US Sonohysterography (04/01/2025 9:36 AM CDT) [place] No free fluid visualized VIEWPOINT Endometrial Thickness 8.2 mm&millim eters VIEWPOINT Anatomical Region Laterality Modality Pelvis N/A Ultrasound 04/01/2025 9:36 AM CDT Impressions 04/01/2025 11:17 AM CDT 35 yo patient who presents for pelvic ultrasound in the setting of recurrent loss. 1. The uterus is anteverted and normal in size and contour. 2. The endometrium measures 8.2 mm. There are no polyps or fibroids identified on the SIS within the endometrial cavity. 3. The bilateral ovaries are normal in size and appearance. The right ovary is notable for a simple cyst measuring 19 x 17 x 21 mm, physiologic in appearance. 4. There is no pelvic free fluid. 5. 3D coronal imaging of the uterus is unremarkable and confirms the above findings. These results were communicated to the patient and her partner. Narrative Procedure Note Lucy Membreno MD - 04/01/2025 IMPRESSION: 35 yo patient who presents for pelvic ultrasound in the setting ofrecurrent loss. 1. The uterus is anteverted and normal in size and contour. 2. The endometrium measures 8.2 mm. There are no polyps or fibroidsidentified on the SIS within the endometrial cavity. 3. The bilateral ovaries are normal in size and appearance. The rightovary is notable for a simple cyst measuring 19 x 17 x 21 mm, physiologicin appearance. 4. There is no pelvic free fluid. 5. 3D coronal imaging of the uterus is unremarkable and confirms the abovefindings. These results were communicated to the patient and her partner. us Karie Johnson MD IMG US PROCEDURES Final Resu lt * Lupus Anticoagulant Panel plus Reflexes (03/24/2025 9:14 AM CDT) PT 10.6 10.2 - 13.5 sec Comment:Testing performed by : [facility], [address] [place]., [address] INR 0.94 0.90 - 1.20 [facility] Comment: Interpretive data Oral anticoagulant therapeutic ranges: Venous thromboembolism prophylaxis or treatment: 2.0-3.0 CARDIOLOGY Standard range: 2.0-3.0 High-intensity range: 2.5-3.5 Refer to indication-specific guidelines for appropriate target ranges for prosthetic heart valve replacement. Current interpretive data was last revised on 2019. Testing performed by: [facility], [address] [place]., [address] aPTT 29 26 - 38 sec [facility] Comment: Interpretive Data Heparin therapeutic range: 66.0 - 100.0 seconds. Range based on correlation with therapeutic heparin activity range of 0.3 - 0.7 Units/mL. Current interpretive data was last revised on 2023. Testing performed by: [facility], [address] [place]., [address] DRVVT screen ratio 0.89 0.00 - 1.[address] [facility] Comment:Testing performed by : [facility], [address] [facility], [place]., [address] SCT Screen Ratio 0.85 0.00 - 1.[address] [facility] Comment:Testing performed by : [facility], [address] [place]., [address] Lupus anticoagulant, interp Negative [facility] Comment: Interpretive data Lupus anticoagulants (LA) are [...] repeat testing at least 12 weeks later (Denzel, 2006). Prior to LA testing, the laboratory screens patient plasma samples for evidence of heparin contamination, which is neutralized prior to LA testing, and the following interfering conditions which require canceling LA testing: INR >3.0, fibrinogen < 100 mg/dl, use of direct oral or IV anticoagulants other than heparin. References: 1) Andrews Perez, Paz A, Chelsie JH, Orhilda TL, Nader M, Flanagan PG. Update of the guidelines for lupus anticoagulant detection. J Thromb Haemost. 2009; 7:2337-2149. 2. Denzel Pompa et al. International consensus statement on an update of the classification criteria for definite antiphospholipid syndrome (APS). J Thromb Haemost. 2006; 4:295-306. Current interpretive data was last revised on 2018 Testing performed by: [facility], [address] [place]., [address] Blood 03/24/2025 9:14 AM CDT 03/24/2025 12:22 PM CDT us Karie Johnson MD LAB BLOOD ORDERABLES Final R esult [facility] [address] Department [place] [address] * Chromosome analysis (03/24/2025 9:14 AM CDT) [facility] Result summary Normal [facility] Interpretation See Footnote [facility] Comment:RESULT: No chromosom e abnormality was apparent. [facility] Result 46,XX [facility] Reason for Referral See Footnote [facility] Comment:RESULT: recurrent pr egnancy loss [facility] Specimen Blood [facility] Chromosome analysis, source Not Reported [facility] Method See Footnote [facility] Comment:RESULT: 72 hour cult ure w/mitogens [facility] Banding method See Footnote [facility] Comment: Band Resolution: 550-179 Stain Name Cells Analyzed Cells Karyograms Counted Prepared GTL 5 15 2 Total 5 15 2 Dobson to Stain Name: GTL=G-banding; QFQ=Q-banding; DAPI=DAPI-staining; CBL=C-banding; AGNOR=Silver-staining; NON=Non-banded The sum of Cells Analyzed and Cells Counted equals the total cells examined. Chromosome analysis, Additional info See Footnote [facility] Comment: A portion of the testing process was performed at [facility] site [id number], [id number]. [facility] Released By See Footnote [facility] Comment: RESULT: Tad Aguilar, Ph.D. Test Performed by: [facility] - [address] [address] [employer] Machine: Julissa Holliday Ph.D.; CLIA# [id number] Blood 03/24/2025 9:14 AM CDT 03/24/2025 9:52 AM CDT Flip [facility] - 04/04/2025 4:21 PM CDT Is this going to [facility]?->No us Karie Johnson MD LAB GENETIC TESTING Final Re sult [facility] [address] Department [place] [address] [facility] Lab from Last 3 Months Insurance [employer] Care Teams Christmas Tree Grader Relationship Specialty Start Date End Date Gus Elise DO [address] [place] [address] [phone] PCP - General Family Medicine 02/08/25
--- OUTSIDE RECORDS SUMMARY | 2025-05-18 13:36 | XMS_ITS | Encounter Summary ---
Author Organization [facility] Address [address] [facility] [address] [place] [address] Phone Care Team Providers Care Manager Office Name Role Phone Gus Elise DO Primary Care Provide r Encounter Details Date Type Department Care Team (Late st Contact Info) Description 05/18/[address] [facility] Medicine Reproductive Endocrinology [address] [phone] Dino Armando MD [address] [address] Screening for thyroid disorder (Primary Dx); Encounter for fertility testing; Screening for rubella; Screening for viral disease; Encounter for blood typing; 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 current Social History Tobacco Use Types Packs/Day Years Used Date Smoking Tobacco: Former Cigarettes 2020 Smokeless Tobacco: Never Alcohol Use Standard Drinks/Week Comments Yes 2 [...] PM CDT Sexual Orientation Not on file documented as of this encounter Plan of Treatment Scheduled Orders Name Type Priority Associated Diagnoses Orde r Schedule T4, free Lab Routine Screening for thyroid disorder Expected: 05/18/2025, Expires: 05/18/2026 TSH Lab Routine Screening for thyroid disorder Expected: 05/18/2025, Expires: 05/18/2026 Antimullerian hormone (AMH) Lab Routine Encounter for fertility testing Expected: 05/18/2025, Expires: 05/18/2026 Varicella Zoster IgG antibody Blood Microbiology Routine Screening for viral disease Expected: 05/18/2025, Expires: 11/16/2025 Rubella IgG antibody Blood Microbiology Routine Screening for rubella Expected: 05/18/2025, Expires: 11/16/2025 ABO/Rh Lab Routine Encounter for blood typing Expected: 05/18/2025, Expires: 05/18/2026 Antibody screen Lab Routine Encounter for blood typing Expected: 05/18/2025, Expires: 05/18/2026 Beta 2 glycoprotein IgG Ab Lab Routine 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 current Expected: 05/18/2025, Expires: 11/16/2025 Beta 2 glycoprotein IgM Ab Lab Routine 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 current Expected: 05/18/2025, Expires: 05/18/2026 documented as of this encounter Visit Diagnoses Diagnosis Screening for thyroid disorder- Primary Encounter for fertility testing Screening for rubella Screening examination for rubella Screening for viral disease Special screening examination for unspecified viral disease Encounter for blood typing 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 current documented in this encounter Care Teams Manager Office Relationship Specialty Start Date End Date Gus Elise DO [address] [place] [id number] PCP - General Family Medicine 02/08/25 documented as of this encounter
--- OUTSIDE RECORDS SUMMARY | 2025-05-18 13:36 | XMS_ITS | Encounter Summary ---
Author Organization [facility] Address [address] [place] [address] Phone Care Team Providers Care Cashier General Name Role Phone Gus Elise DO Primary Care Provide r Encounter Details Date Type Department Care Team (Late st Contact Info) Description 05/17/2025 Orders Only [facility] Medicine Reproductive Endocrinology [address] [phone] Dino Armando MD [address] [address] Social History Tobacco Use Types Packs/Day Years [...] on file documented as of this encounter Ordered Prescriptions Prescription Sig Dispense Quantity Refills Last Filled Start Date End Date azithromycin (ZITHROMAX) 500 mg tablet Take 1 tablet (500 mg total) by mouth daily for 3 days 3 tablet 05/17/2025 05/20/2025 documented in this encounter Plan of Treatment Not on file documented as of this encounter Visit Diagnoses Not on filedocumented in this encounter Care Teams Cashier General Relationship Specialty Start Date End Date Gus Elise DO [address] [place] [phone] PCP - General Family Medicine 02/08/25 documented as of this encounter
[2025-05-19 07:09] LABS: Varicella-Zoster Ab, IgG Reactive (Non Reactive)
[2025-05-19 14:08] LABS: Beta-2 Glycoprotein I Ab, IgG <9 (0-20)
== END 2025-05-18 10:45 | disposition home or self-care (01) ==
PROVIDERS: PCP Student in an Organized Health Care Education/Training Program
DX: N96 Recurrent pregnancy loss (principal); Z11.59 Encounter for screening for other viral diseases; Z01.83 Encounter for blood typing; Z31.41 Encounter for fertility testing; Z13.29 Encounter for screening for other suspected endocrine disorder
CPT/HCPCS: 36415; 82166; 84439; 84443; 86146; 86762; 86787; 86850; 86900; 86901

== ENCOUNTER 2025-05-23 10:52 | Outpatient (CLI) | payer OTHER, SELFPAY ==
[2025-05-23 11:54] LABS: Beta HCG Quantitative 31.42 mIU/ML
--- OUTSIDE RECORDS SUMMARY | 2025-05-23 12:26 | XMS_ITS | Clinical Summary ---
Author Organization [facility] Address [address] [place] [address] Care Team Providers Care Malt Specifications Control Assistant Name Role Phone Gus Elise Primary [...] Prefilled Syringe) 06/25/2023 Hepatitis B(Engerix B Adult) 02/10/2025,08/09/19,06/28/2024 Tdap (Adacel) 06/25/2023 Family History Medical History [...] st Contact Info) Description 06/29/2025 7:20 AM CYTOGENETIC TECHNOLOGIST Office Visit [facility] Family & Internal Medicine [address] [phone] Gus Elise DO [address] [place] [phone] Health Maintenance Due Date Last Done Comments HPV Vaccines (1 - 3-dose SCD M series) 02/08/2016 Influenza Adult (#1) 2025 06/28/2024, 06/25/2023 Annual Physical 06/28/2025 06/28/2024, 06/25/2023 Cervical Cancer Screening Pa p Smear (Age 30 to 64) Every 3 Years 08/26/2026 08/26/2023, 08/10/2021 Cervical Cancer Screening Pa p with HPV Testing (Age 30 to 64) Every 5 Years 08/26/2028 08/26/2023, 08/26/2023 Cervical Cancer Screening with HPV 08/26/2028 DTaP, Tdap and Td Vaccines ( 2 - Td or Tdap) 06/25/2033 06/25/2023 COVID-19 Vaccine ( - 2024-2 6 season) 2112 Postponed from 03/28 (Going to Outside Clinic) Hepatitis C Completed 07/14/2023 PHQ-2 (Physician [place]) Completed 11/09/2024 Hepatitis B Vaccines Completed 02/10/2025, 08/09/2024, 06/28/2024 Hepatitis A Vaccines Aged Out No long er eligible based on patient's age to complete [...] ORDER) 02/23/2025 OUTSIDE LAB (SCAN ORDER) 02/23/2025 OUTSIDE CYTOPATH CERV/VAG INTERPRET (PAP) 08/26/2023 HEPATITIS C ANTIBODY Routine 07/14/2023 7:20 AM CYTOGENETIC TECHNOLOGIST Encounter for preventative adult health care examination Screening for lipid disorders Screening for endocrine, metabolic and immunity disorder Need for hepatitis C screening test from Last 3 Months or Most Recently Relevant to Health Maintenance Results * OUTSIDE LAB (SCAN ORDER) (03/12/2025) Only the most recent of3 resultswithin the time period is included. 03/12/2025 Result [facility] Scanned SCANNING Final Resu lt * PAP SMEAR WITH HPV (08/26/2023) 08/26/2023 [facility] [employer] Scanned SCANNING Final Resu lt * HEPATITIS C ANTIBODY ([facility] ONLY) (07/14/2023 7:20 AM CYTOGENETIC TECHNOLOGIST) HEPATITIS C AB NON-REACTI VE NON-REACT ROB 07/14/2023 7:07 PM CYTOGENETIC TECHNOLOGIST [facility] Comment: ANTIBODIES TO HCV NOT DETECTED. DOES NOT EXCLUDE THE POSSIBILITY OF EXPOSURE TO HCV. 07/14/2023 7:20 AM CYTOGENETIC TECHNOLOGIST Gus Elise DO LABORATORY Final Re sult [facility] [address] [place] [address], [phone] from Last 3 Months or Most Recently Relevant to Health Maintenance Insurance Care Teams Malt Specifications Control Assistant Relationship Specialty Start Date End Date Gus Elise DO [address] [place] [address] [phone] PCP - General FAMILY PRACTICE 06/25/23
--- OUTSIDE RECORDS SUMMARY | 2025-05-23 12:26 | XMS_ITS | Clinical Summary ---
Author Organization [place] [address] [facility] Address [address] [place] [address] Care Team Providers Care Shuttle Final Inspector Name Role Phone Gus Elise DO Primary Care Provide r Allergies No known active allergies Medications vit no.[id number] ic 28 mg iron- 800 mcg tablet Take 1 tablet by mouth 01/19/2025 Active vitamin D3-vitamin K2 25 mcg (1,000 unit)-90 mcg tablet,disinteg rating Take by mouth Active azithromycin (ZITHROMAX) 500 mg tablet Take 1 tablet (500 mg total) by mouth daily for 3 days 3 tablet 05/17/2025 5 Active Problems Problem Noted Date Diagnosed Date [...] to consult in after confirmation Consult to TIBURCIOJanel slaughter to discuss options Encounters Date Type Department Care Team Description 05/18/2025 Orders Only [facility] Reproductive Endocrinology [address] [facility] [address] [place] [phone] Dino Armando MD Screening for thyroid disorder (Primary Dx); Encounter for fertility testing; Screening for rubella; Screening for viral disease; Encounter for blood typing; 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 current 05/17/2025 Orders Only [facility] Reproductive Endocr[facility]ology [address] [place] [address] [place] [phone] Dino Armando MD 05/16/2025 9:00 AM CDT Telemedicine [facility] Reproductive Endocr[facility] [address] [facility] [address] [place] [phone] Dino Armando MD Recurrent loss (Primary Dx) 04/01/2025 9:36 AM CDT - 04/01/2025 11:59 PM CDT Hospital Encounter [facility] [address] [facility] [address] [place] [phone] Recurrent loss Discharge Disposition: Discharge to home or self care 03/24/2025 9:05 AM CDT Lab [facility] Outpatient Lab [address] [place] [address] Recurrent loss 03/24/2025 8:00 AM CDT Office Visit [facility] Medicine Maternal- Medicine [facility] [address] [facility] Medical Office Building [address] [place] [phone] Recurrent loss (Primary Dx) 03/11/2025 Telephone [facility] Maternal- Medicine [address] [facility] 7th Floor [address] [place] [phone] Rubi Juarez RN from Last 3 Months [...] Procedure Name Priority Date/Time Associated Diagnosis Comments BETA 2 GLYCOPROTEIN IGG AB Routine 05/18/2025 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 current ANTIBODY SCREEN Routine 05/18/2025 Encounter for blood typing ABO/RH Routine 05/18/2025 Encounter for blood typing TSH Routine 05/18/2025 Screening for thyroid disorder T4, FREE Routine 05/18/2025 Screening for thyroid disorder RUBELLA IGG Routine 05/18/2025 Screening for rubella VARICELLA ZOSTER ANTIBODY, IGG Routine 05/18/2025 Screening for viral disease US SONOHYSTEROGRAPHY Schedule Routine, Read Routine (OP Routine) 04/01/2025 9:36 AM CDT Recurrent loss LUPUS ANTICOAGULANT PANEL PLUS REFLEXES Routine 03/24/2025 9:14 AM CDT Recurrent loss CHROMOSOME ANALYSIS Routine 03/24/2025 9 :14 AM CDT Recurrent loss from Last 3 Months Results * Beta 2 glycoprotein IgG Ab (05/18/2025) SCRIBED Beta-2 Glyco 1 IgG <9 EXTERNAL LAB Blood 05/18/2025 Dino Armando MD LAB BLOOD ORDERABLES Final Result EXTERNAL LAB * ABO/Rh (05/18/2025) SCRIBED ABO/Rh O+ EXTERNAL LAB SCRIBED Indirect Antiglobulin Negative neg - Pos EXTERNAL LAB Blood 05/18/2025 Dino Armando MD LAB BLOOD BANK TEST ORDERA BLES Final Result EXTERNAL LAB * Rubella IgG antibody Blood (05/18/2025) SCRIBED Rubella IGG Positive EXTERNAL LAB Comment:34.8 Blood 05/18/2025 Dino Armando MD LAB MICROBIOLOGY - GENERAL ORDERABLES Final Result EXTERNAL LAB * Antibody screen (05/18/2025) SCRIBED Indirect Antiglobulin Negative Neg - Pos EXTERNAL LAB Blood 05/18/2025 Dino Armando MD LAB BLOOD BANK TEST ORDERA BLES Final Result EXTERNAL LAB * Varicella Zoster IgG antibody Blood (05/18/2025) SCRIBED Varicella Zoster, IgG Positive EXTERNAL LAB Blood 05/18/2025 Dino Armando MD LAB MICROBIOLOGY - GENERAL ORDERABLES Final Result EXTERNAL LAB * (ABNORMAL) TSH (05/18/2025) Scribed TSH 0.27(A) 0.47 - 4.68 mcU/mL EXTERNAL LAB Blood 05/18/2025 Dino Armando MD LAB BLOOD ORDERABLES Final Result EXTERNAL LAB * T4, free (05/18/2025) SCRIBED T4, Free 1.24 0.78 - 2.19 mcg/dL EXTERNAL LAB Blood 05/18/2025 Dino Armando MD LAB BLOOD ORDERABLES Final Result Performing Organization Address City/[facility]/ZIP Co de Phone Number EXTERNAL LAB * US Sonohysterography (04/01/2025 9:36 AM CDT) [...] - 13.5 sec Comment:Testing performed by : [facility], [address] [place]., [address] INR 0.94 0.90 - 1.20 [facility] Comment: Interpretive data Oral anticoagulant therapeutic ranges: Venous thromboembolism prophylaxis or treatment: 2.0-3.0 CARDIOLOGY Standard range: 2.0-3.0 High-intensity range: 2.5-3.5 Refer to indication-specific guidelines for appropriate target ranges for prosthetic heart valve replacement. Current interpretive data was last revised on 2019. Testing performed by: [facility], [address] [place]., [address] aPTT 29 26 - 38 sec [facility] Comment: Interpretive Data Heparin therapeutic range: 66.0 - 100.0 seconds. Range based on correlation with therapeutic heparin activity range of 0.3 - 0.7 Units/mL. Current interpretive data was last revised on 2023. Testing performed by: [facility], [address] [place]., [address] DRVVT screen ratio 0.89 0.00 - 1.20 Ratio [facility] Comment:Testing performed by : [facility], [address] [place]., [address] SCT Screen Ratio 0.85 0.00 - 1.16 Ratio [facility] Comment:Testing performed by : [facility], [address] [place]., [address] Lupus anticoagulant, interp Negative [facility] Comment: Interpretive data Lupus anticoagulants (LA) [...] 1) Andrews V, Paz A, Chelsie JH, Orjamarl TL, Nader M, De Marlyn PG. Update of the guidelines for lupus anticoagulant detection. J Thromb Haemost. 2009; 7:4649-6280. 2. Denzel Pompa et al. International consensus statement on an update of the classification criteria for definite antiphospholipid syndrome (APS). J Thromb Haemost. 2006; 4:295-306. Current interpretive data was last revised on 2018 Testing performed by: [facility], [address] [place]., [address] Blood 03/24/2025 9:14 AM CDT 03/24/2025 12:22 PM CDT us Karie Johnson MD LAB BLOOD ORDERABLES Final R esult [facility] [address] [place] [address] * Chromosome analysis (03/24/2025 9:14 AM CDT) [facility] Result summary Normal [facility] Lab [facility] Interpretation See Footnote [facility] Comment:RESULT: No chromosom e abnormality was apparent. [facility] Result 46,XX [facility] CH[facility] Reason for Referral See Footnote [facility] Comment:RESULT: recurrent pr egnancy loss [facility] Specimen Blood [facility] Chromosome analysis, source Not Reported [facility] Method See Footnote [facility] Comment:RESULT: 72 hour cult ure w/mitogens [facility] Banding method See Footnote [facility] Comment: Band Resolution: 550-099 Stain Name Cells Analyzed Cells Karyograms Counted Prepared GTL 5 15 2 Total 5 15 2 Dobson to Stain Name: GTL=G-banding; QFQ=Q-banding; DAPI=DAPI-staining; CBL=C-banding; AGNOR=Silver-staining; NON=Non-banded The sum of Cells Analyzed and Cells Counted equals the total cells examined. Chromosome analysis, Additional info See Footnote [facility] Comment: A portion of the testing process was performed at [facility] Research site [id number], [id number]. [facility] Released By See Footnote [facility] Comment: RESULT: Tad Aguilar, Ph.D. Test Performed by: [facility] - [address] [address] Personnel Psychologist: Julissa Holliday Ph.D.; CLIA# [id number] Blood 03/24/2025 9:14 AM CDT 03/24/2025 9:52 AM CDT Flip [facility] - 04/04/2025 4:21 PM CDT Is this going to [facility]?->No us Karie Johnson MD LAB GENETIC TESTING Final Re sult [facility] [address] [place] [address] [place] ref Lab from Last 3 Months Insurance CHOICE PLUS [facility] CHOICE PLUS Care Teams Shuttle Final Inspector Relationship Specialty Start Date End Date Gus Elise DO [address] [place] [phone] PCP - General Family Medicine 02/08/25
== END 2025-05-23 10:53 | disposition home or self-care (01) ==
LOC: ANHLAB 10:53
PROVIDERS: PCP Student in an Organized Health Care Education/Training Program; Visit Provider Student in an Organized Health Care Education/Training Program
DX: N91.2 Amenorrhea, unspecified (principal)
CPT/HCPCS: 36415; 84702

== ENCOUNTER 2025-05-25 11:09 | Outpatient (CLI) | payer OTHER, SELFPAY ==
[2025-05-25 12:06] LABS: Beta HCG Quantitative 97.47 mIU/ML
--- OUTSIDE RECORDS SUMMARY | 2025-05-25 12:45 | XMS_ITS | Clinical Summary ---
Author Organization [place] [id number] [facility] Address [address] [place] [address] Care Team Providers Care Electrical Cad Designer Name Role Phone Gus Elise DO Primary Care Provide r Allergies No known active allergies Medications vit no.[id number] ic 28 mg iron- 800 mcg tablet Take 1 tablet by mouth 01/19/2025 Active vitamin D3-vitamin K2 25 mcg (1,000 unit)-90 mcg tablet,disinteg rating Take by mouth Active azithromycin (ZITHROMAX) 500 mg tablet Take 1 tablet (500 mg total) by mouth daily for 3 days 3 tablet 05/17/2025 Active Problems Problem Noted Date Diagnosed Date [...] Encounters Date Type Department Care Team Description 05/25/2025 Results Follow-Up [facility] Reproductive Endocrinology [address] [place] [address] [place] [phone] Dino Armando MD T4, free, TSH, Antimullerian hormone (AMH), Additional followed-up results: 5 05/18/2025 Orders Only [facility] Reproductive Endocrinology [address] [place] [address] [place] [phone] Dino Armando MD Screening for thyroid disorder (Primary Dx); Encounter for fertility testing; Screening for rubella; Screening for viral disease; Encounter for blood typing; 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 current 05/17/2025 Orders Only [facility] Reproductive Endocrinology [address] [place] [address] [place] [phone] Dino Armando MD 05/16/2025 9:00 AM CDT Telemedicine [facility] Reproductive Endocrinology [address] [place] [address] [place] [address] [phone] Dino Armando MD Recurrent loss (Primary Dx) 04/01/2025 9:36 AM CDT - 04/01/2025 11:59 PM CDT Hospital Encounter [facility] [address] [facility] [address] [place] [address] Recurrent loss Discharge Disposition: Discharge to home or self care 03/24/2025 9:05 AM CDT Lab [facility] Outpatient Lab [address] [place] [phone] Recurrent loss 03/24/2025 8:00 AM CDT Office Visit [facility] Medicine Maternal- Medicine [facility] [address] [facility] Medical Office Building [address] [place] [phone] Recurrent loss (Primary Dx) 03/11/2025 Telephone [facility] Maternal- Medicine [facility] 7th Floor [address] [place] [address] Rubi Juarez RN from Last [...] Used Date Smoking Tobacco: Former Cigarettes 2 2020 Smokeless Tobacco: Never Tobacco Cessation:Counseling Given: [...] ABO/RH Routine 05/18/2025 Encounter for blood typing ANTIMULLERIAN HORMONE (AMH) Routine 05/18/2025 Encounter for fertility testing TSH Routine 05/18/2025 Screening for thyroid disorder [...] BLOOD ORDERABLES Final Result EXTERNAL LAB * Antimullerian hormone (AMH) (05/18/2025) SCRIBED AMH, ab 4.46 EXTERNAL LAB Blood 05/18/2025 Dino Armando MD [...] BLOOD ORDERABLES Final Result Performing Organization Address City/[facility]/ZIP Co de Phone Number EXTERNAL LAB * [...] - 13.5 sec Comment:Testing performed by : [facility], [address] [place]., [address] INR 0.94 0.90 - 1.20 [facility] Comment: Interpretive data Oral anticoagulant therapeutic ranges: Venous thromboembolism prophylaxis or treatment: 2.0-3.0 CARDIOLOGY Standard range: 2.0-3.0 High-intensity range: 2.5-3.5 Refer to indication-specific guidelines for appropriate target ranges for prosthetic heart valve replacement. Current interpretive data was last revised on 2019. Testing performed by: [facility], [address] [place]., [address] aPTT 29 26 - 38 sec [facility] Comment: Interpretive Data Heparin therapeutic range: 66.0 - 100.0 seconds. Range based on correlation with therapeutic heparin activity range of 0.3 - 0.7 Units/mL. Current interpretive data was last revised on 2023. Testing performed by: [facility], [address] [place]., [address] DRVVT screen ratio 0.89 0.00 - 1.20 Ratio [facility] Comment:Testing performed by : [facility], [address] [place]., [address] SCT Screen Ratio 0.85 0.00 - 1.16 Ratio [facility] Comment:Testing performed by : [facility], [address] [place]., [address] Lupus anticoagulant, interp Negative [facility] Comment: Interpretive data Lupus anticoagulants (LA) are acquired autoantibodies that interfere with invitro clotting in a phospholipid-dependent manner and are associated with an increased risk of thromboembolic events and complications. Routine APTT and PT reagents are not sensitive to inhibition by LA, and should not be used as screening tests. The laboratory follows ISTH 2009 guidelines (Pengo, 2009) for LA testing and interpretation: Two [...] IV anticoagulants other than heparin. References: 1) Dominico V, Paz A, Craig JH, Ortel TL, Nader M, De Yanot PG. Update of the guidelines for lupus anticoagulant detection. J Thromb Haemost. 2009; 7:8682-7948. 2. Denzel Pompa et al. International consensus statement on an update of the classification criteria for definite antiphospholipid syndrome (APS). J Thromb Haemost. 2006; 4:295-306. Current interpretive data was last revised on 2018 Testing performed by: [facility], [address] [facility], [place]., [address] Blood 03/24/2025 9:14 AM CDT 03/24/2025 12:22 PM CDT us Karie Johnson MD LAB BLOOD ORDERABLES Final R esult [facility] [address] Department [place] [address] * Chromosome analysis (03/24/2025 9:14 AM CDT) [facility] Result summary Normal [facility] Lab [facility] Interpretation See Footnote [facility] Comment:RESULT: No chromosom e abnormality was apparent. [facility] Result 46,XX [facility] Reason for Referral See Footnote [facility] Comment:RESULT: recurrent pr egnancy loss [facility] Specimen Blood [facility] Chromosome analysis, source Not Reported [facility] Method See Footnote [facility] Comment:RESULT: 72 hour cult ure w/mitogens [facility] Banding method See Footnote [facility] Comment: Band Resolution: 550-159 Stain Name Cells Analyzed Cells Karyograms Counted Prepared GTL 5 15 2 Total 5 15 2 Dobson to Stain Name: GTL=G-banding; QFQ=Q-banding; DAPI=DAPI-staining; CBL=C-banding; AGNOR=Silver-staining; NON=Non-banded The sum of Cells Analyzed and Cells Counted equals the total cells examined. Chromosome analysis, Additional info See Footnote [facility] Comment: A portion of the testing process was performed at [facility] site [id number], [id number]. [facility] Released By See Footnote [facility] Comment: RESULT: Tad Aguilar, Ph.D. Test Performed by: [address] [address] Acquisition Cost Estimator: Julissa Holliday Ph.D.; IA# [id number] Blood 03/24/2025 9:14 AM CDT 03/24/2025 9:52 AM CDT Narrative [facility] - 04/04/2025 4:21 PM CDT Is this going to [facility]?->No us Karie Johnson MD LAB GENETIC TESTING Final Re sult [facility] [address] Department [place] [address] [place] ref Lab from Last 3 Months Insurance [facility] CHOICE PLUS [facility] CHOICE PLUS Care Teams Electrical Cad Designer Relationship Specialty Start Date End Date Gus Elise DO [address] [place] [id number] PCP - General Family Medicine 02/08/25
--- OUTSIDE RECORDS SUMMARY | 2025-05-25 12:45 | XMS_ITS | Data Portability ---
Author Organization [facility] Address [address] [place] [address] [place] [address] Care Team Providers Care Food Critic Name Role Phone MEAGHAN JEFF Primary Care Provider Assessment No assessment recorded. Plan of Treatment Reminders Order Date Submit Date Provider Last Modified By Organization Details Last Modified Time Details Appointments None recorded. Lab test, urine 2023 024 [email or web address] [facility], [address], [place], [address], 4 18:22:25 test, urine 2023 024 [email or web address] [facility], [address], [place], [address], 4 16:03:13 Referral None recorded. Procedures None recorded. Surgeries None recorded. Imaging US, obstetric, transvagina l 2023 024 [email or web address] [facility], [place], [address], 4 12:53:52 XR, hysterosalp ingogram [address] [place] [address] [facility] [address], [place], [address], 5 10:28:28 Medication Orders None recorded. Patient [...] 9-246 > 75 12-15 4 Not Available [facility] (Lab) [address], [place], [address], 03/11/2024 16:55:20 02/27/20 24 02/27/2024 ESTRA DIOL [...] 154-3 243 pg/mL 2nd [place]ime [place] 1561- 79071 pg/mL 3rd [place]ime [place] 8525- >3000 0 pg/mL Not Available [facility] (Lab) [address] [place], [address], 03/11/2024 16:55:20 02/27/20 24 02/27/2024 PROGE STERO [...] Trime [place] 58.70 -214. 00 Not Available [facility] (Lab) [address], [place], [address], 03/11/2024 16:55:21 02/27/20 24 02/27/2024 PROLA CTIN prolactin, total 18.50 NG/mL 4.79-2 3.30 This assay was perfo rmed using [employer] ratio n reage nts and test kits. Value s obtai sandra with other assay metho ds or kits canno t be used inter mancilla eably . Not Available [facility] (Lab) [address], [place], [address], 03/11/2024 16:55:21 02/27/20 24 02/27/2024 T4 FREE T4, free 1.09 NG/dL 0.60-1 .40 This assay is susce ptibl e to inter feren ce from high level s of bioti n which may false ly eleva te resul ts. Pleas e corre late with clini radames findi ngs. Not Available [facility] (Lab) [address], [place], [address], 03/11/2024 16:55:22 02/27/20 24 02/27/2024 TSH, REFLE X FREE T4 TSH 0.27 uIU/m L 0.30-5 .33 low Not Available [facility] (Lab) [address] [place], [address], 03/11/2024 16:55:22 02/27/20 24 02/27/2024 LH (LUTE [...] use: 7.7-5 8.5 mIU/m L Not Available [facility] (Lab) [address] [facility] [address], [place], [address], 03/11/2024 16:55:22 02/27/20 24 02/27/2024 FSH FSH 7.8 mIU/m L This assay was perfo rmed using [employer] reage nts and test kits. Value s obtai sandra with other assay metho ds or kits canno t be used inter [facility] . Femal es Folli cular : 3.5-1 2.5 mIU/m L Ovula tion: 4.7-2 1.5 mIU/m L Lutea l: 1.7-7 .7 mIU/m L Postm enopa use: 25.8- 134.8 mIU/m L Not Available [facility] (Lab) [address] [facility] [address], [place], [address], 03/11/2024 16:55:23 02/27/20 24 02/27/2024 HUMAN SEX HORMO NE HILDA NG GLOBU ELSA sex hormone binding globulin 78.8 nmole s/L 18.2-1 35.5 Not Available [facility] (Lab) [address] [facility] [address], [place], [address], 03/11/2024 16:55:23 02/27/20 24 02/27/2024 HEMOG LOBIN [...] >8.0% Actio n sugjay sted Not Available [facility] (Lab) [address], [place], [address], 03/11/2024 16:55:24 02/27/2002/27/2024 17-HY DROXY PROGE STERO NE, SERUM 17-hydroxypr ogesterone, S 56 NG/dL ----- ----- ----- ----R EFERE NCE VALUE ----- ----- ----- ----- ----- - < 80 (Foll icula r) <285 (Lute al) ----- ----- ----- ----A DDITI ONAL INFOR MATIO N---- ----- ----- ----- This test was dereje wright and its perfo rmanc e allen monacori stics deter mined by [facility] in a chad r consi stent with EARL wong ts. This test has not been clear ed or appro viri by the U.S. Food and Drug Admin istra tion. Test Perfo rmed by: [facility] - [place] [address] , [place] [address] Lab Direc tor: Ada Adair nn Ph.D. ; CLIA# [id number] Not Available [facility] (Lab) [address], [place], [address], 03/11/2024 16:55:24 02/27/2002/27/2024 TESTO STERO NE, TOTAL AND FREE, SERUM (LC-M S/MS) testosterone free 0.80 NG/dL <0.13- 1.00 ----- ----- ----- ----A DDITI ONAL INFOR MATIO N---- ----- ----- ----- This test was devel oped and its perfo rmanc e aleln cteri stics deter mined by [facility] in a chad r consi stent with CLIA requi remen ts. This test has not been clear ed or appro viri by the U.S. Food and Drug Admin istra tion. Not Available [facility] (Lab) [address], [place], [address], 03/11/2024 16:55:25 02/27/20 24 02/27/2024 TESTO STERO [...] e allen cteri stics deter mined by [facility] in a chad r consi stent with CLIA requi remen ts. This test has not been clear ed or appro viri by the U.S. Food and Drug Admin istra tion. Test Perfo rmed by: [facility] - [place] [address], [place] [address] Lab Direc tor: Ada Adair nn Ph.D. ; CLIA# [id number] Not Available [facility] (Lab) [address] [facility] [address], [place], [address], 03/11/2024 16:55:25 02/27/20 24 02/27/2024 pregn annabelle test, urine HCG negati ve Not Available [place] [address], [place], [address], 02/27/2024 16:02:53 03/26/20 24 03/26/2024 TSH, REFLE X FREE T4 TSH 0.47 uIU/m L 0.30-5 .33 Not Available [facility] (Lab) [address], [place], [address], 03/27/2024 07:08:35 04/29/20 24 04/29/2024 pregn annabelle test, urine HCG negati ve Not Available [facility] [address], [place], [address], 04/29/2024 18:12:16 04/21/20 24 04/21/2024 US, obste tric, trans vagin al No observ ation record ed. [email or web address] [facility] [address], [place], [address], 04/21/2024 18:16:21 04/21/20 24 04/21/2024 US, obste tric, trans vagin al No observ ation record ed. [email or web address] [address], [place], [address], 04/22/2024 11:52:58 Result Notes None recorded. Problems Name Problem SNOMED Code Status Onset Date Resolution Date Notes Provider Name and Address Organization Details Recorded Time Speciali rickyd medical examinat ion Completed 201308/10/2021 Gynecolog ical Examinati on;Record ed Elsewhere : No Locati on: [facility] So urce: EHR Chron ic: N Practic e ID: 0001 Bill able Time: 02:15:00 PM Ashley no [facility] 2 13:05:33 Screenin g for malignan t neoplasm of cervix Completed 201308/10/2021 Pap Smear;Pra ctice ID: [id number] Ashley no [facility] 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 2 13:05:[address] Concept Completed 201408/10/2021 Encntr for general adult medical exam w/o abnormal findings; Recorded Elsewhere : No Locati on: [facility] So urce: EHR Chron ic: N Practic e ID: 0001 Bill able Time: 11:00:00 AM Ashley Pisano [facility] 2 13:05:29 Blood leukocyt e number above referenc e range [id number] Completed 201608/10/2021 Elevated white blood cell count, unspecifi ed;Record ed Elsewhere : No Locati on: [facility] So urce: EHR Chron ic: N Practic e ID: 0001 Bill able Time: 05:45:00 PM Ashley Pisano [facility] 2 12:46:52 Acute vaginiti s 65946251 Completed 201608/10/2021 Acute vaginitis ;Practice ID: 0001 Ashley Pisano [facility] 2 12:46:47 Urinary tract infectio us disease 95135250 Completed 201708/10/2021 UTI;Recor ded Elsewhere : No Locati on: [facility] So urce: EHR Chron ic: N Practic e ID: 0001 Bill able Time: 05:30:00 PM Ashely Pisano [facility] 2 13:05:35 Atypical squamous cells on cervical Papanico laou smear cannot exclude high grade squamous intraepi thelial lesion [id number] Completed 201808/10/2021 Atyp squam cell not excl hi grd intrepith lesn cyto smr crvx;Daniele rded Elsewhere : No Locati on: [facility] So urce: EHR Chron ic: N Practic e ID: 0001 Bill able Time: 10:15:00 AM [facility] 12:46:50 Atypical squamous cells of undeterm ined signific ance on cervical Papanico laou smear 998977348 Completed 201808/10/2021 Atyp squam cell of undet signfc cyto smr crvx (ASC-US); Recorded Elsewhere : No Locati on: [facility] So urce: EHR Chron ic: N Practic e ID: 0001 Bill able Time: 10:15:00 AM Ashley Pisano [facility] 2 12:46:49 Pregnanc y test negative [id number] Completed 201808/10/2021 Encounter for test, result negative; Recorded Elsewhere : No Locati on: [facility] So urce: EHR Chron ic: N Practic e ID: 0001 Bill able Time: 10:15:00 AM Ashley Pisano [facility] 2 12:46:55 Problem Notes None recorded. Procedures Surgical History Date Name Laterality Status Provider Name and Address Organization Details Recorded Time 08/26/19 24 Date of Last Pap Smear completed Karley Arias [facility] 02/27/2024 15:51:07 02/27/20 21 endoscopy completed Renae Rodríguez [facility], [place], [address], [place] [facility] 08/10/2021 14:44:28 02/03/20 19 Colposcopy completed Ashley Pisano [facility] 08/10/2021 14:39:04 Imaging Results None recorded. Procedure Notes None recorded. Medical Equipment None Reported. Allergies No known drug allergies Medications Name Sig Start Date Stop Date Status Note LastModified by Organization Details LastModified Time Diflucan 150 mg tablet take 1 tablet by oral route every other week. 02/02 completed Prescrib ed Elsewher e: No [facility] odify By: [email or web address] z Encoun ter DateTime : 01/19/20 19 02:30:00 PM Not Available Not Available Not Available sulfameth oxazole 800 mg-trimet hoprim 160 mg tablet take 1 tablet by oral route every 12 hours 02/02 completed Prescrib ed Elsewher e: No [facility] odify By: [email or web address] z Encoun ter DateTime [...] Prescrib ed Elsewher e: No Locat ion: [facility] odify By: [email or web address] marquez DateTime : [...] Updated DateTime 02/27/2024 160.02 cm 30.6 kg/m2 78779.48 g 114/78 mm[Hg] [facility] 02/27/2024 15:50:21 Date Recorded Body height Body mass index (BMI) Body weight Systolic And Diastolic Provider Name and Address Organization Details Last Updated DateTime 03/16/2024 160.02 cm 31.4 kg/m2 37772.85 g 124/83 mm[Hg] Karley [facility] 03/16/2024 12:37:53 Date Recorded Body height Body mass index (BMI) Body weight Systolic And Diastolic Provider Name and Address Organization Details Last Updated DateTime 04/21/2024 160.02 cm 30.6 kg/m2 52680.48 g 123/78 mm[Hg] Florence Green [facility] 04/21/2024 14:41:35 Date Recorded Body height Body mass index (BMI) Body weight Systolic And Diastolic Provider Name and Address Organization Details Last Updated DateTime 04/29/2024 160.02 cm 30.4 kg/m2 40917.73 g 116/75 mm[Hg] Tere Castanon [facility] 04/29/2024 17:15:24 Social History Question Answer Notes LastModified by Organizat ion Details LastModified Time Tobacco Smoking Status Never Smoker Ashley Norris [facility] 08/10/2021 14:35:15 Do You [...] Or The Highest Degree You Have Received? [id number] Information not available 08/10/2021 Are There Any [...] Have Difficulty Walking Or Climbing Stairs? No [email or web address] Information not available 04/21/2024 Sex: Unknown Functional Status Question Answer Note LastModified by Organizat ion Details LastModified Time Do you use any illicit or recreational drugs? No Information not available 08/10/2021 What is your level of alcohol consumption? Occasional Information not available 08/10/2021 Are you able to walk independently without assistance or assistive devices? YESWOREST Information not available 08/10/2021 Are you able to care for yourself independently? 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 No [email or web address] Information not available 04/21/2024 What is your exercise level? Moderate Information not available 08/10/2021 Mental Status Question Answer Note LastModified by Organization D etails LastModified Time Do you feel stressed (tense, restless, nervous, or anxious, or unable to sleep at night)? [id number] Information not available 08/10/2021 Family History Relationship Description Onset Age of this Age Resolved Age Notes LastModified by Organization Details LastModified Time Mother Diabetes mellitus [email or web address] Not available 2019 11:46:26 Paternal Grandmother Diabetes mellitus [email or web address] Not available 2019 11:46:26 Paternal Grandmother Carcinoma in situ of lung [email or web address] Not available 12:19:04 Paternal Aunt Carcinoma in situ of breast [email or web address] Not available 2023 12:19:04 Medical History Condition [...] Diagnosis SNOMED-CT Code Diagnosis ICD10 Code Diagnosis IMO Codes Diagnosis Note [id number] Renae Rodríguez [facility] [address] [address] 05/08/2020 11:45:17 05/08/2020 17:52:43 Gynecologic examination 29726840 Z01.419 Take Calcium with Vitamin D 1200mg [...] 2019 consistent with pap results Pap/hpv ordered [id number] [facility] [address] [address] 08/10/2021 14:21:36 08/10/2021 15:18:57 Gynecologic examination 09468831 Z01.419 Take Calcium with Vitamin D 1200mg [...] year! Waiting to set the date. [facility] ion care management 087073417 Z30.9 Happy on OCPRF sent x 1yr [id number] ARISTEO [facility] [address] [address] 08/26/2023 09:00:06 08/26/2023 09:31:11 Gynecologic examination 76041599 Z01.419 Z11.51 Take Calcium with Vitamin D [...] with folic acid [id number] Henry Carpenter MD [facility] [address] [address] 02/27/2024 15:17:26 03/04/2024 23:33:34 Irregular periods 84218071 N92.6 Reproducti ve care management 840590967 Z31.9 - Differenti al diagnosis of cause [...] the patient's care. [id number] Henry Carpenter MD [facility] [address] [address] 03/16/2024 12:18:54 03/17/2024 09:58:00 Female infertility 5418807 N97.9 Presents today for discussion of infertilit [...] with hysterosal pingogram. [id number] Henry Carpenter MD [facility] [address] [address] 04/21/2024 14:12:24 04/21/2024 15:02:43 Threatened miscarriage 86113497 O20.0 O36.80X0 Z3A.00 [id number] Valerie Danielle CNM [facility] [address] [address] 04/21/2024 14:13:18 04/21/2024 15:59:49 Long menstrual cycle 864767685 N92.5 missed ab, vs early pregnancyp brandyn HCG and then rpt in 48 hoursblood type drawncall if any concerns or increase in bleeding, will plan f/u next week pending resultscon tinue vitamin Hyperthyroidism 69631372 E05.90 rpt tsh free t4 and t3 today [id number] Henry Carpenter MD [facility] [address] [address] 04/29/2024 17:07:06 04/30/2024 09:37:31 Missed miscarriage 95308722 O02.1 this patient presents for postop follow-up. [...] Rahman Member ID Guarantor Name 03/16/2024 1 [facility] [id number] Vaishali Liudmila [id number] Vaishali Carr 05/03/2024 1 [facility] - GEHA - DOS PRIOR TO 2024 (PPO) Vaishalijose enrique Carr [id number] A Vaishali Carr 03/16/2024 1 [employer] - FEP 111 Vaishali Antoine Carr [id number] Vaishali Lilly Notes Date Note Type Note Provider Name [...] appropriately Henry Carpenter MD [address], [place], [address], [facility] 02/28/2024 13:22:26 4 text/html Presents today [...] hysterosalpingogram. Henry Carpenter MD [address], [place], [address], [facility] 03/17/2024 09:54:27 4 text/html ROS as noted in the HPI +UPT, pt having some spotting, send for blood typeon US today not seeing 9 week IUP, discussed could be early vs miscarriagept also wants to discuss hyperthyroidism no current meds Valerie Danielle CNM [address], [place], [address], [facility] 04/21/2024 15:12:29 4 text/html this patient [...] on. Henry Carpenter MD [address], [place], [address], [facility] 04/29/2024 18:22:54 OBGyn Episode Ob Episode Information Episode Created Date Number of Fetuses Patient Bloodtype Patient rh Status Prepregnancy Weight lbs Domestic Partner Domestic Partner Phone Father Name [employer] Operator Status 04/21/20 24 1 CLOSED Fetus Data First Name Last Name Admitted to NICU Weight (g) Sex Living Outcome Pediatric Complications Fetus ID Race Codes Race Delivery Type , Spontane ous [id number] Andrey Calculation Initial Andrey Date Initial Exam [...]
--- OUTSIDE RECORDS SUMMARY | 2025-05-25 12:45 | XMS_ITS | Encounter Summary ---
Author Organization [facility] Address [address] [place] [address] Phone Care Team Providers Care Global Mobility Specialist Name Role Phone Gus Elise DO Primary Care Provide r Encounter Details Date Type Department Care Team (Latest Contact Info) Description 05/25/2025 Results Follow-Up [facility] Medicine Reproductive Endocrinology [address] [address] Dino Armando MD [address] [address] T4, free, TSH, Antimullerian hormone (AMH), Additional followed-up results: 5 Social History Tobacco Use Types Packs/Day Years [...] on file documented as of this encounter Miscellaneous Notes * Result Encounter Note - Dino Armando MD - 05/25/2025 9:44 AM CDT . documented in this encounter Plan of Treatment Not on file documented as of this encounter Visit Diagnoses Not on filedocumented in this encounter Care Teams Global Mobility Specialist Relationship Specialty Start Date End Date Gus Elise DO [address] [place] [address] PCP - General Family Medicine 02/08/25 documented as of this encounter
== END 2025-05-25 11:10 | disposition home or self-care (01) ==
LOC: ANHLAB 11:11
PROVIDERS: PCP Student in an Organized Health Care Education/Training Program; Visit Provider Student in an Organized Health Care Education/Training Program
DX: N91.2 Amenorrhea, unspecified (principal)
CPT/HCPCS: 36415; 84702

== ENCOUNTER 2025-05-27 11:34 | Outpatient (CLI) | payer OTHER, SELFPAY ==
--- OUTSIDE RECORDS SUMMARY | 2025-05-27 11:42 | XMS_ITS | Encounter Summary ---
Author Organization [facility] Address [address] [place] [address] Phone Care Team Providers Care Pediatric Psychiatrist Name Role Phone Gus Elise Primary Care Provide r Reason for Visit * Reason Onset Date Comments bleeding 05/27/2025 Encounter Details Date Type Department Care Team (Late st Contact Info) Description 05/27/2025 Telephone [facility] Medicine Maternal- Medicine [address] [facility] 7[address] [place] [address] Rubi Juarez RN bleeding Social History Tobacco Use Types Packs/Day Years [...] as of this encounter Miscellaneous Notes * Telephone Encounter - Rubi Juarez RN - 05/27/2025 10:32 AM CDT Vaishali called to report that she is newly but is having bleeding. She had a HCG drawn on 05/25 and it was 97. She had brown spotting a few days ago and called her primary OB. They told her to continue pelvic rest, take progesterone, and if she fills a pad in less than an hour to come in to be evaluated. She has not called them since the bleeding turned to bright red. I told her it would be best to call her primary OB back to let them know about this change to have them manage it. She understood and plans to do that. documented in this encounter Plan of Treatment Not on file documented as of this encounter Visit Diagnoses Not on filedocumented in this encounter Care Teams Pediatric Psychiatrist Relationship Specialty Start Date End Date Gus Elise DO [address] [place] [address] PCP - General Family Medicine 02/08/25 documented as of this encounter
--- OUTSIDE RECORDS SUMMARY | 2025-05-27 11:42 | XMS_ITS | Encounter Summary ---
Author Organization [facility] Address [address] [place] [address] Phone Care Team Providers Care Truck Mechanic Name Role Phone Gus Elise DO Primary Care Provide r Encounter Details Date Type Department Care Team (Latest Contact Info) Description 05/25/2025 Results Follow-Up [facility] Medicine Reproductive Endocrinology [address] [address] Dino Armando MD [address] [address] T4, free, TSH, Antimullerian hormone [...] on filedocumented in this encounter Care Teams Truck Mechanic Relationship Specialty Start Date End Date Gus Elise DO [address] [place] [address] PCP - General Family Medicine 02/08/25 documented as of this encounter
--- OUTSIDE RECORDS SUMMARY | 2025-05-27 11:42 | XMS_ITS | Clinical Summary ---
Author Organization [place] [id number] [facility] Address [address] [place] [address] Care Team Providers Care Equipment Operating Engineer Name Role Phone Gus Elise DO Primary Care Provide r Allergies No known active allergies Medications vit no.[id number] ic 28 mg iron- 800 mcg tablet [...] consult in after confirmation Consult to TIBURCIO sukhjinder to discuss options Encounters Date Type Department Care Team Description 05/27/2025 Telephone [facility] Maternal- Medicine [address] [facility] Health 7th Floor [address] [place] [address] Rubi Juarez RN bleeding 05/25/2025 Results Follow-Up [facility] Reproductive Endocrinology [address] [place] [address] [place] [address] [phone] Dino Armando MD T4, free, TSH, Antimullerian hormone (AMH), Additional followed-up results: 5 05/18/2025 Orders Only [facility] Reproductive Endocrinology [address] [facility] [address] [place] [address] [phone] Dino Armando MD Screening for thyroid disorder (Primary Dx); Encounter for fertility testing; Screening for rubella; Screening for viral disease; Encounter for blood typing; 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 current 05/17/2025 Orders Only [facility] Reproductive Endocrinology [address] [place] [address] [place] [address] [phone] Dino Armando MD 05/16/2025 9:00 AM CDT Telemedicine [facility] Reproductive Endocrinology [address] [place] [address] [place] [address] [phone] Dnio Armando MD Recurrent loss (Primary Dx) 04/01/2025 9:36 AM CDT - 04/01/2025 11:59 PM CDT Hospital Encounter [facility] [address] [facility] [address] [place], [place] [phone] Recurrent loss Discharge Disposition: Discharge to home or self care 03/24/2025 9:05 AM CDT Lab [facility] Outpatient Lab [address] [place] [address] Recurrent loss 03/24/2025 8:00 AM CDT Office Visit [facility] Maternal- Medicine [facility] [address] [facility] Medical Office [address] [place] [address] Recurrent loss (Primary Dx) 03/11/2025 Telephone [facility] Maternal- Medicine [address] [facility] Health 7th Floor [address] [place] [address] Rubi Juarez RN from Last [...] Neg - Pos EXTERNAL LAB Blood 05/18/2025 iDno Armando MD LAB BLOOD BANK TEST ORDERA BLES Final Result EXTERNAL LAB * Varicella Zoster IgG antibody Blood (05/18/2025) SCRIBED Varicella Zoster, IgG Positive EXTERNAL LAB Blood 05/18/2025 Dino Armando MD LAB MICROBIOLOGY - GENERAL ORDERABLES Final Result Performing Organization Address [facility]/ZIP Co de Phone Number EXTERNAL LAB * (ABNORMAL) TSH (05/18/2025) Scribed TSH 0.27(A) 0.47 - 4.68 mcU/mL EXTERNAL LAB Blood 05/18/2025 Dino Armando MD LAB BLOOD ORDERABLES Final Result Performing Organization Address [facility] Co de Phone Number EXTERNAL LAB * T4, free (05/18/2025) SCRIBED T4, Free 1.24 0.78 - 2.19 mcg/dL EXTERNAL LAB Blood 05/18/2025 Dino Armando MD LAB BLOOD ORDERABLES Final Result EXTERNAL LAB * US Sonohysterography (04/01/2025 9:36 [...] and her partner. us Karie Johnson MD [facility] US PROCEDURES Final Resu lt * Lupus Anticoagulant Panel plus Reflexes (03/24/2025 9:14 AM CDT) PT 10.6 10.2 - 13.5 sec Comment:Testing performed by : [facility], [address] [facility] [place]., [address] INR 0.94 0.90 - 1.20 ERROL [facility] Comment: Interpretive data Oral anticoagulant therapeutic ranges: Venous thromboembolism prophylaxis or treatment: 2.0-3.0 CARDIOLOGY Standard range: 2.0-3.0 High-intensity range: 2.5-3.5 Refer to indication-specific guidelines for appropriate target ranges for prosthetic heart valve replacement. Current interpretive data was last revised on 2019. Testing performed by: [facility], [address] [place]., [address] aPTT 29 26 - [address] [facility] Comment: Interpretive Data Heparin therapeutic range: 66.0 - 100.0 seconds. Range based on correlation with therapeutic heparin activity range of 0.3 - 0.7 Units/mL. Current interpretive data was last revised on 2023. Testing performed by: [facility], [address] [place]., [address] DRVVT screen ratio 0.89 0.00 - 1.[address] [facility] Comment:Testing performed by : [facility], [address] [place]., [address] SCT Screen Ratio 0.85 0.00 - 1.[address] [facility] Comment:Testing performed by : [facility], [address] [place]., [address] Lupus anticoagulant, interp Negative [facility] Comment: Interpretive data Lupus anticoagulants ([place]) [...] heparin. References: 1) Dominico V, Paz A, Chelsie JH, Orhilda TL, Nader M, De Marlyn PG. Update of the guidelines for lupus anticoagulant detection. J Thromb Haemost. 2009; 7:4899-8806. 2. Denzel Cardoza. et al. International consensus statement on an update of the classification criteria for definite antiphospholipid syndrome (APS). J Thromb Haemost. 2006; 4:295-306. Current interpretive data was last revised on 2018 Testing performed by: [facility], [address] [place]., [address] Blood 03/24/2025 9:14 AM CDT 03/24/2025 12:22 PM CDT us Karie Johnson MD LAB BLOOD ORDERABLES Final R esult [facility] [address] Department [place] [address] * Chromosome analysis (03/24/2025 9:14 AM CDT) CHRCB Result summary Normal [facility] Lab CHRCB Interpretation See Footnote [facility] Comment:RESULT: No chromosom e abnormality was apparent. CHRCB Result 46,XX [facility] CHRCB Reason for Referral See Footnote [facility] Comment:RESULT: recurrent pr egnancy loss CHRCB Specimen Blood [facility] Chromosome analysis, source Not Reported [facility] CHRCB Method See Footnote [facility] Comment:RESULT: 72 hour cult ure w/mitogens CHR[facility] Banding method See Footnote [facility] Comment: Band Resolution: 550-399 Stain Name Cells Analyzed Cells Karyograms Counted Prepared GTL 5 15 2 Total 5 15 2 Dobson to Stain Name: GTL=G-banding; QFQ=Q-banding; DAPI=DAPI-staining; CBL=C-banding; AGNOR=Silver-staining; NON=Non-banded The sum of Cells Analyzed and Cells Counted equals the total cells examined. Chromosome analysis, Additional info See Footnote ERROL [facility] Comment: A portion of the testing process was performed at [facility] site [id number], [id number]. CHRCB Released By See Footnote [facility] Comment: RESULT: Tad Aguilar, Ph.D. Test Performed by: [place] [address] Time Lock Expert: Julissa Holliday Ph.D.; CLIA# [id number] Blood 03/24/2025 9:14 AM CDT 03/24/2025 9:52 AM CDT Flip [facility] - 04/04/2025 4:21 PM CDT Is this going to [facility]?->No us Karie Johnson MD LAB GENETIC TESTING Final Re sult [facility] [address] [place] [address] [place] ref Lab from Last 3 Months Insurance [facility] [employer] Member Subscriber Plan / Payer (Ef fective 2024-Present) Name:Vaishali Carr Relation to Subscriber:Spouse Name:CARLOS CARR Date of :1988 (Home) Address: [address] [place] [address] Payer ID:[id number] (NAIC) Type:[facility] H[facility]/PPO Address: [place] [phone] Care Teams Equipment Operating Engineer Relationship Specialty Start Date End Date Gus Elise DO [address] [place] [id number] PCP - General Family Medicine 02/08/25
--- OUTSIDE RECORDS SUMMARY | 2025-05-27 11:42 | XMS_ITS | Clinical Summary ---
Author Organization [facility] Address [address] [place] [address] Care Team Providers Care Color Dipper Name Role Phone Gus Elise Primary Care [...] st Contact Info) Description 06/29/2025 7:20 AM WELD INSPECTOR [facility] [address] [phone] Gus Elise P, [address] [place] [address] [phone] Health Maintenance Due Date Last Done Comments [...] Tdap) 06/25/2033 06/25/2023 COVID-19 Vaccine (1 - 2024-2 6 season) 2112 Postponed from 03/28 (Going to Outside Clinic) Hepatitis C Completed 07/14/2023 PHQ-2 (Physician [place]) Completed 11/09/2024 Hepatitis B Vaccines Completed 02/10/2025, [...] Comments OUTSIDE LAB (SCAN ORDER) 03/12/2025 OUTSIDE CYTOPATH CERV/VAG INTERPRET (PAP) 08/26/2023 HEPATITIS C ANTIBODY Routine 07/14/2023 7:20 AM WELD INSPECTOR Encounter for preventative adult health care examination Screening for lipid disorders Screening for endocrine, metabolic and immunity disorder Need for hepatitis C screening test from Last 3 Months or Most Recently Relevant to Health Maintenance Results * OUTSIDE LAB (SCAN ORDER) (03/12/2025) 03/12/2025 [facility] Scanned SCANNING Final Resu lt * PAP SMEAR WITH HPV (08/26/2023) 08/26/2023 [facility] Scanned SCANNING Final Resu lt * HEPATITIS C ANTIBODY ([facility]) (07/14/2023 7:20 AM WELD INSPECTOR) HEPATITIS C AB NON-REACTI VE NON-REACT ROB 07/14/2023 7:[address] [facility] Comment: ANTIBODIES TO HCV NOT DETECTED. DOES NOT EXCLUDE THE POSSIBILITY OF EXPOSURE TO HCV. 07/14/2023 7:20 AM WELD INSPECTOR Gus Elise DO LABORATORY Final Re sult [facility] [address] [place] [address], [place] [phone] [id number] from Last 3 Months or Most Recently Relevant to Health Maintenance Insurance Care Teams Color Dipper Relationship Specialty Start Date End Date Gus Elise DO [address] [place] [id number] PCP - General FAMILY PRACTICE 06/25/23
[2025-05-27 13:30] LABS: Beta HCG Quantitative 36.11 mIU/ML
== END 2025-05-27 11:35 | disposition home or self-care (01) ==
LOC: ANHLAB 11:35
PROVIDERS: PCP Student in an Organized Health Care Education/Training Program; Visit Provider Obstetrics & Gynecology
DX: N91.2 Amenorrhea, unspecified (principal); N96 Recurrent pregnancy loss
CPT/HCPCS: 36415; 84702

== ENCOUNTER 2025-05-30 15:04 | Outpatient (CLI) | payer OTHER, SELFPAY ==
--- OUTSIDE RECORDS SUMMARY | 2025-05-30 15:26 | XMS_ITS | Clinical Summary ---
Author Organization [place] [id number] [facility] Address [address] [place] [address] Care Team Providers Care Deckhand Maintenance Name Role Phone Gus Elise DO Primary Care Provide r Allergies No known active allergies Medications vit no.[id number] ic 28 mg iron- 800 mcg tablet [...] Type Department Care Team Description 05/27/2025 Telephone [facility] Maternal- Medicine [address] [facility] Health 7th Floor [address] [place] [address] Rubi Juarez RN bleeding 05/25/2025 Results Follow-Up [facility] Reproductive Endocrinology [address] [place] [address] [place] [address] [phone] Dino Armando MD T4, free, TSH, Antimullerian hormone (AMH), Additional followed-up results: 5 05/18/2025 Orders Only [facility] Reproductive Endocrinology [address] [facility] [address] [place] [address] [phone] Dino Armando MD Screening for thyroid disorder (Primary Dx); Encounter for fertility testing; Screening for rubella; Screening for viral disease; Encounter for blood typing; 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 current 05/17/2025 Orders Only [facility] Reproductive Endocrinology [address] [place] [address] [place] [address] [phone] Dino Armando MD 05/16/2025 9:00 AM CDT Telemedicine [facility] Reproductive Endocrinology [address] [place] [address] [place] [address] [phone] Dino Armando MD Recurrent loss (Primary Dx) 04/01/2025 9:36 AM CDT - 04/01/2025 11:59 PM CDT Hospital Encounter [facility] [address] [facility] [address] [place], [place] [phone] Recurrent loss Discharge Disposition: Discharge to home or self care 03/24/2025 9:05 AM CDT Lab [facility] Outpatient Lab [address] [place] [address] Recurrent loss 03/24/2025 8:00 AM CDT Office Visit [facility] Maternal- Medicine [facility] [address] [facility] Medical Office [address] [place] [address] Recurrent loss (Primary Dx) 03/11/2025 Telephone [facility] Maternal- Medicine [address] [facility] Health 7th Floor [address] [place] [address] Rubi Juarez RN from Last [...] GENERAL ORDERABLES Final Result Performing Organization Address [facility]/ZIP Co de Phone Number EXTERNAL LAB * (ABNORMAL) TSH (05/18/2025) Scribed TSH 0.27(A) 0.47 - 4.68 mcU/mL EXTERNAL LAB Blood 05/18/2025 Dino Armando MD LAB BLOOD ORDERABLES Final Result Performing Organization Address [facility] Co de Phone Number EXTERNAL LAB * [...] and her partner. us Karie Johnson MD [facility] US PROCEDURES Final Resu lt * Lupus Anticoagulant Panel plus Reflexes (03/24/2025 9:14 AM CDT) PT 10.6 10.2 - 13.5 sec Comment:Testing performed by : [facility], [address] [facility] [place]., [address] INR 0.94 0.90 - 1.20 ERROL [facility] Comment: Interpretive data Oral anticoagulant therapeutic ranges: Venous thromboembolism prophylaxis or treatment: 2.0-3.0 CARDIOLOGY Standard range: 2.0-3.0 High-intensity range: 2.5-3.5 Refer to indication-specific guidelines for appropriate target ranges for prosthetic heart valve replacement. Current interpretive data was last revised on 2019. Testing performed by: [facility], [address] [place]., [address] aPTT 29 26 - 38 sec [facility] Comment: Interpretive Data Heparin therapeutic range: 66.0 - 100.0 seconds. Range based on correlation with therapeutic heparin activity range of 0.3 - 0.7 Units/mL. Current interpretive data was last revised on 2023. Testing performed by: [facility], [address] [place]., [address] DRVVT screen ratio 0.89 0.00 - 1.20 Ratio [facility] Comment:Testing performed by : [facility], [address] [place]., [address] SCT Screen Ratio 0.85 0.00 - 1.16 Ratio [facility] Comment:Testing performed by : [facility], [address] [place]., [address] Lupus anticoagulant, interp Negative [facility] Comment: Interpretive data Lupus anticoagulants [...] lupus anticoagulant detection. J Thromb Haemost. 2009; 7:0696-8833. 2. Denzel Cardoza. et al. International consensus statement on an update of the classification criteria for definite antiphospholipid syndrome (APS). J Thromb Haemost. 2006; 4:295-306. Current interpretive data was last revised on 2018 Testing performed by: [facility], [address] [place]., [address] Blood 03/24/2025 9:14 AM CDT 03/24/2025 12:22 PM CDT us Karie Johnson MD LAB BLOOD ORDERABLES Final R esult [facility] [address] Department [place] [address] * Chromosome analysis (03/24/2025 9:14 AM CDT) CHRCB Result summary Normal [facility] Lab CHR[facility] Interpretation See Footnote [facility] Comment:RESULT: No chromosom e abnormality was apparent. CHRCB Result 46,XX [facility] CHRCB Reason for Referral See Footnote [facility] Comment:RESULT: recurrent pr egnancy loss CHRCB Specimen Blood [facility] Chromosome analysis, source Not Reported [facility] CHRCB Method See Footnote [facility] Comment:RESULT: 72 hour cult ure w/mitogens CHRCB Banding method See Footnote [facility] Comment: Band Resolution: 550-169 Stain Name Cells Analyzed Cells Karyograms Counted Prepared GTL 5 15 2 Total 5 15 2 Dobson to Stain Name: GTL=G-banding; QFQ=Q-banding; DAPI=DAPI-staining; CBL=C-banding; AGNOR=Silver-staining; NON=Non-banded The sum of Cells Analyzed and Cells Counted equals the total cells examined. Chromosome analysis, Additional info See Footnote ERROL [facility] Comment: A portion of the testing process was performed at [facility] site [id number], [id number]. CHRCB Released By See Footnote [facility] Comment: RESULT: Tad Aguilar, Ph.D. Test Performed by: [place] [address] Electronics Specialist: Julissa Holliday Ph.D.; CLIA# [id number] Blood 03/24/2025 9:14 AM CDT 03/24/2025 9:52 AM CDT Flip [facility] - 04/04/2025 4:21 PM CDT Is this going to [facility]?->No us Karie Johnson MD LAB GENETIC TESTING Final Re sult [facility] [address] Department [place] [address] [place] ref Lab from Last 3 Months Insurance [facility] CHOICE PLUS [facility] CHOICE PLUS Member Subscriber Plan / Payer (Ef fective 2024-Present) Name:Vaishali Carr Relation to Subscriber:Spouse Name:CARLOS CARR Date of :1988 (Home) Address: [address] [place] [address] Payer ID:[id number] (NAIC) Type:[facility] HMO/PPO Address: [place] [id number] Care Teams Deckhand Maintenance Relationship Specialty Start Date End Date Gus Elise DO [address] [place] [id number] PCP - General Family Medicine 02/08/25
--- OUTSIDE RECORDS SUMMARY | 2025-05-30 15:26 | XMS_ITS | Encounter Summary ---
Author Organization [facility] Address [address] [place] [address] Phone Care Team Providers Care Consumer Marketing Manager Name Role Phone Gus Elise DO Primary Care Provide r Encounter Details Date Type Department Care Team (Latest Contact Info) Description 05/25/2025 Results Follow-Up [facility] Medicine Reproductive Endocrinology [address] [phone] Dino Armando MD [address] [address] T4, free, TSH, Antimullerian hormone [...] on filedocumented in this encounter Care Teams Consumer Marketing Manager Relationship Specialty Start Date End Date Gus Elise DO [address] [place] [phone] PCP - General Family Medicine 02/08/25 documented as of this encounter
--- OUTSIDE RECORDS SUMMARY | 2025-05-30 15:26 | XMS_ITS | Data Portability ---
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 Plan of Treatment Reminders Order Date Submit Date Provider Last Modified By Organization Details Last Modified Time Details Appointments None recorded. Lab test, urine 2023 024 [email or web address] [address], [address], [place], [address], 4 18:22:25 test, urine 2023 024 [email or web address] [place], [address], [place], [address], 4 16:03:13 Referral None recorded. Procedures None recorded. Surgeries None recorded. Imaging US, obstetric, transvagina l 2023 024 [email or web address] [place], [address], [place], [address], 4 12:53:52 XR, hysterosalp ingogram [address] [facility], [facility] [address], [place], [address], 5 10:28:28 Medication Orders None recorded. Patient [...] 9-246 > 75 12-15 4 Not Available [facility] (Lab) [address], [place], [address], 03/11/2024 16:55:20 02/27/20 24 02/27/2024 ESTRA DIOL [...] 154-3 243 pg/mL 2nd Trime ster 1561- 06255 pg/mL 3rd Trime [place] 8525- >3000 0 pg/mL Not Available [facility] (Lab) [address] [place], [address], 03/11/2024 16:55:20 02/27/20 24 02/27/2024 PROGE STERO [...] Trime ster 58.70 -214. 00 Not Available [facility] (Lab) [address], [place], [address], 03/11/2024 16:55:21 02/27/20 24 02/27/2024 PROLA CTIN prolactin, total 18.50 NG/mL 4.79-2 3.30 This assay was perfo rmed using [employer] ratio n reage nts and test kits. Value s obtai sandra with other assay metho ds or kits canno t be used inter mancilla eably . Not Available [facility] (Lab) [address], [place], [address], 03/11/2024 16:55:21 02/27/20 24 02/27/2024 T4 FREE T4, free 1.09 NG/dL 0.60-1 .40 This assay is susce ptibl e to inter feren ce from high level s of bioti n which may false ly eleva te resul ts. Pleas e corre late with clini radames findi ngs. Not Available [facility] (Lab) [address], [place], [address], 03/11/2024 16:55:22 02/27/20 24 02/27/2024 TSH, REFLE X FREE T4 TSH 0.27 uIU/m L 0.30-5 .33 low Not Available [facility] (Lab) [address] [place], [address], 03/11/2024 16:55:22 02/27/20 24 02/27/2024 LH (LUTE [...] use: 7.7-5 8.5 mIU/m L Not Available [facility] (Lab) [address], [place], [address], 03/11/2024 16:55:22 02/27/20 24 02/27/2024 FSH FSH 7.8 mIU/m L This assay was perfo rmed using [employer] n reage nts and test kits. Value s obtai sandra with other assay metho ds or kits canno t be used inter [facility] eajesup . Femal es Folli cular : 3.5-1 2.5 mIU/m L Ovula tion: 4.7-2 1.5 mIU/m L Lutea l: 1.7-7 .7 mIU/m L Postm enopa use: 25.8- 134.8 mIU/m L Not Available [facility] (Lab) [address], [place], [address], 03/11/2024 16:55:23 02/27/20 24 02/27/2024 HUMAN SEX HORMO NE HILDA NG GLOBU ELSA sex hormone binding globulin 78.8 nmole s/L 18.2-1 35.5 Not Available [facility] (Lab) [address], [place], [address], 03/11/2024 16:55:23 02/27/20 24 02/27/2024 HEMOG LOBIN [...] >8.0% Actio n sugjay sted Not Available [facility] (Lab) [address], [place], [address], 03/11/2024 16:55:24 02/27/2002/27/2024 17-HY DROXY PROGE STERO NE, SERUM 17-hydroxypr ogesterone, S 56 NG/dL ----- ----- ----- ----R EFERE NCE VALUE ----- ----- ----- ----- ----- - < 80 (Foll icula r) <285 (Lute al) ----- ----- ----- ----A DDITI ONAL INFOR MATIO N---- ----- ----- ----- This test was dereje wright and its perfo rmanc e allen monacori stics deter mined by [facility] in a chad r consi stent with EARL wong ts. This test has not been clear ed or appro viri by the U.S. Food and Drug Admin istra tion. Test Perfo rmed by: [facility] - [place] [address] , [place] [address] Lab Direc tor: Ada Adair nn Ph.D. ; CLIA# [id number] Not Available [facility] (Lab) [address], [place], [address], 03/11/2024 16:55:24 02/27/2002/27/2024 TESTO STERO NE, TOTAL AND FREE, SERUM (LC-M S/MS) testosterone free 0.80 NG/dL <0.13- 1.00 ----- ----- ----- ----A DDITI ONAL INFOR MATIO N---- ----- ----- ----- This test was devel oped and its perfo rmanc e allen cteri stics deter mined by [facility] in a chad r consi stent with CLIA requi remen ts. This test has not been clear ed or appro viri by the U.S. Food and Drug Admin istra tion. Not Available [facility] (Lab) [address], [place], [address], 03/11/2024 16:55:25 02/27/20 24 02/27/2024 TESTO STERO [...] e allen cteri stics deter mined by [facility] in a chad r consi stent with CLIA requi remen ts. This test has not been clear ed or appro viri by the U.S. Food and Drug Admin istra tion. Test Perfo rmed by: [facility] - [place] [address], [place] [address] Lab Direc tor: Ada Adair nn Ph.D. ; CLIA# [id number] Not Available [facility] (Lab) [address], [place], [address], 03/11/2024 16:55:25 02/27/20 24 02/27/2024 pregn annabelle test, urine HCG negati ve Not Available [address], [place], [address], 02/27/2024 16:02:53 03/26/20 24 03/26/2024 TSH, REFLE X FREE T4 TSH 0.47 uIU/m L 0.30-5 .33 Not Available [facility] (Lab) [address], [place], [address], 03/27/2024 07:08:35 04/29/20 24 04/29/2024 pregn annabelle test, urine HCG negati ve Not Available [place] [address], [place], [address], 04/29/2024 18:12:16 04/21/20 24 04/21/2024 US, obste tric, trans vagin al No observ ation record ed. [email or web address] [place] [address], [place], [address], 04/21/2024 18:16:21 04/21/20 24 04/21/2024 US, obste tric, trans vagin al No observ ation record ed. [email or web address] [address] [address], [place], [address], 04/22/2024 11:52:58 Result Notes None recorded. Problems Name Problem SNOMED Code Status Onset Date Resolution Date Notes Provider Name and Address Organization Details Recorded Time Speciali moo medical examinat ion Completed 201308/10/2021 Gynecolog ical Examinati on;Record ed Elsewhere : No Locati on: [facility] So urce: EHR Chron ic: N Practic e ID: 0001 Bill able Time: 02:15:00 PM Ashley no [facility] 2 13:05:33 Screenin g for malignan t neoplasm of cervix Completed 201308/10/2021 Pap Smear;Pra ctice ID: 0001 Ashley no [facility] 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 [address] 13:05:[address] Concept Completed 201408/10/2021 Encntr for general adult medical exam w/o abnormal findings; Recorded Elsewhere : No Locati on: [facility] So urce: EHR Chron ic: N Practic e ID: 0001 Bill able Time: 11:00:00 AM Ashley Pisano [facility] 2 13:05:29 Blood leukocyt e number above referenc e range [id number] Completed 201608/10/2021 Elevated white blood cell count, unspecifi ed;Record ed Elsewhere : No Locati on: [facility] So urce: EHR Chron ic: N Practic e ID: 0001 Bill able Time: 05:45:00 PM Ashley Pisano [facility] 2 12:46:52 Acute vaginiti s 14068829 Completed 201608/10/2021 Acute vaginitis ;Practice ID: [address] [facility] 2 12:46:47 Urinary tract infectio us disease 26481198 Completed 201708/10/2021 UTI;Recor ded Elsewhere : No Locati on: [facility] So urce: EHR Chron ic: N Practic e ID: 0001 Bill able Time: 05:30:00 PM Ashley Pisano [facility] 2 13:05:35 Atypical squamous cells on cervical Papanico laou smear cannot exclude high grade squamous intraepi thelial lesion 132652889 Completed 201808/10/2021 Atyp squam cell not excl hi grd intrepith lesn cyto smr crvx;Daniele rded Elsewhere : No Locati on: [facility] So urce: EHR Chron ic: N Practic e ID: 0001 Bill able Time: 10:15:00 AM [facility] 2 12:46:50 Atypical squamous cells of undeterm ined signific ance on cervical Papanico laou smear 017789465 Completed 201808/10/2021 Atyp squam cell of undet signfc cyto smr crvx (ASC-US); Recorded Elsewhere : No Locati on: [facility] So urce: EHR Chron ic: N Practic e ID: 0001 Bill able Time: 10:15:[address] [facility] 2 12:46:49 Pregnanc y test negative [id number] Completed 201808/10/2021 Encounter for test, result negative; Recorded Elsewhere : No Locati on: [facility] So urce: EHR Chron ic: N Practic e ID: 0001 Bill able Time: 10:15:[address] [facility] 2 12:46:55 Problem Notes None recorded. Procedures Surgical History Date Name Laterality Status Provider Name and Address Organization Details Recorded Time 08/26/19 24 Date of Last Pap Smear completed Karley Arias [facility] 02/27/2024 15:51:07 02/27/20 21 endoscopy completed Renae Rodríguez MARCE- [address], [place], [address], [place] [facility] 08/10/2021 14:44:28 02/03/20 19 Colposcopy completed Ashley Pisano [facility] 08/10/2021 14:39:04 Imaging Results None recorded. Procedure Notes None recorded. Medical Equipment None Reported. Allergies No known drug allergies Medications Name Sig Start Date Stop Date Status Note LastModified by Organization Details LastModified Time Diflucan 150 mg tablet take 1 tablet by oral route every other week. 02/02 completed Prescrib ed Elsewher e: No Locat ion: [facility] odify By: [email or web address] z Encoun ter DateTime : 01/19/20 19 02:30:00 PM Not Available Not Available Not Available sulfameth oxazole 800 mg-trimet hoprim 160 mg tablet take 1 tablet by oral route every 12 hours 02/02 completed Prescrib ed Elsewher e: No Locat ion: [facility] DateTime : 12/24/19 [...] Prescrib ed Elsewher e: No Locat ion: [facility] odify By: [email or web address] marquez DateTime : 07/10/20 04:37:55 PM Not Available Not Available Not [...] Updated DateTime 02/27/2024 160.02 cm 30.6 kg/m2 12017.48 g 114/78 mm[Hg] Karley [facility] 02/27/2024 15:50:21 Date Recorded Body height Body mass index (BMI) Body weight Systolic And Diastolic Provider Name and Address Organization Details Last Updated DateTime 03/16/2024 160.02 cm 31.4 kg/m2 97737.85 g 124/83 mm[Hg] Karley [facility] 03/16/2024 12:37:53 Date Recorded Body height Body mass index (BMI) Body weight Systolic And Diastolic Provider Name and Address Organization Details Last Updated DateTime 04/21/2024 160.02 cm 30.6 kg/m2 48873.48 g 123/78 mm[Hg] Florence Green [facility] 04/21/2024 14:41:35 Date Recorded Body height Body mass index (BMI) Body weight Systolic And Diastolic Provider Name and Address Organization Details Last Updated DateTime 04/29/2024 160.02 cm 30.4 kg/m2 25879.73 g 116/75 mm[Hg] Tere Castanon [facility] 04/29/2024 17:15:24 Social History Question Answer Notes LastModified by Organizat ion Details LastModified Time Tobacco Smoking Status Never Smoker Ashley Norris [facility] 08/10/2021 14:35:15 Do You Have An [...] Or The Highest Degree You Have Received? [id number] Information not available 08/10/2021 Are There Any [...] Have Difficulty Walking Or Climbing Stairs? No [email or web address] Information not available 04/21/2024 Sex: Unknown Functional [...] able to care for yourself independently? 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 No [email or web address] Information not available 04/21/2024 What is your exercise level? Moderate Information not available 08/10/2021 Mental Status Question Answer Note LastModified by Organization D etails LastModified Time Do you feel stressed (tense, restless, nervous, or anxious, or unable to sleep at night)? [id number] Information not available 08/10/2021 Family History Relationship Description Onset Age of this Age Resolved Age Notes LastModified by Organization Details LastModified Time Mother Diabetes mellitus [email or web address] Not available 2019 11:46:26 Paternal Grandmother Diabetes mellitus [email or web address] Not available 2019 11:46:26 Paternal Grandmother Carcinoma in situ of lung [email or web address] Not available 12:19:04 Paternal Aunt Carcinoma in [...] ICD10 Code Diagnosis IMO Codes Diagnosis Note [id number] Renae Rodríguez [facility] [address] [place] [address] 05/08/2020 11:45:17 05/08/2020 17:52:43 Gynecologic examination 76883184 Z01.419 Take Calcium with Vitamin D 1200mg [...] 2019 consistent with pap results Pap/hpv ordered [id number] [facility] [address],[facility] [place] [address] 08/10/2021 14:21:36 08/10/2021 15:18:57 Gynecologic examination 69663067 Z01.419 Take Calcium with Vitamin D 1200mg [...] year! Waiting to set the date. [facility] ion care management 112620278 Z30.9 Happy on OCPRF sent x 1yr [id number] ARISTEO Ram-[facility] [address] [address] 08/26/2023 09:00:06 08/26/2023 09:31:11 Gynecologic examination 81684281 Z01.419 Z11.51 Take Calcium with Vitamin D [...] with folic acid [id number] Henry Carpenter MD [place] [address] [address] 02/27/2024 15:17:26 03/04/2024 23:33:34 Irregular periods 67350902 N92.6 Reproducti ve care management 781914167 Z31.9 - Differenti al diagnosis of cause [...] the patient's care. [id number] Henry Carpenter MD [place] [address] [address] 03/16/2024 12:18:54 03/17/2024 09:58:00 Female infertility 1124209 N97.9 Presents today for discussion of infertilit [...] We agreed to proceed with hysterosal pingogram. [id number] Henry Carpenter MD [place] [address] [address] 04/21/2024 14:12:24 04/21/2024 15:02:43 Threatened miscarriage 59825899 O20.0 O36.80X0 Z3A.00 [id number] Valerie Danielle CNM [place] [address] [address] 04/21/2024 14:13:18 04/21/2024 15:59:49 Long menstrual cycle 699428042 N92.5 missed ab, vs early pregnancyp brandyn HCG and then rpt in 48 hoursblood type drawncall if any concerns or increase in bleeding, will plan f/u next week pending resultscon tinue vitamin Hyperthyroidism 38410202 E05.90 rpt tsh free t4 and t3 today [id number] Henry Carpenter MD [place] [address] [address] 04/29/2024 17:07:06 04/30/2024 09:37:31 Missed miscarriage 85609587 O02.1 this patient presents for postop follow-up. [...] Rahman Member ID Guarantor Name 03/16/2024 1 [facility] [id number] Vaishali Liudmila [id number] Vaishali Carr 05/03/2024 1 [facility] - GEHA - DOS PRIOR TO 2024 (PPO) Vaishali Schultz Lilly [id number] A Vaishali Carr 03/16/2024 1 [employer] - FEP 111 Vaishali Schultz Lilly [id number] Vaishali Lilly Notes Date Note Type Note [...] appropriately Henry Carpenter MD [address], [place], [address], , P[facility] 02/28/2024 13:22:26 4 text/html Presents today [...] hysterosalpingogram. Henry Carpenter MD [address], [place], [address], , P[facility] 03/17/2024 09:54:27 4 text/html ROS as noted in the HPI +UPT, pt having some spotting, send for blood typeon US today not seeing 9 week IUP, discussed could be early vs miscarriagept also wants to discuss hyperthyroidism no current meds Valerie Danielle CNM [address], [place], [address], , P[facility] 04/21/2024 15:12:29 4 text/html this patient [...] on. Henry Carpenter MD [address], [place], [address], , P[facility] 04/29/2024 18:22:54 OBGyn Episode Ob Episode Information Episode Created Date Number of Fetuses Patient Bloodtype Patient rh Status Prepregnancy Weight lbs Domestic Partner Domestic Partner Phone Father Name Yard Pilot Status 04/21/20 24 1 CLOSED Fetus Data First Name Last Name Admitted to NICU Weight (g) Sex Living Outcome Pediatric Complications Fetus ID Race Codes Race Delivery Type , Spontane ous [id number] Andrey Calculation Initial Andrey Date Initial Exam [...]
[2025-05-30 16:27] LABS: Beta HCG Quantitative 83.80 mIU/ML
== END 2025-05-30 15:05 | disposition home or self-care (01) ==
LOC: ANHLAB 15:05
PROVIDERS: PCP Student in an Organized Health Care Education/Training Program; Visit Provider Student in an Organized Health Care Education/Training Program
DX: N91.2 Amenorrhea, unspecified (principal)
CPT/HCPCS: 36415; 84702

== ENCOUNTER 2025-06-01 13:58 | Outpatient (CLI) | payer OTHER, SELFPAY ==
[2025-06-01 15:54] LABS: Beta HCG Quantitative 89.77 mIU/ML
--- OUTSIDE RECORDS SUMMARY | 2025-06-02 13:31 | XMS_ITS | Data Portability ---
Author Organization [facility] Address [address] [place] [address] [place] [address] Care Team Providers Care Silverlight Developer Name Role Phone MEAGHAN JEFF Primary Care Provider Assessment No assessment recorded. Plan of Treatment Reminders Order Date Submit Date Provider Last Modified By Organization Details Last Modified Time Details Appointments None recorded. Lab test, urine 2023 024 [email or web address] [address], [address], [place], [address], 4 18:22:25 test, urine 2023 024 [email or web address] [facility], [address], [place], [address], 4 16:03:13 Referral None recorded. Procedures None recorded. Surgeries None recorded. Imaging US, obstetric, transvagina l 2023 024 [email or web address] [facility], [address], [place], [address], 4 12:53:52 XR, hysterosalp ingogram [address] [facility], [facility] [address], [place], [address], 5 10:28:28 Medication Orders None recorded. Patient [...] 9-246 > 75 12-15 4 Not Available [facility] (Lab) [address] [facility], [place], [address], 03/11/2024 16:55:20 02/27/20 24 02/27/2024 ESTRA DIOL [...] 154-3 243 pg/mL 2nd [place]ime [place] 1561- 57077 pg/mL 3rd [place] 8525- >3000 0 pg/mL Not Available [facility] (Lab) [address] [place], [address], 03/11/2024 16:55:20 02/27/20 24 02/27/2024 PROGE STERO [...] Trime [place] 58.70 -214. 00 Not Available [facility] (Lab) [address] [facility], [place], [address], 03/11/2024 16:55:21 02/27/20 24 02/27/2024 PROLA CTIN prolactin, total 18.50 NG/mL 4.79-2 3.30 This assay was perfo rmed using [employer] ratio n reage nts and test kits. Value s obtai sandra with other assay metho ds or kits canno t be used inter mancilla eably . Not Available [facility] (Lab) [address] [facility], [place], [address], 03/11/2024 16:55:21 02/27/20 24 02/27/2024 T4 FREE T4, free 1.09 NG/dL 0.60-1 .40 This assay is susce ptibl e to inter feren ce from high level s of bioti n which may false ly eleva te resul ts. Pleas e corre late with clini radames findi ngs. Not Available [facility] (Lab) [address] [facility], [place], [address], 03/11/2024 16:55:22 02/27/20 24 02/27/2024 TSH, REFLE X FREE T4 TSH 0.27 uIU/m L 0.30-5 .33 low Not Available [facility] (Lab) [address] [place], [address], 03/11/2024 16:55:22 02/27/20 24 02/27/2024 LH (LUTE [...] use: 7.7-5 8.5 mIU/m L Not Available [facility] (Lab) [address] [facility], [place], [address], 03/11/2024 16:55:22 02/27/20 24 02/27/2024 FSH FSH 7.8 mIU/m L This assay was perfo rmed using [employer] ratio n reage nts and test kits. Value s obtai sandra with other assay metho ds or kits canno t be used inter [facility] . Femal es Folli cular : 3.5-1 2.5 mIU/m L Ovula tion: 4.7-2 1.5 mIU/m L Lutea l: 1.7-7 .7 mIU/m L Postm enopa use: 25.8- 134.8 mIU/m L Not Available [facility] (Lab) [address] [facility], [place], [address], 03/11/2024 16:55:23 02/27/20 24 02/27/2024 HUMAN SEX HORMO NE HILDA NG GLOBU ELSA sex hormone binding globulin 78.8 nmole s/L 18.2-1 35.5 Not Available [facility] (Lab) [address] [facility], [place], [address], 03/11/2024 16:55:23 02/27/20 24 02/27/2024 HEMOG LOBIN [...] - 6.4% Incre ased risk for diabe geatchew >=6.5 % Diagn ostic of diabe getachew <7.0% Goal of thera py >8.0% Actio n sugjay sted Not Available [facility] (Lab) [address], [place], [address], 03/11/2024 16:55:24 02/27/2002/27/2024 17-HY DROXY PROGE STERO NE, SERUM 17-hydroxypr ogesterone, S 56 NG/dL ----- ----- ----- ----R EFERE NCE VALUE ----- ----- ----- ----- ----- - < 80 (Foll icula r) <285 (Lute al) ----- ----- ----- ----A DDITI ONAL INFOR MATIO N---- ----- ----- ----- This test was dereje wright and its perfo rmanc e allen monacori stics deter mined by [facility] in a chad r consi stent with EARL wong ts. This test has not been clear ed or appro viri by the U.S. Food and Drug Admin istra tion. Test Perfo rmed by: [facility] - [place] [address] , [place] [address] Lab Direc tor: Ada Adair nn Ph.D. ; CLIA# [id number] Not Available [facility] (Lab) [address], [place], [address], 03/11/2024 16:55:24 02/27/2002/27/2024 TESTO STERO NE, TOTAL AND FREE, SERUM (LC-M S/MS) testosterone free 0.80 NG/dL <0.13- 1.00 ----- ----- ----- ----A DDITI ONAL INFOR MATIO N---- ----- ----- ----- This test was devel oped and its perfo rmanc e allen cteri stics deter mined by [facility] in a chad r consi stent with CLIA requi remen ts. This test has not been clear ed or appro viri by the U.S. Food and Drug Admin istra tion. Not Available [facility] (Lab) [address] [facility], [place], [address], 03/11/2024 16:55:25 02/27/20 24 02/27/2024 TESTO STERO [...] e allen cteri stics deter mined by [facility] in a chad r consi stent with CLIA requi remen ts. This test has not been clear ed or appro viri by the U.S. Food and Drug Admin istra tion. Test Perfo rmed by: [facility] - [place] [address], [place] [address] Lab Direc tor: Ada Adair nn Ph.D. ; CLIA# [id number] Not Available [facility] (Lab) [address] [facility], [place], [address], 03/11/2024 16:55:25 02/27/20 24 02/27/2024 pregn annabelle test, urine HCG negati ve Not Available [address], [place], [address], 02/27/2024 16:02:53 03/26/20 24 03/26/2024 TSH, REFLE X FREE T4 TSH 0.47 uIU/m L 0.30-5 .33 Not Available [facility] (Lab) [address], [place], [address], 03/27/2024 07:08:35 04/29/20 24 04/29/2024 pregn annabelle test, urine HCG negati ve Not Available [facility] [address], [place], [address], 04/29/2024 18:12:16 04/21/20 24 04/21/2024 US, obste tric, trans vagin al No observ ation record ed. [email or web address] [facility] [address], [place], [address], 04/21/2024 18:16:21 04/21/20 24 04/21/2024 US, obste tric, trans vagin al No observ ation record ed. Josefa [address] [address], [place], [address], 04/22/2024 11:52:58 Result Notes None recorded. Problems Name Problem SNOMED Code Status Onset Date Resolution Date Notes Provider Name and Address Organization Details Recorded Time Speciali moo medical examinat ion Completed 201308/10/2021 Gynecolog ical Examinati on;Record ed Elsewhere : No Locati on: [facility] So urce: EHR Chron ic: N Practic e ID: 0001 Bill able Time: 02:15:00 PM Ashley no [facility] 2 13:05:33 Screenin g for malignan t neoplasm of cervix Completed 201308/10/2021 Pap Smear;Pra ctice ID: [id number] Ashley no [facility] 2 14:15:[address] Concept Completed 201408/10/2021 Encntr for executive consultant exam (general) (routine) w/o abn findings; Recorded Elsewhere : No Locati on: [facility] So urce: EHR Chron ic: N Practic e ID: 0001 Bill able Time: 11:00:00 AM Ashley Pisano [facility] 2 13:05:[address] Concept Completed 201408/10/2021 Encntr for general adult medical exam w/o abnormal findings; Recorded Elsewhere : No Locati on: [facility] So urce: EHR Chron ic: N Practic e ID: 0001 Bill able Time: 11:00:00 AM Ashley Pisano [facility] 2 13:05:29 Blood leukocyt e number above referenc e range [id number] Completed 201608/10/2021 Elevated white blood cell count, unspecifi ed;Record ed Elsewhere : No Locati on: [facility] So urce: EHR Chron ic: N Practic e ID: 0001 Bill able Time: 05:45:00 PM Ashley Pisano [facility] 2 12:46:52 Acute vaginiti s 18567252 Completed 201608/10/2021 Acute vaginitis ;Practice ID: [id number] Ashley Pisano [facility] 2 12:46:47 Urinary tract infectio us disease 48792214 Completed 201708/10/2021 UTI;Recor ded Elsewhere : No Locati on: [facility] So urce: EHR Chron ic: N Practic e ID: 0001 Bill able Time: 05:30:00 PM Ashley Pisano [facility] 2 13:05:35 Atypical squamous cells on cervical Papanico laou smear cannot exclude high grade squamous intraepi thelial lesion [id number] Completed 201808/10/2021 Atyp squam cell not excl hi grd intrepith lesn cyto smr crvx;Daniele rded Elsewhere : No Locati on: [facility] So urce: EHR Chron ic: N Practic e ID: 0001 Bill able Time: 10:15:00 AM [facility] 2 12:46:50 Atypical squamous cells of undeterm ined signific ance on cervical Papanico laou smear 547330808 Completed 201808/10/2021 Atyp squam cell of undet signfc cyto smr crvx (ASC-US); Recorded Elsewhere : No Locati on: [facility] So urce: EHR Chron ic: N Practic e ID: 0001 Bill able Time: 10:15:00 AM Ashley Pisano [facility] 2 12:46:49 Pregnanc y test negative 475678843 Completed 201808/10/2021 Encounter for test, result negative; Recorded Elsewhere : No Locati on: [facility] So urce: EHR Chron ic: N Practic e ID: 0001 Bill able Time: 10:15:00 AM Ashley Pisano [facility] 2 12:46:55 Problem Notes None recorded. Procedures Surgical History Date Name Laterality Status Provider Name and Address Organization Details Recorded Time 08/26/19 24 Date of Last Pap Smear completed Karley Arias [facility] 02/27/2024 15:51:07 02/27/20 21 endoscopy completed Renae Rodríguez MARCE- [address], [place], [address], [place] [facility] 08/10/2021 14:44:28 02/03/20 19 Colposcopy completed Ashley Pisano [facility] 08/10/2021 14:39:04 Imaging Results None recorded. Procedure Notes None recorded. Medical Equipment None Reported. Allergies No known drug allergies Medications Name Sig Start Date Stop Date Status Note LastModified by Organization Details LastModified Time Diflucan 150 mg tablet take 1 tablet by oral route every other week. 02/02 completed Prescrib ed Elsewher e: No Locat ion: [facility] odify By: [email or web address] z Encoun ter DateTime : 01/19/20 19 02:30:00 PM Not Available Not Available Not Available sulfameth oxazole 800 mg-trimet hoprim 160 mg tablet take 1 tablet by oral route every 12 hours 02/02 completed Prescrib ed Elsewher e: No Locat ion: [facility] DateTime : 12/24/19 [...] Prescrib ed Elsewher e: No Locat ion: [facility] odify By: [email or web address] marquez DateTime : 07/10/20 [...] Updated DateTime 02/27/2024 160.02 cm 30.6 kg/m2 67979.48 g 114/78 mm[Hg] Karley [facility] 02/27/2024 15:50:21 Date Recorded Body height Body mass index (BMI) Body weight Systolic And Diastolic Provider Name and Address Organization Details Last Updated DateTime 03/16/2024 160.02 cm 31.4 kg/m2 32410.85 g 124/83 mm[Hg] Karley [facility] 03/16/2024 12:37:53 Date Recorded Body height Body mass index (BMI) Body weight Systolic And Diastolic Provider Name and Address Organization Details Last Updated DateTime 04/21/2024 160.02 cm 30.6 kg/m2 22540.48 g 123/78 mm[Hg] Florence Green [facility] 04/21/2024 14:41:35 Date Recorded Body height Body mass index (BMI) Body weight Systolic And Diastolic Provider Name and Address Organization Details Last Updated DateTime 04/29/2024 160.02 cm 30.4 kg/m2 93649.73 g 116/75 mm[Hg] Tere Castanon [facility] 04/29/2024 17:15:24 Social History Question Answer Notes LastModified by Organizat ion Details LastModified Time Tobacco Smoking Status Never Smoker Ashley Norris [facility] 08/10/2021 14:35:15 Do You [...] Or The Highest Degree You Have Received? [id number] Information not available 08/10/2021 Are There Any [...] Have Difficulty Walking Or Climbing Stairs? No [email or web address] Information not available 04/21/2024 Sex: Unknown Functional [...] able to care for yourself independently? 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 No [email or web address] Information not available 04/21/2024 What is your exercise level? Moderate Information not available 08/10/2021 Mental Status Question Answer Note LastModified by Organization D etails LastModified Time Do you feel stressed (tense, restless, nervous, or anxious, or unable to sleep at night)? [id number] Information not available 08/10/2021 Family History Relationship Description Onset Age of this Age Resolved Age Notes LastModified by Organization Details LastModified Time Mother Diabetes mellitus [email or web address] Not available 2019 11:46:26 Paternal Grandmother Diabetes mellitus [email or web address] Not available 2019 11:46:26 Paternal Grandmother Carcinoma in situ of lung [email or web address] Not available 12:19:04 Paternal Aunt Carcinoma in situ of breast [email or web address] Not available 2023 12:19:04 Medical History Condition [...] ICD10 Code Diagnosis IMO Codes Diagnosis Note [id number] Renae Rodríguez [facility] [address],[facility] [place] [address] 05/08/2020 11:45:17 05/08/2020 17:52:43 Gynecologic examination 61233876 Z01.419 Take Calcium with Vitamin D 1200mg [...] 2019 consistent with pap results Pap/hpv ordered [id number] [facility] [address],[facility] [place] [address] 08/10/2021 14:21:36 08/10/2021 15:18:57 Gynecologic examination 83087325 Z01.419 Take Calcium with Vitamin D 1200mg [...] this year! Waiting to set the date. [facility] ion care management [id number] Z30.9 Happy on OCPRF sent x 1yr [id number] ARISTEO [facility] [address] [address] 08/26/2023 09:00:06 08/26/2023 09:31:11 Gynecologic examination 92541177 Z01.419 Z11.51 Take Calcium with Vitamin D [...] with folic acid [id number] Henry Carpenter MD [facility] [address] [address] 02/27/2024 15:17:26 03/04/2024 23:33:34 Irregular periods 57181648 N92.6 Reproducti ve care management 796579833 Z31.9 - Differenti al diagnosis of cause [...] the patient's care. [id number] Henry Carpenter MD [facility] [address] [address] 03/16/2024 12:18:54 03/17/2024 09:58:00 Female infertility 9540988 N97.9 Presents today for discussion of infertilit [...] We agreed to proceed with hysterosal pingogram. [id number] Henry Carpenter MD [facility] [address] [address] 04/21/2024 14:12:24 04/21/2024 15:02:43 Threatened miscarriage 60425382 O20.0 O36.80X0 Z3A.00 [id number] Valreie Danielle CNM [facility] [address] [address] 04/21/2024 14:13:18 04/21/2024 15:59:49 Long menstrual cycle 019420126 N92.5 missed ab, vs early pregnancyp brandyn HCG and then rpt in 48 hoursblood type drawncall if any concerns or increase in bleeding, will plan f/u next week pending resultscon tinue vitamin Hyperthyroidism 03690924 E05.90 rpt tsh free t4 and t3 today [id number] Henry Carpenter MD [facility] [address] [address] 04/29/2024 17:07:06 04/30/2024 09:37:31 Missed miscarriage 83854849 O02.1 this patient presents for postop follow-up. [...] Rahman Member ID Guarantor Name 03/16/2024 1 [facility] [id number] Vaishali Liudmila [id number] Vaishali Carr 05/03/2024 1 [facility] SHARED SERVICES - GEHA - DOS PRIOR TO 2024 (PPO) Vaishali Schultz Lilly [id number] A Vaishali Carr 03/16/2024 1 [employer] - FEP 111 Vaishali Schultz Lilly [id number] Vaishali Lilly Notes Date Note Type Note [...] appropriately Henry Carpenter MD [address], [place], [address], [facility] 02/28/2024 13:22:26 [...] hysterosalpingogram. Henry Carpenter MD [address], [place], [address], [facility] 03/17/2024 09:54:27 4 text/html ROS as noted in the HPI +UPT, pt having some spotting, send for blood typeon US today not seeing 9 week IUP, discussed could be early vs miscarriagept also wants to discuss hyperthyroidism no current meds Valerie Danielle CNM [address], [place], [address], [facility] 04/21/2024 15:12:29 [...] on. Henry Carpenter MD [address], [place], [address], [facility] 04/29/2024 18:22:54 OBGyn Episode Ob Episode Information Episode Created Date Number of Fetuses Patient Bloodtype Patient rh Status Prepregnancy Weight lbs Domestic Partner Domestic Partner Phone Father Name Group Cio Status 04/21/20 24 1 CLOSED Fetus Data First Name Last Name Admitted to NICU Weight (g) Sex Living Outcome Pediatric Complications Fetus ID Race Codes Race Delivery Type , Spontane ous [id number] Andrey Calculation Initial Andrey Date Initial Exam [...]
--- OUTSIDE RECORDS SUMMARY | 2025-06-02 13:31 | XMS_ITS | Clinical Summary ---
Author Organization [facility] Address [address] [place] [address] Care Team Providers Care Cloth Booker Name Role Phone Gus Elise Primary Care [...] Encounters Date Type Department Care Team Description 05/23/2025 Scan [facility] Scanned, Doc [facility] Lab (SCAN) 05/18/2025 Scan [facility] Scanned, Doc [facility] (SCAN) 03/12/2025 Scan [facility] INFO SRVCS Scanned, [...] st Contact Info) Description 06/29/2025 7:20 AM TOWER DIRECTOR Office Visit [facility] Family & Internal Medicine - [address] [address] Gus Elise, [address] [place] [address] [phone] Health Maintenance Due Date Last Done Comments [...] Clinic) Hepatitis C Completed 07/14/2023 PHQ-2 (Physician [place]) Completed 11/09/2024 Hepatitis B Vaccines Completed 02/10/2025, [...] Associated Diagnosis Comments OUTSIDE LAB (SCAN ORDER) 05/23/2025 OUTSIDE LAB (SCAN ORDER) 05/18/2025 OUTSIDE LAB (SCAN ORDER) 05/18/2025 OUTSIDE LAB (SCAN ORDER) 05/18/2025 OUTSIDE LAB (SCAN ORDER) 03/12/2025 OUTSIDE CYTOPATH CERV/VAG INTERPRET (PAP) 08/26/2023 HEPATITIS C ANTIBODY Routine 07/14/2023 7:20 AM TOWER DIRECTOR Encounter for preventative adult health care examination Screening for lipid disorders Screening for endocrine, metabolic and immunity disorder Need for hepatitis C screening test from Last 3 Months or Most Recently Relevant to Health Maintenance Results * OUTSIDE LAB (SCAN ORDER) (05/23/2025) Only the most recent of5 resultswithin the time period is included. 05/23/2025 (In[employer] Scanned SCANNING Final Resu lt * PAP SMEAR WITH HPV (08/26/2023) 08/26/2023 [facility] Scanned SCANNING Final Resu lt * HEPATITIS C ANTIBODY ([facility] ONLY) (07/14/2023 7:20 AM TOWER DIRECTOR) HEPATITIS C AB NON-REACTI VE NON-REACT ROB 07/14/2023 7:07 PM TOWER DIRECTOR [facility] Comment: ANTIBODIES TO HCV NOT DETECTED. DOES NOT EXCLUDE THE POSSIBILITY OF EXPOSURE TO HCV. 07/14/2023 7:20 AM TOWER DIRECTOR Gus Elise DO LABORATORY Final Re sult [facility] [address] [place] [address], [place] [phone] from Last 3 Months or Most Recently Relevant to Health [place] [address] Care Teams Cloth Booker Relationship Specialty Start Date End Date Gus Elise DO [address] [place] [phone] PCP - General FAMILY PRACTICE 06/25/23
--- OUTSIDE RECORDS SUMMARY | 2025-06-02 13:31 | XMS_ITS | Encounter Summary ---
Author Organization [facility] Address [address] [place] [address] Phone Care Team Providers Care Preservationist Name Role Phone Gus Elise DO Primary Care Provide r Encounter Details Date Type Department Care Team (Latest Contact Info) Description 05/25/2025 Results Follow-Up [facility] Medicine Reproductive Endocrinology [address] [address] Dino Armando MD [address] [address] T4, free, TSH, Antimullerian hormone [...] on filedocumented in this encounter Care Teams Preservationist Relationship Specialty Start Date End Date Gus Elise DO [address] [place] [address] PCP - General Family Medicine 02/08/25 documented as of this encounter
--- OUTSIDE RECORDS SUMMARY | 2025-06-02 13:31 | XMS_ITS | Clinical Summary ---
Author Organization [place] [id number] [facility] Address [address] [place] [address] Care Team Providers Care General Utility Machine Operator Name Role Phone Gus Elise DO Primary Care Provide r Allergies No known active allergies Medications vit no.[id number] ic 28 mg iron- 800 mcg tablet [...] Team Description 05/27/2025 Telephone [facility] Maternal- Medicine [address] [facility] 7th Floor [address] [place] [address] Rubi Juarez RN bleeding 05/25/2025 Results Follow-Up [facility] Reproductive Endocrinology [address] [place] [address] [place] [address] [phone] Dino Armando MD T4, free, TSH, Antimullerian hormone (AMH), Additional followed-up results: 5 05/18/2025 Orders Only [facility] Rep[facility]ductive Endocr[facility]ology [address] [facility] [address] [place] [address] [phone] Dino Armando MD Screening for thyroid disorder (Primary Dx); Encounter for fertility testing; Screening for rubella; Screening for viral disease; Encounter for blood typing; 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 current 05/17/2025 Orders Only [facility] Rep[facility] Endocr[facility]ology [address] [place] [address] [place] [address] [phone] Dino Armando MD 05/16/2025 9:00 AM CDT Telemedicine [facility] Reproductive Endocr[facility]ology [address] [place] [address] [place] [address] [phone] Dino Armando MD Recurrent loss (Primary Dx) 04/01/2025 9:36 AM CDT - 04/01/2025 11:59 PM CDT Hospital Encounter [facility] [address] [facility] [address] [place], [place] [phone] Recurrent loss Discharge Disposition: Discharge to home or self care 03/24/2025 9:05 AM CDT Lab [facility] Outpatient Lab [address] [place] [address] Recurrent loss 03/24/2025 8:00 AM CDT Office Visit [facility] Maternal- Medicine [facility] [address] [facility] Medical Office [address] [place] [address] Recurrent loss (Primary Dx) 03/11/2025 Telephone [facility] Maternal- Medicine [address] [facility] 7th Floor [address] [place] [address] Rubi Juarez RN from Last [...] GENERAL ORDERABLES Final Result Performing Organization Address [facility]/ZIP Co de Phone Number EXTERNAL LAB * (ABNORMAL) TSH (05/18/2025) Scribed TSH 0.27(A) 0.47 - 4.68 mcU/mL EXTERNAL LAB Blood 05/18/2025 Dino Armando MD LAB BLOOD ORDERABLES Final Result Performing Organization Address [facility] Co de Phone Number EXTERNAL LAB [...] and her partner. us Karie Johnson MD [facility] [place] PROCEDURES Final Resu lt * Lupus Anticoagulant Panel plus Reflexes (03/24/2025 9:14 AM CDT) PT 10.6 10.2 - 13.5 sec Comment:Testing performed by : [facility], [address] [facility] [place]., [address] INR 0.94 0.90 - 1.20 [facility] Comment: Interpretive data Oral anticoagulant therapeutic ranges: Venous thromboembolism prophylaxis or treatment: 2.0-3.0 CARDIOLOGY Standard range: 2.0-3.0 High-intensity range: 2.5-3.5 Refer to indication-specific guidelines for appropriate target ranges for prosthetic heart valve replacement. Current interpretive data was last revised on 2019. Testing performed by: [facility], [address] [place]., [address] aPTT 29 26 - 38 sec [facility] Comment: Interpretive Data Heparin therapeutic range: 66.0 - 100.0 seconds. Range based on correlation with therapeutic heparin activity range of 0.3 - 0.7 Units/mL. Current interpretive data was last revised on 2023. Testing performed by: [facility], [address] [place]., [address] DRVVT screen ratio 0.89 0.00 - 1.20 Ratio [facility] Comment:Testing performed by : [facility], [address] [place]., [address] SCT Screen Ratio 0.85 0.00 - 1.16 Ratio [facility] Comment:Testing performed by : [facility], [address] [place]., [address] Lupus anticoagulant, interp Negative [facility] Comment: Interpretive data Lupus anticoagulants [...] lupus anticoagulant detection. J Thromb Haemost. 2009; 7:1422-0228. 2. Denzel Cardoza. et al. International consensus statement on an update of the classification criteria for definite antiphospholipid syndrome (APS). J Thromb Haemost. 2006; 4:295-306. Current interpretive data was last revised on 2018 Testing performed by: [facility], [address] [place]., [address] Blood 03/24/2025 9:14 AM CDT 03/24/2025 12:22 PM CDT us Karie Johnson MD LAB BLOOD ORDERABLES Final R esult [facility] [address] Department [place] [address] * Chromosome analysis (03/24/2025 9:14 AM CDT) CHRCB Result summary Normal [facility] Lab [facility] Interpretation See Footnote [facility] Comment:RESULT: No chromosom e abnormality was apparent. CHRCB Result 46,XX [facility] CHRCB Reason for Referral See Footnote [facility] Comment:RESULT: recurrent pr egnancy loss CHRCB Specimen Blood [facility] Chromosome analysis, source Not Reported [facility] CHRCB Method See Footnote [facility] Comment:RESULT: 72 hour cult ure w/mitogens [facility] Banding method See Footnote [facility] Comment: Band Resolution: 550-109 Stain Name Cells Analyzed Cells Karyograms Counted Prepared GTL 5 15 2 Total 5 15 2 Dobson to Stain Name: GTL=G-banding; QFQ=Q-banding; DAPI=DAPI-staining; CBL=C-banding; AGNOR=Silver-staining; NON=Non-banded The sum of Cells Analyzed and Cells Counted equals the total cells examined. Chromosome analysis, Additional info See Footnote [facility] Comment: A portion of the testing process was performed at [facility] site [id number], [id number]. CHRCB Released By See Footnote [facility] Comment: RESULT: Tad Aguilar, Ph.D. Test Performed by: [place] [address] Salvage Engineer: Julissa Holliday Ph.D.; CLIA# [id number] Blood 03/24/2025 9:14 AM CDT 03/24/2025 9:52 AM CDT Flip [facility] - 04/04/2025 4:21 PM CDT Is this going to [facility]?->No us Karie Johnson MD LAB GENETIC TESTING Final Re sult [facility] [address] Department [place] [address] [place] ref Lab from Last 3 Months Insurance [facility] CHOICE PLUS [facility] HMO/PPO [place] [address] [facility] CHOICE PLUS [facility] HMO/PPO Address: [place] [id number] Care Teams General Utility Machine Operator Relationship Specialty Start Date End Date Gus Elise DO [address] [place] [id number] PCP - General Family Medicine 02/08/25
== END 2025-06-01 13:59 | disposition home or self-care (01) ==
LOC: ANHLAB 13:59
PROVIDERS: PCP Student in an Organized Health Care Education/Training Program; Visit Provider Student in an Organized Health Care Education/Training Program
DX: N91.2 Amenorrhea, unspecified (principal)
CPT/HCPCS: 36415; 84702

== ENCOUNTER 2025-06-06 14:55 | Outpatient (CLI) | payer OTHER, SELFPAY ==
--- OUTSIDE RECORDS SUMMARY | 2025-06-06 14:58 | XMS_ITS | Clinical Summary ---
Author Organization [place] [id number] [facility] Address [address] [place] [address] Care Team Providers Care Offal Separator Name Role Phone Gus Elise DO Primary Care Provide r Allergies No known active allergies Medications vit no.[id number]-dpul-[id number] ic 28 mg iron- 800 mcg tablet [...] Type Department Care Team Description 05/27/2025 Telephone [facility]- Medicine [address] [facility] 7th Floor [address] [place] [address] Rubi Juarez RN bleeding 05/25/2025 Results Follow-Up [facility] Reproductive Endocrinology [address] [place] [address] [place] [address] [phone] Dino Armando MD T4, free, TSH, Antimullerian hormone (AMH), Additional followed-up results: 5 05/18/2025 Orders Only [facility] [address] [facility] [address] [place] [address] [phone] Dino Armando MD Screening for thyroid disorder (Primary Dx); Encounter for fertility testing; Screening for rubella; Screening for viral disease; Encounter for blood typing; 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 current 05/17/2025 Orders Only [facility] [address] [place] [address] [place] [address] [phone] Dino Armando MD 05/16/2025 9:00 AM CDT Telemedicine [facility] [address] [place] [address] [place] [address] [phone] Dino Armando MD Recurrent loss (Primary Dx) 04/01/2025 9:36 AM CDT - 04/01/2025 11:59 PM CDT Hospital Encounter [facility] [address] [facility] [address] [place], [place] [phone] Recurrent loss Discharge Disposition: Discharge to home or self care 03/24/2025 9:05 AM CDT Lab [facility] Outpatient Lab [address] [place] [address] Recurrent loss 03/24/2025 8:00 AM CDT Office Visit [facility]- Medicine [facility] [address] [facility] Medical Office [address] [place] [address] Recurrent loss (Primary Dx) 03/11/2025 Telephone [facility]- Medicine [address] [facility] 7th Floor [address] [place] [address] Rubi Juarez RN from Last [...] BLOOD ORDERABLES Final Result Performing Organization Address City/[facility]/ZIP Co de Phone Number EXTERNAL LAB * Antimullerian hormone (AMH) (05/18/2025) SCRIBED AMH, ab 4.46 EXTERNAL LAB Blood 05/18/2025 Dino Armando MD LAB BLOOD ORDERABLES Edite d Result - Final Performing Organization Address City/[facility]/ZIP Co de Phone Number EXTERNAL LAB * ABO/Rh (05/18/2025) SCRIBED ABO/Rh O+ EXTERNAL LAB SCRIBED Indirect Antiglobulin Negative neg - Pos EXTERNAL LAB Blood 05/18/2025 Dino Armando MD LAB BLOOD BANK TEST ORDERA BLES Final Result EXTERNAL LAB * Rubella IgG antibody Blood (05/18/2025) SCRIBED Rubella IGG Positive EXTERNAL LAB Comment:34.8 Blood 05/18/2025 Dino Armando MD LAB MICROBIOLOGY - GENERAL ORDERABLES Final Result Performing Organization Address City/[facility]/ZIP Co de Phone Number EXTERNAL LAB * Antibody screen (05/18/2025) SCRIBED Indirect Antiglobulin Negative Neg - Pos EXTERNAL LAB Blood 05/18/2025 Dino Armando MD LAB BLOOD BANK TEST ORDERA BLES Final Result EXTERNAL LAB * Varicella Zoster IgG antibody Blood (05/18/2025) SCRIBED Varicella Zoster, IgG Positive EXTERNAL LAB Blood 05/18/2025 Dino Armando MD LAB MICROBIOLOGY - GENERAL ORDERABLES Final Result Performing Organization Address [facility] Co de Phone Number EXTERNAL LAB * (ABNORMAL) TSH (05/18/2025) Scribed TSH 0.27(A) 0.47 - 4.68 mcU/mL EXTERNAL LAB Blood 05/18/2025 Dino Armando MD LAB BLOOD ORDERABLES Final Result Performing Organization Address [facility]/ZIP Co de Phone Number EXTERNAL LAB * T4, free (05/18/2025) SCRIBED T4, Free 1.24 0.78 - 2.19 mcg/dL EXTERNAL LAB Blood 05/18/2025 Dino Armando MD LAB BLOOD ORDERABLES Final Result Performing Organization Address City/[facility]/ZIP Co de Phone Number EXTERNAL LAB * [...] - 13.5 sec Comment:Testing performed by : [facility], [address] [facility], [place]., [address] INR 0.94 0.90 - 1.20 ERR[facility] Comment: Interpretive data Oral anticoagulant therapeutic ranges: Venous thromboembolism prophylaxis or treatment: 2.0-3.0 CARDIOLOGY Standard range: 2.0-3.0 High-intensity range: 2.5-3.5 Refer to indication-specific guidelines for appropriate target ranges for prosthetic heart valve replacement. Current interpretive data was last revised on 2019. Testing performed by: [facility], [address] [place]., [address] aPTT 29 26 - 38 sec [facility] Comment: Interpretive Data Heparin therapeutic range: 66.0 - 100.0 seconds. Range based on correlation with therapeutic heparin activity range of 0.3 - 0.7 Units/mL. Current interpretive data was last revised on 2023. Testing performed by: [facility], [address] [place]., [address] DRVVT screen ratio 0.89 0.00 - 1.20 Ratio [facility] Comment:Testing performed by : [facility], [address] [place]., [address] SCT Screen Ratio 0.85 0.00 - 1.16 Ratio [facility] Comment:Testing performed by : [facility], [address] [place]., [address] Lupus anticoagulant, interp Negative [facility] Comment: Interpretive data Lupus anticoagulants (LA) [...] heparin. References: 1) Dominico V, Paz A, [place] JH, Orjamarl TL, Nader M, De Marlyn PG. Update of the guidelines for lupus anticoagulant detection. J Thromb Haemost. 2009; 7:7578-1811. 2. Denzel Cardoza. et al. International consensus statement on an update of the classification criteria for definite antiphospholipid syndrome (APS). J Thromb Haemost. 2006; 4:295-306. Current interpretive data was last revised on 2018 Testing performed by: [facility], [address] [place]., [address] Blood 03/24/2025 9:14 AM CDT 03/24/2025 12:22 PM CDT us Karie Johnson MD LAB BLOOD ORDERABLES Final R esult [facility] [address] Department [place] [address] * Chromosome analysis (03/24/2025 9:14 AM CDT) Pathologist [facility] Result summary Normal [facility] Lab [facility] Interpretation See Footnote [facility] Comment:RESULT: No chromosom e abnormality was apparent. CHRCB Result 46,XX [facility] CHRCB Reason for Referral See Footnote [facility] Comment:RESULT: recurrent pr egnancy loss CHR[facility] Specimen Blood [facility] Chromosome analysis, source Not Reported [facility] CHRCB Method See Footnote [facility] Comment:RESULT: 72 hour cult ure w/mitogens [facility] Banding method See Footnote [facility] Comment: Band Resolution: 550-989 Stain Name Cells Analyzed Cells Karyograms Counted Prepared GTL 5 15 2 Total 5 15 2 Dobson to Stain Name: GTL=G-banding; QFQ=Q-banding; DAPI=DAPI-staining; CBL=C-banding; AGNOR=Silver-staining; NON=Non-banded The sum of Cells Analyzed and Cells Counted equals the total cells examined. Chromosome analysis, Additional info See Footnote [facility] Comment: A portion of the testing process was performed at [facility] site [id number], [id number]. CHRCB Released By See Footnote [facility] Comment: RESULT: Tad Aguilar, Ph.D. Test Performed by: [facility] [place] [address] Sheeting Puller: Julissa Holliday Ph.D.; CLIA# [id number] Blood 03/24/2025 9:14 AM CDT 03/24/2025 9:52 AM CDT Narrative [facility] - 04/04/2025 4:21 PM CDT Is this going to [facility]?->No us Karie Johnson MD LAB GENETIC TESTING Final Re sult [facility] [address] [place] [address] [place] ref Lab from Last 3 Months Insurance [facility] CHOICE PLUS [facility] HMO/PPO Address: [place] [id number] [facility] CHOICE PLUS [facility] H[facility]/PPO Address: [address] [address] Care Teams Offal Separator Relationship Specialty Start Date End Date Gus Elise DO [address] [place] [id number] PCP - General Family Medicine 02/08/25
--- OUTSIDE RECORDS SUMMARY | 2025-06-06 14:58 | XMS_ITS | Data Portability ---
Author Organization [facility] [place] Address [address] [place] [address] [place] [address] Care Team Providers Care Heel Gouger Name Role Phone MEAGHAN JEFF Primary Care Provider Assessment No assessment recorded. Plan of Treatment Reminders Order Date Submit Date Provider Last Modified By Organization Details Last Modified Time Details Appointments None recorded. Lab test, urine 2023 024 [email or web address] [address], [address], [place], [address], 4 18:22:25 test, urine 2023 024 [email or web address] [place], [address], [place], [address], 4 16:03:13 Referral None recorded. Procedures None recorded. Surgeries None recorded. Imaging US, obstetric, transvagina l 2023 024 [email or web address] [place], [address], [place], [address], 4 12:53:52 XR, hysterosalp ingogram [address] [facility], [facility] [address], [place], [address], 5 10:28:28 Medication Orders None recorded. Patient [...] 9-246 > 75 12-15 4 Not Available [facility] (Lab) [address], [place], [address], 03/11/2024 16:55:20 02/27/20 24 02/27/2024 ESTRA DIOL [...] 154-3 243 pg/mL 2nd Trime [place] 1561- 79285 pg/mL 3rd Trime [place] 8525- >3000 0 pg/mL Not Available [facility] (Lab) [address] [place], [address], 03/11/2024 16:55:20 02/27/20 24 02/27/2024 PROGE STERO [...] Trime ster 58.70 -214. 00 Not Available [facility] (Lab) [address], [place], [address], 03/11/2024 16:55:21 02/27/20 24 02/27/2024 PROLA CTIN prolactin, total 18.50 NG/mL 4.79-2 3.30 This assay was perfo rmed using [employer] ratio n reage nts and test kits. Value s obtai sandra with other assay metho ds or kits canno t be used inter mancilla eably . Not Available [facility] (Lab) [address], [place], [address], 03/11/2024 16:55:21 02/27/20 24 02/27/2024 T4 FREE T4, free 1.09 NG/dL 0.60-1 .40 This assay is susce ptibl e to inter feren ce from high level s of bioti n which may false ly eleva te resul ts. Pleas e corre late with clini radames findi ngs. Not Available [facility] (Lab) [address], [place], [address], 03/11/2024 16:55:22 02/27/20 24 02/27/2024 TSH, REFLE X FREE T4 TSH 0.27 uIU/m L 0.30-5 .33 low Not Available [facility] (Lab) [address] [place], [address], 03/11/2024 16:55:22 02/27/20 24 02/27/2024 LH (LUTE [...] use: 7.7-5 8.5 mIU/m L Not Available [facility] (Lab) [address], [place], [address], 03/11/2024 16:55:22 02/27/20 24 02/27/2024 FSH FSH 7.8 mIU/m L This assay was perfo rmed using [employer] reage nts and test kits. Value s obtai sandra with other assay metho ds or kits canno t be used inter [facility] . Femal es Folli cular : 3.5-1 2.5 mIU/m L Ovula tion: 4.7-2 1.5 mIU/m L Lutea l: 1.7-7 .7 mIU/m L Postm enopa use: 25.8- 134.8 mIU/m L Not Available [facility] (Lab) [address], [place], [address], 03/11/2024 16:55:23 02/27/20 24 02/27/2024 HUMAN SEX HORMO NE HILDA NG GLOBU ELSA sex hormone binding globulin 78.8 nmole s/L 18.2-1 35.5 Not Available [facility] (Lab) [address], [place], [address], 03/11/2024 16:55:23 02/27/20 24 02/27/2024 HEMOG LOBIN [...] >8.0% Actio n sugjay sted Not Available [facility] (Lab) [address], [place], [address], 03/11/2024 16:55:24 02/27/2002/27/2024 17-HY DROXY PROGE STERO [...] allen monacori stics deter mined by [facility] in a chad r consi stent with EARL wong ts. This test has not been clear ed or appro viri by the U.S. Food and Drug Admin istra tion. Test Perfo rmed by: [facility] Labor atori es - [place] [address] , [place] [address] Lab Direc tor: Ada Adair nn Ph.D. ; CLIA# [id number] Not Available [facility] (Lab) [address], [place], [address], 03/11/2024 16:55:24 02/27/2002/27/2024 TESTO STERO NE, TOTAL AND FREE, SERUM (LC-M S/MS) testosterone free 0.80 NG/dL <0.13- 1.00 ----- ----- ----- ----A DDITI ONAL INFOR MATIO N---- ----- ----- ----- This test was devel oped and its perfo rmanc e allen cteri stics deter mined by [facility] in a chad r consi stent with CLIA requi remen ts. This test has not been clear ed or appro viri by the U.S. Food and Drug Admin istra tion. Not Available [facility] (Lab) [address], [place], [address], 03/11/2024 16:55:25 02/27/20 24 02/27/2024 TESTO STERO [...] allen cteri stics deter mined by [facility] in a chad r consi stent with CLIA requi remen ts. This test has not been clear ed or appro viri by the U.S. Food and Drug Admin istra tion. Test Perfo rmed by: [facility] - [place] [address], [place] [address] Lab Direc tor: Ada Adair nn Ph.D. ; CLIA# [id number] Not Available [facility] (Lab) [address], [place], [address], 03/11/2024 16:55:25 02/27/20 24 02/27/2024 pregn annabelle test, urine HCG negati ve Not Available [address] [place], [place], [address], 02/27/2024 16:02:53 03/26/20 24 03/26/2024 TSH, REFLE X FREE T4 TSH 0.47 uIU/m L 0.30-5 .33 Not Available [facility] (Lab) [address], [place], [address], 03/27/2024 07:08:35 04/29/20 24 04/29/2024 pregn annabelle test, urine HCG negati ve Not Available [place] [address], [place], [address], 04/29/2024 18:12:16 04/21/20 24 04/21/2024 US, obste tric, trans vagin al No observ ation record ed. [email or web address] [place] [address], [place], [address], 04/21/2024 18:16:21 04/21/20 24 04/21/2024 US, obste tric, trans vagin al No observ ation record ed. [email or web address] Jose[address] [address], [place], [address], 04/22/2024 11:52:58 Result Notes None recorded. Problems Name Problem SNOMED Code Status Onset Date Resolution Date Notes Provider Name and Address Organization Details Recorded Time Speciali moo medical examinat ion Completed 201308/10/2021 Gynecolog ical Examinati on;Record ed Elsewhere : No Locati on: [facility] So urce: EHR Chron ic: N Practic e ID: 0001 Bill able Time: 02:15:00 PM Ashley no [facility] 2 13:05:33 Screenin g for malignan t neoplasm of cervix Completed 201308/10/2021 Pap Smear;Pra ctice ID: 0001 Ashley no [facility] 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 [address] 13:05:[address] Concept Completed 201408/10/2021 Encntr for general adult medical exam w/o abnormal findings; Recorded Elsewhere : No Locati on: [facility] So urce: EHR Chron ic: N Practic e ID: 0001 Bill able Time: 11:00:00 AM Ashley Pisano [facility] 2 13:05:29 Blood leukocyt e number above referenc e range [id number] Completed 201608/10/2021 Elevated white blood cell count, unspecifi ed;Record ed Elsewhere : No Locati on: [facility] So urce: EHR Chron ic: N Practic e ID: 0001 Bill able Time: 05:45:00 PM Ashley Pisano [facility] 2 12:46:52 Acute vaginiti s 25161358 Completed 201608/10/2021 Acute vaginitis ;Practice ID: 0001 Ashley Pisano [facility] 2 12:46:47 Urinary tract infectio us disease 91547416 Completed 201708/10/2021 UTI;Recor ded Elsewhere : No Locati on: [facility] So urce: EHR Chron ic: N Practic e ID: 0001 Bill able Time: 05:30:00 PM Ashley Pisano [facility] 2 13:05:35 Atypical squamous cells on cervical Papanico laou smear cannot exclude high grade squamous intraepi thelial lesion 605723369 Completed 201808/10/2021 Atyp squam cell not excl hi grd intrepith lesn cyto smr crvx;Daniele rded Elsewhere : No Locati on: [facility] So urce: EHR Chron ic: N Practic e ID: 0001 Bill able Time: 10:15:00 AM [facility] 2 12:46:50 Atypical squamous cells of undeterm ined signific ance on cervical Papanico laou smear 650107636 Completed 201808/10/2021 Atyp squam cell of undet signfc cyto smr crvx (ASC-US); Recorded Elsewhere : No Locati on: [facility] So urce: EHR Chron ic: N Practic e ID: 0001 Bill able Time: 10:15:00 AM Ashley Pisano [facility] 2 12:46:49 Pregnanc y test negative 283232975 Completed 201808/10/2021 Encounter for test, result negative; Recorded Elsewhere : No Locati on: [facility] So urce: EHR Chron ic: N Practic e ID: 0001 Bill able Time: 10:15:00 AM Ashley Pisano [facility] 2 12:46:55 Problem Notes None recorded. Procedures Surgical History Date Name Laterality Status Provider Name and Address Organization Details Recorded Time 08/26/19 24 Date of Last Pap Smear completed Karley Arias [facility] 02/27/2024 15:51:07 02/27/20 21 endoscopy completed Renae Rodríguez MARCE- [address], [place], [address], [place] [facility] 08/10/2021 14:44:28 02/03/20 19 Colposcopy completed Ashley Pisano [facility] 08/10/2021 14:39:04 Imaging Results None recorded. Procedure Notes None recorded. Medical Equipment None Reported. Allergies No known drug allergies Medications Name Sig Start Date Stop Date Status Note LastModified by Organization Details LastModified Time Diflucan 150 mg tablet take 1 tablet by oral route every other week. 02/02 completed Prescrib ed Elsewher e: No Locat ion: [facility] odify By: [email or web address] z Encoun ter DateTime : 01/19/20 19 02:30:00 PM Not Available Not Available Not Available sulfameth oxazole 800 mg-trimet hoprim 160 mg tablet take 1 tablet by oral route every 12 hours 02/02 completed Prescrib ed Elsewher e: No Locat ion: [facility] DateTime : 12/24/19 [...] Prescrib ed Elsewher e: No Locat ion: [facility] odify By: [email or web address] marquez DateTime : 07/10/20 [...] Updated DateTime 02/27/2024 160.02 cm 30.6 kg/m2 17643.48 g 114/78 mm[Hg] Karley [facility] 02/27/2024 15:50:21 Date Recorded Body height Body mass index (BMI) Body weight Systolic And Diastolic Provider Name and Address Organization Details Last Updated DateTime 03/16/2024 160.02 cm 31.4 kg/m2 37235.85 g 124/83 mm[Hg] Karley [facility] 03/16/2024 12:37:53 Date Recorded Body height Body mass index (BMI) Body weight Systolic And Diastolic Provider Name and Address Organization Details Last Updated DateTime 04/21/2024 160.02 cm 30.6 kg/m2 45458.48 g 123/78 mm[Hg] Florence Green [facility] 04/21/2024 14:41:35 Date Recorded Body height Body mass index (BMI) Body weight Systolic And Diastolic Provider Name and Address Organization Details Last Updated DateTime 04/29/2024 160.02 cm 30.4 kg/m2 99984.73 g 116/75 mm[Hg] Tere Castanon [facility] 04/29/2024 17:15:24 Social History Question Answer Notes LastModified by Organizat ion Details LastModified Time Tobacco Smoking Status Never Smoker Ashley Norris [facility] 08/10/2021 14:35:15 Do You Have An [...] Or The Highest Degree You Have Received? [id number] Information not available 08/10/2021 Are There Any [...] Have Difficulty Walking Or Climbing Stairs? No [email or web address] Information not available 04/21/2024 Sex: Unknown Functional [...] able to care for yourself independently? 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 No Information not available 04/21/2024 What is your exercise level? Moderate Information not available 08/10/2021 Mental Status Question Answer Note LastModified by Organization D etails LastModified Time Do you feel stressed (tense, restless, nervous, or anxious, or unable to sleep at night)? [id number] Information not available 08/10/2021 Family History Relationship Description Onset Age of this Age Resolved Age Notes LastModified by Organization Details LastModified Time Mother Diabetes mellitus [email or web address] Not available 2019 11:46:26 Paternal Grandmother Diabetes mellitus [email or web address] Not available 2019 11:46:26 Paternal Grandmother Carcinoma in situ of lung [email or web address] Not available 12:19:04 Paternal Aunt Carcinoma in situ of breast [email or web address] Not available 2023 12:19:04 Medical History Condition [...] ICD10 Code Diagnosis IMO Codes Diagnosis Note [id number] Renae Rodríguez [facility] [address],[facility] [place] [address] 05/08/2020 11:45:17 05/08/2020 17:52:43 Gynecologic examination [id number] Z01.419 Take Calcium with Vitamin D 1200mg [...] 2019 consistent with pap results Pap/hpv ordered [id number] [facility] [address],[facility] [place] [address] 08/10/2021 14:21:36 08/10/2021 15:18:57 Gynecologic examination 10794665 Z01.419 Take Calcium with Vitamin D 1200mg [...] this year! Waiting to set the date. [facility] ion care management [id number] Z30.9 Happy on OCPRF sent x 1yr [id number] ARISTEO [facility] [address] [address] 08/26/2023 09:00:06 08/26/2023 09:31:11 Gynecologic examination 30704985 Z01.419 Z11.51 Take Calcium with Vitamin D [...] with folic acid [id number] Henry Carpenter MD [place] [address] [address] 02/27/2024 15:17:26 03/04/2024 23:33:34 Irregular periods 40032052 N92.6 Reproducti ve care management 064966703 Z31.9 - Differenti al diagnosis of cause [...] the patient's care. [id number] Henry Carpenter MD [place] [address] [address] 03/16/2024 12:18:54 03/17/2024 09:58:00 Female infertility 3219156 N97.9 Presents today for discussion of infertilit [...] We agreed to proceed with hysterosal pingogram. [id number] Henry Carpenter MD [place] [address] [address] 04/21/2024 14:12:24 04/21/2024 15:02:43 Threatened miscarriage 17995872 O20.0 O36.80X0 Z3A.00 [id number] Valerie Danielle CNM [place] [address] [address] 04/21/2024 14:13:18 04/21/2024 15:59:49 Long menstrual cycle 671871282 N92.5 missed ab, vs early pregnancyp brandyn HCG and then rpt in 48 hoursblood type drawncall if any concerns or increase in bleeding, will plan f/u next week pending resultscon tinue vitamin Hyperthyroidism 03501580 E05.90 rpt tsh free t4 and t3 today [id number] Henry Carpenter MD [place] [address] [address] 04/29/2024 17:07:06 04/30/2024 09:37:31 Missed miscarriage 36000684 O02.1 this patient presents for postop follow-up. [...] Rahman Member ID Guarantor Name 03/16/2024 1 [facility] [id number] Vaishali Liudmila [id number] Vaishali Carr 05/03/2024 1 [facility] SHARED SERVICES - GEHA - DOS PRIOR TO 2024 (PPO) Vaishali Schultz Lilly [id number] A Vaishali Carr 03/16/2024 1 [employer] - FEP 111 Vaishali Schultz Lilly [id number] Vaishali Lilly Notes Date Note Type Note [...] appropriately Henry Carpenter MD [address], [place], [address], [facility] 02/28/2024 13:22:26 4 text/html [...] hysterosalpingogram. Henry Carpenter MD [address], [place], [address], [facility] 03/17/2024 09:54:27 4 text/html ROS as noted in the HPI +UPT, pt having some spotting, send for blood typeon US today not seeing 9 week IUP, discussed could be early vs miscarriagept also wants to discuss hyperthyroidism no current meds Valerie Danielle CNM [address], [place], [address], [facility] 04/21/2024 15:12:29 4 text/html [...] on. Henry Carpenter MD [address], [place], [address], [facility] 04/29/2024 18:22:54 OBGyn Episode Ob Episode Information Episode Created Date Number of Fetuses Patient Bloodtype Patient rh Status Prepregnancy Weight lbs Domestic Partner Domestic Partner Phone Father Name Project Accountant Status 04/21/20 24 1 CLOSED Fetus Data First Name Last Name Admitted to NICU Weight (g) Sex Living Outcome Pediatric Complications Fetus ID Race Codes Race Delivery Type , Spontane ous [id number] Andrey Calculation Initial Andrey Date Initial Exam [...]
--- OUTSIDE RECORDS SUMMARY | 2025-06-06 14:58 | XMS_ITS | Encounter Summary ---
Author Organization [facility] Address [address] [place] [address] Phone Care Team Providers Care Sawmill Manager Name Role Phone Gus Elise DO Primary Care Provide r Encounter Details Date Type Department Care Team (Latest Contact Info) Description 05/25/2025 Results [facility] Medicine Reproductive Endocrinology [address] [address] Dino Armando MD [address] [address] T4, free, TSH, Antimullerian hormone [...] on filedocumented in this encounter Care Teams Sawmill Manager Relationship Specialty Start Date End Date Gus Elise DO [address] [place] [address] PCP - General Family Medicine 02/08/25 documented as of this encounter
[2025-06-06 15:45] LABS: Beta HCG Quantitative 110.90 mIU/ML
== END 2025-06-06 14:56 | disposition home or self-care (01) ==
LOC: ANHLAB 14:56
PROVIDERS: PCP Student in an Organized Health Care Education/Training Program; Visit Provider Student in an Organized Health Care Education/Training Program
DX: O02.1 Missed abortion (principal)
CPT/HCPCS: 36415; 84702

== ENCOUNTER 2025-06-08 15:34 | Outpatient (CLI) | payer OTHER, SELFPAY ==
--- OUTSIDE RECORDS SUMMARY | 2025-06-08 16:11 | XMS_ITS | Clinical Summary ---
Author Organization [place] [address] [facility] Address [address] [place] [address] Care Team Providers Care [employer] Member Name Role Phone Gus Elise DO Primary Care Provide r Allergies No known active allergies Medications vit no.[id number] ic 28 mg iron- 800 mcg tablet [...] Type Department Care Team Description 05/27/2025 Telephone [facility] Maternal- Medicine [address] [facility] 7th Floor [address] [place] [address] Rubi Juarez RN bleeding 05/25/2025 Results Follow-Up [facility] Reproductive Endocrinology [address] [place] [address] [place] [address] [phone] Dino Armando MD T4, free, TSH, Antimullerian hormone (AMH), Additional followed-up results: 5 05/18/2025 Orders Only [facility] Reproductive Endocrinology [address] [facility] [address] [place] [address] [phone] Dino Armando MD Screening for thyroid disorder (Primary Dx); Encounter for fertility testing; Screening for rubella; Screening for viral disease; Encounter for blood typing; 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 current 05/17/2025 Orders Only [facility] Reproductive Endocrinology [address] [place] [address] [place] [address] [phone] Dino Armando MD 05/16/2025 9:00 AM CDT Telemedicine [facility] Reproductive Endocrinology [address] [place] [address] [place] [address] [phone] Dino Armando MD Recurrent loss (Primary Dx) 04/01/2025 9:36 AM CDT - 04/01/2025 11:59 PM CDT Hospital Encounter [facility] [address] [place], [place] [phone] Recurrent loss Discharge Disposition: Discharge to home or self care 03/24/2025 9:05 AM CDT Lab [facility] Outpatient Lab [address] [place] [address] Recurrent loss 03/24/2025 8:00 AM CDT Office Visit [facility] Maternal- Medicine [facility] [address] [place] [address] Recurrent loss (Primary Dx) 03/11/2025 Telephone [facility] Maternal- Medicine [address] [facility] 7th Floor [address] [place] [address] Rubi Juarez RN from Last [...] BLOOD ORDERABLES Edite d Result - Final EXTERNAL LAB * Antimullerian hormone (AMH) (05/18/2025) SCRIBED AMH, ab 4.46 EXTERNAL LAB Blood 05/18/2025 Dino Armando MD LAB BLOOD ORDERABLES Edite d Result - Final EXTERNAL LAB * ABO/Rh (05/18/2025) SCRIBED ABO/Rh [...] GENERAL ORDERABLES Final Result Performing Organization Address City/[facility]/ZIP Co de Phone Number EXTERNAL LAB * (ABNORMAL) TSH (05/18/2025) Scribed TSH 0.27(A) 0.47 - 4.68 mcU/mL EXTERNAL LAB Blood 05/18/2025 Dino Armando MD LAB BLOOD ORDERABLES Final Result Performing Organization Address City/[facility]/ZIP Co de Phone Number EXTERNAL LAB * T4, free (05/18/2025) SCRIBED T4, Free 1.24 0.78 - 2.19 mcg/dL EXTERNAL LAB Blood 05/18/2025 Dino Armando MD LAB BLOOD ORDERABLES Edite d Result - Final Performing Organization Address City/[facility]/ZIP Co de Phone Number EXTERNAL LAB [...] - 13.5 sec Comment:Testing performed by : [facility], [address] [facility], [place]., [address] INR 0.94 0.90 - 1.20 [facility] Comment: Interpretive data Oral anticoagulant therapeutic ranges: Venous thromboembolism prophylaxis or treatment: 2.0-3.0 CARDIOLOGY Standard range: 2.0-3.0 High-intensity range: 2.5-3.5 Refer to indication-specific guidelines for appropriate target ranges for prosthetic heart valve replacement. Current interpretive data was last revised on 2019. Testing performed by: [facility], [address] [place]., [address] aPTT 29 26 - 38 sec [facility] Comment: Interpretive Data Heparin therapeutic range: 66.0 - 100.0 seconds. Range based on correlation with therapeutic heparin activity range of 0.3 - 0.7 Units/mL. Current interpretive data was last revised on 2023. Testing performed by: [facility], [address] [place]., [address] DRVVT screen ratio 0.89 0.00 - 1.20 Ratio [facility] Comment:Testing performed by : [facility], [address] [place]., [address] SCT Screen Ratio 0.85 0.00 - 1.16 Ratio [facility] Comment:Testing performed by : [facility], [address] [place]., [address] Lupus anticoagulant, interp Negative [facility] Comment: Interpretive data Lupus anticoagulants [...] lupus anticoagulant detection. J Thromb Haemost. 2009; 7:0328-3671. 2. Denzel Pompa et al. International consensus statement on an update of the classification criteria for definite antiphospholipid syndrome (APS). J Thromb Haemost. 2006; 4:295-306. Current interpretive data was last revised on 2018 Testing performed by: [facility], [address] [place]., [address] Blood 03/24/2025 9:14 AM CDT 03/24/2025 12:22 PM CDT us Karie Johnson MD LAB BLOOD ORDERABLES Final R esult [facility] [address] Department of Laboratories [place], [place] [id number] * Chromosome analysis (03/24/2025 9:14 AM CDT) [facility] Result summary Normal [place] ref Lab [facility] Interpretation See Footnote [facility] Comment:RESULT: No chromosom e abnormality was apparent. [facility] Result 46,XX [facility] Reason for Referral See Footnote [facility] Comment:RESULT: recurrent pr egnancy loss [facility] Specimen Blood [facility] Chromosome analysis, source Not Reported [facility] Method See Footnote [facility] Comment:RESULT: 72 hour cult ure w/mitogens [facility] Banding method See Footnote [facility] Comment: Band Resolution: 550-539 Stain Name Cells Analyzed Cells Karyograms Counted Prepared GTL 5 15 2 Total 5 15 2 Dobson to Stain Name: GTL=G-banding; QFQ=Q-banding; DAPI=DAPI-staining; CBL=C-banding; AGNOR=Silver-staining; NON=Non-banded The sum of Cells Analyzed and Cells Counted equals the total cells examined. Chromosome analysis, Additional info See Footnote [facility] Comment: A portion of the testing process was performed at [facility] site [id number], [id number]. [facility] Released By See Footnote [facility] Comment: RESULT: Tad Aguilar, Ph.D. Test Performed by: [facility] [place] [address] Township Clerk: Julissa Holliday Ph.D.; CLIA# [id number] Blood 03/24/2025 9:14 AM CDT 03/24/2025 9:52 AM CDT Flip [facility] - 04/04/2025 4:21 PM CDT Is this going to [facility]?->No us Karie Johnson MD LAB GENETIC TESTING Final Re sult [facility] [address] Department [place] [address] [facility] Lab from Last 3 Months Insurance [facility] CHOICE PLUS [facility] CHOICE PLUS Care Teams [employer] Member Relationship Specialty Start Date End Date Gus Elise DO [address] [place] [address] PCP - General Family Medicine 02/08/25
--- OUTSIDE RECORDS SUMMARY | 2025-06-08 16:11 | XMS_ITS | Encounter Summary ---
Author Organization [facility] Address [address] [place] [address] Phone Care Team Providers Care Curb Setter Helper Name Role Phone Gus Elise DO Primary Care Provide r Encounter Details Date Type Department Care Team (Latest Contact Info) Description 05/25/2025 Results Follow-Up [facility] Medicine Reproductive Endocrinology [address] [phone] Dino Armando MD [address] [address] T4, free, TSH, Antimullerian hormone [...] on filedocumented in this encounter Care Teams Curb Setter Helper Relationship Specialty Start Date End Date Gus Elise DO [address] [place] [address] PCP - General Family Medicine 02/08/25 documented as of this encounter
--- OUTSIDE RECORDS SUMMARY | 2025-06-08 16:11 | XMS_ITS | Clinical Summary ---
Author Organization [facility] Address [address] [place] [address] Care Team Providers Care Tunnel Heading Supervisor Name Role Phone Gus Elise Primary Care [...] Encounters Date Type Department Care Team Description 06/01/2025 Scan [facility] INFO SRVCS Scanned, Doc [facility] Lab (SCAN) 05/30/2025 Scan [facility] HEALTH INFO SRVCS Scanned, Doc [facility] Lab (SCAN) 05/27/2025 Scan [facility] HEALTH INFO SRVCS Scanned, Doc [facility] Group Lab (SCAN) 05/25/2025 Scan [facility] HEALTH INFO SRVCS Scanned, Doc [facility] Lab (SCAN) 05/23/2025 Scan [facility] HEALTH INFO SRVCS Scanned, [...] st Contact Info) Description 06/29/2025 7:20 AM OBSTETRICS SPECIALIST Office Visit [facility] Medical Group Family & Internal Medicine [place] [address] [place] [phone] Gus Elise P, DO [address] [place] [phone] Health Maintenance Due Date Last Done Comments [...] Td or Tdap) 06/25/2033 06/25/2023 COVID-19 Vaccine (2024-2 6 season) 2112 Postponed from 03/28 (Going to Outside Clinic) Hepatitis C Completed 07/14/2023 PHQ-2 (Physician [facility]) Completed 11/09/2024 Hepatitis B Vaccines Completed 02/10/2025, [...] Associated Diagnosis Comments OUTSIDE LAB (SCAN ORDER) 06/01/2025 OUTSIDE LAB (SCAN ORDER) 05/30/2025 OUTSIDE LAB (SCAN ORDER) 05/27/2025 OUTSIDE LAB (SCAN ORDER) 05/25/2025 OUTSIDE LAB (SCAN ORDER) 05/23/2025 OUTSIDE LAB (SCAN ORDER) 05/18/2025 OUTSIDE LAB (SCAN ORDER) 05/18/2025 OUTSIDE LAB (SCAN ORDER) 05/18/2025 OUTSIDE LAB (SCAN ORDER) 03/12/2025 OUTSIDE CYTOPATH CERV/VAG INTERPRET (PAP) 08/26/2023 HEPATITIS C ANTIBODY Routine 07/14/2023 7:20 AM OBSTETRICS SPECIALIST Encounter for preventative adult health care examination Screening for lipid disorders Screening for endocrine, metabolic and immunity disorder Need for hepatitis C screening test from Last 3 Months or Most Recently Relevant to Health Maintenance Results * OUTSIDE LAB (SCAN ORDER) (06/01/2025) Only the most recent of9 resultswithin the time period is included. 06/01/2025 us Doc Med Group Scanned SCANNING Final Resu lt * PAP SMEAR WITH HPV (08/26/2023) 08/26/2023 us Doc [facility] Scanned SCANNING Final Resu lt * HEPATITIS C ANTIBODY ([facility] ONLY) (07/14/2023 7:20 AM OBSTETRICS SPECIALIST) HEPATITIS C AB NON-REACTI VE NON-REACT ROB 07/14/2023 7:07 PM OBSTETRICS SPECIALIST [facility] Comment: ANTIBODIES TO HCV NOT DETECTED. DOES NOT EXCLUDE THE POSSIBILITY OF EXPOSURE TO HCV. 07/14/2023 7:20 AM OBSTETRICS SPECIALIST us Gus Elise DO LABORATORY Final Re sult [facility] [address] [place] [address], [id number] from Last 3 Months or Most Recently Relevant to Health Maintenance Insurance Care Teams Tunnel Heading Supervisor Relationship Specialty Start Date End Date Gus Elise DO [address] [place] [phone] PCP - General FAMILY PRACTICE 06/25/23
--- OUTSIDE RECORDS SUMMARY | 2025-06-08 16:11 | XMS_ITS | Encounter Summary ---
Author Organization [facility] Address [address] [place] [address] Care Team Providers Care Abrasive Coating Machine Operator Name Role Phone Gus Elise DO Primary Care Provider + Reason for Visit * Reason Comments Lab (SCAN) Encounter Details Date Type Department Care Team (Latest Contact Info) Description 05/30/2025 Scan HEALTH INFO SRVCS Scanned, Doc Med Group Lab (SCAN) Social History Tobacco Use Types Packs/Day Years [...] st Contact Info) Description 06/29/2025 7:20 AM MEDICAL CASH POSTER Office Visit [facility] Medical Group Family & Internal Medicine [address] [phone] Gus Elise DO [address] [place] [address] documented as of this encounter Procedures Procedure Name Priority Date/Time Associated Diagnosis Comments OUTSIDE LAB (SCAN ORDER) 05/30/2025 documented in this encounter Results * OUTSIDE LAB (SCAN ORDER) (05/30/2025) 05/30/2025 us Doc Med [facility] Scanned SCANNING Final Resu lt documented in this encounter Visit Diagnoses Not on filedocumented in this encounter Care Teams Abrasive Coating Machine Operator Relationship Specialty Start Date End Date Gus Elise DO [address] [place] [address] PCP - General FAMILY PRACTICE 06/25/23 documented as of this encounter
--- OUTSIDE RECORDS SUMMARY | 2025-06-08 16:11 | XMS_ITS | Encounter Summary ---
Author Organization [facility] Address [address] [place] [address] Care Team Providers Care [place] Tier Name Role Phone Gus Elise DO Primary Care Provider + Reason for Visit * Reason Comments Lab (SCAN) Encounter Details Date Type Department Care Team (Latest Contact Info) Description 06/01/2025 Scan HEALTH INFO SRVCS Scanned, Doc Med [...] st Contact Info) Description 06/29/2025 7:20 AM SCANNING TECH Office Visit [facility] Medical Group Family & Internal Medicine [address] [phone] Gus Elise DO [address] [place] [address] documented as of this encounter Procedures Procedure Name Priority Date/Time Associated Diagnosis Comments OUTSIDE LAB (SCAN ORDER) 06/01/2025 documented in this encounter Results * OUTSIDE LAB (SCAN ORDER) (06/01/2025) 06/01/2025 us Doc [facility] Scanned SCANNING Final Resu lt documented in this encounter Visit Diagnoses Not on filedocumented in this encounter Care Teams Bell Tier Relationship Specialty Start Date End Date Gus Elise DO [address] [place] [address] PCP - General FAMILY PRACTICE 06/25/23 documented as of this encounter
--- OUTSIDE RECORDS SUMMARY | 2025-06-08 16:11 | XMS_ITS | Data Portability ---
Author Organization [facility] [place] Address [address] [place] [address] [place] [address] Care Team Providers Care Frameman Name Role Phone MEAGHAN JEFF Primary Care Provider Assessment No assessment recorded. Plan of Treatment Reminders Order Date Submit Date Provider Last Modified By Organization Details Last Modified Time Details Appointments None recorded. Lab test, urine 2023 024 [email or web address] [address], [address], [place], [address], 4 18:22:25 test, urine 2023 024 [email or web address] [place], [address], [place], [address], 4 16:03:13 Referral None recorded. Procedures None recorded. Surgeries None recorded. Imaging US, obstetric, transvagina l 2023 024 [place], [address], [place], [address], 4 12:53:52 XR, hysterosalp ingogram [address] [facility] [address], [place], [address], 5 10:28:28 Medication Orders None recorded. Patient [...] 9-246 > 75 12-15 4 Not Available [facility] (Lab) [address], [place], [address], 03/11/2024 16:55:20 02/27/20 24 02/27/2024 ESTRA DIOL [...] 154-3 243 pg/mL 2nd [place] 1561- 84314 pg/mL 3rd [place] 8525- >3000 0 pg/mL Not Available [facility] (Lab) [address] [place], [address], 03/11/2024 16:55:20 02/27/20 24 02/27/2024 PROGE STERO [...] [place] 58.70 -214. 00 Not Available [facility] (Lab) [address], [place], [address], 03/11/2024 16:55:21 02/27/20 24 02/27/2024 PROLA CTIN prolactin, total 18.50 NG/mL 4.79-2 3.30 This assay was perfo rmed using [employer] ratio n reage nts and test kits. Value s obtai sandra with other assay metho ds or kits canno t be used inter mancilla eably . Not Available [facility] (Lab) [address], [place], [address], 03/11/2024 16:55:21 02/27/20 24 02/27/2024 T4 FREE T4, free 1.09 NG/dL 0.60-1 .40 This assay is susce ptibl e to inter feren ce from high level s of bioti n which may false ly eleva te resul ts. Pleas e corre late with clini radames findi ngs. Not Available [facility] (Lab) [address], [place], [address], 03/11/2024 16:55:22 02/27/20 24 02/27/2024 TSH, REFLE X FREE T4 TSH 0.27 uIU/m L 0.30-5 .33 low Not Available [facility] (Lab) [address] [place], [address], 03/11/2024 16:55:22 02/27/20 24 02/27/2024 LH (LUTE [...] use: 7.7-5 8.5 mIU/m L Not Available [facility] (Lab) [address], [place], [address], 03/11/2024 16:55:22 02/27/20 24 02/27/2024 FSH FSH 7.8 mIU/m L This assay was perfo rmed using [employer] reage nts and test kits. Value s obtai sandra with other assay metho ds or kits canno t be used inter [facility] . Femal es Folli cular : 3.5-1 2.5 mIU/m L Ovula tion: 4.7-2 1.5 mIU/m L Lutea l: 1.7-7 .7 mIU/m L Postm enopa use: 25.8- 134.8 mIU/m L Not Available [facility] (Lab) [address], [place], [address], 03/11/2024 16:55:23 02/27/20 24 02/27/2024 HUMAN SEX HORMO NE HILDA NG GLOBU ELSA sex hormone binding globulin 78.8 nmole s/L 18.2-1 35.5 Not Available [facility] (Lab) [address], [place], [address], 03/11/2024 16:55:23 02/27/20 24 02/27/2024 HEMOG LOBIN A1C hemoglobin A1C 5.5 % 0-5.6 The Ameri can Diabe get[place]w Assoc iatio n recom mends that a prima ry goal of therviry ajckson be a HBA1C of < 7% and that physi cians harsh d reeva luate the treat ment regim en in patie nts with HBA1C value s consi stent ly > 8%. <5.7% Yenifer l 5.7 - 6.4% Incre ased risk for diabe getachew >=6.5 % Diagn ostic of diabe getachew <7.0% Goal of thera py >8.0% Actio n sugjay sted Not Available [facility] (Lab) [address], [place], [address], 03/11/2024 16:55:24 02/27/2002/27/2024 17-HY DROXY PROGE STERO NE, SERUM 17-hydroxypr ogesterone, S 56 NG/dL ----- ----- ----- ----R EFERE NCE VALUE ----- ----- ----- ----- ----- - < 80 (Foll icula r) <285 (Lute al) ----- ----- ----- ----A DDITI ONAL INFOR MATIO N---- ----- ----- ----- This test was dereje wright and its perfo rmanc e allen monacori stics deter mined by [facility] in a chad r consi stent with EARL wong ts. This test has not been clear ed or appro viri by the U.S. Food and Drug Admin istra tion. Test Perfo rmed by: [facility] [place] [address] , [place] [id number] Lab Direc tor: Ada Adair nn Ph.D. ; CLIA# [id number] Not Available [facility] (Lab) [address], [place], [address], 03/11/2024 16:55:24 02/27/2002/27/2024 TESTO STERO NE, TOTAL AND FREE, SERUM (LC-M S/MS) testosterone free 0.80 NG/dL <0.13- 1.00 ----- ----- ----- ----A DDITI ONAL INFOR MATIO N---- ----- ----- ----- This test was devel oped and its perfo rmanc e allen cteri stics deter mined by [facility] in a chad r consi stent with CLIA requi remen ts. This test has not been clear ed or appro viri by the U.S. Food and Drug Admin istra tion. Not Available [facility] (Lab) [address], [place], [address], 03/11/2024 16:55:25 02/27/20 24 02/27/2024 TESTO STERO [...] e allen cteri stics deter mined by [facility] in a chad r consi stent with CLIA requi remen ts. This test has not been clear ed or appro viri by the U.S. Food and Drug Admin istra tion. Test Perfo rmed by: [facility] [place] [address], [place] [address] Lab Direc tor: Ada Adair nn Ph.D. ; CLIA# [id number] Not Available [facility] (Lab) [address], [place], [address], 03/11/2024 16:55:25 02/27/20 24 02/27/2024 pregn annabelle test, urine HCG negati ve Not Available [place] [address], [place], [address], 02/27/2024 16:02:53 03/26/20 24 03/26/2024 TSH, REFLE X FREE T4 TSH 0.47 uIU/m L 0.30-5 .33 Not Available [facility] (Lab) [address], [place], [address], 03/27/2024 07:08:35 04/29/20 24 04/29/2024 pregn annabelle test, urine HCG negati ve Not Available [place] [address], [place], [address], 04/29/2024 18:12:16 04/21/20 24 04/21/2024 US, obste tric, trans vagin al No observ ation record ed. [email or web address] [place] [address], [place], [address], 04/21/2024 18:16:21 04/21/20 24 04/21/2024 US, obste tric, trans vagin al No observ ation record ed. [email or web address] [address] [address], [place], [address], 04/22/2024 11:52:58 Result Notes None recorded. Problems Name Problem SNOMED Code Status Onset Date Resolution Date Notes Provider Name and Address Organization Details Recorded Time Speciali moo medical examinat ion Completed 201308/10/2021 Gynecolog ical Examinati on;Record ed Elsewhere : No Locati on: [facility] So [facility]: EHR Chron ic: N Practic e ID: 0001 Bill able Time: 02:15:00 PM Ashley no [facility] 2 13:05:33 Screenin g for malignan t neoplasm of cervix Completed 201308/10/2021 Pap Smear;Pra ctice ID: [id number] Ashley no [facility] 2 14:15:[address] Concept Completed 201408/10/2021 Encntr for ground instructor advanced exam (general) (routine) w/o abn findings; Recorded Elsewhere : No Locati on: [facility] So [facility]: EHR Chron ic: N Practic e ID: 0001 Bill able Time: 11:00:00 AM Ashley Pisano [facility] 2 13:05:[address] Concept Completed 201408/10/2021 Encntr for general adult medical exam w/o abnormal findings; Recorded Elsewhere : No Locati on: [facility] So [facility]: EHR Chron ic: N Practic e ID: 0001 Bill able Time: 11:00:00 AM Ashley Pisano [facility] 2 13:05:29 Blood leukocyt e number above referenc e range [id number] Completed 201608/10/2021 Elevated white blood cell count, unspecifi ed;Record ed Elsewhere : No Locati on: [facility] So [facility]: EHR Chron ic: N Practic e ID: 0001 Bill able Time: 05:45:00 PM Ashley Pisano [facility] 2 12:46:52 Acute vaginiti s 47752467 Completed 201608/10/2021 Acute vaginitis ;Practice ID: 0001 Ashley Pisano [facility] 2 12:46:47 Urinary tract infectio us disease 07069860 Completed 201708/10/2021 UTI;Recor ded Elsewhere : No Locati on: [facility] So [facility]: EHR Chron ic: N Practic e ID: 0001 Bill able Time: 05:30:00 PM Ashley Pisano [facility] 2 13:05:35 Atypical squamous cells on cervical Papanico laou smear cannot exclude high grade squamous intraepi thelial lesion [id number] Completed 201808/10/2021 Atyp squam cell not excl hi grd intrepith lesn cyto smr crvx;Daniele rded Elsewhere : No Locati on: [facility] So [facility]: EHR Chron ic: N Practic e ID: 0001 Bill able Time: 10:15:00 AM [facility] 2 12:46:50 Atypical squamous cells of undeterm ined signific ance on cervical Papanico laou smear 581661426 Completed 201808/10/2021 Atyp squam cell of undet signfc cyto smr crvx (ASC-US); Recorded Elsewhere : No Locati on: [facility] So [facility]: EHR Chron ic: N Practic e ID: 0001 Bill able Time: 10:15:00 AM Ashley Pisano [facility] 2 12:46:49 Pregnanc y test negative [id number] Completed 201808/10/2021 Encounter for test, result negative; Recorded Elsewhere : No Locati on: [facility] So [facility]: EHR Chron ic: N Practic e ID: 0001 Bill able Time: 10:15:00 AM Ashley Pisano [facility] 2 12:46:55 Problem Notes None recorded. Procedures Surgical History Date Name Laterality Status Provider Name and Address Organization Details Recorded Time 08/26/19 24 Date of Last Pap Smear completed Karley Arias [facility] 02/27/2024 15:51:07 02/27/20 21 endoscopy completed Renae Rodríguez MARCE- [address], [place], [address], [place] [facility] 08/10/2021 14:44:28 02/03/20 19 Colposcopy completed Ashley Pisano [facility] 08/10/2021 14:39:04 Imaging Results None recorded. Procedure Notes None recorded. Medical Equipment None Reported. Allergies No known drug allergies Medications Name Sig Start Date Stop Date Status Note LastModified by Organization Details LastModified Time Diflucan 150 mg tablet take 1 tablet by oral route every other week. 02/02 completed Prescrib ed Elsewher e: No Locat ion: [facility] odify By: [email or web address] z Encoun ter DateTime : 01/19/20 19 02:30:00 PM Not Available Not Available Not Available sulfameth oxazole 800 mg-trimet hoprim 160 mg tablet take 1 tablet by oral route every 12 hours 02/02 completed Prescrib ed Elsewher e: No Locat ion: [facility] odify By: wellspan healthernst z Encoun ter DateTime : 12/24/19 18 [...] Prescrib ed Elsewher e: No Locat ion: [facility] odify By: [email or web address] marquez DateTime : 07/10/20 [...] Updated DateTime 02/27/2024 160.02 cm 30.6 kg/m2 50460.48 g 114/78 mm[Hg] Karley [facility] 02/27/2024 15:50:21 Date Recorded Body height Body mass index (BMI) Body weight Systolic And Diastolic Provider Name and Address Organization Details Last Updated DateTime 03/16/2024 160.02 cm 31.4 kg/m2 29716.85 g 124/83 mm[Hg] Karley [facility] 03/16/2024 12:37:53 Date Recorded Body height Body mass index (BMI) Body weight Systolic And Diastolic Provider Name and Address Organization Details Last Updated DateTime 04/21/2024 160.02 cm 30.6 kg/m2 17189.48 g 123/78 mm[Hg] Florence Green [facility] 04/21/2024 14:41:35 Date Recorded Body height Body mass index (BMI) Body weight Systolic And Diastolic Provider Name and Address Organization Details Last Updated DateTime 04/29/2024 160.02 cm 30.4 kg/m2 00311.73 g 116/75 mm[Hg] Tere Castanon [facility] 04/29/2024 17:15:24 Social History Question Answer Notes LastModified by Organizat ion Details LastModified Time Tobacco Smoking Status Never Smoker Ashley Norris [facility] 08/10/2021 14:35:15 Do You Have [...] Or The Highest Degree You Have Received? [id number] Information not available 08/10/2021 Are There Any [...] Have Difficulty Walking Or Climbing Stairs? No [email or web address] Information not available 04/21/2024 Sex: Unknown Functional [...] able to care for yourself independently? 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 No [email or web address] Information not available 04/21/2024 What is your exercise level? Moderate Information not available 08/10/2021 Mental Status Question Answer Note LastModified by Organization D etails LastModified Time Do you feel stressed (tense, restless, nervous, or anxious, or unable to sleep at night)? [id number] Information not available 08/10/2021 Family History Relationship Description Onset Age of this Age Resolved Age Notes LastModified by Organization Details LastModified Time Mother Diabetes mellitus [email or web address] Not available 2019 11:46:26 Paternal Grandmother Diabetes mellitus [email or web address] Not available 2019 11:46:26 Paternal Grandmother Carcinoma in situ of lung [email or web address] Not available 12:19:04 Paternal Aunt Carcinoma in situ of breast [email or web address] Not available 2023 12:19:04 Medical History Condition [...] ICD10 Code Diagnosis IMO Codes Diagnosis Note [id number] Renae Rodríguez [facility] [address],[facility] [place] [address] 05/08/2020 11:45:17 05/08/2020 17:52:43 Gynecologic examination 45182098 Z01.419 Take Calcium with Vitamin D 1200mg [...] 2019 consistent with pap results Pap/hpv ordered [id number] [facility] [address],[facility] [place] [address] 08/10/2021 14:21:36 08/10/2021 15:18:57 Gynecologic examination [id number] Z01.419 Take Calcium with Vitamin D 1200mg [...] this year! Waiting to set the date. [facility] ion care management [id number] Z30.9 Happy on OCPRF sent x 1yr [id number] ARISTEO [facility] [address] [address] 08/26/2023 09:00:06 08/26/2023 09:31:11 Gynecologic examination 63089573 Z01.419 Z11.51 Take Calcium with Vitamin D [...] with folic acid [id number] Henry Carpenter MD [place] [address] [address] 02/27/2024 15:17:26 03/04/2024 23:33:34 Irregular periods 54786449 N92.6 Reproducti ve care management 367353654 Z31.9 - Differenti al diagnosis of cause [...] the patient's care. [id number] Henry Carpenter MD [place] [address] [address] 03/16/2024 12:18:54 03/17/2024 09:58:00 Female infertility 6462491 N97.9 Presents today for discussion of infertilit [...] We agreed to proceed with hysterosal pingogram. [id number] Henry Carpenter MD [place] [address] [address] 04/21/2024 14:12:24 04/21/2024 15:02:43 Threatened miscarriage 54560006 O20.0 O36.80X0 Z3A.00 [id number] Valerie Danielle CNM [place] [address] [address] 04/21/2024 14:13:18 04/21/2024 15:59:49 Long menstrual cycle 483406404 N92.5 missed ab, vs early pregnancyp brandyn HCG and then rpt in 48 hoursblood type drawncall if any concerns or increase in bleeding, will plan f/u next week pending resultscon tinue vitamin Hyperthyroidism 76839522 E05.90 rpt tsh free t4 and t3 today [id number] Henry Carpenter MD [place] [address] [address] 04/29/2024 17:07:06 04/30/2024 09:37:31 Missed miscarriage 87293739 O02.1 this patient presents for postop follow-up. [...] Rahman Member ID Guarantor Name 03/16/2024 1 [facility] [id number] Vaishali Liudmila [id number] Vaishali Carr 05/03/2024 1 [facility] - DOS PRIOR TO 2024 (PPO) Vaishali Schultz Lilly [id number] A Vaishali Carr 03/16/2024 1 [employer] - FEP 111 Vaishali Schultz Lilly [id number] Vaishali Lilly Notes Date Note Type Note [...] appropriately Henry Carpenter MD [address], [place], [address], [facility] 02/28/2024 13:22:26 4 text/html Presents today [...] hysterosalpingogram. Henry Carpenter MD [address], [place], [address], [facility] 03/17/2024 09:54:27 4 text/html ROS as noted in the HPI +UPT, pt having some spotting, send for blood typeon US today not seeing 9 week IUP, discussed could be early vs miscarriagept also wants to discuss hyperthyroidism no current meds Valerie Danielle CNM [address], [place], [address], [facility] 04/21/2024 15:12:29 4 text/html this patient [...] on. Henry Carpenter MD [address], [place], [address], [facility] 04/29/2024 18:22:54 OBGyn Episode Ob Episode Information Episode Created Date Number of Fetuses Patient Bloodtype Patient rh Status Prepregnancy Weight lbs Domestic Partner Domestic Partner Phone Father Name Wall Man Status 04/21/20 24 1 CLOSED Fetus Data First Name Last Name Admitted to NICU Weight (g) Sex Living Outcome Pediatric Complications Fetus ID Race Codes Race Delivery Type , Spontane ous [id number] Andrey Calculation Initial Andrey Date Initial Exam [...]
[2025-06-08 16:51] LABS: Beta HCG Quantitative 182.07 mIU/ML
== END 2025-06-08 15:35 | disposition home or self-care (01) ==
LOC: ANHLAB 15:34
PROVIDERS: PCP Student in an Organized Health Care Education/Training Program; Visit Provider Student in an Organized Health Care Education/Training Program
DX: O02.1 Missed abortion (principal)
CPT/HCPCS: 36415; 84702

== ENCOUNTER 2025-06-10 09:56 | Outpatient (CLI) | payer OTHER, SELFPAY ==
--- NOTE | ~2025-06-10 | US_ITS ---
EXAMINATION: Ultrasound OB less than or equal to 14 weeks fetus with transvaginal INDICATION: Missed Ab TECHNIQUE: Multiple transabdominal and transvaginal sonographic images of the pelvis were obtained. COMPARISON: None FINDINGS: Uterus: The uterus appears normal in size, shape, and position. The endometrium appears normal, with a thickness of 6 mm. There is no gestational sac seen. Right Ovary: The right ovary appears normal. Vascular flow is present. Left Ovary: There is a 2.0 cm cystic structure containing a few low level echoes which could be a corpus luteum cyst. It could also just be a normal follicle. Vascular flow is present. There is no positive evidence for ectopic .. There is a mild degree of free fluid in the pelvis, thought to be physiologic quantity. IMPRESSION: There is no intrauterine gestation seen. There is no positive evidence for ectopic . Ectopic is not excluded from this study. Reviewed, dictated and finalized at location A. MCORN GRADER IMPRESSION: There is no intrauterine gestation seen. There is no positive evidence for ecto pic . Ectopic is not excluded from this study.
== END 2025-06-10 09:57 | disposition home or self-care (01) ==
PROVIDERS: PCP Student in an Organized Health Care Education/Training Program; Visit Provider Student in an Organized Health Care Education/Training Program
DX: O02.1 Missed abortion (principal)
CPT/HCPCS: 76801; 76817

== ENCOUNTER 2025-06-10 17:36 | Emergency (ER) | payer OTHER, SELFPAY ==
[2025-06-10 17:44] VITALS: BP 108/79; PULSE 82; RESP 18; TEMP 36.6; O2SAT 100
--- NOTE | 2025-06-10 18:32 | ED.GENADULT ---
HPI - General Adult General Chief complaint: Unspecified Stated complaint: I need a methotrexate shot Time Seen by Provider: 06/10/25 18:01 History of Present Illness HPI narrative: Patient is a 35-year-old female who presents to the ER with request for methotrexate administration. She was evaluated by Dr. Gee earlier today, who put in an order for administration. Patient reports she has had vaginal bleeding for the past 3 weeks. She denies any abdominal tenderness, shortness of breath, recent fevers, or urinary symptoms. Patient denies any other medical history relevant to this ER visit. Related Data Home Medications ?Medication ?Instructions ?Recorded ?Confirmed ?Last Taken ?Type vits no.126-ferrous fum 2 tablet PO DAILY 01/19/25 02/04/25 02/03/25 History 28 mg iron-folic acid 800 mcg tablet (Classic ) Allergies Allergy/AdvReac Type Severity Reaction Status Date / Time No Known Allergies Allergy Verified 06/09/25 15:27 Review of Systems Review of Systems: All systems reviewed & are unremarkable except as noted in HPI and below PMFSH Past Medical History Medical History Normal colonoscopy Miscarriage Irritable bowel syndrome (IBS) Surgical History Surgical History History of hysteroscopy D & C Family History Family History Grandparent Lung cancer Heart disease Mother Diabetes mellitus Social History Social History Smoking packs per day: 0.5 Smoking cigarettes per day: 10.0 Years smoked: 10 Smoking pack-years: 5.00 Smoking status: Former smoker Tobacco type: cigarettes Alcohol intake: former Alcohol use details: rare Substance use: never Substance use type: does not use Last use: 08/18/2020 Do You Feel Safe in your Home?: Yes Lack of Transportation: No Lack of Food: Never True Current Housing: I Have Housing Concerned About Future Housing: No Difficulty Paying Gas/Electric Bills: No Difficulty Paying for Meds: No Currently Unemployed: No Education: Bachelor's Degree Difficulty w/ Childcare or Family Care: No Living arrangements: with family Occupation/Education: occupation Gender identity (if verbalized by the patient): Female Sexual Orientation (if Verbalized by the Patient): Straight or Heterosexual Exam Narrative: GENERAL: Well appearing, well-nourished, non-toxic, in no acute distress. HEAD: Normocephalic, atraumatic. NECK: Supple. No adenopathy, no masses. RESPIRATORY: Airway patent, respirations nonlabored. Clear to auscultation bilaterally, no rales, rhonchi, wheezing. CARDIOVASCULAR: Regular rate and rhythm without murmurs, rubs, or gallops. Peripheral pulses 2+ and equal bilaterally. ABDOMINAL: Soft, nontender, nondistended. Normoactive BS. MUSCULOSKELETAL: Moves all extremities. Strength/ROM intact without gross deformities. SKIN: Warm, dry, normal color. No rashes. NEURO: A&O X3. Speech clear. Cranial nerves II-XII intact. No ataxic movements. PSYCHIATRIC: Appropriate mood and affect. Normal interaction. Course Vital Signs Vital signs: Vital Signs Temperature 36.6 C 06/10/25 17:44 Pulse Rate 82 06/10/25 17:44 Respiratory Rate 18 06/10/25 17:44 Blood Pressure 108/79 06/10/25 17:44 Pulse Oximetry 100 06/10/25 17:44 Oxygen Delivery Room Air 06/10/25 17:44 Temperature 36.6 C 06/10/25 17:44 Pulse Rate 82 06/10/25 17:44 Respiratory Rate 18 06/10/25 17:44 Blood Pressure 108/79 06/10/25 17:44 Pulse Oximetry 100 06/10/25 17:44 Oxygen Delivery Room Air 06/10/25 17:44 Medical Decision Making MDM Narrative Medical decision making narrative: Patient is a 35-year-old female who presents to the ER with request for methotrexate administration. She was evaluated by Dr. Gee earlier today, who put in an order for administration. Patient reports she has had vaginal bleeding for the past 3 weeks. She denies any abdominal tenderness, shortness of breath, recent fevers, or urinary symptoms. Patient denies any other medical history relevant to this ER visit. Patient Education/Shared MDM: Medication administered to patient by RN. She tolerated administration well. Patient strongly advised to follow-up with her OBGYN as soon as possible. She will be discharged home with a prescription for Hannibal. Strict return precautions provided. Patient verbalized understanding and is in agreement with plan. Vital signs stable at time of discharge. All questions answered. Differential Diagnosis Differential Diagnosis: Missed , incomplete , vaginal bleeding Vital Signs Vital Signs: Vital Signs Temperature 36.6 C 06/10/25 17:44 Pulse Rate 82 06/10/25 17:44 Respiratory Rate 18 06/10/25 17:44 Blood Pressure 108/79 06/10/25 17:44 Pulse Oximetry 100 06/10/25 17:44 Oxygen Delivery Room Air 06/10/25 17:44 Temperature 36.6 C 06/10/25 17:44 Pulse Rate 82 06/10/25 17:44 Respiratory Rate 18 06/10/25 17:44 Blood Pressure 108/79 06/10/25 17:44 Pulse Oximetry 100 06/10/25 17:44 Oxygen Delivery Room Air 06/10/25 17:44 Discharge Plan Discharge Clinical Impression: Induced , Vaginal bleeding in , Incomplete Patient Disposition: Home Condition: Stable Instructions: Antibiotic Form Additional Instructions: Please return to the ER with any worsening symptoms. Follow-up with your OBGYN as soon as possible. You may take Hannibal as needed for pain control. Patient Language: [place] Prescriptions: New hydrocodone-acetaminophen 5-325 mg tablet 1 tablet PO Q6H PRN (Reason: pain) Qty: 7 0RF No Action Classic 28 mg iron- 800 mcg tablet 2 tablet PO DAILY Follow-up/Referrals: Arik,DO Gus [Primary Care Provider] Jose Gee MD [Physician, CORRECTIONAL THERAPY DIRECTOR] Stand Alone Forms: Work/School Release IP Time of Disposition: 19:45
[2025-06-10] MEDS: METHOTREXATE SODIUM/PF 50 MG/2 ML VIAL 45 MG IM ×2 (19:00→19:02)
--- OUTSIDE RECORDS SUMMARY | 2025-06-10 20:23 | XMS_ITS | Encounter Summary ---
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 [facility] Family & Internal Medicine [address] [phone] Gus Elise DO [address] [place] [address] documented as of this encounter Procedures Procedure Name Priority Date/Time Associated Diagnosis Comments OUTSIDE LAB (SCAN ORDER) 06/06/2025 documented in this encounter Results * OUTSIDE LAB (SCAN ORDER) (06/06/2025) 06/06/2025 us Doc Med Group Scanned SCANNING Final Resu lt documented in this encounter Visit Diagnoses Not on filedocumented in this encounter Care Teams Cloth Hand Relationship Specialty Start Date End Date Gus Elise DO [address] [place] [address] PCP - General FAMILY PRACTICE 06/25/23 documented as of this encounter
--- OUTSIDE RECORDS SUMMARY | 2025-06-10 20:23 | XMS_ITS | Encounter Summary ---
Author Organization [facility] Address [address] [place] [address] Care Team Providers Care Hvac Controls Technician Name Role Phone Gus Elise DO Primary [...] st Contact Info) Description 06/29/2025 7:20 AM HAND II BLOCKER Office Visit [facility] Family & Internal Medicine [address] [phone] Gus Elise DO [address] [place] [address] documented as of this encounter Procedures Procedure Name Priority Date/Time Associated Diagnosis Comments OUTSIDE LAB (SCAN ORDER) 06/01/2025 documented in this encounter Results * OUTSIDE LAB (SCAN ORDER) (06/01/2025) 06/01/2025 us Doc Med Group Scanned SCANNING Final Resu lt documented in this encounter Visit Diagnoses Not on filedocumented in this encounter Care Teams Hvac Controls Technician Relationship Specialty Start Date End Date Gus Elise DO [address] [place] [address] PCP - General FAMILY PRACTICE 06/25/23 documented as of this encounter
--- OUTSIDE RECORDS SUMMARY | 2025-06-10 20:23 | XMS_ITS | Encounter Summary ---
Author Organization [facility] Address [address] [place] [address] Phone Care Team Providers Care Investment Counselor Name Role Phone Gus Elise DO Primary Care Provide r Encounter Details Date Type Department Care Team (Latest Contact Info) Description 05/25/2025 Results Follow-Up [facility] Medicine Reproductive Endocrinology [address] [address] Dino Armando MD [address] [address] T4, free, TSH, Antimullerian hormone [...] on filedocumented in this encounter Care Teams Investment Counselor Relationship Specialty Start Date End Date Gus Elise DO [address] [place] [address] PCP - General Family Medicine 02/08/25 documented as of this encounter
--- OUTSIDE RECORDS SUMMARY | 2025-06-10 20:23 | XMS_ITS | Data Portability ---
Author Organization [facility] Address [address] [place] [address] [place] [address] Care Team Providers Care Sound Effects Supervisor Name Role Phone MEAGHAN JEFF Primary Care Provider Assessment No assessment recorded. Plan of Treatment Reminders Order Date Submit Date Provider Last Modified By Organization Details Last Modified Time Details Appointments None recorded. Lab test, urine 2023 024 [email or web address] [address], [address], [place], [address], 4 18:22:25 test, urine 2023 024 [email or web address] [facility], [address], [place], [address], 4 16:03:13 Referral None recorded. Procedures None recorded. Surgeries None recorded. Imaging US, obstetric, transvagina l 2023 024 [facility], [address], [place], [address], 4 12:53:52 XR, hysterosalp ingogram [address] [facility], [facility]0 [facility] [address], [place], [address], 5 10:28:28 Medication Orders None recorded. Patient [...] 9-246 > 75 12-15 4 Not Available [facility] (Lab) [address] [facility], [place], [address], 03/11/2024 16:55:20 02/27/20 24 02/27/2024 ESTRA DIOL [...] 154-3 243 pg/mL 2nd Trime [place] 1561- 54192 pg/mL 3rd Trime [place] 8525- >3000 0 pg/mL Not Available [facility] (Lab) [address] [place], [address], 03/11/2024 16:55:20 02/27/20 24 02/27/2024 PROGE STERO [...] Trime ster 58.70 -214. 00 Not Available [facility] (Lab) [address] [facility], [place], [address], 03/11/2024 16:55:21 02/27/20 24 02/27/2024 PROLA CTIN prolactin, total 18.50 NG/mL 4.79-2 3.30 This assay was perfo rmed using [employer] ratio n reage nts and test kits. Value s obtai sandra with other assay metho ds or kits canno t be used inter mancilla eably . Not Available [facility] (Lab) [address] [facility], [place], [address], 03/11/2024 16:55:21 02/27/20 24 02/27/2024 T4 FREE T4, free 1.09 NG/dL 0.60-1 .40 This assay is susce ptibl e to inter feren ce from high level s of bioti n which may false ly eleva te resul ts. Pleas e corre late with clini radames findi ngs. Not Available [facility] (Lab) [address] [facility], [place], [address], 03/11/2024 16:55:22 02/27/20 24 02/27/2024 TSH, REFLE X FREE T4 TSH 0.27 uIU/m L 0.30-5 .33 low Not Available [facility] (Lab) [address] [place], [address], 03/11/2024 16:55:22 02/27/20 24 02/27/2024 LH (LUTE [...] use: 7.7-5 8.5 mIU/m L Not Available [facility] (Lab) [address] [facility], [place], [address], 03/11/2024 16:55:22 02/27/20 24 02/27/2024 FSH FSH 7.8 mIU/m L This assay was perfo rmed using [employer] reage nts and test kits. Value s obtai sandra with other assay metho ds or kits canno t be used inter [facility] eanormandy . Femal es Folli cular : 3.5-1 2.5 mIU/m L Ovula tion: 4.7-2 1.5 mIU/m L Lutea l: 1.7-7 .7 mIU/m L Postm enopa use: 25.8- 134.8 mIU/m L Not Available [facility] (Lab) [address] [facility], [place], [address], 03/11/2024 16:55:23 02/27/20 24 02/27/2024 HUMAN SEX HORMO NE HILDA NG GLOBU ELSA sex hormone binding globulin 78.8 nmole s/L 18.2-1 35.5 Not Available [facility] (Lab) [address] [facility], [place], [address], 03/11/2024 16:55:23 02/27/20 24 02/27/2024 HEMOG LOBIN [...] >8.0% Actio n sugjay sted Not Available [facility] (Lab) [address], [place], [address], 03/11/2024 16:55:24 02/27/2002/27/2024 17-HY DROXY PROGE STERO NE, SERUM 17-hydroxypr ogesterone, S 56 NG/dL ----- ----- ----- ----R EFERE NCE VALUE ----- ----- ----- ----- ----- - < 80 (Foll icula r) <285 (Lute al) ----- ----- ----- ----A DDITI ONAL INFOR MATIO N---- ----- ----- ----- This test was dereje wright and its perfo rmanc e allen monacori stics deter mined by [facility] in a chad r consi stent with EARL wong ts. This test has not been clear ed or appro viri by the U.S. Food and Drug Admin istra tion. Test Perfo rmed by: [facility] - [place] [address] , [place] [address] Lab Direc tor: Ada Adair nn Ph.D. ; CLIA# [id number] Not Available [facility] (Lab) [address], [place], [address], 03/11/2024 16:55:24 02/27/2002/27/2024 TESTO STERO NE, TOTAL AND FREE, SERUM (LC-M S/MS) testosterone free 0.80 NG/dL <0.13- 1.00 ----- ----- ----- ----A DDITI ONAL INFOR MATIO N---- ----- ----- ----- This test was devel oped and its perfo rmanc e allen cteri stics deter mined by [facility] in a chad r consi stent with CLIA requi remen ts. This test has not been clear ed or appro viri by the U.S. Food and Drug Admin istra tion. Not Available [facility] (Lab) [address] [facility], [place], [address], 03/11/2024 16:55:25 02/27/20 24 02/27/2024 TESTO STERO [...] e allen cteri stics deter mined by [facility] in a chad r consi stent with CLIA requi remen ts. This test has not been clear ed or appro viri by the U.S. Food and Drug Admin istra tion. Test Perfo rmed by: [facility] - [place] [address], [place] [address] Lab Direc tor: Ada Adair nn Ph.D. ; CLIA# [id number] Not Available [facility] (Lab) [address] [facility], [place], [address], 03/11/2024 16:55:25 02/27/20 24 02/27/2024 pregn annabelle test, urine HCG negati ve Not Available [address], [place], [address], 02/27/2024 16:02:53 03/26/20 24 03/26/2024 TSH, REFLE X FREE T4 TSH 0.47 uIU/m L 0.30-5 .33 Not Available [facility] (Lab) [address], [place], [address], 03/27/2024 07:08:35 04/29/20 24 04/29/2024 pregn annabelle test, urine HCG negati ve Not Available [facility] [address], [place], [address], 04/29/2024 18:12:16 04/21/20 24 04/21/2024 US, obste tric, trans vagin al No observ ation record ed. [email or web address] [facility] [address], [place], [address], 04/21/2024 18:16:21 04/21/20 24 04/21/2024 US, obste tric, trans vagin al No observ ation record ed. [email or web address] Jose[facility] [address] [address], [place], [address], 04/22/2024 11:52:58 Result Notes None recorded. Problems Name Problem SNOMED Code Status Onset Date Resolution Date Notes Provider Name and Address Organization Details Recorded Time Speciali moo medical examinat ion Completed 201308/10/2021 Gynecolog ical Examinati on;Record ed Elsewhere : No Locati on: [facility] So urce: EHR Chron ic: N Practic e ID: [id number] Bill able Time: 02:15:00 PM Ashley no [facility] 2 13:05:33 Screenin g for malignan t neoplasm of cervix Completed 201308/10/2021 Pap Smear;Pra ctice ID: [id number] Ashley no [facility] 2 14:15:[address] Concept Completed 201408/10/2021 Encntr for board of directors exam (general) (routine) w/o abn findings; Recorded Elsewhere : No Locati on: [facility] So urce: EHR Chron ic: N Practic e ID: 0001 Bill able Time: 11:00:00 AM Ashley Pisano [facility] [address] 13:05:[address] Concept Completed 201408/10/2021 Encntr for general adult medical exam w/o abnormal findings; Recorded Elsewhere : No Locati on: [facility] So urce: EHR Chron ic: N Practic e ID: 0001 Bill able Time: 11:00:00 AM Ashley Pisano [facility] 2 13:05:29 Blood leukocyt e number above referenc e range [id number] Completed 201608/10/2021 Elevated white blood cell count, unspecifi ed;Record ed Elsewhere : No Locati on: [facility] So urce: EHR Chron ic: N Practic e ID: 0001 Bill able Time: 05:45:00 PM Ashley Pisano [facility] 2 12:46:52 Acute vaginiti s 50809949 Completed 201608/10/2021 Acute vaginitis ;Practice ID: 0001 Ashley Pisano [facility] 2 12:46:47 Urinary tract infectio us disease 99939755 Completed 201708/10/2021 UTI;Recor ded Elsewhere : No Locati on: [facility] So urce: EHR Chron ic: N Practic e ID: 0001 Bill able Time: 05:30:00 PM Ashley Pisano [facility] 2 13:05:35 Atypical squamous cells on cervical Papanico laou smear cannot exclude high grade squamous intraepi thelial lesion 191646362 Completed 201808/10/2021 Atyp squam cell not excl hi grd intrepith lesn cyto smr crvx;Daniele rded Elsewhere : No Locati on: [facility] So urce: EHR Chron ic: N Practic e ID: 0001 Bill able Time: 10:15:00 AM [facility] 12:46:50 Atypical squamous cells of undeterm ined signific ance on cervical Papanico laou smear 164548638 Completed 201808/10/2021 Atyp squam cell of undet signfc cyto smr crvx (ASC-US); Recorded Elsewhere : No Locati on: [facility] So urce: EHR Chron ic: N Practic e ID: 0001 Bill able Time: 10:15:00 AM Ashley Pisano [facility] 2 12:46:49 Pregnanc y test negative [id number] Completed 201808/10/2021 Encounter for test, result negative; Recorded Elsewhere : No Locati on: [facility] So urce: EHR Chron ic: N Practic e ID: 0001 Bill able Time: 10:15:00 AM Ashley Pisano [facility] 2 12:46:55 Problem Notes None recorded. Procedures Surgical History Date Name Laterality Status Provider Name and Address Organization Details Recorded Time 08/26/19 24 Date of Last Pap Smear completed Karley Arias [facility] 02/27/2024 15:51:07 02/27/20 21 endoscopy completed Renae Rodríguez MARCE- [address], [place], [address], [place] [facility] 08/10/2021 14:44:28 02/03/20 19 Colposcopy completed Ashley Pisano [facility] 08/10/2021 14:39:04 Imaging Results None recorded. Procedure Notes None recorded. Medical Equipment None Reported. Allergies No known drug allergies Medications Name Sig Start Date Stop Date Status Note LastModified by Organization Details LastModified Time Diflucan 150 mg tablet take 1 tablet by oral route every other week. 02/02 completed Prescrib ed Elsewher e: No Locat ion: [facility] odify By: [email or web address] z Encoun ter DateTime : 01/19/20 19 02:30:00 PM Not Available Not Available Not Available sulfameth oxazole 800 mg-trimet hoprim 160 mg tablet take 1 tablet by oral route every 12 hours 02/02 completed Prescrib ed Elsewher e: No Locat ion: [facility] DateTime : 12/24/19 [...] ed Elsewher e: No Locat ion: [facility] odify By: [email or web address] marquez DateTime : 07/10/20 [...] Updated DateTime 02/27/2024 160.02 cm 30.6 kg/m2 70037.48 g 114/78 mm[Hg] Karley [facility] 02/27/2024 15:50:21 Date Recorded Body height Body mass index (BMI) Body weight Systolic And Diastolic Provider Name and Address Organization Details Last Updated DateTime 03/16/2024 160.02 cm 31.4 kg/m2 93485.85 g 124/83 mm[Hg] Karley [facility] 03/16/2024 12:37:53 Date Recorded Body height Body mass index (BMI) Body weight Systolic And Diastolic Provider Name and Address Organization Details Last Updated DateTime 04/21/2024 160.02 cm 30.6 kg/m2 76592.48 g 123/78 mm[Hg] Florence Green [facility] 04/21/2024 14:41:35 Date Recorded Body height Body mass index (BMI) Body weight Systolic And Diastolic Provider Name and Address Organization Details Last Updated DateTime 04/29/2024 160.02 cm 30.4 kg/m2 22952.73 g 116/75 mm[Hg] Tere Castanon [facility] 04/29/2024 17:15:24 Social History Question Answer Notes LastModified by Organizat ion Details LastModified Time Tobacco Smoking Status Never Smoker Ashley Norris [facility] 08/10/2021 14:35:15 Do You Have An [...] Or The Highest Degree You Have Received? [id number] Information not available 08/10/2021 Are There Any [...] Have Difficulty Walking Or Climbing Stairs? No [email or web address] Information not available 04/21/2024 Sex: Unknown Functional [...] able to care for yourself independently? 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 No [email or web address] Information not available 04/21/2024 What is your exercise level? Moderate Information not available 08/10/2021 Mental Status Question Answer Note LastModified by Organization D etails LastModified Time Do you feel stressed (tense, restless, nervous, or anxious, or unable to sleep at night)? [id number] Information not available 08/10/2021 Family History Relationship Description Onset Age of this Age Resolved Age Notes LastModified by Organization Details LastModified Time Mother Diabetes mellitus [email or web address] Not available 2019 11:46:26 Paternal Grandmother Diabetes mellitus [email or web address] Not available 2019 11:46:26 Paternal Grandmother Carcinoma in situ of lung [email or web address] Not available 12:19:04 Paternal Aunt Carcinoma in situ of breast [email or web address] Not available 2023 12:19:04 Medical History Condition [...] ICD10 Code Diagnosis IMO Codes Diagnosis Note [id number] Renae Rodríguez [facility] [address],[facility] [place] [address] 05/08/2020 11:45:17 05/08/2020 17:52:43 Gynecologic examination 03835146 Z01.419 Take Calcium with Vitamin D 1200mg [...] 2019 consistent with pap results Pap/hpv ordered [id number] [facility] [address],[facility] [place] [address] 08/10/2021 14:21:36 08/10/2021 15:18:57 Gynecologic examination 77877115 Z01.419 Take Calcium with Vitamin D 1200mg [...] date. [facility] ion care management [id number] Z30.9 Happy on OCPRF sent x 1yr [id number] ARISTEO [facility] [address] [address] 08/26/2023 09:00:06 08/26/2023 09:31:11 Gynecologic examination 38520412 Z01.419 Z11.51 Take Calcium with Vitamin D [...] with folic acid [id number] Henry Carpenter MD [facility] [address] [address] 02/27/2024 15:17:26 03/04/2024 23:33:34 Irregular periods 99503207 N92.6 Reproducti ve care management 101284014 Z31.9 - Differenti al diagnosis of cause [...] the patient's care. [id number] Henry Carpenter MD [facility] [address] [address] 03/16/2024 12:18:54 03/17/2024 09:58:00 Female infertility 7201067 N97.9 Presents today for discussion of infertilit [...] We agreed to proceed with hysterosal pingogram. [id number] Henry Carpenter MD [facility] [address] [address] 04/21/2024 14:12:24 04/21/2024 15:02:43 Threatened miscarriage 21981883 O20.0 O36.80X0 Z3A.00 [id number] Valerie Danielle CNM [facility] [address] [address] 04/21/2024 14:13:18 04/21/2024 15:59:49 Long menstrual cycle 381591879 N92.5 missed ab, vs early pregnancyp brandyn HCG and then rpt in 48 hoursblood type drawncall if any concerns or increase in bleeding, will plan f/u next week pending resultscon tinue vitamin Hyperthyroidism 64517063 E05.90 rpt tsh free t4 and t3 today [id number] Henry Carpenter MD [facility] [address] [address] 04/29/2024 17:07:06 04/30/2024 09:37:31 Missed miscarriage 02050262 O02.1 this patient presents for postop follow-up. [...] Rahman Member ID Guarantor Name 03/16/2024 1 [facility] [id number] Vaishali Liudmila [id number] Vaishali Carr 05/03/2024 1 [facility] - GEHA - DOS PRIOR TO 2024 (PPO) Vaishali Schultz Lilly [id number] Vaishali Carr 03/16/2024 1 [employer] - FEP 111 Vaishali Schultz Lilly [id number] Vaishali Lilly Notes Date Note Type Note [...] appropriately Henry Carpenter MD [address], [place], [address], [facility] 02/28/2024 13:22:26 4 text/html [...] hysterosalpingogram. Henry Carpenter MD [address], [place], [address], [facility] 03/17/2024 09:54:27 4 text/html ROS as noted in the HPI +UPT, pt having some spotting, send for blood typeon US today not seeing 9 week IUP, discussed could be early vs miscarriagept also wants to discuss hyperthyroidism no current meds Valerie Danielle CNM [address], [place], [address], [facility] 04/21/2024 15:12:29 4 text/html [...] on. Henry Carpenter MD [address], [place], [address], [facility] 04/29/2024 18:22:54 OBGyn Episode Ob Episode Information Episode Created Date Number of Fetuses Patient Bloodtype Patient rh Status Prepregnancy Weight lbs Domestic Partner Domestic Partner Phone Father Name Parking Worker Status 04/21/20 24 1 CLOSED Fetus Data First Name Last Name Admitted to NICU Weight (g) Sex Living Outcome Pediatric Complications Fetus ID Race Codes Race Delivery Type , Spontane ous [id number] Andrey Calculation Initial Andrey Date Initial Exam [...]
--- OUTSIDE RECORDS SUMMARY | 2025-06-10 20:24 | XMS_ITS | Clinical Summary ---
Author Organization [place] [id number] [facility] Address [address] [place] [address] Care Team Providers Care Comic Illustrator Name Role Phone Gus Elise DO Primary Care Provide r Allergies No known active allergies Medications vit no.[id number] ic 28 mg iron- 800 mcg tablet [...] Telephone [facility] Maternal- Medicine [address] [facility] Health 7th Floor [address] [place] [address] Rubi Juarez RN bleeding 05/25/2025 Results Follow-Up [facility] Reproductive Endocrinology [address] [place] [address] [place] [address] [phone] Dino Armando MD T4, free, TSH, Antimullerian hormone (AMH), Additional followed-up results: 5 05/18/2025 Orders Only [facility] Rep[facility]ductive Endocr[facility]ology [address] [facility] [place] [address] [place] [address] [phone] Dino Armando MD Screening for thyroid disorder (Primary Dx); Encounter for fertility testing; Screening for rubella; Screening for viral disease; Encounter for blood typing; 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 current 05/17/2025 Orders Only [facility]ology [address] [place] [address] [place] [address] [phone] Dino Armando MD 05/16/2025 9:00 AM CDT Telemedicine [facility] Rep[facility]ductive Endocr[facility]ology [address] [place] [address] [place] [address] [phone] Dino Armando MD Recurrent loss (Primary Dx) 04/01/2025 9:36 AM CDT - 04/01/2025 11:59 PM CDT Hospital Encounter [facility] [address] [facility] [address] [place], [place] [phone] Recurrent loss Discharge Disposition: Discharge to home or self care 03/24/2025 9:05 AM CDT Lab [facility] Outpatient Lab [address] [place] [address] Recurrent loss 03/24/2025 8:00 AM CDT Office Visit [facility] Maternal- Medicine [facility] [address] [facility] Medical Office [address] [place] [address] Recurrent loss (Primary Dx) 03/11/2025 Telephone [facility] Maternal- Medicine [address] [facility] Health 7th Floor [address] [place] [address] Rubi Juarez RN from Last [...] GENERAL ORDERABLES Final Result Performing Organization Address City/[facility]/ZIP Co de Phone Number EXTERNAL LAB * (ABNORMAL) TSH (05/18/2025) Scribed TSH 0.27(A) 0.47 - 4.68 mcU/mL EXTERNAL LAB Blood 05/18/2025 Dino Armando MD LAB BLOOD ORDERABLES Final Result Performing Organization Address City/[facility]/ZIP Co de Phone Number EXTERNAL LAB * T4, free (05/18/2025) SCRIBED T4, Free 1.24 0.78 - 2.19 mcg/dL EXTERNAL LAB Blood 05/18/2025 Dino Armando MD LAB BLOOD ORDERABLES Edite d Result - Final Performing Organization Address City/[facility]/ZIP Co de Phone Number EXTERNAL [...] - 13.5 sec Comment:Testing performed by : [facility], [address] [facility], [place]., [address] INR 0.94 0.90 - 1.20 ERROL [facility] Comment: Interpretive data Oral anticoagulant therapeutic ranges: Venous thromboembolism prophylaxis or treatment: 2.0-3.0 CARDIOLOGY Standard range: 2.0-3.0 High-intensity range: 2.5-3.5 Refer to indication-specific guidelines for appropriate target ranges for prosthetic heart valve replacement. Current interpretive data was last revised on 2019. Testing performed by: [facility], [address] [place]., [address] aPTT 29 26 - 38 sec [facility] Comment: Interpretive Data Heparin therapeutic range: 66.0 - 100.0 seconds. Range based on correlation with therapeutic heparin activity range of 0.3 - 0.7 Units/mL. Current interpretive data was last revised on 2023. Testing performed by: [facility], [address] [place]., [address] DRVVT screen ratio 0.89 0.00 - 1.20 Ratio [facility] Comment:Testing performed by : [facility], [address] [place]., [address] SCT Screen Ratio 0.85 0.00 - 1.16 Ratio [facility] Comment:Testing performed by : [facility], [address] [place]., [address] Lupus anticoagulant, interp Negative [facility] Comment: Interpretive data Lupus anticoagulants (LA) [...] lupus anticoagulant detection. J Thromb Haemost. 2009; 7:4673-3355. 2. Denzel Pompa et al. International consensus statement on an update of the classification criteria for definite antiphospholipid syndrome (APS). J Thromb Haemost. 2006; 4:295-306. Current interpretive data was last revised on 2018 Testing performed by: [facility], [address] [place]., [address] Blood 03/24/2025 9:14 AM CDT 03/24/2025 12:22 PM CDT us Karie Johnson MD LAB BLOOD ORDERABLES Final R esult [facility] [address] Department of Laboratories [place], [place] [phone] * Chromosome analysis (03/24/2025 9:14 AM CDT) [facility] Result summary Normal [place] ref Lab [facility] Interpretation See Footnote [facility] Comment:RESULT: No chromosom e abnormality was apparent. [facility] Result 46,XX [facility] Reason for Referral See Footnote [facility] Comment:RESULT: recurrent pr egnancy loss [facility] Specimen Blood [facility] Chromosome analysis, source Not Reported [facility] Method See Footnote ERROL [facility] Comment:RESULT: 72 hour cult ure w/mitogens [facility] Banding method See Footnote ERR[facility] Comment: Band Resolution: 550-199 Stain Name Cells Analyzed Cells Karyograms Counted Prepared GTL 5 15 2 Total 5 15 2 Dobson to Stain Name: GTL=G-banding; QFQ=Q-banding; DAPI=DAPI-staining; CBL=C-banding; AGNOR=Silver-staining; NON=Non-banded The sum of Cells Analyzed and Cells Counted equals the total cells examined. Chromosome analysis, Additional info See Footnote ERROL [facility] Comment: A portion of the testing process was performed at [facility] site [id number], [id number]. [facility] Released By See Footnote ERROL [facility] Comment: RESULT: Tad Aguilar, Ph.D. Test Performed by: [facility] [place] [address] Mac Artist: Julissa Holliday Ph.D.; CLIA# [id number] Blood 03/24/2025 9:14 AM CDT 03/24/2025 9:52 AM CDT Flip NORTON [facility] - 04/04/2025 4:21 PM CDT Is this going to [facility]?->No us Karie Johnson MD LAB GENETIC TESTING Final Re sult [facility] [address] Department [place] [address] [facility] Lab from Last [address] [facility] PL[facility] Care Teams Comic Illustrator Relationship Specialty Start Date End Date Gus Elise DO [address] [place] [phone] PCP - General Family Medicine 02/08/25
--- OUTSIDE RECORDS SUMMARY | 2025-06-10 20:24 | XMS_ITS | Clinical Summary ---
Author Organization [facility] Address [address] [place] [address] Care Team Providers Care [employer] Supervisor Name Role Phone Gus Elise Primary [...] Encounters Date Type Department Care Team Description 06/06/2025 Scan [facility]VCS Scanned, [facility] Lab (SCAN) 06/01/2025 Scan [facility] INFO [facility]VCS Scanned, [...] st Contact Info) Description 06/29/2025 7:20 AM ORCHARD SPRAYER Office Visit [facility] Family & Internal Medicine [place] [id number] [place] [address] Gus Elise, [address] [place] [address] Health Maintenance Due Date Last Done Comments [...] Clinic) Hepatitis C Completed 07/14/2023 PHQ-2 (Physician [place]) Completed 11/09/2024 Hepatitis B Vaccines Completed 02/10/2025, [...] Diagnosis Comments OUTSIDE LAB (SCAN ORDER) 06/06/2025 OUTSIDE LAB (SCAN ORDER) 06/01/2025 OUTSIDE LAB (SCAN ORDER) 05/30/2025 OUTSIDE LAB (SCAN ORDER) 05/27/2025 OUTSIDE LAB (SCAN ORDER) 05/25/2025 OUTSIDE LAB (SCAN ORDER) 05/23/2025 OUTSIDE LAB (SCAN ORDER) 05/18/2025 OUTSIDE LAB (SCAN ORDER) 05/18/2025 OUTSIDE LAB (SCAN ORDER) 05/18/2025 OUTSIDE LAB (SCAN ORDER) 03/12/2025 OUTSIDE CYTOPATH CERV/VAG INTERPRET (PAP) 08/26/2023 HEPATITIS C ANTIBODY Routine 07/14/2023 7:20 AM ORCHARD SPRAYER Encounter for preventative adult health care examination Screening for lipid disorders Screening for endocrine, metabolic and immunity disorder Need for hepatitis C screening test from Last 3 Months or Most Recently Relevant to Health Maintenance Results * OUTSIDE LAB (SCAN ORDER) (06/06/2025) Only the most recent of10 resultswithin the time period is included. 06/06/2025 us [facility] Scanned SCANNING Final Resu lt * PAP SMEAR WITH HPV (08/26/2023) 08/26/2023 us [facility] Scanned SCANNING Final Resu lt * HEPATITIS C ANTIBODY ([facility] ONLY) (07/14/2023 7:20 AM ORCHARD SPRAYER) HEPATITIS C AB NON-REACTI VE NON-REACT ROB 07/14/2023 7:07 PM ORCHARD SPRAYER [facility] Comment: ANTIBODIES TO HCV NOT DETECTED. DOES NOT EXCLUDE THE POSSIBILITY OF EXPOSURE TO HCV. 07/14/2023 7:20 AM ORCHARD SPRAYER Gus Elise DO LABORATORY Final Re sult [facility] [address] [place] [address], [phone] from Last 3 Months or Most Recently Relevant to Health Maintenance Insurance Care Teams [employer] Supervisor Relationship Specialty Start Date End Date Gus Elise DO [address] [place] [id number] PCP - General FAMILY PRACTICE 06/25/23
== END 2025-06-10 19:58 | disposition home or self-care (01) ==
PROVIDERS: Emergency Provider Registered Nurse; PCP Student in an Organized Health Care Education/Training Program
DX: O03.4 Incomplete spontaneous abortion without complication (principal)
CPT/HCPCS: 96372; 99284; J9260

== ENCOUNTER 2025-06-13 16:16 | Outpatient (CLI) | payer OTHER, SELFPAY | END 2025-06-13 16:17 | disposition home or self-care (01) | LOC: ANHLAB 16:17 | PROVIDERS: PCP Student in an Organized Health Care Education/Training Program; Visit Provider Student in an Organized Health Care Education/Training Program | DX: O02.1 Missed abortion (principal) | CPT/HCPCS: 36415; 84702 ==

== ENCOUNTER 2025-06-16 16:49 | Outpatient (CLI) | payer OTHER, SELFPAY ==
[2025-06-16 17:27] LABS: Beta HCG Quantitative 188.66 mIU/ML
--- OUTSIDE RECORDS SUMMARY | 2025-06-16 18:22 | XMS_ITS | Clinical Summary ---
Author Organization [place] [address] [facility] Address [address] [place] [address] Care Team Providers Care Sales Representatives Name Role Phone Gus Elise DO Primary Care Provide r Allergies No known active allergies Medications vit no.[id number] ic 28 mg iron- 800 mcg tablet [...] Type Department Care Team Description 05/27/2025 Telephone [facility] Maternal- Medicine [address] [facility] Health 7th Floor [address] [place] [address] Rubi Juarez RN bleeding 05/25/2025 Results Follow-Up [facility] Reproductive Endocrinology [address] [place] [address] [place] [address] [phone] Dino Armando MD T4, free, TSH, Antimullerian hormone (AMH), Additional followed-up results: 5 05/18/2025 Orders Only [facility] Rep[facility]ductive Endocrinology [address] [facility] [address] [place] [address] [phone] Dino Armando MD Screening for thyroid disorder (Primary Dx); Encounter for fertility testing; Screening for rubella; Screening for viral disease; Encounter for blood typing; 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 current 05/17/2025 Orders Only [facility] Rep[facility]ductive Endocrinology [address] [place] [address] [place] [address] [phone] Dino Armando MD 05/16/2025 9:00 AM CDT Telemedicine [facility] Reproductive Endocrinology [address] [place] [address] [place] [address] [phone] Dino Armando MD Recurrent loss (Primary Dx) 04/01/2025 9:36 AM CDT - 04/01/2025 11:59 PM CDT Hospital Encounter [facility] [address] [facility] [address] [place], [place] [phone] Recurrent loss Discharge Disposition: Discharge to home or self care 03/24/2025 9:05 AM CDT Lab [facility] Outpatient Lab [address] [place] [address] Recurrent loss 03/24/2025 8:00 AM CDT Office Visit [facility] Maternal- Medicine [facility] [address] [facility] Medical Office [address] [place] [address] Recurrent loss (Primary Dx) from Last 3 Months Surgical History Surgery [...] BLOOD BANK TEST ORDERA BLES Final Result Performing Organization Address [facility] Co de Phone Number EXTERNAL LAB * Varicella Zoster IgG antibody Blood (05/18/2025) SCRIBED Varicella Zoster, IgG Positive EXTERNAL LAB Blood 05/18/2025 Dino Armando MD LAB MICROBIOLOGY - GENERAL ORDERABLES Final Result Performing Organization Address [facility] Co de Phone Number EXTERNAL LAB * (ABNORMAL) TSH (05/18/2025) Scribed TSH 0.27(A) 0.47 - 4.68 mcU/mL EXTERNAL LAB Blood 05/18/2025 Dino Armando MD LAB BLOOD ORDERABLES Final Result Performing Organization Address [facility] de Phone Number EXTERNAL LAB * T4, free (05/18/2025) SCRIBED T4, Free 1.24 0.78 - 2.19 mcg/dL EXTERNAL LAB Blood 05/18/2025 Dino Armando MD LAB BLOOD ORDERABLES Edite d Result - Final Performing Organization Address [facility] Co de Phone [...] and her partner. us Karie Johnson MD IM US PROCEDURES Final Resu lt * Lupus Anticoagulant Panel plus Reflexes (03/24/2025 9:14 AM CDT) PT 10.6 10.2 - 13.5 sec Comment:Testing performed by : [facility], [address] [facility], [place]., [address] INR 0.94 0.90 - 1.20 ERROL [facility] Comment: Interpretive data Oral anticoagulant therapeutic ranges: Venous thromboembolism prophylaxis or treatment: 2.0-3.0 CARDIOLOGY Standard range: 2.0-3.0 High-intensity range: 2.5-3.5 Refer to indication-specific guidelines for appropriate target ranges for prosthetic heart valve replacement. Current interpretive data was last revised on 2019. Testing performed by: [facility], [address] [place]., [address] aPTT 29 26 - 38 sec [facility] Comment: Interpretive Data Heparin therapeutic range: 66.0 - 100.0 seconds. Range based on correlation with therapeutic heparin activity range of 0.3 - 0.7 Units/mL. Current interpretive data was last revised on 2023. Testing performed by: [facility], [address] [place]., [address] DRVVT screen ratio 0.89 0.00 - 1.20 Ratio [facility] Comment:Testing performed by : [facility], [address] [place]., [address] SCT Screen Ratio 0.85 0.00 - 1.16 Ratio [facility] Comment:Testing performed by : [facility], [address] [facility], [address] Lupus anticoagulant, interp Negative [facility] Comment: Interpretive data Lupus anticoagulants (LA) [...] lupus anticoagulant detection. J Thromb Haemost. 2009; 7:2311-9060. 2. Denzel Pompa et al. International consensus statement on an update of the classification criteria for definite antiphospholipid syndrome (APS). J Thromb Haemost. 2006; 4:295-306. Current interpretive data was last revised on 2018 Testing performed by: [facility], [address] [place]., [address] Blood 03/24/2025 9:14 AM CDT 03/24/2025 12:22 PM CDT us Karie Johnson MD LAB BLOOD ORDERABLES Final R esult [facility] [address] Department [place] [address] * Chromosome analysis (03/24/2025 9:14 AM CDT) [facility] Result summary Normal [facility] Lab [facility] Interpretation See Footnote [facility] Comment:RESULT: No chromosom e abnormality was apparent. [facility] Result 46,XX [facility] Reason for Referral See Footnote [facility] Comment:RESULT: recurrent pr egnancy loss [facility] Specimen Blood [facility] Chromosome analysis, source Not Reported [facility] CH[facility] Method See Footnote [facility] Comment:RESULT: 72 hour cult ure w/mitogens [facility] Banding method See Footnote [facility] Comment: Band Resolution: 550-309 Stain Name Cells Analyzed Cells Karyograms Counted Prepared GTL 5 15 2 Total 5 15 2 Dobson to Stain Name: GTL=G-banding; QFQ=Q-banding; DAPI=DAPI-staining; CBL=C-banding; AGNOR=Silver-staining; NON=Non-banded The sum of Cells Analyzed and Cells Counted equals the total cells examined. Chromosome analysis, Additional info See Footnote ERROL [facility] Comment: A portion of the testing process was performed at [facility] site [id number], [id number]. [facility] Released By See Footnote [facility] Comment: RESULT: Tda Aguilar, Ph.D. Test Performed by: [facility] [address] Process Controller: Julissa Holliday Ph.D.; CLIA# [id number] Blood 03/24/2025 9:14 AM CDT 03/24/2025 9:52 AM CDT Narrative ERROL [facility] - 04/04/2025 4:21 PM CDT Is this going to [facility]?->No us Karie Johnson MD LAB GENETIC TESTING Final Re sult [facility] [address] Department [place] [address] [place] ref Lab from Last 3 Months Insurance [facility] PLUS [facility] [employer] PL[employer] Care Teams Sales Representatives Relationship Specialty Start Date End Date Gus Elise DO [address] [place] [phone] PCP - General Family Medicine 02/08/25
--- OUTSIDE RECORDS SUMMARY | 2025-06-16 18:22 | XMS_ITS | Data Portability ---
Author Organization [facility] [place] Address [address] [place] [address] [place] [address] Care Team Providers Care Cafeteria Director Name Role Phone MEAGHAN JEFF Primary Care Provider Assessment No assessment recorded. Plan of Treatment Reminders Order Date Submit Date Provider Last Modified By Organization Details Last Modified Time Details Appointments None recorded. Lab test, urine 2023 024 [email or web address] [address], [address], [place], [address], 4 18:22:25 test, urine 2023 024 [email or web address] [place], [address], [place], [address], 4 16:03:13 Referral None recorded. Procedures None recorded. Surgeries None recorded. Imaging US, obstetric, transvagina l 2023 024 [place], [address], [place], [address], 4 12:53:52 XR, hysterosalp ingogram [address] [facility], [facility]0 [facility] [address], [place], [address], 5 10:28:28 Medication Orders None recorded. Patient [...] 9-246 > 75 12-15 4 Not Available [facility] (Lab) [address], [place], [address], 03/11/2024 16:55:20 02/27/20 24 02/27/2024 ESTRA DIOL [...] 154-3 243 pg/mL 2nd [place] 1561- 84067 pg/mL 3rd [place] 8525- >3000 0 pg/mL Not Available [facility] (Lab) [address] [place], [address], 03/11/2024 16:55:20 02/27/20 24 02/27/2024 PROGE STERO [...] Trime [place] 58.70 -214. 00 Not Available [facility] (Lab) [address], [place], [address], 03/11/2024 16:55:21 02/27/20 24 02/27/2024 PROLA CTIN prolactin, total 18.50 NG/mL 4.79-2 3.30 This assay was perfo rmed using [employer] ratio n reage nts and test kits. Value s obtai sandra with other assay metho ds or kits canno t be used inter mancilla eably . Not Available [facility] (Lab) [address], [place], [address], 03/11/2024 16:55:21 02/27/20 24 02/27/2024 T4 FREE T4, free 1.09 NG/dL 0.60-1 .40 This assay is susce ptibl e to inter feren ce from high level s of bioti n which may false ly eleva te resul ts. Pleas e corre late with clini radames findi ngs. Not Available [facility] (Lab) [address], [place], [address], 03/11/2024 16:55:22 02/27/20 24 02/27/2024 TSH, REFLE X FREE T4 TSH 0.27 uIU/m L 0.30-5 .33 low Not Available [facility] (Lab) [address] [place], [address], 03/11/2024 16:55:22 02/27/20 24 02/27/2024 LH (LUTE [...] use: 7.7-5 8.5 mIU/m L Not Available [facility] (Lab) [address], [place], [address], 03/11/2024 16:55:22 02/27/20 24 02/27/2024 FSH FSH 7.8 mIU/m L This assay was perfo rmed using [employer] ratio n reage nts and test kits. Value s obtai sandra with other assay metho ds or kits canno t be used inter [facility] . Femal es Folli cular : 3.5-1 2.5 mIU/m L Ovula tion: 4.7-2 1.5 mIU/m L Lutea l: 1.7-7 .7 mIU/m L Postm enopa use: 25.8- 134.8 mIU/m L Not Available [facility] (Lab) [address], [place], [address], 03/11/2024 16:55:23 02/27/20 24 02/27/2024 HUMAN SEX HORMO NE HILDA NG GLOBU ELSA sex hormone binding globulin 78.8 nmole s/L 18.2-1 35.5 Not Available [facility] (Lab) [address], [place], [address], 03/11/2024 16:55:23 02/27/20 24 02/27/2024 HEMOG LOBIN [...] >8.0% Actio n sugjay sted Not Available [facility] (Lab) [address], [place], [address], 03/11/2024 16:55:24 02/27/2002/27/2024 17-HY DROXY PROGE STERO NE, SERUM 17-hydroxypr ogesterone, S 56 NG/dL ----- ----- ----- ----R EFERE NCE VALUE ----- ----- ----- ----- ----- - < 80 (Foll icula r) <285 (Lute al) ----- ----- ----- ----A DDITI ONAL INFOR MATIO N---- ----- ----- ----- This test was dereje wright and its perfo rmanc e allen monacori stics deter mined by [facility] in a chad r consi stent with EARL wong ts. This test has not been clear ed or appro viri by the U.S. Food and Drug Admin istra tion. Test Perfo rmed by: [facility] - [place] [address] , [place] [address] Lab Direc tor: Ada Adair nn Ph.D. ; CLIA# [id number] Not Available [facility] (Lab) [address], [place], [address], 03/11/2024 16:55:24 02/27/2002/27/2024 TESTO STERO NE, TOTAL AND FREE, SERUM (LC-M S/MS) testosterone free 0.80 NG/dL <0.13- 1.00 ----- ----- ----- ----A DDITI ONAL INFOR MATIO N---- ----- ----- ----- This test was devel oped and its perfo rmanc e allen cteri stics deter mined by [facility] in a chad r consi stent with CLIA requi remen ts. This test has not been clear ed or appro viri by the U.S. Food and Drug Admin istra tion. Not Available [facility] (Lab) [address], [place], [address], 03/11/2024 16:55:25 02/27/20 24 02/27/2024 TESTO STERO [...] e allen cteri stics deter mined by [facility] in a chad r consi stent with CLIA requi remen ts. This test has not been clear ed or appro viri by the U.S. Food and Drug Admin istra tion. Test Perfo rmed by: [facility] - [place] [address], [place] [address] Lab Direc tor: Ada Adair nn Ph.D. ; CLIA# [id number] Not Available [facility] (Lab) [address], [place], [address], 03/11/2024 16:55:25 02/27/20 24 02/27/2024 pregn annabelle test, urine HCG negati ve Not Available [address], [place], [address], 02/27/2024 16:02:53 03/26/20 24 03/26/2024 TSH, REFLE X FREE T4 TSH 0.47 uIU/m L 0.30-5 .33 Not Available [facility] (Lab) [address], [place], [address], 03/27/2024 07:08:35 04/29/20 24 04/29/2024 pregn annabelle test, urine HCG negati ve Not Available [place] [address], [place], [address], 04/29/2024 18:12:16 04/21/20 24 04/21/2024 US, obste tric, trans vagin al No observ ation record ed. [email or web address] [place] [address], [place], [address], 04/21/2024 18:16:21 04/21/20 24 04/21/2024 US, obste tric, trans vagin al No observ ation record ed. [email or web address] Jose[address] [address], [place], [address], 04/22/2024 11:52:58 Result Notes None recorded. Problems Name Problem SNOMED Code Status Onset Date Resolution Date Notes Provider Name and Address Organization Details Recorded Time Speciali moo medical examinat ion Completed 201308/10/2021 Gynecolog ical Examinati on;Record ed Elsewhere : No Locati on: [facility] So urce: EHR Chron ic: N Practic e ID: 0001 Bill able Time: 02:15:00 PM Ashley no [facility] 2 13:05:33 Screenin g for malignan t neoplasm of cervix Completed 201308/10/2021 Pap Smear;Pra ctice ID: 0001 Ashley no [facility] 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 2 13:05:[address] Concept Completed 201408/10/2021 Encntr for general adult medical exam w/o abnormal findings; Recorded Elsewhere : No Locati on: [facility] So urce: EHR Chron ic: N Practic e ID: 0001 Bill able Time: 11:00:00 AM Ashley Pisano [facility] 2 13:05:29 Blood leukocyt e number above referenc e range [id number] Completed 201608/10/2021 Elevated white blood cell count, unspecifi ed;Record ed Elsewhere : No Locati on: [facility] So urce: EHR Chron ic: N Practic e ID: 0001 Bill able Time: 05:45:00 PM Ashley Pisano [facility] 2 12:46:52 Acute vaginiti s [id number] Completed 201608/10/2021 Acute vaginitis ;Practice ID: 0001 Ashley Pisano [facility] 2 12:46:47 Urinary tract infectio us disease 12217810 Completed 201708/10/2021 UTI;Recor ded Elsewhere : No Locati on: [facility] So urce: EHR Chron ic: N Practic e ID: 0001 Bill able Time: 05:30:00 PM Ashley Pisano [facility] 2 13:05:35 Atypical squamous cells on cervical Papanico laou smear cannot exclude high grade squamous intraepi thelial lesion [id number] Completed 201808/10/2021 Atyp squam cell not excl hi grd intrepith lesn cyto smr crvx;Daniele rded Elsewhere : No Locati on: [facility] So urce: EHR Chron ic: N Practic e ID: 0001 Bill able Time: 10:15:00 AM [facility] 2 12:46:50 Atypical squamous cells of undeterm ined signific ance on cervical Papanico laou smear 773156746 Completed 201808/10/2021 Atyp squam cell of undet signfc cyto smr crvx (ASC-US); Recorded Elsewhere : No Locati on: [facility] So urce: EHR Chron ic: N Practic e ID: 0001 Bill able Time: 10:15:00 AM Ashley Pisano [facility] 2 12:46:49 Pregnanc y test negative [id number] Completed 201808/10/2021 Encounter for test, result negative; Recorded Elsewhere : No Locati on: [facility] So urce: EHR Chron ic: N Practic e ID: 0001 Bill able Time: 10:15:00 AM Ashley Pisano [facility] 2 12:46:55 Problem Notes None recorded. Procedures Surgical History Date Name Laterality Status Provider Name and Address Organization Details Recorded Time 08/26/19 24 Date of Last Pap Smear completed Karley Arias [facility] 02/27/2024 15:51:07 02/27/20 21 endoscopy completed Renae Rodríguez MARCE- [address], [place], [address], [place] [facility] 08/10/2021 14:44:28 02/03/20 19 Colposcopy completed Ashley Pisano [facility] 08/10/2021 14:39:04 Imaging Results None recorded. Procedure Notes None recorded. Medical Equipment None Reported. Allergies No known drug allergies Medications Name Sig Start Date Stop Date Status Note LastModified by Organization Details LastModified Time Diflucan 150 mg tablet take 1 tablet by oral route every other week. 02/02 completed Prescrib ed Elsewher e: No Locat ion: [facility] odify By: [email or web address] z Encoun ter DateTime : 01/19/20 19 02:30:00 PM Not Available Not Available Not Available sulfameth oxazole 800 mg-trimet hoprim 160 mg tablet take 1 tablet by oral route every 12 hours 02/02 completed Prescrib ed Elsewher e: No Locat ion: [facility] DateTime : 12/24/19 [...] Prescrib ed Elsewher e: No Locat ion: [facility] odify By: [email or web address] marquez DateTime : [...] Updated DateTime 02/27/2024 160.02 cm 30.6 kg/m2 95905.48 g 114/78 mm[Hg] Karley [facility] 02/27/2024 15:50:21 Date Recorded Body height Body mass index (BMI) Body weight Systolic And Diastolic Provider Name and Address Organization Details Last Updated DateTime 03/16/2024 160.02 cm 31.4 kg/m2 26060.85 g 124/83 mm[Hg] Karley [facility] 03/16/2024 12:37:53 Date Recorded Body height Body mass index (BMI) Body weight Systolic And Diastolic Provider Name and Address Organization Details Last Updated DateTime 04/21/2024 160.02 cm 30.6 kg/m2 86015.48 g 123/78 mm[Hg] Florence Green [facility] 04/21/2024 14:41:35 Date Recorded Body height Body mass index (BMI) Body weight Systolic And Diastolic Provider Name and Address Organization Details Last Updated DateTime 04/29/2024 160.02 cm 30.4 kg/m2 19163.73 g 116/75 mm[Hg] Tere Castanon [facility] 04/29/2024 17:15:24 Social History Question Answer Notes LastModified by Organizat ion Details LastModified Time Tobacco Smoking Status Never Smoker Ashley Norris [facility] 08/10/2021 14:35:15 Do You [...] Or The Highest Degree You Have Received? [id number] Information not available 08/10/2021 Are There Any [...] able to care for yourself independently? 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 No [email or web address] Information not available 04/21/2024 What is your exercise level? Moderate Information not available 08/10/2021 Mental Status Question Answer Note LastModified by Organization D etails LastModified Time Do you feel stressed (tense, restless, nervous, or anxious, or unable to sleep at night)? [id number] Information not available 08/10/2021 Family History Relationship Description Onset Age of this Age Resolved Age Notes LastModified by Organization Details LastModified Time Mother Diabetes mellitus [email or web address] Not available 2019 11:46:26 Paternal Grandmother Diabetes mellitus [email or web address] Not available 2019 11:46:26 Paternal Grandmother Carcinoma in situ of lung [email or web address] Not available 12:19:04 Paternal Aunt Carcinoma in situ of breast [email or web address] Not available 2023 12:19:04 Medical History Condition [...] ICD10 Code Diagnosis IMO Codes Diagnosis Note [id number] Renae Rodríguez [facility] [address],[facility] [address] 05/08/2020 11:45:17 05/08/2020 17:52:43 Gynecologic examination 40381073 Z01.419 Take Calcium with Vitamin D 1200mg [...] 2019 consistent with pap results Pap/hpv ordered [id number] [facility] [address],[facility] [place] [address] 08/10/2021 14:21:36 08/10/2021 15:18:57 Gynecologic examination 73218088 Z01.419 Take Calcium with Vitamin D 1200mg [...] this year! Waiting to set the date. [facility] ion care management [id number] Z30.9 Happy on OCPRF sent x 1yr [id number] ARISTEO [facility] [address] [address] 08/26/2023 09:00:06 08/26/2023 09:31:11 Gynecologic examination 43146604 Z01.419 Z11.51 Take Calcium with Vitamin D [...] folic acid [id number] Henry Carpenter MD [place] [address] [address] 02/27/2024 15:17:26 03/04/2024 23:33:34 Irregular periods 81906681 N92.6 Reproducti ve care management 041550460 Z31.9 - Differenti al diagnosis of cause [...] the patient's care. [id number] Henry Carpenter MD [place] [address] [address] 03/16/2024 12:18:54 03/17/2024 09:58:00 Female infertility 7148300 N97.9 Presents today for discussion of infertilit [...] We agreed to proceed with hysterosal pingogram. [id number] Henry Carpenter MD [place] [address] [address] 04/21/2024 14:12:24 04/21/2024 15:02:43 Threatened miscarriage 19354296 O20.0 O36.80X0 Z3A.00 [id number] Valerie Danielle CNM [place] [address] [address] 04/21/2024 14:13:18 04/21/2024 15:59:49 Long menstrual cycle 537482832 N92.5 missed ab, vs early pregnancyp brandyn HCG and then rpt in 48 hoursblood type drawncall if any concerns or increase in bleeding, will plan f/u next week pending resultscon tinue vitamin Hyperthyroidism 23124602 E05.90 rpt tsh free t4 and t3 today [id number] Henry Carpenter MD [place] [address] [address] 04/29/2024 17:07:06 04/30/2024 09:37:31 Missed miscarriage 27470753 O02.1 this patient presents for postop follow-up. [...] Rahman Member ID Guarantor Name 03/16/2024 1 [facility] [id number] Vaishali Liudmila [id number] Vaishali Carr 05/03/2024 1 PENDING SALE TO [facility] - DOS PRIOR TO 2024 (PPO) Vaishali Schultz Lilly [id number] A Vaishali Carr 03/16/2024 1 [employer] - FEP 111 Vaishali Schultz Lilly [id number] Vaishali Lilly Notes Date Note Type Note [...] appropriately Henry Carpenter MD [address], [place], [address], [facility] 02/28/2024 13:22:26 4 text/html [...] hysterosalpingogram. Henry Carpenter MD [address], [place], [address], [facility] 03/17/2024 09:54:27 4 text/html ROS as noted in the HPI +UPT, pt having some spotting, send for blood typeon US today not seeing 9 week IUP, discussed could be early vs miscarriagept also wants to discuss hyperthyroidism no current meds Valerie Danielle CNM [address], [place], [address], [facility] 04/21/2024 15:12:29 4 text/html [...] Fertility. Miscarriage rates. And on and on. Henyr Carpenter MD [address], [place], [address], [facility] 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
--- OUTSIDE RECORDS SUMMARY | 2025-06-16 18:22 | XMS_ITS | Encounter Summary ---
Author Organization [facility] Address [address] [place] [address] Phone Care Team Providers Care Accounts Payable Professional Name Role Phone Gus Elise DO Primary Care Provide r Encounter Details Date Type Department Care Team (Latest Contact Info) Description 05/25/2025 Results Follow-Up [facility] Medicine Reproductive Endocrinology [address] [address] Dino Armando MD [address] [address] T4, free, TSH, Antimullerian hormone [...] on filedocumented in this encounter Care Teams Accounts Payable Professional Relationship Specialty Start Date End Date Gus Elise DO [address] [place] [address] PCP - General Family Medicine 02/08/25 documented as of this encounter
== END 2025-06-16 16:50 | disposition home or self-care (01) ==
LOC: ANHLAB 16:49
PROVIDERS: PCP Student in an Organized Health Care Education/Training Program; Visit Provider Student in an Organized Health Care Education/Training Program
DX: O02.1 Missed abortion (principal)
CPT/HCPCS: 36415; 84702

== ENCOUNTER 2025-06-20 16:58 | Outpatient (CLI) | payer OTHER, SELFPAY ==
[2025-06-20 17:41] LABS: Beta HCG Quantitative 86.09 mIU/ML
--- OUTSIDE RECORDS SUMMARY | 2025-06-20 18:29 | XMS_ITS | Encounter Summary ---
Author Organization [facility] Address [address] [place] [address] Care Team Providers Care Shank Scourer Name Role Phone Gus Elise DO Primary Care Provider + Reason for Visit * Reason Comments Lab (SCAN) Encounter Details Date Type Department Care Team (Latest Contact Info) Description 06/16/2025 Scan HEALTH INFO SRVCS Scanned, Doc Med [...] st Contact Info) Description 06/29/2025 7:20 AM DRAMATIC ARTS HISTORIAN Office Visit [facility] Medical [facility] Family & Internal Medicine [address] [address] Gus Elise DO [address] [place] [address] documented as of this encounter Procedures Procedure Name Priority Date/Time Associated Diagnosis Comments OUTSIDE LAB (SCAN ORDER) 06/16/2025 documented in this encounter Results * OUTSIDE LAB (SCAN ORDER) (06/16/2025) 06/16/2025 us Doc Med Group Scanned SCANNING Final Resu lt documented in this encounter Visit Diagnoses Not on filedocumented in this encounter Care Teams Shank Scourer Relationship Specialty Start Date End Date Gus Elise DO [address] [place] [address] PCP - General FAMILY PRACTICE 06/25/23 documented as of this encounter
--- OUTSIDE RECORDS SUMMARY | 2025-06-20 18:29 | XMS_ITS | Encounter Summary ---
Author Organization [facility] Address [address] [place] [address] Care Team Providers Care Adult Remedial Education Instructor Name Role Phone Gus Elise DO Primary Care Provider + Reason for Visit * Reason Comments Lab (SCAN) Encounter Details Date Type Department Care Team (Latest Contact Info) Description 06/13/2025 Scan HEALTH INFO SRVCS Scanned, Doc Med [...] st Contact Info) Description 06/29/2025 7:20 AM CUSTOMER DEVELOPMENT REPRESENTATIVE Office Visit [facility] Medical Group Family & Internal Medicine [address] [address] Gus Elise DO [address] [place] [address] documented as of this encounter Procedures Procedure Name Priority Date/Time Associated Diagnosis Comments OUTSIDE LAB (SCAN ORDER) 06/13/2025 documented in this encounter Results * OUTSIDE LAB (SCAN ORDER) (06/13/2025) 06/13/2025 us Doc Med Group Scanned SCANNING Final Resu lt documented in this encounter Visit Diagnoses Not on filedocumented in this encounter Care Teams Adult Remedial Education Instructor Relationship Specialty Start Date End Date Gus Elise DO [address] [place] [address] PCP - General FAMILY PRACTICE 06/25/23 documented as of this encounter
--- OUTSIDE RECORDS SUMMARY | 2025-06-20 18:29 | XMS_ITS | Encounter Summary ---
Author Organization [facility] Address [address] [place] [address] Phone Care Team Providers Care Benefits Sales Consultant Name Role Phone Gus Elise DO Primary Care Provide r Encounter Details Date Type Department Care Team (Latest Contact Info) Description 05/25/2025 Results Follow-Up [facility] Medicine Reproductive Endocrinology [address] [address] Dino Armando MD [address] [address] T4, free, TSH, Antimullerian hormone [...] on filedocumented in this encounter Care Teams Benefits Sales Consultant Relationship Specialty Start Date End Date Gus Elise DO [address] [place] [address] PCP - General Family Medicine 02/08/25 documented as of this encounter
--- OUTSIDE RECORDS SUMMARY | 2025-06-20 18:29 | XMS_ITS | Encounter Summary ---
Author Organization [facility] Address [address] [place] [address] Care Team Providers Care Senior Net Engineer Name Role Phone Gus Elise DO Primary Care Provider + Reason for Visit * Reason Comments Ultrasound (SCAN) Encounter Details Date Type Department Care Team ([facility] Contact Info) Description 06/10/2025 Scan HEALTH INFO SRVCS Scanned, Doc Med Group Ultrasound (SCAN) Social History Tobacco Use Types Packs/Day [...] Upcoming Encounters Date Type Department Care Team ([facility] Contact Info) Description 06/29/2025 7:20 AM MUCKING MACHINE OPERATOR Office Visit [facility] Medical [facility] Family & Internal Medicine [address] [address] Gus Elise DO [address] [place] [address] documented as of this encounter Procedures Procedure Name Priority Date/Time Associated Diagnosis Comments ULTRASOUND GENERIC (SCAN ORDER) 06/10/2025 documented in this encounter Results * ULTRASOUND GENERIC (SCAN ORDER) (06/10/2025) Anatomical Region Laterality Modality Other 06/10/2025 us Doc Med Group Scanned SCANNING Final Resu lt documented in this encounter Visit Diagnoses Not on filedocumented in this encounter Care Teams Senior Net Engineer Relationship Specialty Start Date End Date Gus Elise DO [facility] [place] [address] PCP - General FAMILY PRACTICE 06/25/23 documented as of this encounter
--- OUTSIDE RECORDS SUMMARY | 2025-06-20 18:29 | XMS_ITS | Data Portability ---
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 Plan of Treatment Reminders Order Date Submit Date Provider Last Modified By Organization Details Last Modified Time Details Appointments None recorded. Lab test, urine 2023 024 [email or web address] [address], [address], [place], [address], 4 18:22:25 test, urine 2023 024 [email or web address] [place], [address], [place], [address], 4 16:03:13 Referral None recorded. Procedures None recorded. Surgeries None recorded. Imaging US, obstetric, transvagina l 2023 024 [email or web address] [place], [address], [place], [address], 4 12:53:52 XR, hysterosalp ingogram [address] [facility], [facility]0 [facility] [address], [place], [address], 5 10:28:28 Medication Orders None recorded. Patient [...] 9-246 > 75 12-15 4 Not Available [facility] (Lab) [address], [place], [address], 03/11/2024 16:55:20 02/27/20 24 02/27/2024 ESTRA DIOL [...] 154-3 243 pg/mL 2nd [place] 1561- 16517 pg/mL 3rd [place] 8525- >3000 0 pg/mL Not Available [facility] (Lab) [address] [place], [address], 03/11/2024 16:55:20 02/27/20 24 02/27/2024 PROGE STERO [...] [place] 58.70 -214. 00 Not Available [facility] (Lab) [address] [facility], [place], [address], 03/11/2024 16:55:21 02/27/20 24 02/27/2024 PROLA CTIN prolactin, total 18.50 NG/mL 4.79-2 3.30 This assay was perfo rmed using [employer] ratio n reage nts and test kits. Value s obtai sandra with other assay metho ds or kits canno t be used inter mancilla eably . Not Available [facility] (Lab) [address], [place], [address], 03/11/2024 16:55:21 02/27/20 24 02/27/2024 T4 FREE T4, free 1.09 NG/dL 0.60-1 .40 This assay is susce ptibl e to inter feren ce from high level s of bioti n which may false ly eleva te resul ts. Pleas e corre late with clini radames findi ngs. Not Available [facility] (Lab) [address] [facility] [address], [place], [address], 03/11/2024 16:55:22 02/27/20 24 02/27/2024 TSH, REFLE X FREE T4 TSH 0.27 uIU/m L 0.30-5 .33 low Not Available [facility] (Lab) [address] [place], [address], 03/11/2024 16:55:22 02/27/20 24 02/27/2024 LH (LUTE [...] use: 7.7-5 8.5 mIU/m L Not Available [facility] (Lab) [address] [facility], [place], [address], 03/11/2024 16:55:22 02/27/20 24 02/27/2024 FSH FSH 7.8 mIU/m L This assay was perfo rmed using [employer] reage nts and test kits. Value s obtai sandra with other assay metho ds or kits canno t be used inter [facility] . Femal es Folli cular : 3.5-1 2.5 mIU/m L Ovula tion: 4.7-2 1.5 mIU/m L Lutea l: 1.7-7 .7 mIU/m L Postm enopa use: 25.8- 134.8 mIU/m L Not Available [facility] (Lab) [address] [facility], [place], [address], 03/11/2024 16:55:23 02/27/20 24 02/27/2024 HUMAN SEX HORMO NE HILDA NG GLOBU ELSA sex hormone binding globulin 78.8 nmole s/L 18.2-1 35.5 Not Available [facility] (Lab) [address] [facility] [address], [place], [address], 03/11/2024 16:55:23 02/27/20 24 02/27/2024 HEMOG LOBIN [...] >8.0% Actio n sugjay sted Not Available [facility] (Lab) [address], [place], [address], 03/11/2024 16:55:24 02/27/2002/27/2024 17-HY DROXY PROGE STERO NE, SERUM 17-hydroxypr ogesterone, S 56 NG/dL ----- ----- ----- ----R EFERE NCE VALUE ----- ----- ----- ----- ----- - < 80 (Foll icula r) <285 (Lute al) ----- ----- ----- ----A DDITI ONAL INFOR MATIO N---- ----- ----- ----- This test was dereje wright and its perfo rmanc e allen monacori stics deter mined by [facility] in a chad r consi stent with EARL wong ts. This test has not been clear ed or appro viri by the U.S. Food and Drug Admin istra tion. Test Perfo rmed by: [facility] - [place] [address] , [place] [address] Lab Direc tor: Ada Adair nn Ph.D. ; CLIA# [id number] Not Available [facility] (Lab) [address], [place], [address], 03/11/2024 16:55:24 02/27/2002/27/2024 TESTO STERO NE, TOTAL AND FREE, SERUM (LC-M S/MS) testosterone free 0.80 NG/dL <0.13- 1.00 ----- ----- ----- ----A DDITI ONAL INFOR MATIO N---- ----- ----- ----- This test was devel oped and its perfo rmanc e allen cteri stics deter mined by [facility] in a chad r consi stent with CLIA requi remen ts. This test has not been clear ed or appro viri by the U.S. Food and Drug Admin istra tion. Not Available [facility] (Lab) [address] [facility], [place], [address], 03/11/2024 16:55:25 02/27/20 24 02/27/2024 TESTO STERO [...] e allen cteri stics deter mined by [facility] in a chad r consi stent with CLIA requi remen ts. This test has not been clear ed or appro viri by the U.S. Food and Drug Admin istra tion. Test Perfo rmed by: [facility] - [place] [address], [place] [address] Lab Direc tor: Ada Adair nn Ph.D. ; CLIA# [id number] Not Available [facility] (Lab) [address] [facility], [place], [address], 03/11/2024 16:55:25 02/27/20 24 02/27/2024 pregn annabelle test, urine HCG negati ve Not Available [address] [place], [place], [address], 02/27/2024 16:02:53 03/26/20 24 03/26/2024 TSH, REFLE X FREE T4 TSH 0.47 uIU/m L 0.30-5 .33 Not Available [facility] (Lab) [address], [place], [address], 03/27/2024 07:08:35 04/29/20 24 04/29/2024 pregn annabelle test, urine HCG negati ve Not Available [place] [address], [place], [address], 04/29/2024 18:12:16 04/21/20 24 04/21/2024 US, obste tric, trans vagin al No observ ation record ed. [email or web address] [place] [address], [place], [address], 04/21/2024 18:16:21 04/21/20 24 04/21/2024 US, obste tric, trans vagin al No observ ation record ed. [email or web address] [address] [address], [place], [address], 04/22/2024 11:52:58 Result Notes None recorded. Problems Name Problem SNOMED Code Status Onset Date Resolution Date Notes Provider Name and Address Organization Details Recorded Time Speciali moo medical examinat ion Completed 201308/10/2021 Gynecolog ical Examinati on;Record ed Elsewhere : No Locati on: [facility] So urce: EHR Chron ic: N Practic e ID: 0001 Bill able Time: 02:15:00 PM Ashley no [facility] 2 13:05:33 Screenin g for malignan t neoplasm of cervix Completed 201308/10/2021 Pap Smear;Pra ctice ID: 0001 Ashley no [facility] 2 14:15:[address] Concept Completed 201408/10/2021 Encntr for cyberathlete exam (general) (routine) w/o abn findings; Recorded Elsewhere : No Locati on: [facility] So urce: EHR Chron ic: N Practic e ID: 0001 Bill able Time: 11:00:00 AM Ashley Pisano [facility] [address] 13:05:[address] Concept Completed 201408/10/2021 Encntr for general adult medical exam w/o abnormal findings; Recorded Elsewhere : No Locati on: [facility] So urce: EHR Chron ic: N Practic e ID: 0001 Bill able Time: 11:00:00 AM Ashley Pisano [facility] 2 13:05:29 Blood leukocyt e number above referenc e range [id number] Completed 201608/10/2021 Elevated white blood cell count, unspecifi ed;Record ed Elsewhere : No Locati on: [facility] So urce: EHR Chron ic: N Practic e ID: 0001 Bill able Time: 05:45:00 PM Ashley Pisano [facility] 2 12:46:52 Acute vaginiti s 57439325 Completed 201608/10/2021 Acute vaginitis ;Practice ID: 0001 Ashley Pisano [facility] 2 12:46:47 Urinary tract infectio us disease 30076414 Completed 201708/10/2021 UTI;Recor ded Elsewhere : No Locati on: [facility] So urce: EHR Chron ic: N Practic e ID: 0001 Bill able Time: 05:30:00 PM Ashley Pisano [facility] 2 13:05:35 Atypical squamous cells on cervical Papanico laou smear cannot exclude high grade squamous intraepi thelial lesion 189104835 Completed 201808/10/2021 Atyp squam cell not excl hi grd intrepith lesn cyto smr crvx;Daniele rded Elsewhere : No Locati on: [facility] So urce: EHR Chron ic: N Practic e ID: 0001 Bill able Time: 10:15:00 AM [facility] 2 12:46:50 Atypical squamous cells of undeterm ined signific ance on cervical Papanico laou smear 589824802 Completed 201808/10/2021 Atyp squam cell of undet signfc cyto smr crvx (ASC-US); Recorded Elsewhere : No Locati on: [facility] So urce: EHR Chron ic: N Practic e ID: 0001 Bill able Time: 10:15:00 AM Ashley Pisano [facility] 2 12:46:49 Pregnanc y test negative [id number] Completed 201808/10/2021 Encounter for test, result negative; Recorded Elsewhere : No Locati on: [facility] So urce: EHR Chron ic: N Practic e ID: 0001 Bill able Time: 10:15:00 AM Ashley Pisano [facility] 2 12:46:55 Problem Notes None recorded. Procedures Surgical History Date Name Laterality Status Provider Name and Address Organization Details Recorded Time 08/26/19 24 Date of Last Pap Smear completed Karley Arias [facility] 02/27/2024 15:51:07 02/27/20 21 endoscopy completed Renae Rodríguez MARCE- [address], [place], [address], [place] [facility] 08/10/2021 14:44:28 02/03/20 19 Colposcopy completed Ashley Pisano [facility] 08/10/2021 14:39:04 Imaging Results None recorded. Procedure Notes None recorded. Medical Equipment None Reported. Allergies No known drug allergies Medications Name Sig Start Date Stop Date Status Note LastModified by Organization Details LastModified Time Diflucan 150 mg tablet take 1 tablet by oral route every other week. 02/02 completed Prescrib ed Elsewher e: No Locat ion: [facility] odify By: [email or web address] z Encoun ter DateTime : 01/19/20 19 02:30:00 PM Not Available Not Available Not Available sulfameth oxazole 800 mg-trimet hoprim 160 mg tablet take 1 tablet by oral route every 12 hours 02/02 completed Prescrib ed Elsewher e: No Locat ion: [email or web address] DateTime : 12/24/19 18 [...] Prescrib ed Elsewher e: No Locat ion: [facility] odify By: [email or web address] marquez DateTime : [...] Updated DateTime 02/27/2024 160.02 cm 30.6 kg/m2 88996.48 g 114/78 mm[Hg] Karley [facility] 02/27/2024 15:50:21 Date Recorded Body height Body mass index (BMI) Body weight Systolic And Diastolic Provider Name and Address Organization Details Last Updated DateTime 03/16/2024 160.02 cm 31.4 kg/m2 57993.85 g 124/83 mm[Hg] Karley [facility] 03/16/2024 12:37:53 Date Recorded Body height Body mass index (BMI) Body weight Systolic And Diastolic Provider Name and Address Organization Details Last Updated DateTime 04/21/2024 160.02 cm 30.6 kg/m2 46908.48 g 123/78 mm[Hg] Florence Green [facility] 04/21/2024 14:41:35 Date Recorded Body height Body mass index (BMI) Body weight Systolic And Diastolic Provider Name and Address Organization Details Last Updated DateTime 04/29/2024 160.02 cm 30.4 kg/m2 11173.73 g 116/75 mm[Hg] Tere Castanon [facility] 04/29/2024 17:15:24 Social History Question Answer Notes LastModified by Organizat ion Details LastModified Time Tobacco Smoking Status Never Smoker Ashley [place] [facility] 08/10/2021 14:35:15 Do You Have [...] Or The Highest Degree You Have Received? [id number] Information not available 08/10/2021 Are There Any [...] Have Difficulty Walking Or Climbing Stairs? No [email or web address] Information not available 04/21/2024 Sex: Unknown Functional [...] able to care for yourself independently? 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 No [email or web address] Information not available 04/21/2024 What is your exercise level? Moderate Information not available 08/10/2021 Mental Status Question Answer Note LastModified by Organization D etails LastModified Time Do you feel stressed (tense, restless, nervous, or anxious, or unable to sleep at night)? [id number] Information not available 08/10/2021 Family History Relationship Description Onset Age of this Age Resolved Age Notes LastModified by Organization Details LastModified Time Mother Diabetes mellitus [email or web address] Not available 2019 11:46:26 Paternal Grandmother Diabetes mellitus [email or web address] Not available 2019 11:46:26 Paternal Grandmother Carcinoma in situ of lung Not available 12:19:04 Paternal Aunt Carcinoma in situ of breast [email or web address] Not available 2023 12:19:04 Medical History Condition [...] ICD10 Code Diagnosis IMO Codes Diagnosis Note [id number] Renae Rodrí[address] [facility] [address],[place] [address] 05/08/2020 11:45:17 05/08/2020 17:52:43 Gynecologic examination [id number] Z01.419 Take Calcium with Vitamin D 1200mg [...] 2019 consistent with pap results Pap/hpv ordered [id number] [facility] [address],[place] [address] 08/10/2021 14:21:36 08/10/2021 15:18:57 Gynecologic examination 89284271 Z01.419 Take Calcium with Vitamin D 1200mg [...] [facility] ion care management [id number] Z30.9 Happy on OCPRF sent x 1yr [id number] ARISTEO Ram-[facility] [address] [address] 08/26/2023 09:00:06 08/26/2023 09:31:11 Gynecologic examination 06743809 Z01.419 Z11.51 Take Calcium with Vitamin D [...] with folic acid [id number] Henry [place] MD [place] [address] [address] 02/27/2024 15:17:26 03/04/2024 23:33:34 Irregular periods 06663974 N92.6 Reproducti ve care management 746523863 Z31.9 - Differenti al diagnosis of cause [...] the patient's care. [id number] Henry [place] MD [place] [address] [address] 03/16/2024 12:18:54 03/17/2024 09:58:00 Female infertility 4153030 N97.9 Presents today for discussion of infertilit [...] We agreed to proceed with hysterosal pingogram. [id number] Henry Carpenter MD [place] [address] [address] 04/21/2024 14:12:24 04/21/2024 15:02:43 Threatened miscarriage 59324306 O20.0 O36.80X0 Z3A.00 [id number] Valerie Danielle CNM [place] [address] [address] 04/21/2024 14:13:18 04/21/2024 15:59:49 Long menstrual cycle 231833133 N92.5 missed ab, vs early pregnancyp brandyn HCG and then rpt in 48 hoursblood type drawncall if any concerns or increase in bleeding, will plan f/u next week pending resultscon tinue vitamin Hyperthyroidism 16235214 E05.90 rpt tsh free t4 and t3 today [id number] Henry [place] MD [place] [address] [address] 04/29/2024 17:07:06 04/30/2024 09:37:31 Missed miscarriage 54794468 O02.1 this patient presents for postop follow-up. [...] Rahman Member ID Guarantor Name 03/16/2024 1 [facility] [id number] Vaishali Liudmila [id number] Vaishali Carr 05/03/2024 1 [facility] - DOS PRIOR TO 2024 (PPO) Vaishali Schultz Lilly [id number] Vaishali Carr 03/16/2024 1 [employer] - FEP 111 Vaishali Schultz Lilly [id number] Vaishali Lilly Notes Date Note Type Note [...] appropriately Henry Carpenter MD [address], [place], [address], [facility] 02/28/2024 13:22:26 4 text/html [...] hysterosalpingogram. Henry Carpenter MD [address], [place], [address], [facility] 03/17/2024 09:54:27 4 text/html ROS as noted in the HPI +UPT, pt having some spotting, send for blood typeon US today not seeing 9 week IUP, discussed could be early vs miscarriagept also wants to discuss hyperthyroidism no current meds Valerie Danielle CNM [address], [place], [address], [facility] 04/21/2024 15:12:29 4 text/html [...] on. Henry Carpenter MD [address], [place], [address], [facility] 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
--- OUTSIDE RECORDS SUMMARY | 2025-06-20 18:29 | XMS_ITS | Clinical Summary ---
Author Organization [facility] Address [address] [place] [address] Care Team Providers Care Crm Dynamics Developer Name Role Phone Gus Elise Primary Care [...] Encounters Date Type Department Care Team Description 06/16/2025 Scan [facility] Scanned, [facility] Lab (SCAN) 06/13/2025 Scan [facility] Scanned, [facility] Lab (SCAN) 06/10/2025 Scan [facility] Scanned, [facility] Ultrasound (SCAN) 06/08/2025 Scan [facility] Scanned, [facility] Lab (SCAN) 06/06/2025 Scan [facility]VCS Scanned, [...] st Contact Info) Description 06/29/2025 7:20 AM 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 Office Visit [facility] [address] [place] [address] Gus Elise, [address] [place] [address] Health Maintenance Due Date Last Done Comments [...] Clinic) Hepatitis C Completed 07/14/2023 PHQ-2 (Physician [facility]) Completed 11/09/2024 Hepatitis B Vaccines Completed 02/10/2025, [...] Diagnosis Comments OUTSIDE LAB (SCAN ORDER) 06/16/2025 OUTSIDE LAB (SCAN ORDER) 06/13/2025 ULTRASOUND GENERIC (SCAN ORDER) 06/10/2025 OUTSIDE LAB (SCAN ORDER) 06/08/2025 OUTSIDE LAB (SCAN ORDER) 06/06/2025 OUTSIDE LAB (SCAN ORDER) 06/01/2025 OUTSIDE LAB (SCAN ORDER) 05/30/2025 OUTSIDE LAB (SCAN ORDER) 05/27/2025 OUTSIDE LAB (SCAN ORDER) 05/25/2025 OUTSIDE LAB (SCAN ORDER) 05/23/2025 OUTSIDE LAB (SCAN ORDER) 05/18/2025 OUTSIDE LAB (SCAN ORDER) 05/18/2025 OUTSIDE LAB (SCAN ORDER) 05/18/2025 OUTSIDE CYTOPATH CERV/VAG INTERPRET (PAP) 08/26/2023 HEPATITIS C ANTIBODY Routine 07/14/2023 7:20 AM 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 Encounter for preventative adult health care examination Screening for lipid disorders Screening for endocrine, metabolic and immunity disorder Need for hepatitis C screening test from Last 3 Months or Most Recently Relevant to Health Maintenance Results * OUTSIDE LAB (SCAN ORDER) (06/16/2025) Only the most recent of12 resultswithin the time period is included. 06/16/2025 [facility] Scanned SCANNING Final Resu lt * ULTRASOUND GENERIC (SCAN ORDER) (06/10/2025) Anatomical Region Laterality Modality Other 06/10/2025 [facility] Scanned SCANNING Final Resu lt * PAP SMEAR WITH HPV (08/26/2023) 08/26/2023 [facility] Scanned SCANNING Final Resu lt * HEPATITIS C ANTIBODY ([facility] ONLY) (07/14/2023 7:20 AM 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) HEPATITIS C AB NON-REACTI VE NON-REACT ROB 07/14/2023 7:07 PM 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 [facility] Comment: ANTIBODIES TO HCV NOT DETECTED. DOES NOT EXCLUDE THE POSSIBILITY OF EXPOSURE TO HCV. 07/14/2023 7:20 AM 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 Gus Elise DO LABORATORY Final Re sult [facility] [address] [place] [address], [id number] from Last 3 Months or Most Recently Relevant to Health Maintenance Insurance Care Teams Crm Dynamics Developer Relationship Specialty Start Date End Date Gus Elise DO [address] [place] [id number] PCP - General FAMILY PRACTICE 06/25/23
--- OUTSIDE RECORDS SUMMARY | 2025-06-20 18:29 | XMS_ITS | Clinical Summary ---
Author Organization [place] [address] [facility] Address [address] [place] [address] Care Team Providers Care Insurance Administrator Name Role Phone Gus Elise DO Primary Care Provide r Allergies No known active allergies Medications vit no.[id number] c 28 mg iron- 800 mcg tablet [...] Type Department Care Team Description 05/27/2025 Telephone [facility] [place], [place] Maternal- Medicine [address] [facility] Health 7th Floor [address] [place] [address] Rubi Juarez RN bleeding 05/25/2025 Results Follow-Up [facility] [place], [place] Reproductive Endocrinology [address] [facility] [address] [place] [phone] Dino Armando MD T4, free, TSH, Antimullerian hormone (AMH), Additional followed-up results: 5 05/18/2025 Orders Only [facility] [place], [place] Reproductive Endocrinology [address] [facility] [address] [place] [phone] Dino Armando MD Screening for thyroid disorder (Primary Dx); Encounter for fertility testing; Screening for rubella; Screening for viral disease; Encounter for blood typing; 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 current 05/17/2025 Orders Only [facility] [place], [place] Reproductive Endocrinology [address] [facility] [address] [place] [phone] Dino Armando MD 05/16/2025 9:00 AM CDT Telemedicine [facility] [place], [place] Reproductive Endocrinology [address] [facility] [address] [place] [phone] Dino Armando MD Recurrent loss (Primary Dx) 04/01/2025 9:36 AM CDT - 04/01/2025 11:59 PM CDT Hospital Encounter [facility] [address] [place] [address] Recurrent loss Discharge Disposition: Discharge to home or self care 03/24/2025 9:05 AM CDT Lab [facility] Outpatient Lab [facility] [place] [phone] Recurrent loss 03/24/2025 8:00 AM CDT Office Visit [facility] Medicine Maternal- Medicine [facility] [address] [facility] Medical Office [address] [place] [phone] Recurrent loss (Primary Dx) from Last 3 [...] M series) 02/08/2016 Influenza Vaccine (#1) 2025 4, 06/25/2023 DTaP/Tdap/Td Vaccine (2 - Td or [...] d Result - Final Performing Organization Address [facility]/ZIP Co de Phone Number EXTERNAL LAB * Antimullerian hormone (AMH) (05/18/2025) SCRIBED AMH, ab 4.46 EXTERNAL LAB Blood 05/18/2025 Dino Armando MD LAB BLOOD ORDERABLES Edite d Result - Final Performing Organization Address [facility]/ZIP Co de Phone Number EXTERNAL LAB * ABO/Rh (05/18/2025) SCRIBED ABO/Rh O+ EXTERNAL LAB SCRIBED Indirect Antiglobulin Negative neg - Pos EXTERNAL LAB Blood 05/18/2025 Dino Armando MD LAB BLOOD BANK TEST ORDERA BLES Final Result Performing Organization Address [facility]/ZIP Co de Phone Number EXTERNAL LAB * Rubella IgG antibody Blood (05/18/2025) SCRIBED Rubella IGG Positive EXTERNAL LAB Comment:34.8 Blood 05/18/2025 Dino Armando MD LAB MICROBIOLOGY - GENERAL ORDERABLES Final Result Performing Organization Address [facility]/ZIP Co de Phone Number EXTERNAL LAB * Antibody screen (05/18/2025) SCRIBED Indirect Antiglobulin Negative Neg - Pos EXTERNAL LAB Blood 05/18/2025 Dino Armando MD LAB BLOOD BANK TEST ORDERA BLES Final Result Performing Organization Address [facility] de Phone Number EXTERNAL LAB * Varicella Zoster IgG antibody Blood (05/18/2025) SCRIBED Varicella Zoster, IgG Positive EXTERNAL LAB Blood 05/18/2025 Dino Armando MD LAB MICROBIOLOGY - GENERAL ORDERABLES Final Result Performing Organization Address [facility] Co de Phone Number EXTERNAL LAB * (ABNORMAL) TSH (05/18/2025) Scribed TSH 0.27(A) 0.47 - 4.68 mcU/mL EXTERNAL LAB Blood 05/18/2025 Dino Armando MD LAB BLOOD ORDERABLES Final Result Performing Organization Address [facility] de Phone Number EXTERNAL LAB * T4, free (05/18/2025) SCRIBED T4, Free 1.24 0.78 - 2.19 mcg/dL EXTERNAL LAB Blood 05/18/2025 Dino Armando MD LAB BLOOD ORDERABLES Edite d Result - Final Performing Organization Address [facility] de Phone Number EXTERNAL LAB * US [...] - 13.5 sec Comment:Testing performed by : [facility], [address] [place]., [address] INR 0.94 0.90 - 1.20 [facility] Comment: Interpretive data Oral anticoagulant therapeutic ranges: Venous thromboembolism prophylaxis or treatment: 2.0-3.0 CARDIOLOGY Standard range: 2.0-3.0 High-intensity range: 2.5-3.5 Refer to indication-specific guidelines for appropriate target ranges for prosthetic heart valve replacement. Current interpretive data was last revised on 2019. Testing performed by: [facility], [address] [place]., [address] aPTT 29 26 - 38 sec [facility] Comment: Interpretive Data Heparin therapeutic range: 66.0 - 100.0 seconds. Range based on correlation with therapeutic heparin activity range of 0.3 - 0.7 Units/mL. Current interpretive data was last revised on 2023. Testing performed by: [facility], [address] [place]., [address] DRVVT screen ratio 0.89 0.00 - 1.20 Ratio [facility] Comment:Testing performed by : [facility], [address] [place]., [address] SCT Screen Ratio 0.85 0.00 - 1.16 Ratio [facility] Comment:Testing performed by : [facility], [address] [place]., [address] Lupus anticoagulant, interp Negative [facility] Comment: Interpretive data Lupus anticoagulants (LA) [...] heparin. References: 1) Dominico V, Paz A, [place] JH, Ortel TL, Nader M, De Yanot PG. Update of the guidelines for lupus anticoagulant detection. J Thromb Haemost. 2009; 7:7435-6400. 2. Denzel Pompa et al. International consensus statement on an update of the classification criteria for definite antiphospholipid syndrome (APS). J Thromb Haemost. 2006; 4:295-306. Current interpretive data was last revised on 2018 Testing performed by: [facility], [address] [facility], [place]., [address] Blood 03/24/2025 9:14 AM CDT 03/24/2025 12:22 PM CDT us Karie Johnson MD LAB BLOOD ORDERABLES Final R esult [facility] [address] Department [place] [address] * Chromosome analysis (03/24/2025 9:14 AM CDT) [facility] Result summary Normal [facility] Lab [facility] Interpretation See Footnote [facility] Comment:RESULT: No chromosom e abnormality was apparent. [facility] Result 46,XX [facility] Reason for Referral See Footnote [facility] Comment:RESULT: recurrent pr egnancy loss [facility] Specimen Blood [facility] Chromosome analysis, source Not Reported [facility] Method See Footnote [facility] Comment:RESULT: 72 hour cult ure w/mitogens [facility] Banding method See Footnote [facility] Comment: Band Resolution: [id number] Stain Name Cells Analyzed Cells Karyograms Counted Prepared GTL 5 15 2 Total 5 15 2 Dobson to Stain Name: GTL=G-banding; QFQ=Q-banding; DAPI=DAPI-staining; CBL=C-banding; AGNOR=Silver-staining; NON=Non-banded The sum of Cells Analyzed and Cells Counted equals the total cells examined. Chromosome analysis, Additional info See Footnote [facility] Comment: A portion of the testing process was performed at [facility] site [id number], [id number]. [facility] Released By See Footnote [facility] Comment: RESULT: Tad Aguilar, Ph.D. Test Performed by: [address] [address] [facility] Hospitalist: Julissa Holliday Ph.D.; IA# [id number] Blood 03/24/2025 9:14 AM CDT 03/24/2025 9:52 AM CDT [facility]ative [facility] - 04/04/2025 4:21 PM CDT Is this going to [employer]?->No us Karie Johnson MD LAB GENETIC TESTING Final Re sult [facility] [address] [place] [address] [place] ref Lab from Last 3 Months Insurance [facility] CHOICE PLUS [facility] CHOICE PLUS Care Teams Insurance Administrator Relationship Specialty Start Date End Date Gus Elise DO [address] [place] [id number] PCP - General Family Medicine 02/08/25
== END 2025-06-20 16:59 | disposition home or self-care (01) ==
LOC: ANHLAB 16:58
PROVIDERS: PCP Student in an Organized Health Care Education/Training Program; Visit Provider Student in an Organized Health Care Education/Training Program
DX: O02.1 Missed abortion (principal)
CPT/HCPCS: 36415; 84702

== ENCOUNTER 2025-06-27 15:38 | Outpatient (CLI) | payer OTHER, SELFPAY ==
--- OUTSIDE RECORDS SUMMARY | 2025-06-27 16:01 | XMS_ITS | Encounter Summary ---
Author Organization [facility] Address [address] [place] [address] Care Team Providers Care Creative Services Specialist Name Role Phone Gus Elise DO Primary Care Provider + Reason for Visit * Reason Comments Lab (SCAN) Encounter Details Date Type Department Care Team (Latest Contact Info) Description 06/20/2025 Scan HEALTH INFO SRVCS Scanned, Doc Med [...] st Contact Info) Description 06/29/2025 7:20 AM DESIGN QUALITY ENGINEER Office Visit [facility] Medical [facility] Family & Internal Medicine [address] [phone] Gus Elise DO [address] [place] [address] documented as of this encounter Procedures Procedure Name Priority Date/Time Associated Diagnosis Comments OUTSIDE LAB (SCAN ORDER) 06/20/2025 documented in this encounter Results * OUTSIDE LAB (SCAN ORDER) (06/20/2025) 06/20/2025 us Doc Med Group Scanned SCANNING Final Resu lt documented in this encounter Visit Diagnoses Not on filedocumented in this encounter Care Teams Creative Services Specialist Relationship Specialty Start Date End Date Gus Elise DO [address] [place] [address] PCP - General FAMILY PRACTICE 06/25/23 documented as of this encounter
--- OUTSIDE RECORDS SUMMARY | 2025-06-27 16:01 | XMS_ITS | Encounter Summary ---
Author Organization [facility] Address [address] [place] [address] Phone Care Team Providers Care Director Of Pharmacy Name Role Phone Gus Elise DO Primary Care Provide r Encounter Details Date Type Department Care Team (Latest Contact Info) Description 05/25/2025 Results Follow-Up [facility] Medicine Reproductive Endocrinology [address] [phone] Dino Armando MD [address] [address] T4, free, TSH, Antimullerian hormone [...] on filedocumented in this encounter Care Teams Director Of Pharmacy Relationship Specialty Start Date End Date Gus Elise DO [address] [place] [id number] PCP - General Family Medicine 02/08/25 documented as of this encounter
--- OUTSIDE RECORDS SUMMARY | 2025-06-27 16:01 | XMS_ITS | Data Portability ---
Author Organization [facility] [place] Address [address] [place] [address] [address] Care Team Providers Care Tugboat Pilot Name Role Phone MEAGHAN JEFF Primary Care Provider Assessment No assessment recorded. Plan of Treatment Reminders Order Date Submit Date Provider Last Modified By Organization Details Last Modified Time Details Appointments None recorded. Lab test, urine 2023 024 [email or web address] [address], [address], [place], [address], 4 18:22:25 test, urine 2023 024 [email or web address] [address], [address], [place], [address], 4 16:03:13 Referral None recorded. Procedures None recorded. Surgeries None recorded. Imaging US, obstetric, transvagina l 2023 024 [email or web address] [address], [address], [place], [address], 4 12:53:52 XR, hysterosalp ingogram [address] [facility], [facility] [address], [place], [address], 5 10:28:28 Medication Orders None recorded. Patient [...] 9-246 > 75 12-15 4 Not Available [facility] (Lab) [address], [place], [address], 03/11/2024 16:55:20 02/27/20 24 02/27/2024 ESTRA DIOL [...] 154-3 243 pg/mL 2nd [place] 1561- 41733 pg/mL 3rd [place] 8525- >3000 0 pg/mL Not Available [facility] (Lab) [address] [place], [address], 03/11/2024 16:55:20 02/27/20 24 02/27/2024 PROGE STERO [...] Trime ster 58.70 -214. 00 Not Available [facility] (Lab) [address], [place], [address], 03/11/2024 16:55:21 02/27/20 24 02/27/2024 PROLA CTIN prolactin, total 18.50 NG/mL 4.79-2 3.30 This assay was perfo rmed using [employer] ratio n reage nts and test kits. Value s obtai sandra with other assay metho ds or kits canno t be used inter mancilla eably . Not Available [facility] (Lab) [address], [place], [address], 03/11/2024 16:55:21 02/27/20 24 02/27/2024 T4 FREE T4, free 1.09 NG/dL 0.60-1 .40 This assay is susce ptibl e to inter feren ce from high level s of bioti n which may false ly eleva te resul ts. Pleas e corre late with clini radames findi ngs. Not Available [facility] (Lab) [address], [place], [address], 03/11/2024 16:55:22 02/27/20 24 02/27/2024 TSH, REFLE X FREE T4 TSH 0.27 uIU/m L 0.30-5 .33 low Not Available [facility] (Lab) [address] [place], [address], 03/11/2024 16:55:22 02/27/20 24 02/27/2024 LH (LUTE [...] use: 7.7-5 8.5 mIU/m L Not Available [facility] (Lab) [address], [place], [address], 03/11/2024 16:55:22 02/27/20 24 02/27/2024 FSH FSH 7.8 mIU/m L This assay was perfo rmed using [employer] ratio n reage nts and test kits. Value s obtai sandra with other assay metho ds or kits canno t be used inter [facility] . Femal es Folli cular : 3.5-1 2.5 mIU/m L Ovula tion: 4.7-2 1.5 mIU/m L Lutea l: 1.7-7 .7 mIU/m L Postm enopa use: 25.8- 134.8 mIU/m L Not Available [facility] (Lab) [address], [place], [address], 03/11/2024 16:55:23 02/27/20 24 02/27/2024 HUMAN SEX HORMO NE HILDA NG GLOBU ELSA sex hormone binding globulin 78.8 nmole s/L 18.2-1 35.5 Not Available [facility] (Lab) [address], [place], [address], 03/11/2024 16:55:23 02/27/20 24 02/27/2024 HEMOG LOBIN [...] >8.0% Actio n sugjay sted Not Available [facility] (Lab) [address], [place], [address], 03/11/2024 16:55:24 02/27/2002/27/2024 17-HY DROXY PROGE STERO NE, SERUM 17-hydroxypr ogesterone, S 56 NG/dL ----- ----- ----- ----R EFERE NCE VALUE ----- ----- ----- ----- ----- - < 80 (Foll icula r) <285 (Lute al) ----- ----- ----- ----A DDITI ONAL INFOR MATIO N---- ----- ----- ----- This test was dereje wright and its perfo rmanc e allen monacori stics deter mined by [facility] in a chad r consi stent with EARL wong ts. This test has not been clear ed or appro viri by the U.S. Food and Drug Admin istra tion. Test Perfo rmed by: [facility] - [place] [address] , [place] [address] Lab Direc tor: Ada Adair nn Ph.D. ; CLIA# [id number] Not Available [facility] (Lab) [address], [place], [address], 03/11/2024 16:55:24 02/27/2002/27/2024 TESTO STERO NE, TOTAL AND FREE, SERUM (LC-M S/MS) testosterone free 0.80 NG/dL <0.13- 1.00 ----- ----- ----- ----A DDITI ONAL INFOR MATIO N---- ----- ----- ----- This test was devel oped and its perfo rmanc e allen cteri stics deter mined by [facility] in a chad r consi stent with CLIA requi remen ts. This test has not been clear ed or appro viri by the U.S. Food and Drug Admin istra tion. Not Available [facility] (Lab) [address], [place], [address], 03/11/2024 16:55:25 02/27/20 24 02/27/2024 TESTO STERO [...] e allen cteri stics deter mined by [facility] in a chad r consi stent with CLIA requi remen ts. This test has not been clear ed or appro viri by the U.S. Food and Drug Admin istra tion. Test Perfo rmed by: [facility] - [place] [address], [place] [address] Lab Direc tor: dAa Adair nn Ph.D. ; CLIA# [id number] Not Available [facility] (Lab) [address], [place], [address], 03/11/2024 16:55:25 02/27/20 24 02/27/2024 pregn annabelle test, urine HCG negati ve Not Available [address], [place], [address], 02/27/2024 16:02:53 03/26/20 24 03/26/2024 TSH, REFLE X FREE T4 TSH 0.47 uIU/m L 0.30-5 .33 Not Available [facility] (Lab) [address], [place], [address], 03/27/2024 07:08:35 04/29/20 24 04/29/2024 pregn annabelle test, urine HCG negati ve Not Available [facility] [address], [place], [address], 04/29/2024 18:12:16 04/21/20 24 04/21/2024 US, obste tric, trans vagin al No observ ation record ed. [email or web address] [facility] [address], [place], [address], 04/21/2024 18:16:21 04/21/20 24 04/21/2024 US, obste tric, trans vagin al No observ ation record ed. [email or web address] Josefa [address] [address], [place], [address], 04/22/2024 11:52:58 Result Notes None recorded. Problems Name Problem SNOMED Code Status Onset Date Resolution Date Notes Provider Name and Address Organization Details Recorded Time Speciali moo medical examinat ion Completed 201308/10/2021 Gynecolog ical Examinati on;Record ed Elsewhere : No Locati on: [facility] So urce: EHR Chron ic: N Practic e ID: [id number] Bill able Time: 02:15:00 PM Ashley no [facility] 2 13:05:33 Screenin g for malignan t neoplasm of cervix Completed 201308/10/2021 Pap Smear;Pra ctice ID: 0001 Ashley no [facility] [address] 14:15:[address] Concept Completed 201408/10/2021 Encntr for automatic buffing wheel former exam (general) (routine) w/o abn findings; Recorded Elsewhere : No Locati on: [facility] So urce: EHR Chron ic: N Practic e ID: 0001 Bill able Time: 11:00:00 AM Ashley Pisano [facility] [address] 13:05:[address] Concept Completed 201408/10/2021 Encntr for general adult medical exam w/o abnormal findings; Recorded Elsewhere : No Locati on: [facility] So urce: EHR Chron ic: N Practic e ID: 0001 Bill able Time: 11:00:00 AM Ashley Pisano [facility] 2 13:05:29 Blood leukocyt e number above referenc e range [id number] Completed 201608/10/2021 Elevated white blood cell count, unspecifi ed;Record ed Elsewhere : No Locati on: [facility] So urce: EHR Chron ic: N Practic e ID: 0001 Bill able Time: 05:45:00 PM Ashley Pisano [facility] 2 12:46:52 Acute vaginiti s 69703331 Completed 201608/10/2021 Acute vaginitis ;Practice ID: 0001 Ashley Pisano [facility] 2 12:46:47 Urinary tract infectio us disease 19753899 Completed 201708/10/2021 UTI;Recor ded Elsewhere : No Locati on: [facility] So urce: EHR Chron ic: N Practic e ID: 0001 Bill able Time: 05:30:00 PM Ashley Pisano [facility] 2 13:05:35 Atypical squamous cells on cervical Papanico laou smear cannot exclude high grade squamous intraepi thelial lesion 885623846 Completed 201808/10/2021 Atyp squam cell not excl hi grd intrepith lesn cyto smr crvx;Daniele rded Elsewhere : No Locati on: [facility] So urce: EHR Chron ic: N Practic e ID: 0001 Bill able Time: 10:15:00 AM [facility] 2 12:46:50 Atypical squamous cells of undeterm ined signific ance on cervical Papanico laou smear 277527012 Completed 201808/10/2021 Atyp squam cell of undet signfc cyto smr crvx (ASC-US); Recorded Elsewhere : No Locati on: [facility] So urce: EHR Chron ic: N Practic e ID: 0001 Bill able Time: 10:15:00 AM Ashley Pisano [facility] 2 12:46:49 Pregnanc y test negative [id number] Completed 201808/10/2021 Encounter for test, result negative; Recorded Elsewhere : No Locati on: [facility] So urce: EHR Chron ic: N Practic e ID: 0001 Bill able Time: 10:15:00 AM Ashley Pisano [facility] 2 12:46:55 Problem Notes None recorded. Procedures Surgical History Date Name Laterality Status Provider Name and Address Organization Details Recorded Time 08/26/19 24 Date of Last Pap Smear completed Karley Arias [facility] 02/27/2024 15:51:07 02/27/20 21 endoscopy completed Renae Rodríguez MARCE- [address], [place], [address], [place] [facility] 08/10/2021 14:44:28 02/03/20 19 Colposcopy completed Ashley Pisano [facility] 08/10/2021 14:39:04 Imaging Results None recorded. Procedure Notes None recorded. Medical Equipment None Reported. Allergies No known drug allergies Medications Name Sig Start Date Stop Date Status Note LastModified by Organization Details LastModified Time Diflucan 150 mg tablet take 1 tablet by oral route every other week. 02/02 completed Prescrib ed Elsewher e: No Locat ion: [facility] odify By: [email or web address] z Encoun ter DateTime : 01/19/20 19 02:30:00 PM Not Available Not Available Not Available sulfameth oxazole 800 mg-trimet hoprim 160 mg tablet take 1 tablet by oral route every 12 hours 02/02 completed Prescrib ed Elsewher e: No Locat ion: [facility] od[facility] DateTime : 12/24/19 18 [...] Prescrib ed Elsewher e: No Locat ion: [facility] odify By: [email or web address] marquez DateTime [...] Updated DateTime 02/27/2024 160.02 cm 30.6 kg/m2 53183.48 g 114/78 mm[Hg] Karley [facility] 02/27/2024 15:50:21 Date Recorded Body height Body mass index (BMI) Body weight Systolic And Diastolic Provider Name and Address Organization Details Last Updated DateTime 03/16/2024 160.02 cm 31.4 kg/m2 70551.85 g 124/83 mm[Hg] Karley [facility] 03/16/2024 12:37:53 Date Recorded Body height Body mass index (BMI) Body weight Systolic And Diastolic Provider Name and Address Organization Details Last Updated DateTime 04/21/2024 160.02 cm 30.6 kg/m2 60558.48 g 123/78 mm[Hg] [place] [facility] 04/21/2024 14:41:35 Date Recorded Body height Body mass index (BMI) Body weight Systolic And Diastolic Provider Name and Address Organization Details Last Updated DateTime 04/29/2024 160.02 cm 30.4 kg/m2 56268.73 g 116/75 mm[Hg] Tere Castanon [facility] 04/29/2024 17:15:24 Social History Question Answer Notes LastModified by Organizat ion Details LastModified Time Tobacco Smoking Status Never Smoker Ashley Norris [facility] 08/10/2021 14:35:15 Do You [...] Or The Highest Degree You Have Received? [id number] Information not available 08/10/2021 Are There Any [...] Have Difficulty Walking Or Climbing Stairs? No [email or web address] Information not available 04/21/2024 Sex: Unknown Functional [...] able to care for yourself independently? 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 No [email or web address] Information not available 04/21/2024 What is your exercise level? Moderate Information not available 08/10/2021 Mental Status Question Answer Note LastModified by Organization D etails LastModified Time Do you feel stressed (tense, restless, nervous, or anxious, or unable to sleep at night)? [id number] Information not available 08/10/2021 Family History Relationship Description Onset Age of this Age Resolved Age Notes LastModified by Organization Details LastModified Time Mother Diabetes mellitus [email or web address] Not available 2019 11:46:26 Paternal Grandmother Diabetes mellitus [email or web address] Not available 2019 11:46:26 Paternal Grandmother Carcinoma in situ of lung [email or web address] Not available 12:19:04 Paternal Aunt Carcinoma in [...] ICD10 Code Diagnosis IMO Codes Diagnosis Note [id number] Renae Rod[facility] [address],[facility] [place] [address] 05/08/2020 11:45:17 05/08/2020 17:52:43 Gynecologic examination 05909649 Z01.419 Take Calcium with Vitamin D 1200mg [...] 2019 consistent with pap results Pap/hpv ordered [id number] [facility] [address],[facility] [place] [address] 08/10/2021 14:21:36 08/10/2021 15:18:57 Gynecologic examination 64206719 Z01.419 Take Calcium with Vitamin D 1200mg [...] this year! Waiting to set the date. [facility] ion care management [id number] Z30.9 Happy on OCPRF sent x 1yr [id number] ARISTEO [facility] [address] [address] 08/26/2023 09:00:06 08/26/2023 09:31:11 Gynecologic examination 81939321 Z01.419 Z11.51 Take Calcium with Vitamin D [...] with folic acid [id number] Henry Carpenter MD [facility] [address] [address] 02/27/2024 15:17:26 03/04/2024 23:33:34 Irregular periods 20860038 N92.6 Reproducti ve care management 888896703 Z31.9 - Differenti al diagnosis of cause [...] the patient's care. [id number] Henry Carpenter MD [facility] [address] [address] 03/16/2024 12:18:54 03/17/2024 09:58:00 Female infertility 8583193 N97.9 Presents today for discussion of infertilit [...] We agreed to proceed with hysterosal pingogram. [id number] Henry Carpenter MD [facility] [address] [address] 04/21/2024 14:12:24 04/21/2024 15:02:43 Threatened miscarriage 31495866 O20.0 O36.80X0 Z3A.00 [id number] Valerie Danielle CNM [facility] [address] [address] 04/21/2024 14:13:18 04/21/2024 15:59:49 Long menstrual cycle 134618756 N92.5 missed ab, vs early pregnancyp brandyn HCG and then rpt in 48 hoursblood type drawncall if any concerns or increase in bleeding, will plan f/u next week pending resultscon tinue vitamin Hyperthyroidism 34634562 E05.90 rpt tsh free t4 and t3 today [id number] Henry Carpenter MD [facility] [address] [address] 04/29/2024 17:07:06 04/30/2024 09:37:31 Missed miscarriage 70900334 O02.1 this patient presents for postop follow-up. [...] Rahman Member ID Guarantor Name 03/16/2024 1 [facility] [id number] Vaishali Liudmila [id number] Vaishali Carr 05/03/2024 1 [facility] - DOS PRIOR TO 2024 (PPO) Vaishali Schultz Lilly [id number] A Vaishali Carr 03/16/2024 1 [employer] - FEP 111 Vaishali Schultz Lilly [id number] Vaishali Lilly Notes Date Note Type Note [...] appropriately Henry Carpenter MD [address], [place], [address], [facility] 02/28/2024 13:22:26 4 text/html [...] hysterosalpingogram. Henry Carpenter MD [address], [place], [address], [facility] 03/17/2024 09:54:27 4 text/html ROS as noted in the HPI +UPT, pt having some spotting, send for blood typeon US today not seeing 9 week IUP, discussed could be early vs miscarriagept also wants to discuss hyperthyroidism no current meds Valerie Danielle CNM [address], [place], [address], [facility] 04/21/2024 15:12:29 4 text/html [...] on. Henry Carpenter MD [address], [place], [address], [facility] 04/29/2024 18:22:54 OBGyn Episode Ob Episode Information Episode Created Date Number of Fetuses Patient Bloodtype Patient rh Status Prepregnancy Weight lbs Domestic Partner Domestic Partner Phone Father Name Hospitality Intern Status 04/21/20 24 1 CLOSED Fetus Data First Name Last Name Admitted to NICU Weight (g) Sex Living Outcome Pediatric Complications Fetus ID Race Codes Race Delivery Type , Spontane ous [id number] Andrey Calculation Initial Andrey Date Initial Exam [...]
--- OUTSIDE RECORDS SUMMARY | 2025-06-27 16:02 | XMS_ITS | Clinical Summary ---
Author Organization [facility] Address [address] [place] [address] Care Team Providers Care Corporate Human Resources Manager Name Role Phone Gus Elise Primary [...] Encounters Date Type Department Care Team Description 06/20/2025 Scan [facility] Scanned, [facility] (SCAN) 06/16/2025 Scan [facility] INFO [facility] Scanned, [...] st Contact Info) Description 06/29/2025 7:20 AM BIOINFORMATICS SOFTWARE ENGINEER Office Visit [facility] Family [facility] Internal Medicine [facility] [address] [place] [address] Gus Elise, [address] [place] [address] Health Maintenance Due Date Last Done Comments [...] Clinic) Hepatitis C Completed 07/14/2023 PHQ-2 (Physician [place]) Completed 11/09/2024 Hepatitis B Vaccines Completed 02/10/2025, [...] Diagnosis Comments OUTSIDE LAB (SCAN ORDER) 06/20/2025 OUTSIDE LAB (SCAN ORDER) 06/16/2025 OUTSIDE LAB [...] HEPATITIS C ANTIBODY Routine 07/14/2023 7:20 AM BIOINFORMATICS SOFTWARE ENGINEER Encounter for preventative adult health care examination Screening for lipid disorders Screening for endocrine, metabolic and immunity disorder Need for hepatitis C screening test from Last 3 Months or Most Recently Relevant to Health Maintenance Results * OUTSIDE LAB (SCAN ORDER) (06/20/2025) Only the most recent of13 resultswithin the time period is included. 06/20/2025 [facility] Scanned SCANNING Final Resu lt * ULTRASOUND GENERIC (SCAN ORDER) (06/10/2025) Anatomical Region Laterality Modality Other 06/10/2025 [facility] Scanned SCANNING Final Resu lt * PAP SMEAR WITH HPV (08/26/2023) 08/26/2023 [facility] Scanned SCANNING Final Resu lt * HEPATITIS C ANTIBODY ([facility] ONLY) (07/14/2023 7:20 AM BIOINFORMATICS SOFTWARE ENGINEER) HEPATITIS C AB NON-REACTI VE NON-REACT ROB 07/14/2023 7:07 PM BIOINFORMATICS SOFTWARE ENGINEER [facility] Comment: ANTIBODIES TO HCV NOT DETECTED. DOES NOT EXCLUDE THE POSSIBILITY OF EXPOSURE TO HCV. 07/14/2023 7:20 AM BIOINFORMATICS SOFTWARE ENGINEER Phantom Gus Elise DO LABORATORY Final Re sult [facility] [address] [place] [address], [place] [phone] [id number] from Last 3 Months or Most Recently Relevant to Health Maintenance [place] [place] [address] Care Teams Corporate Human Resources Manager Relationship Specialty Start Date End Date Gus Elise DO [address] [place] [id number] PCP - General FAMILY PRACTICE 06/25/23
--- OUTSIDE RECORDS SUMMARY | 2025-06-27 16:02 | XMS_ITS | Clinical Summary ---
Author Organization [place] [id number] [facility] Address [address] [place] [address] Care Team Providers Care Lithographic Press Operator Name Role Phone Gus Elise DO Primary Care Provide r Allergies No known active allergies Medications vit no.681-tkag-vkoa c 28 mg iron- 800 mcg tablet [...] Type Department Care Team Description 05/27/2025 Telephone [facility] [address] [facility] 7th [address] [place] [address] Rubi Juarez RN bleeding 05/25/2025 Results Follow-Up [facility] [address] [facility] [address] [place] [address] Dino Armando MD T4, free, TSH, Antimullerian hormone (AMH), Additional followed-up results: 5 05/18/2025 Orders Only [facility] [address] [facility] [address] [place] [address] Dino Armando MD Screening for thyroid disorder (Primary Dx); Encounter for fertility testing; Screening for rubella; Screening for viral disease; Encounter for blood typing; 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 current 05/17/2025 Orders Only [facility] [address] [facility] [address] [place] [address] Dino Armando MD 05/16/2025 9:00 AM CDT Telemedicine [facility] [address] [facility] [address] [place] [address] Dino Armando MD Recurrent loss (Primary Dx) 04/01/2025 9:36 AM CDT - 04/01/2025 11:59 PM CDT Hospital Encounter [facility] [address] [facility] [address] [place], [place] [id number] Recurrent loss Discharge Disposition: Discharge to home or self care from Last 3 Months Surgical History Surgery [...] Used Date Smoking Tobacco: Former Cigarettes 2 012 - 2020 Smokeless Tobacco: Never Tobacco Cessation:Counseling [...] Routine) 04/01/2025 9:36 AM CDT Recurrent loss from Last 3 Months Results * Beta 2 glycoprotein IgG Ab (05/18/2025) SCRIBED Beta-2 Glyco 1 IgG <9 EXTERNAL LAB Blood 05/18/2025 us Dino Armando MD LAB BLOOD ORDERABLES Edite [...] d Result - Final Performing Organization Address City/[facility]/ZIP Co de Phone Number EXTERNAL [...] MD IMG US PROCEDURES Final Resu lt from Last 3 Months Insurance [id number] CHO[facility] H[facility]/PPO Address: [address] [address] [place] [address] [facility] CHOICE PLUS [facility] HMO/PPO Address: [address] [address] [place] [address] Care Teams Lithographic Press Operator Relationship Specialty Start Date End Date Gus Elise DO [address] [place] [address] [phone] PCP - General Family Medicine 02/08/25
[2025-06-27 16:29] LABS: Beta HCG Quantitative 23.68 mIU/ML
== END 2025-06-27 15:39 | disposition home or self-care (01) ==
LOC: ANHLAB 15:39
PROVIDERS: PCP Student in an Organized Health Care Education/Training Program; Visit Provider Student in an Organized Health Care Education/Training Program
DX: O02.1 Missed abortion (principal); Z3A.00 Weeks of gestation of pregnancy not specified
CPT/HCPCS: 36415; 84702

== ENCOUNTER 2025-07-04 17:20 | Outpatient (CLI) | payer OTHER, SELFPAY ==
[2025-07-04 19:17] LABS: Beta HCG Quantitative < 2.39 mIU/ML
== END 2025-07-04 17:21 | disposition home or self-care (01) ==
LOC: ANHLAB 17:20
PROVIDERS: PCP Student in an Organized Health Care Education/Training Program; Visit Provider Student in an Organized Health Care Education/Training Program
DX: O02.1 Missed abortion (principal)
CPT/HCPCS: 36415; 84702